=== PATIENT | female | born 1930 | race Caucasian/White ===

== ENCOUNTER 2019-08-20 14:41 | Inpatient (IN) | payer MEDICARE, BC ==
[~2019-08-20] VITALS: Ht 165.1 cm; Wt 68.1 kg
[2019-08-20 15:35] LABS: BASO % 0 % (0-3); EOS % 0 % (0-3); HEMATOCRIT 40.3 % (36.0-47.0); HEMOGLOBIN 13.7 g/dL (12.0-15.5); LYMPH # 0.8 x10^3/uL (1.0-4.8); LYMPH % 6 % (24-48); MEAN CORPUSCULAR HEMOGLOBIN 31 pg (25-35); MEAN CORPUSCULAR HGB CONC 34 g/dL (31-37); MEAN CORPUSCULAR VOLUME 90 fL (79-100); MONO # 0.9 x10^3/uL (0.0-1.1); MONO % 8 % (0-9); NEUT # 10.3 x10^3uL (1.8-7.7); NEUT % 86 % (31-73); PLATELET COUNT 302 x10^3/uL (140-400); RED BLOOD COUNT 4.46 x10^6/uL (3.50-5.40); RED CELL DISTRIBUTION WIDTH 13.4 % (11.5-14.5)
--- NOTE | 2019-08-20 15:50 | PHYS DOC ---
Adult General Chief Complaint Chief Complaint: MULTIPLE COMPLAINTS HPI HPI 89-year-old female presents with shortness of breath and fatigue. The patient has had long-standing shortness of breath, but she feels it is worse last couple days. She also feels extremely tired. She is not sure why. She denies any fever or chills. She denies any medication changes. She has been eating and drinking, but decreased amounts. She denies dysuria or increased urinary frequency. She has had constipation for about 3 days. She denies abdominal pain or chest pain. Review of Systems Review of Systems Constitutional: Fatigue. Denies fever or chills [] Eyes: Denies change in visual acuity, redness, or eye pain [] HENT: Denies nasal congestion or sore throat [] Respiratory: Denies cough or shortness of breath [] Cardiovascular: No additional information not addressed in HPI [] GI: Constipation. Denies abdominal pain, nausea, vomiting, bloody stools or diarrhea [] : Denies dysuria or hematuria [] Musculoskeletal: Denies back pain or joint pain [] Integument: Denies rash or skin lesions [] Neurologic: Denies headache, focal weakness or sensory changes [] Endocrine: Denies polyuria or polydipsia [] All other systems were reviewed and found to be within normal limits, except as documented in this note. Physical Exam Physical Exam Constitutional: Well developed, well nourished, no acute distress, non-toxic appearance. [] HENT: Normocephalic, atraumatic, bilateral external ears normal, oropharynx m oist, no oral exudates, nose normal. [] Eyes: PERRLA, EOMI, conjunctiva normal, no discharge. [] Neck: Normal range of motion, no tenderness, supple, no stridor. [] Cardiovascular:Heart rate regular rhythm, no murmur [] Lungs & Thorax: Bilateral breath sounds clear to auscultation [] Abdomen: Bowel sounds normal, soft, mild epigastric tenderness, no masses, no pulsatile masses. [] Skin: Warm, dry, no erythema, no rash. [] Back: No tenderness, no CVA tenderness. [] Extremities: No tenderness, no cyanosis, no clubbing, ROM intact, no edema. [] Neurologic: Alert and oriented X 3, normal motor function, normal sensory function, no focal deficits noted. [] Psychologic: Affect normal, judgement normal, mood normal. [] EKG EKG Sinus rhythm, rate 77, normal axis, no ST elevations or depressions. Inverted T waves V2 through V6[] Radiology/Procedures Radiology/Procedures [] Impressions: EXAM: 1. CHEST ONE VIEW. 2. ABDOMEN ONE VIEW. HISTORY: Malaise, constipation. COMPARISON: None. FINDINGS: Linear opacities in the bases are consistent with atelectasis or mild infiltrates. Hyperinflation is consistent with chronic obstructive pulmonary disease. There is no pneumothorax or pleural effusion. The heart is mildly enlarged. The aorta is calcified and tortuous. There are changes of instrumented posterior fusion on the right at L4-5. Stool throughout the colon is consistent with mild constipation. There are no distended small bowel loops. There is gas distally. IMPRESSION: 1. Hyperinflation suggests chronic obstructive pulmonary disease. Mild basilar atelectasis versus infiltrate. 2. Mild cardiomegaly. 3. Findings consistent with mild constipation. Electronically signed by: Jamil Luong MD (08/20/2019 4:00 PM) [facility] DICTATED AND SIGNED BY: JEANETTE LUONG MD DATE: 08/20/19 1600 CC: CARLOS CARBONE DO; LEANDRO ELKINS ~ Course & Med Decision Making Course & Med Decision Making Pertinent Labs and Imaging studies reviewed. (See chart for details) The patient's chest x-ray shows hyperinflation and basilar atelectasis. She has mild constipation throughout the colon. See official read for more details. She does not have a fever. Her ProBNP is 7099. Cr is 1.8, but I have history for comparison. Given her proBNP, bilateral atelectasis, and symptoms or shortness of breath, this seems likely to be CHF exacerbation. We will give her 40 mg of Lasix IV. We will admit her to the hospital. The patient is reluctant to be admitted, but her son is the power of workers compensation defense attorney and would like her admitted. I spoke with Dr. Cameron and he has accepted the patient for admission. [] Dragon Disclaimer Dragon Disclaimer This electronic medical record was generated, in whole or in part, using a voice recognition dictation system. Departure Departure: Impression: Primary Impression: CHF (congestive heart failure) Disposition: 09 ADMITTED INPATIENT Admitting Physician: Benigno Cameron Condition: STABLE Referrals: LEANDRO ELKINS (PCP) Problem Qualifiers Primary Impression: CHF (congestive heart failure) Heart failure type: systolic Heart failure chronicity: acute on chronic Qualified Codes: I50.23 - Acute on chronic systolic (congestive) heart failure CARLOS CARBONE DO Aug 20, 2019 15:50
--- NOTE | 2019-08-20 16:03 | RAD ---
EXAM: 1. CHEST ONE VIEW. 2. ABDOMEN ONE VIEW. HISTORY: Malaise, constipation. COMPARISON: None. FINDINGS: Linear opacities in the bases are consistent with atelectasis or mild infiltrates. Hyperinflation is consistent with chronic obstructive pulmonary disease. There is no pneumothorax or pleural effusion. The heart is mildly enlarged. The aorta is calcified and tortuous. There are changes of instrumented posterior fusion on the right at L4-5. Stool throughout the colon is consistent with mild constipation. There are no distended small bowel loops. There is gas distally. IMPRESSION: 1. Hyperinflation suggests chronic obstructive pulmonary disease. Mild basilar atelectasis versus infiltrate. 2. Mild cardiomegaly. 3. Findings consistent with mild constipation. Electronically signed by: Jamil Luong MD (08/20/2019 4:00 PM) [facility]
[2019-08-20 16:27] LABS: ALBUMIN 3.4 g/dL (3.4-5.0); ALBUMIN/GLOBULIN RATIO 0.9 (1.0-1.7); CREATININE 1.8 mg/dL (0.6-1.0); GFR 26.6; POTASSIUM 4.1 mmol/L (3.5-5.1); TOTAL BILIRUBIN 0.8 mg/dL (0.2-1.0); TOTAL PROTEIN 7.2 g/dL (6.4-8.2)
[2019-08-20 16:38] LABS: BACTERIA,URINE 0 /HPF (0-FEW); BILIRUBIN,URINE NEG (NEG); CLARITY,URINE HAZY; COLOR,URINE YELLOW; GLUCOSE,URINE NEG (NEG); HYALINE CASTS, URINE OCC /HPF; NITRITE,URINE NEG (NEG); RBC,URINE 0 /HPF (0-2); SQUAMOUS EPITHELIAL CELL,UR FEW /LPF; UROBILINOGEN,URINE 0.2 mg/dL (0.2 mg/dL)
[2019-08-20] MEDS ORDERED: FUROSEMIDE 40 MG/4 ML VIAL IVP ONE (17:00)
[2019-08-20] MEDS ORDERED: ONDANSETRON PF 4 MG/2 ML VIAL. IV PRN (17:30)
[2019-08-20] MEDS: ACETAMINOPHEN 325 MG TABLET PO PRN (18:09)
[2019-08-20] MEDS ORDERED: LORazepam 1 MG TABLET PO ONE (18:15)
[2019-08-20 20:07] VITALS: BP 149/80
--- NOTE | 2019-08-20 20:53 | NUR ---
Pt brought to unit via gurney accompanied by ems. Pt belongings checked, vitals taken, and head to toe assessed. Pt given unit routines and is resting with bed alarm activated.
--- NOTE | 2019-08-20 21:43 | PDOC ---
Exam Note: Leif Note: Please also refer to the separate dictated note~for this date of service dictated separately.~Patient seen individually. Discussed the patient with Nursing staff reviewed the chart.~Reviewed interim history and current functioning. Reviewed vital signs,~Labs/ Radiology~and current medications noted below. Continue current treatment with the changes noted in the dictated addendum note Assessment: Vital Signs/I&O: Vital Signs Date Time Temp Pulse Resp B/P (MAP) Pulse Ox O2 Delivery O2 Flow Rate FiO2 08/20/19 20:07 98.1 73 20 149/80 (103) 97 Room Air Labs: Laboratory Tests Test 08/20/19 14:47 08/20/19 15:45 08/20/19 16:05 White Blood Count 12.0 x10^3/uL (4.0-11.0) H Red Blood Count 4.46 x10^6/uL (3.50-5.40) Hemoglobin 13.7 g/dL (12.0-15.5) Hematocrit 40.3 % (36.0-47.0) Mean Corpuscular Volume 90 fL (79-100) Mean Corpuscular Hemoglobin 31 pg (25-35) Mean Corpuscular Hemoglobin Concent 34 g/dL (31-37) Red Cell Distribution Width 13.4 % (11.5-14.5) Platelet Count 302 x10^3/uL (140-400) Neutrophils (%) (Auto) 86 % (31-73) H Lymphocytes (%) (Auto) 6 % (24-48) L Monocytes (%) (Auto) 8 % (0-9) Eosinophils (%) (Auto) 0 % (0-3) Basophils (%) (Auto) 0 % (0-3) Neutrophils # (Auto) 10.3 x10^3uL (1.8-7.7) H Lymphocytes # (Auto) 0.8 x10^3/uL (1.0-4.8) L Monocytes # (Auto) 0.9 x10^3/uL (0.0-1.1) Eosinophils # (Auto) 0.0 x10^3/uL (0.0-0.7) Basophils # (Auto) 0.0 x10^3/uL (0.0-0.2) Sodium Level 134 mmol/L (136-145) L Potassium Level 4.1 mmol/L (3.5-5.1) Chloride Level 98 mmol/L (98-107) Carbon Dioxide Level 24 mmol/L (21-32) Anion Gap 12 (6-14) Blood Urea Nitrogen 30 mg/dL (7-20) H Creatinine 1.8 mg/dL (0.6-1.0) H Estimated GFR (Cockcroft-Gault) 26.6 BUN/Creatinine Ratio 17 (6-20) Glucose Level 103 mg/dL (70-99) H Calcium Level 9.0 mg/dL (8.5-10.1) Total Bilirubin 0.8 mg/dL (0.2-1.0) Aspartate Amino Transferase (AST) 38 U/L (15-37) H Alanine Aminotransferase (ALT) 34 U/L (14-59) Alkaline Phosphatase 77 U/L (46-116) Troponin I Quantitative < 0.017 ng/mL (0-0.055) UD-Pma-[id number]-Type Natriuretic Peptide 7099 pg/mL (0-449) H Total Protein 7.2 g/dL (6.4-8.2) Albumin 3.4 g/dL (3.4-5.0) Albumin/Globulin Ratio 0.9 (1.0-1.7) L Urine Collection Type Unknown Urine Color Yellow Urine Clarity Hazy Urine pH 5.5 Urine Specific [place] 1.015 Urine Protein 30 mg/dl (NEG-TRACE) Urine Glucose (UA) Neg mg/dL (NEG) Urine Ketones (Stick) Neg mg/dL (NEG) Urine Blood Neg (NEG) Urine Nitrite Neg (NEG) Urine Bilirubin Neg (NEG) Urine Urobilinogen Dipstick 0.2 mg/dL (0.2 mg/dL) Urine Leukocyte Esterase Small (NEG) Urine RBC 0 /HPF (0-2) Urine WBC 5-10 /HPF (0-4) Urine Squamous Epithelial Cells Few /LPF Urine Bacteria 0 /HPF (0-FEW) Urine Hyaline Casts Occ /HPF Urine Mucus Slight /LPF Current Medications: Meds: Current Medications Medications (Trade) Dose Ordered Sig/Beka Route PRN Reason Start Time Stop Time Status Last Admin Dose Admin Furosemide (Lasix) 40 mg 1X ONCE IVP 08/20/19 17:00 08/20/19 17:16 DC 08/20/19 17:06 Acetaminophen (Tylenol) 650 mg PRN Q4HRS PRN PO FEVER 08/20/19 17:30 08/21/19 17:29 08/20/19 18:09 Lorazepam (Ativan) 2 mg 1X ONCE PO 08/20/19 18:15 08/20/19 18:23 DC 08/20/19 18:09 I have reviewed the current psychotropics carefully including drug interactions. Risk benefit ratio favors no change other than as noted in my dictated progress note. Diagnosis: Problems: (1) CHF (congestive heart failure) ISAAC DEUTSCH MD Aug 20, 2019 21:43
[2019-08-20 23:36] VITALS: BP 86/55
[2019-08-21] MEDS ORDERED: APIX5TAB3 PO (05:12)
[2019-08-21] MEDS ORDERED: LEVO125T5 PO (05:12)
[2019-08-21] MEDS ORDERED: IBUP800T19 PO (05:12)
[2019-08-21] MEDS ORDERED: ASPI-630 PO (05:12)
[2019-08-21] MEDS ORDERED: ALEN35TA11 PO (05:12)
[2019-08-21] MEDS ORDERED: CALC-30 PO (05:12)
[2019-08-21] MEDS ORDERED: DOCO300C3 PO (05:12)
[2019-08-21] MEDS ORDERED: DULO30CA2 PO (05:12)
[2019-08-21] MEDS ORDERED: DICL100G18 TP (05:12)
[2019-08-21] MEDS ORDERED: CHOL10003 PO (05:12)
[2019-08-21] MEDS ORDERED: PANT40TA5 PO (05:12)
[2019-08-21] MEDS ORDERED: LISI-338 PO (05:12)
[2019-08-21 05:53] VITALS: BP 129/78
[2019-08-21] MEDS ORDERED: DICLOFENAC SODIUM 1% TOPICAL GEL 100GM TUBE. TP PRN (08:30)
--- NOTE | 2019-08-21 08:49 | PDOC2 ---
MARGARITA GRACE SENIOR JAVA ENGINEER 08/21/19 0849: CARDIAC CONSULT DATE OF CONSULT Date Of Consult DATE: 08/21/19 TIME: 08:47 REASON FOR CONSULT Reason for Consult CHF Exacerbation REFERRING PHYSICIAN Referring Physician Dr. Cameron SOURCE Source: Chart review, Patient HPI History of Present Illness This is an 89 yo female who presented secondary to shortness of breath, fatigue, and weakness. Was having difficulty walking. Patient reports her feet "didn't want to work". Notice some shortness of breath upon exertion. No chest pain, palpitations, dizziness, diaphoresis, or nausea/vomiting. PAST MEDICAL HISTORY Cardiovascular: CHF, HTN Pulmonary: COPD CENTRAL NERVOUS SYSTEM: Dementia GI: GERD Psych: Depression Musculoskeletal: Osteoarthritis Rheumatologic: Fibromyalgia Renal/: UTI Endocrine: Hypothyroidism PAST SURGICAL HISTORY Past Surgical History: Other (back surgery ) FAMILY HISTORY Family History: Hypertension SOCIAL HISTORY Smoke: No ALCOHOL: none Drugs: None Lives: with Family CURRENT MEDICATIONS Current Medications Current Medications Furosemide (Lasix) 40 mg 1X ONCE IVP Last administered on 08/20/19at 17:06; Start 08/20/19 at 17:00; Stop 08/20/19 at 17:16; Status DC Ondansetron HCl (Zofran) 4 mg PRN Q4HRS PRN IV NAUSEA/VOMITING; Start 08/20/19 at 17:30; Stop 08/21/19 at 17:29 Acetaminophen (Tylenol) 650 mg PRN Q4HRS PRN PO FEVER Last administered on 08/20/19at 18:09; Start 08/20/19 at 17:30; Stop 08/21/19 at 17:29 Lorazepam (Ativan) 2 mg 1X ONCE PO Last administered on 08/20/19at 18:09; Start 08/20/19 at 18:15; Stop 08/20/19 at 18:23; Status DC Lorazepam (Ativan) 0.5 mg PRN Q4HRS PRN PO ANXIETY / AGITATION; Start 08/20/19 at 19:15 Apixaban (Eliquis) 5 mg DAILY PO ; Start 08/21/19 at 09:00; Status UNV Aspirin (Children'S Aspirin) 81 mg DAILY PO ; Start 08/21/19 at 09:00 Vitamin D (Vitamin D3) 2,000 unit DAILY PO ; Start 08/21/19 at 09:00 Diclofenac Sodium (Voltaren) 100 ariela PRN BID PRN TP PAIN; Start 08/21/19 at 08:30 Duloxetine HCl (Cymbalta) 90 mg DAILY PO ; Start 08/21/19 at 09:00 Levothyroxine Sodium (Synthroid) 125 mcg DAILY06 PO ; Start 08/21/19 at 08:30 Lisinopril (Prinivil) 5 mg QHS PO ; Start 08/21/19 at 21:00 Pantoprazole Sodium (Protonix) 40 mg DAILYAC PO ; Start 08/21/19 at 08:30 Calcium/Vitamin D (Oscal D 500mg/ 200uts) 1 tab DAILY PO ; Start 08/21/19 at 09:00 Non-Formulary Medication (Docosahexanoic Acid (Algal-900 Dha)) 300 mg DAILY PO ; Start 08/21/19 at 09:00; Stop 08/21/19 at 08:32; Status DC Active Scripts Active Reported Voltaren (Diclofenac Sodium) 100 Gm Gel..gram. 100 Gm TP PRN BID PRN Vitamin D3 (Cholecalciferol (Vitamin D3)) 1,000 Unit Tablet 2,000 Unit PO DAILY Pantoprazole Sodium 40 Mg Tablet.dr 40 Mg PO DAILYAC Calcium 500 + Vit D 400 Tablet (Calcium Carbonate/Vitamin D3) 1 Each Tablet 1 Each PO DAILY Lisinopril 5 Mg Tablet 5 Mg PO QHS Levothyroxine Sodium 125 Mcg Tablet 125 Mcg PO DAILYAC Ibuprofen 800 Mg Tablet 800 Mg PO PRN Q8HRS PRN Eliquis (Apixaban) 5 Mg Tablet 5 Mg PO DAILY Cymbalta (Duloxetine Hcl) 30 Mg Capsule.dr 90 Mg PO DAILY Algal-900 Dha (Docosahexanoic Acid) 300 Mg Capsule 300 Mg PO DAILY Aspirin 81 Mg Tab.chew 81 Mg PO DAILY Alendronate Sodium 35 Mg Tablet 35 Mg PO WEEKLY ALLERGIES Allergies: Coded Allergies: Sulfa (Sulfonamide Antibiotics) (Verified Allergy, Unknown, 08/20/19) ROS Review of Systems 14 point ROS conducted with pertinent positives noted above in HPI. PHYSICAL EXAM General: Alert, Oriented X3, Cooperative, No acute distress HEENT: Atraumatic, Mucous membr. moist/pink Lungs: Clear to auscultation, Normal air movement Heart: Regular rate, Normal S1, Normal S2 Abdomen: Soft, No tenderness Extremities: No edema, Normal pulses Skin: No breakdown Neuro: Normal speech, Sensation intact Psych/Mental Status: Mental status NL, Mood NL MUSCULOSKELETAL: Osteoarthritic changes both hands VITALS Vital Signs Vital Signs Date Time Temp Pulse Resp B/P (MAP) Pulse Ox O2 Delivery O2 Flow Rate FiO2 08/21/19 05:53 98.3 72 20 129/78 (95) 98 Room Air LABS LABS Laboratory Tests Test 08/20/19 14:47 08/20/19 15:45 08/20/19 16:05 White Blood Count 12.0 x10^3/uL (4.0-11.0) Red Blood Count 4.46 x10^6/uL (3.50-5.40) Hemoglobin 13.7 g/dL (12.0-15.5) Hematocrit 40.3 % (36.0-47.0) Mean Corpuscular Volume 90 fL (79-100) Mean Corpuscular Hemoglobin 31 pg (25-35) Mean Corpuscular Hemoglobin Concent 34 g/dL (31-37) Red Cell Distribution Width 13.4 % (11.5-14.5) Platelet Count 302 x10^3/uL (140-400) Neutrophils (%) (Auto) 86 % (31-73) Lymphocytes (%) (Auto) 6 % (24-48) Monocytes (%) (Auto) 8 % (0-9) Eosinophils (%) (Auto) 0 % (0-3) Basophils (%) (Auto) 0 % (0-3) Neutrophils # (Auto) 10.3 x10^3uL (1.8-7.7) Lymphocytes # (Auto) 0.8 x10^3/uL (1.0-4.8) Monocytes # (Auto) 0.9 x10^3/uL (0.0-1.1) Eosinophils # (Auto) 0.0 x10^3/uL (0.0-0.7) Basophils # (Auto) 0.0 x10^3/uL (0.0-0.2) Sodium Level 134 mmol/L (136-145) Potassium Level 4.1 mmol/L (3.5-5.1) Chloride Level 98 mmol/L (98-107) Carbon Dioxide Level 24 mmol/L (21-32) Anion Gap 12 (6-14) Blood Urea Nitrogen 30 mg/dL (7-20) Creatinine 1.8 mg/dL (0.6-1.0) Estimated GFR (Cockcroft-Gault) 26.6 BUN/Creatinine Ratio 17 (6-20) Glucose Level 103 mg/dL (70-99) Calcium Level 9.0 mg/dL (8.5-10.1) Total Bilirubin 0.8 mg/dL (0.2-1.0) Aspartate Amino Transf (AST/SGOT) 38 U/L (15-37) Alanine Aminotransferase (ALT/SGPT) 34 U/L (14-59) Alkaline Phosphatase 77 U/L (46-116) Troponin I Quantitative < 0.017 ng/mL (0-0.055) SJ-Blm-N-Type Natriuretic Peptide 7099 pg/mL (0-449) Total Protein 7.2 g/dL (6.4-8.2) Albumin 3.4 g/dL (3.4-5.0) Albumin/Globulin Ratio 0.9 (1.0-1.7) Urine Collection Type Unknown Urine Color Yellow Urine Clarity Hazy Urine pH 5.5 Urine Specific [place] 1.015 Urine Protein 30 mg/dl (NEG-TRACE) Urine Glucose (UA) Neg mg/dL (NEG) Urine Ketones (Stick) Neg mg/dL (NEG) Urine Blood Neg (NEG) Urine Nitrite Neg (NEG) Urine Bilirubin Neg (NEG) Urine Urobilinogen Dipstick 0.2 mg/dL (0.2 mg/dL) Urine Leukocyte Esterase Small (NEG) Urine RBC 0 /HPF (0-2) Urine WBC 5-10 /HPF (0-4) Urine Squamous Epithelial Cells Few /LPF Urine Bacteria 0 /HPF (0-FEW) Urine Hyaline Casts Occ /HPF Urine Mucus Slight /LPF ASSESSMENT/PLAN Assessment/Plan 1. Weakness 2. Chronic diastolic CHF. NT Pro BNP elevated, but CXR no c/w overt HF. Rec eived IV Lasix in ED. Appears clinically compensated. 3. PAFIB; maintaining SR. Rate controlled without any rate control agents. On Eliquis for stroke prophylaxis. 4. ROMANA 5. Hyperlipidemia 6. Hypothyroidism 7. Dementia Recommendations Supportive care from a CV standpoint No further diuresis warranted. Continue Eliquis for stroke prophylaxis. GAUDENCIO JOYNER MD 08/21/198: CARDIAC CONSULT ASSESSMENT/PLAN Assessment/Plan Pt. seen and examined. Agree with above ULTRASOUND TECHNOL note. 89 y.o pleasant woman with dementia. No clinical signs of HF Supportive care. No further CV testing needed. Could consider outpt echo if any persistent dyspnea. MARGARITA GRACE APRN Aug 21, 2019 08:49 GAUDENCIO JOYNER MD Aug 21, 2019 22:36
[2019-08-21] MEDS ORDERED: DOCOSAHEXAENOIC ACID PO SCH (09:00)
[2019-08-21] MEDS ORDERED: DULoxetine HCL 30 MG CAPSULE.DR PO SCH (09:00)
[2019-08-21] MEDS: CHOLECALCIFEROL (VITAMIN D3) 1,000 UNIT TABLET PO SCH (09:06)
[2019-08-21] MEDS: ASPIRIN 81 MG TAB.CHEW PO SCH (09:06)
[2019-08-21] MEDS: PANTOPRAZOLE 40 MG TABLET. PO SCH (09:06)
[2019-08-21] MEDS: APIXABAN 5 MG TABLET. PO SCH ×2 (09:07→20:53)
[2019-08-21] MEDS: LEVOTHYROXINE 125 MCG TABLET PO SCH (09:07)
[2019-08-21] MEDS: CALCIUM CARB/VIT D3 500/200 TABLET PO SCH (09:07)
[2019-08-21 11:03] VITALS: BP 122/70
[2019-08-21 14:27] VITALS: BP 126/73
[2019-08-21 15:17] LABS: HEMATOCRIT 34.8 % (36.0-47.0); HEMOGLOBIN 11.8 g/dL (12.0-15.5); RED BLOOD COUNT 3.84 x10^6/uL (3.50-5.40); RED CELL DISTRIBUTION WIDTH 13.6 % (11.5-14.5)
--- NOTE | 2019-08-21 15:22 | HP ---
ADMIT DATE: HISTORY OF PRESENT ILLNESS: The patient is an 89-year-old female patient, who was brought to the Emergency Room with a complaint of shortness of breath and fatigue. She apparently is known to have a longstanding history of shortness of breath, but feels that it is worse the last couple of days. She also feels extremely tired and she is not sure why. Extensive review of system was unremarkable. She was evaluated in the Emergency Room and has had lab work, which showed that she has chronic kidney injury. Her beta natriuretic peptide was high. Her white cell count was slightly elevated, but the patient has normal manual differential. The patient herself denied any medical problem; however, looking at her medication list, she has hypertension, hypothyroidism, osteoporosis, osteoarthritis. She is also on apixaban and indicating either she probably might have atrial fibrillation and/or DVT. The patient has never been admitted here and I do not have any records. PAST SURGICAL HISTORY: Significant for cervical spine fusion, lumbar spine fusion. She has bilateral cataract extraction, appendectomy, right knee surgery, and colonoscopy. ALLERGIES: She is allergic to SULFA DRUGS. MEDICATIONS: She is currently on following medications: She is on apixaban 5 mg twice a day, lisinopril 5 mg at bedtime, aspirin 81 mg once a day, diclofenac sodium 100 grams apply topically twice a day, ibuprofen 800 mg every 8 hours, duloxetine 90 mg daily, calcium carbonate with vitamin D3 one tablet once a day, docosahexaenoic acid 300 mg daily. She is on Protonix 40 mg daily, levothyroxine sodium 125 mcg once a day, vitamin D3 2000 International Units once a day, alendronate sodium 35 mg once a week. FAMILY HISTORY: She has 1 younger sister who is alive and healthy. Her father at age of 71 because of prostate cancer. Mother at age of 88, she fell and has hip fracture, developed pneumonia and . SOCIAL HISTORY: She is . She has a son and a daughter. She lives with her son and his . She has never smoked. She does not drink alcohol or use any recreational drugs. 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 REVIEW OF SYSTEMS: The patient denies any blurring of vision, cataract, glaucoma or macular degeneration. Denied any earache, tinnitus or sensorineural deafness. Denied any nosebleeds, stuffy nose or postnasal drip. Denied any sore throat, sore tongue, toothache, hoarseness of voice or difficulty swallowing. Denied any nausea, vomiting, diarrhea or constipation. Denied any hematemesis, melena or hematochezia. Denied any dysuria, frequency or hematuria. Denied any chest pain, shortness of breath, orthopnea, paroxysmal nocturnal dyspnea. Denied any cough, phlegm or hemoptysis. Denied any dizziness, lightheadedness, or vertigo. PHYSICAL EXAMINATION: GENERAL: On arrival to the Emergency Room, she looked well and was clearly in no apparent respiratory distress, slightly pale, but no jaundice, cyanosis or thyromegaly. No jugular venous distention. No lower limb edema. VITAL SIGNS: Her heart rate was 72, blood pressure was 149/80, temperature was 97.9, respiratory rate 18, and oxygen saturation was 98%. HEAD, EYES, EARS, NOSE AND THROAT: Showed normocephalic, atraumatic. NECK: Supple. HEART: Showed normal first and second heart sounds. No gallop or murmur. CHEST: Clear to auscultation. No crepitation or rhonchi. ABDOMEN: Distended, soft, nontender. No guarding or rigidity. No organomegaly. All hernial orifice intact. Bowel sounds normal. NEUROLOGIC: She somewhat seemed to be demented; however, all her cranial nerves are intact. EXTREMITIES: She moves extremities without difficulty. She ambulates with a walker, but she apparently became very short of breath in a very short distance. LABORATORY DATA: Her lab work on admission showed a serum sodium 134, potassium 4.1, chloride 98, bicarbonate 24, anion gap of 12, BUN 30, creatinine 1.8, estimated GFR was 26 mL per minute. Her glucose was 103, calcium was 9. Total bilirubin 0.8. AST, ALT, alkaline phosphatase were normal. Total protein was 7.2, albumin 3.4. Her urinalysis showed the urine was yellow, hazy with a pH of 5.5, specific gravity 1.015. There was small amount of protein. The urine was negative for glucose, ketones, blood, nitrite, leukocyte esterase. There are no rbc's, 5-10 wbc's, and no bacteria. Chest x-ray showed hyperinflation suggests chronic obstructive pulmonary disease, mild basilar atelectasis versus infiltrate, also mild cardiomegaly and findings consistent with mild constipation. Apparently, the patient was given Lasix 40 mg IV while in the Emergency Room, was admitted for further evaluation and treatment for basically marked generalized weakness and shortness of breath with minimal exertion. MIRELLA SAMANO MD DR: WENDY/franc JOB#: [id number] / [id number]
[2019-08-21 15:27] LABS: ALBUMIN 3.1 g/dL (3.4-5.0); ALBUMIN/GLOBULIN RATIO 0.8 (1.0-1.7); CALCIUM 8.8 mg/dL (8.5-10.1); CREATININE 2.3 mg/dL (0.6-1.0); POTASSIUM 3.9 mmol/L (3.5-5.1); TOTAL BILIRUBIN 0.4 mg/dL (0.2-1.0); TOTAL PROTEIN 7.2 g/dL (6.4-8.2)
[2019-08-21] MEDS: ACETAMINOPHEN 325 MG TABLET PO PRN (17:07)
[2019-08-21] MEDS: RIVASTIGMINE 4.6MG PATCH. TD SCH (17:08)
[2019-08-21] MEDS: LISINOPRIL 5 MG TABLET. PO SCH (20:53)
[2019-08-21] MEDS: LORazepam 0.5 MG TABLET PO PRN (20:53)
[2019-08-21] MEDS: IV NORMAL SALINE 1,000ML 1,000 ML IV SCH (21:00)
--- NOTE | 2019-08-21 21:06 | PDOC ---
Exam Note: Leif Note: Please also refer to the separate dictated note~for this date of service dictated separately.~Patient seen individually. Discussed the patient with Nursing staff reviewed the chart.~Reviewed interim history and current functioning. Reviewed vital signs,~Labs/ Radiology~and current medications noted below. Continue current treatment with the changes noted in the dictated addendum note Assessment: Vital Signs/I&O: Vital Signs Date Time Temp Pulse Resp B/P (MAP) Pulse Ox O2 Delivery O2 Flow Rate FiO2 08/21/19 20:53 70 126/73 08/21/19 14:27 97.9 97 Room Air 08/21/19 11:03 20 I & O 08/20/19 08/20/19 08/21/19 15:00 23:00 07:00 Intake Total 120 ml Output Total 22 ml Balance 98 ml Labs: Laboratory Tests Test 08/21/19 15:10 White Blood Count 9.0 x10^3/uL (4.0-11.0) Red Blood Count 3.84 x10^6/uL (3.50-5.40) Hemoglobin 11.8 g/dL (12.0-15.5) L Hematocrit 34.8 % (36.0-47.0) L Mean Corpuscular Volume 91 fL (79-100) Mean Corpuscular Hemoglobin 31 pg (25-35) Mean Corpuscular Hemoglobin Concent 34 g/dL (31-37) Red Cell Distribution Width 13.6 % (11.5-14.5) Platelet Count 263 x10^3/uL (140-400) Sodium Level 130 mmol/L (136-145) L Potassium Level 3.9 mmol/L (3.5-5.1) Chloride Level 95 mmol/L (98-107) L Carbon Dioxide Level 28 mmol/L (21-32) Anion Gap 7 (6-14) Blood Urea Nitrogen 41 mg/dL (7-20) H Creatinine 2.3 mg/dL (0.6-1.0) H Estimated GFR (Cockcroft-Gault) 20.0 BUN/Creatinine Ratio 18 (6-20) Glucose Level 96 mg/dL (70-99) Calcium Level 8.8 mg/dL (8.5-10.1) Total Bilirubin 0.4 mg/dL (0.2-1.0) Aspartate Amino Transferase (AST) 22 U/L (15-37) Alanine Aminotransferase (ALT) 27 U/L (14-59) Alkaline Phosphatase 72 U/L (46-116) Creatine Kinase 25 U/L (26-192) L Total Protein 7.2 g/dL (6.4-8.2) Albumin 3.1 g/dL (3.4-5.0) L Albumin/Globulin Ratio 0.8 (1.0-1.7) L Current Medications: Meds: Current Medications Medications (Trade) Dose Ordered Sig/Beka Route PRN Reason Start Time Stop Time Status Last Admin Dose Admin Apixaban (Eliquis) 5 mg BID PO 08/21/19 09:00 08/21/19 20:53 Aspirin (Children'S Aspirin) 81 mg DAILY PO 08/21/19 09:00 08/21/19 09:06 Vitamin D (Vitamin D3) 2,000 unit DAILY PO 08/21/19 09:00 08/21/19 09:06 Duloxetine HCl (Cymbalta) 90 mg DAILY PO 08/21/19 09:00 08/21/19 15:27 DC 08/21/19 09:07 Levothyroxine Sodium (Synthroid) 125 mcg DAILY06 PO 08/21/19 08:30 08/21/19 09:07 Lisinopril (Prinivil) 5 mg QHS PO 08/21/19 21:00 08/21/19 20:53 Pantoprazole Sodium (Protonix) 40 mg DAILYAC PO 08/21/19 08:30 08/21/19 09:06 Calcium/Vitamin D (Oscal D 500mg/ 200uts) 1 tab DAILY PO 08/21/19 09:00 08/21/19 09:07 Rivastigmine (Exelon) 1 patch DAILY TD 08/21/19 15:30 08/21/19 17:08 I have reviewed the current psychotropics carefully including drug interactions. Risk benefit ratio favors no change other than as noted in my dictated progress note. Diagnosis: Problems: (1) CHF (congestive heart failure) ISAAC DEUTSCH MD Aug 21, 2019 21:06
--- NOTE | 2019-08-22 01:41 | CONS ---
DATE OF CONSULTATION: 08/20/2019 PSYCHIATRIC CONSULTATION This late entry 08/20/2019 covers elements not covered in my initial note. IDENTIFYING DATA: The patient is an 89-year-old female seen on [facility], for a psychiatric consultation requested by Dr. Cameron on account of the patient's progressive confusion, depression, anxiety. The patient was seen individually evening of 08/20/2019, discussed with nursing staff, reviewed the chart. CHIEF COMPLAINT: "My memory is alright. Oh, the President is President Javier. Oh, before him was Nuria's . Oh, the year is 1989". HISTORY OF PRESENT ILLNESS: The patient lives at home with her son and presented to the ER with shortness of breath and fatigue. She does have a UTI and was noted to have mental status changes, worsening confusion. No active psychotic symptoms, suicidal or homicidal ideation. No clear history of bipolar disorder. PAST PSYCHIATRIC HISTORY: As above. She is currently on Cymbalta 90 mg a day. MEDICAL HISTORY: UTI, COPD, CHF, constipation. FAMILY HISTORY: Noncontributory. 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 No alcohol or drug abuse history. She resides at home with her son, John, who is her power of trust and estates attorney and states she goes to the [facility] x 3 a week and they send the transportation to get her Wednesday, Wednesday and Wednesday. MENTAL STATUS EXAMINATION: The patient was seen individually evening of 08/20/2019. She is oriented to herself and situation. She thought the year was 1989, knew that the President was President Javier, but believed before him, was Nuria Guerin's . Short term memory is impaired, remote is better. She denies being depressed. No psychotic symptoms, suicidal or homicidal ideation. Attention span short. She is otherwise very pleasant, cooperative and appropriate. LABORATORY DATA: Reviewed. 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 RECOMMENDATIONS: From a psychiatric standpoint, perhaps the Cymbalta could be reduced down to 60 mg a day, which given her age might be quite adequate. PLAN: Given the questionable Alzheimers' dementia, perhaps Exelon patch 4.6 mg a day, could be added increasing later to 9.5 mg a day. I do feel some of the confusion should improve with resolution of the UTI. Dr. Cameron, thank you for the opportunity to participate in your patient's care. We will follow with you. MAN Rachel DEUTSCH MD DR: ALEA/franc JOB#: [id number] / [id number]
[2019-08-22] MEDS: LEVOTHYROXINE 125 MCG TABLET PO SCH (06:00)
[2019-08-22 06:20] VITALS: BP 137/77
[2019-08-22 06:59] LABS: CALCIUM 8.4 mg/dL (8.5-10.1); CREATININE 1.7 mg/dL (0.6-1.0); GFR 28.4; MAGNESIUM 2.1 mg/dL (1.8-2.4); POTASSIUM 3.9 mmol/L (3.5-5.1)
[2019-08-22] MEDS: ASPIRIN 81 MG TAB.CHEW PO SCH (09:37)
[2019-08-22] MEDS: PANTOPRAZOLE 40 MG TABLET. PO SCH (09:37)
[2019-08-22] MEDS: LORazepam 0.5 MG TABLET PO PRN ×2 (09:38→21:08)
[2019-08-22] MEDS: DULoxetine HCL 30 MG CAPSULE.DR PO SCH (09:38)
[2019-08-22] MEDS: CALCIUM CARB/VIT D3 500/200 TABLET PO SCH (09:38)
[2019-08-22] MEDS: CHOLECALCIFEROL (VITAMIN D3) 1,000 UNIT TABLET PO SCH (09:38)
[2019-08-22] MEDS: APIXABAN 5 MG TABLET. PO SCH ×2 (09:38→21:08)
[2019-08-22] MEDS: RIVASTIGMINE 4.6MG PATCH. TD SCH (09:46)
[2019-08-22 11:30] VITALS: BP 128/73
[2019-08-22] MEDS: IV NORMAL SALINE 1,000ML 1,000 ML IV SCH ×2 (11:38→21:08)
--- NOTE | 2019-08-22 12:33 | PN ---
DATE: 08/21/2019 SUBJECTIVE: The patient is resting, slightly propped up in bed, in no apparent respiratory distress. She is awake, alert. On questioning her about some generalized weakness, denied any other complaint, she denied having any medical problem, she was more aware of any surgical procedures and stated that her weakness has only started 2 days ago. PHYSICAL EXAMINATION: GENERAL: When I examined her, she was pale, but no jaundice, cyanosis or thyromegaly. No jugular venous distention. No limb edema. VITAL SIGNS: Her heart rate was 70, blood pressure was 126/73, temperature was 97.9, respiratory rate 20, and oxygen saturation was 97%. HEAD, EYES, EARS, NOSE AND THROAT: Showed normocephalic, atraumatic. NECK: Supple. HEART: Showed normal first and second heart sounds. No gallop or murmur. CHEST: Clear to auscultation. No crepitation or rhonchi. ABDOMEN: Distended, soft, nontender. No guarding or rigidity. No organomegaly. All hernial orifices intact. Bowel sounds normal. NEUROLOGIC: She was awake, alert, and responding appropriately. All cranial nerves intact. She moves extremities without difficulty. She is very short of breath on minimal exertion. LABORATORY DATA: So far, most of her lab works are well within normal range, transpired that she has probably COPD, although she claimed to be a nonsmoker. I do not know whether her has been a smoker and she has a secondhand smoking. She has also hypothyroidism, impaired kidney function and she is also on apixaban, and osteoporosis and osteoarthritis. PLAN: My plan is to talk to her son. Check her thyroid function, sed rate and C-reactive protein and decide the further management accordingly. MIRELLA SAMANO MD DR: WENDY/franc JOB#: [id number] / [id number]
[2019-08-22 16:23] VITALS: BP 196/84
[2019-08-22 19:51] VITALS: BP 158/77
--- NOTE | 2019-08-22 21:02 | PDOC ---
Exam Note: Leif Note: Please also refer to the separate dictated note~for this date of service dictated separately.~Patient seen individually. Discussed the patient with Nursing staff reviewed the chart.~Reviewed interim history and current functioning. Reviewed vital signs,~Labs/ Radiology~and current medications noted below. Continue current treatment with the changes noted in the dictated addendum note Assessment: Vital Signs/I&O: Vital Signs Date Time Temp Pulse Resp B/P (MAP) Pulse Ox O2 Delivery O2 Flow Rate FiO2 08/22/19 19:51 98.1 66 18 158/77 (104) 95 Room Air I & O 08/21/19 08/21/19 08/22/19 15:00 23:00 07:00 Intake Total 1020 ml 440 ml 370 ml Balance 1020 ml 440 ml 370 ml Labs: Laboratory Tests Test 08/22/19 06:22 Erythrocyte Sedimentation Rate 25 (0-25) Sodium Level 134 mmol/L (136-145) L Potassium Level 3.9 mmol/L (3.5-5.1) Chloride Level 100 mmol/L (98-107) Carbon Dioxide Level 24 mmol/L (21-32) Anion Gap 10 (6-14) Blood Urea Nitrogen 35 mg/dL (7-20) H Creatinine 1.7 mg/dL (0.6-1.0) H Estimated GFR (Cockcroft-Gault) 28.4 Glucose Level 94 mg/dL (70-99) Calcium Level 8.4 mg/dL (8.5-10.1) L Magnesium Level 2.1 mg/dL (1.8-2.4) C-Reactive Protein 13.7 mg/L (0-3.3) H Thyroid Stimulating Hormone (TSH) 0.855 uIU/mL (0.358-3.740) Current Medications: Meds: Current Medications Medications (Trade) Dose Ordered Sig/Beka Route PRN Reason Start Time Stop Time Status Last Admin Dose Admin Lisinopril (Prinivil) 5 mg QHS PO 08/21/19 21:00 08/21/19 20:53 Duloxetine HCl (Cymbalta) 60 mg DAILY PO 08/22/19 09:00 08/22/19 09:38 Sodium Chloride 1,000 ml @ 100 mls/hr Q10H IV 08/21/19 21:00 08/22/19 11:38 I have reviewed the current psychotropics carefully including drug interactions. Risk benefit ratio favors no change other than as noted in my dictated progress note. Diagnosis: Problems: (1) CHF (congestive heart failure) (2) Major neurocognitive disorder (3) Anxiety disorder (4) Dementia in Alzheimer's disease with depression ISAAC DEUTSCH MD Aug 22, 2019 21:02
[2019-08-22] MEDS: LISINOPRIL 5 MG TABLET. PO SCH (21:08)
[2019-08-22 22:48] VITALS: BP 165/75
--- NOTE | 2019-08-23 04:20 | PN ---
DATE: 08/21/2019 PSYCHIATRIC PROGRESS NOTE This late entry 08/21/2019 covers elements not covered in my initial note. SUBJECTIVE: I met with the patient evening of 08/21/2019. The patient remains confused, but not agitated, aggressive. She minimizes her memory deficits, but has been fairly pleasant, being treated for her UTI. REVIEW OF SYSTEMS: No CV, , pulmonary, eye, ENT system symptoms on review. MENTAL STATUS EXAM: Oriented to herself. Insight, judgment, recent and remote memory, attention, concentration, fund of knowledge poor, consistent with her diagnoses. IMPRESSION: Major neurocognitive disorder, Alzheimer, vascular with depression, delusion, behavioral disturbance; anxiety disorder, unspecified. Rest unchanged. PLAN: No change from a psychiatric standpoint for now from my initial note. MAN Rachel DEUTSCH MD DR: ALEA/franc JOB#: [id number] / [id number]
[2019-08-23 05:54] VITALS: BP 154/77
[2019-08-23] MEDS: LEVOTHYROXINE 125 MCG TABLET PO SCH (06:03)
[2019-08-23] MEDS: IV NORMAL SALINE 1,000ML 1,000 ML IV SCH ×3 (06:04→20:36)
[2019-08-23 06:43] LABS: BASO # 0.1 x10^3/uL (0.0-0.2); BASO % 1 % (0-3); EOS # 0.5 x10^3/uL (0.0-0.7); EOS % 7 % (0-3); HEMATOCRIT 31.8 % (36.0-47.0); HEMOGLOBIN 10.7 g/dL (12.0-15.5); LYMPH # 0.5 x10^3/uL (1.0-4.8); LYMPH % 7 % (24-48); MEAN CORPUSCULAR HEMOGLOBIN 30 pg (25-35); MEAN CORPUSCULAR HGB CONC 34 g/dL (31-37); MEAN CORPUSCULAR VOLUME 90 fL (79-100); MONO # 0.6 x10^3/uL (0.0-1.1); MONO % 9 % (0-9); NEUT # 5.2 x10^3uL (1.8-7.7); NEUT % 76 % (31-73); PLATELET COUNT 241 x10^3/uL (140-400); RED BLOOD COUNT 3.54 x10^6/uL (3.50-5.40); RED CELL DISTRIBUTION WIDTH 13.2 % (11.5-14.5); WHITE BLOOD COUNT 6.9 x10^3/uL (4.0-11.0)
--- NOTE | 2019-08-23 06:51 | PN ---
DATE: 08/22/2019 SUBJECTIVE: The patient is an 89-year-old female patient who was admitted with generalized weakness according to her [id number]. She was in [facility] where she was there for about 2 weeks after she was admitted to [facility]. She was apparently very weak, dehydrated. They did extensive investigation and from there, she was transferred to [facility] and eventually came back home. Normally, she goes to [facility] on 3 days per week and normally she is up and about, able to walk with a cane. Occasionally, she has to use a walker according to her family. Since she came back from [facility] last , she has been very weak and has been delusional, talks about people who have long time ago. She was wearing her clothes backward and has generally been very weak. She was on duloxetine 90 mg and [facility] was only on [facility] mg. She also has problem with chronic constipation and her [id number] stated that she is not strong enough to be able to go back home as she stays alone and she does not go to the [facility] and would like her to be admitted to a Half-Way Facility, preferably around this [facility]. On questioning here, the patient stated that she has pain around her neck and shoulders. She claimed that she has a bowel movement, although that has not been confirmed by the CON[employer]ER [employer]IGHT[employer] SPECIALIST or our registered nurse. PHYSICAL EXAMINATION: GENERAL: When I examined her this afternoon, she looked pale, but no jaundice, cyanosis or thyromegaly. No jugular venous distention. No limb edema. VITAL SIGNS: Her heart rate was 68, blood pressure was 128/73, temperature was 98.1, respiratory rate was 18 and oxygen saturation was 97%. HEAD, EYES, EARS, NOSE AND THROAT: Showed normocephalic, atraumatic. NECK: Supple. HEART: Showed normal first and second heart sounds. No gallop, rub or murmur. CHEST: Clear to auscultation. No crepitation or rhonchi. ABDOMEN: Distended, soft, nontender. No guarding or rigidity. No organomegaly. All hernial orifices intact. Bowel sounds normal. NEUROLOGIC: She is awake, alert. All her cranial nerves intact. She moves extremities without difficulty, although she is mostly bed bound. Her intake was incompletely recorded. LABORATORY DATA: As of this morning showed that her serum sodium was 134, potassium 3.9, chloride 100, bicarbonate 24, anion gap of 10, BUN 35, creatinine 1.7, estimated GFR was 28 mL per minute. Her glucose was 94, calcium was 8.4, magnesium was 2.1. Her TSH was normal at 0.855. Her C-reactive protein was 13.7. Her white cell count was 9000, hemoglobin 11.8, hematocrit 34, MCV 91, and platelet count 263,000. Her sedimentation rate was 25 mm per hour. Her CK was only 25. Total protein was 7.2, albumin was 3.1. ASSESSMENT: In summary, this is an 89-year-old female patient who basically was admitted with generalized weakness and delusions. Her [id number] said that she was talking about people who have long time ago. She was wearing her clothes backward and she was generally weak. Normally, she is able to walk with a cane, occasionally with a walker, but she was fairly independent. She was on duloxetine 90 mg once a day at bedtime, when she was discharged from [facility], she was only on 30. She is actually now on 60 mg once a day. She has a multitude of medical problems. Her creatinine, when she was admitted to [facility], was only 1.1 and when she came to us, it went up to 2.1, which is clear that she is dehydrated. So in summary, this is an 89 year old with following medical problems. She has hypertension, hypothyroidism, chronic atrial fibrillation and chronic hyponatremia. She is known to have diastolic congestive heart failure. She has also chronic constipation. She has also osteoporosis and osteoarthritis. PLAN: My plan is to continue with IV fluid. I will arrange for her to have a CT scan of the abdomen with oral contrast only and continue with physical and occupational therapy. We will consult our keycase assembler for placement in a Half-Way Facility as she is unable to go back home to stay on her own given her weakness. MIRELLA SAMANO MD DR: WENDY/franc JOB#: [id number] / [id number]
[2019-08-23 07:05] LABS: ALBUMIN 2.6 g/dL (3.4-5.0); ALBUMIN/GLOBULIN RATIO 0.7 (1.0-1.7); CALCIUM 8.1 mg/dL (8.5-10.1); CREATININE 1.3 mg/dL (0.6-1.0); GFR 38.7; POTASSIUM 3.9 mmol/L (3.5-5.1); TOTAL BILIRUBIN 0.4 mg/dL (0.2-1.0); TOTAL PROTEIN 6.2 g/dL (6.4-8.2)
[2019-08-23] MEDS: PANTOPRAZOLE 40 MG TABLET. PO SCH (07:54)
[2019-08-23] MEDS: ASPIRIN 81 MG TAB.CHEW PO SCH (07:54)
[2019-08-23] MEDS: APIXABAN 5 MG TABLET. PO SCH ×2 (07:54→20:31)
[2019-08-23] MEDS: DULoxetine HCL 30 MG CAPSULE.DR PO SCH (07:54)
[2019-08-23] MEDS: CHOLECALCIFEROL (VITAMIN D3) 1,000 UNIT TABLET PO SCH (07:54)
[2019-08-23] MEDS: CALCIUM CARB/VIT D3 500/200 TABLET PO SCH (07:54)
[2019-08-23] MEDS: RIVASTIGMINE 4.6MG PATCH. TD SCH (07:58)
[2019-08-23 11:00] VITALS: BP 171/83
[2019-08-23 15:51] VITALS: BP 159/74
--- NOTE | 2019-08-23 17:41 | RAD ---
CT ABD PEL W/ORAL CONTRST ONLY Indication: Abdominal distention Technique: Noncontrast CT imaging was performed of the abdomen pelvis, multiplanar reconstruction images submitted. Oral contrast was also given. One or more of the following individualized dose reduction techniques were utilized for this examination: 1. Automated exposure control 2. Adjustment of the mA and/or kV according to patient size 3. Use of iterative reconstruction technique. Comparison: None Findings: There is motion degradation. There is likely some coronary calcification. There is small quantity of right pleural fluid near the lung base. Accurate evaluation of abdominal visceral organs is limited without intravenous contrast and also due to motion, no obvious focal abnormality of the liver. There are some tiny granulomas. No obvious focal abnormality is identified of the pancreas. Gallbladder is believed to be present although poorly evaluated due to motion. There is possible trace perihepatic fluid. There is no adrenal nodularity. There is no significant hydronephrosis of either kidney, no renal calculus identified. The entirety of the bowel is not opacified with oral contrast during exam. There is mild distention of stomach. There is some variable retained stool in the colon. Small bowel is not significantly dilated. No obvious free air is identified. No significant extraluminal fluid collection is identified. There is fairly severe sigmoid diverticulosis, no obvious evidence of diverticulitis. Appendix is not clearly identified if still present. There is posterolateral fusion hardware with right pedicle screws L4-L5. There is degenerative disc disease greatest at L3-4 and L2-3. There is fat in the inguinal canals bilaterally, also short segment of nondilated small bowel on the right. There is osteoarthritic change of the bilateral hips. IMPRESSION: 1. Exam is degraded by motion also limited due to the lack of intravenous contrast as described. There is variable retained stool of the colon. There is colonic diverticulosis greatest of the sigmoid colon. There is mild distention of the stomach. 2. There is fat in the inguinal canals bilaterally, also short segment of nondilated small bowel on the right. 3. There may be trace perihepatic fluid although poorly characterized due to motion. Electronically signed by: Sebastien Rodríguez MD (08/23/2019 5:38 PM) [id number]
[2019-08-23] MEDS: ACETAMINOPHEN 325 MG TABLET PO PRN (17:54)
[2019-08-23] MEDS ORDERED: SENNOSIDES 8.6 MG TABLET PO PRN (18:00)
--- NOTE | 2019-08-23 18:10 | NUR ---
Gave patient prune juice for constipation.
[2019-08-23 20:07] VITALS: BP 163/74
[2019-08-23] MEDS: LISINOPRIL 5 MG TABLET. PO SCH (20:31)
[2019-08-23] MEDS: DOCUSATE SODIUM 100 MG CAPSULE PO SCH (20:31)
[2019-08-23] MEDS: LORazepam 0.5 MG TABLET PO PRN (20:34)
--- NOTE | 2019-08-23 21:27 | PDOC ---
Exam Note: Leif Note: Please also refer to the separate dictated note~for this date of service dictated separately.~Patient seen individually. Discussed the patient with Nursing staff reviewed the chart.~Reviewed interim history and current functioning. Reviewed vital signs,~Labs/ Radiology~and current medications noted below. Continue current treatment with the changes noted in the dictated addendum note Assessment: Vital Signs/I&O: Vital Signs Date Time Temp Pulse Resp B/P (MAP) Pulse Ox O2 Delivery O2 Flow Rate FiO2 08/23/19 20:31 74 163/74 08/23/19 20:07 98.7 20 97 Room Air I & O 08/22/19 08/22/19 08/23/19 15:00 23:00 07:00 Intake Total 120 ml 1560 ml 1349 ml Balance 120 ml 1560 ml 1349 ml Labs: Laboratory Tests Test 08/23/19 06:24 White Blood Count 6.9 x10^3/uL (4.0-11.0) Red Blood Count 3.54 x10^6/uL (3.50-5.40) Hemoglobin 10.7 g/dL (12.0-15.5) L Hematocrit 31.8 % (36.0-47.0) L Mean Corpuscular Volume 90 fL (79-100) Mean Corpuscular Hemoglobin 30 pg (25-35) Mean Corpuscular Hemoglobin Concent 34 g/dL (31-37) Red Cell Distribution Width 13.2 % (11.5-14.5) Platelet Count 241 x10^3/uL (140-400) Neutrophils (%) (Auto) 76 % (31-73) H Lymphocytes (%) (Auto) 7 % (24-48) L Monocytes (%) (Auto) 9 % (0-9) Eosinophils (%) (Auto) 7 % (0-3) H Basophils (%) (Auto) 1 % (0-3) Neutrophils # (Auto) 5.2 x10^3uL (1.8-7.7) Lymphocytes # (Auto) 0.5 x10^3/uL (1.0-4.8) L Monocytes # (Auto) 0.6 x10^3/uL (0.0-1.1) Eosinophils # (Auto) 0.5 x10^3/uL (0.0-0.7) Basophils # (Auto) 0.1 x10^3/uL (0.0-0.2) Sodium Level 135 mmol/L (136-145) L Potassium Level 3.9 mmol/L (3.5-5.1) Chloride Level 103 mmol/L (98-107) Carbon Dioxide Level 24 mmol/L (21-32) Anion Gap 8 (6-14) Blood Urea Nitrogen 23 mg/dL (7-20) H Creatinine 1.3 mg/dL (0.6-1.0) H Estimated GFR (Cockcroft-Gault) 38.7 BUN/Creatinine Ratio 18 (6-20) Glucose Level 92 mg/dL (70-99) Calcium Level 8.1 mg/dL (8.5-10.1) L Total Bilirubin 0.4 mg/dL (0.2-1.0) Aspartate Amino Transferase (AST) 12 U/L (15-37) L Alanine Aminotransferase (ALT) 16 U/L (14-59) Alkaline Phosphatase 55 U/L (46-116) Total Protein 6.2 g/dL (6.4-8.2) L Albumin 2.6 g/dL (3.4-5.0) L Albumin/Globulin Ratio 0.7 (1.0-1.7) L Current Medications: Meds: Current Medications Medications (Trade) Dose Ordered Sig/Beka Route PRN Reason Start Time Stop Time Status Last Admin Dose Admin Acetaminophen (Tylenol) 650 mg PRN Q6HRS PRN PO PAIN / TEMP 08/23/19 17:30 08/23/19 17:54 Docusate Sodium (Colace) 100 mg BID PO 08/23/19 21:00 08/23/19 20:31 I have reviewed the current psychotropics carefully including drug interactions. Risk benefit ratio favors no change other than as noted in my dictated progress note. Diagnosis: Problems: (1) Anxiety disorder (2) Vascular dementia with depression (3) Major neurocognitive disorder (4) Dementia in Alzheimer's disease with depression ISAAC DEUTSCH MD Aug 23, 2019 21:27
[2019-08-23 22:35] VITALS: BP 157/76
--- NOTE | 2019-08-24 02:44 | PN ---
DATE: 08/23/2019 SUBJECTIVE: The patient is resting flat, comfortably in bed, in no apparent distress. On questioning her, she said that she is feeling much better, has been up and about walking with physical therapy and feeling generally much improved. So far, she has not had any, apparently bowel movement. PHYSICAL EXAMINATION: GENERAL: When I examined her, she looked pale, but no jaundice, cyanosis or thyromegaly. No jugular venous distension. No limb edema. VITAL SIGNS: Her heart rate was 79, blood pressure was 171/83, temperature was 98.3, respiratory rate was 20, and oxygen saturation was 95%. HEAD, EYES, EARS, NOSE AND THROAT: Showed normocephalic, atraumatic. NECK: Supple. HEART: Showed normal first and second heart sounds. No gallop, rub or murmur. CHEST: Clear to auscultation. No crepitation or rhonchi. ABDOMEN: Distended, soft, nontender, slightly distended. NEUROLOGIC: She was awake, alert, responding appropriately. All cranial nerves intact. She moves extremities without difficulty. She ambulates with a walker with standby assist. LABORATORY DATA: Her lab work showed that her serum sodium was 135, potassium was 3.9, chloride 103, bicarbonate 24, anion gap of 8, BUN 23, creatinine 1.3, estimated GFR was 38 mL per minute. Her glucose was 92, calcium was 8.1. Total bilirubin, AST, ALT, alkaline phosphatase were normal. Total protein was 6.2, albumin was 2.6. Her C-reactive protein was 13.7 and sed rate was 25. ASSESSMENT: 1. Slightly improving. 2. Acute on chronic kidney injury, also improving. Her creatinine came down from 2.3 to 1.3. 3. Hypertension. 4. Hypothyroidism. 5. Chronic atrial fibrillation. 6. She has diastolic congestive heart failure. 7. Chronic constipation. 8. Osteoporosis and osteoarthritis. 9. Major neurocognitive disorder; Alzheimer, vascular with depression, delusion. PLAN: My plan is to basically arrange for her to have a CT scan of the abdomen and pelvis with oral contrast only and treat her constipation, if any, aggressively and we have consulted the dependency case manager to arrange [facility]. AHMED M. SELWYN, MD DR: WENDY/franc JOB#: [id number] / [id number]
[2019-08-24] MEDS: ACETAMINOPHEN 325 MG TABLET PO PRN (04:46)
[2019-08-24] MEDS: LEVOTHYROXINE 125 MCG TABLET PO SCH (04:46)
[2019-08-24 05:17] VITALS: BP 147/75
--- NOTE | 2019-08-24 05:52 | NUR ---
Shift Note: Pt is a/o to self and place. VSS. Pt did c/o knee pain this am, tylenol given. Pt continent of bowel and bladder. Pt ambulating with one person assist and walker. Case Management is attempting placement at [place], if that is unsuccessful family is able to take patient home w/home health.
[2019-08-24 06:53] LABS: CALCIUM 8.5 mg/dL (8.5-10.1); CREATININE 1.1 mg/dL (0.6-1.0); GFR 46.9; POTASSIUM 4.3 mmol/L (3.5-5.1)
[2019-08-24] MEDS: ASPIRIN 81 MG TAB.CHEW PO SCH (07:39)
[2019-08-24] MEDS: DULoxetine HCL 30 MG CAPSULE.DR PO SCH (07:39)
[2019-08-24] MEDS: CALCIUM CARB/VIT D3 500/200 TABLET PO SCH (07:39)
[2019-08-24] MEDS: CHOLECALCIFEROL (VITAMIN D3) 1,000 UNIT TABLET PO SCH (07:39)
[2019-08-24] MEDS: RIVASTIGMINE 4.6MG PATCH. TD SCH (07:40)
[2019-08-24] MEDS: APIXABAN 5 MG TABLET. PO SCH (07:40)
[2019-08-24] MEDS: DOCUSATE SODIUM 100 MG CAPSULE PO SCH (07:40)
--- NOTE | 2019-08-24 08:14 | PN ---
DATE: 08/22/2019 PSYCHIATRIC PROGRESS NOTE This late entry 08/22/2019 covers the elements not covered in my initial note. SUBJECTIVE: I met with the patient evening of 08/22/2019 and also met with the patient's son at length as she was visiting her. For the most part, the patient has been pleasant, cooperative, short term memory is impaired, remote is better. We discussed at some length with the son about her daily schedule. The patient goes to the [facility] 3 days a week, wants to go there 5 days a week and the son may coordinate this. The son gets back home around 5:30 in the evening and for a couple of hours before that after the patient returns from the [facility], she is by herself at home since the [id number]-ex-tey is not there either. Reportedly, the patient communicates through her iPad and works on games on her iPad and son will continue to assess this with her more structured placement, may be needed in the future. REVIEW OF SYSTEMS: No CV, , pulmonary, eye system symptoms on review. MENTAL STATUS EXAM: Oriented to herself and situation. Speech has some latency, coherent. Abstraction fair, computation impaired, language function intact, attention span short. Mood and affect withdrawn. Son reminded her and she was able to talk about one of her co-workers, Mr. 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 No suicidal or homicidal ideation. LABORATORY DATA: Reviewed. IMPRESSION: Unchanged from initial note. PLAN: No change from initial note. ISAAC DEUTSCH MD DR: ALEA/franc JOB#: [id number] / [id number]
[2019-08-24] MEDS: PANTOPRAZOLE 40 MG TABLET. PO SCH (08:18)
[2019-08-24 10:54] VITALS: BP 154/67
--- NOTE | 2019-08-24 12:56 | NUR ---
NURSING NOTE: PATIENT DISCHARGED TO [facility] ALL PATIENT BELONGING SENT WITH PATIENT. DISCHARGE INSTRUCTIONS SENT WITH PATIENT TO [facility].
--- NOTE | 2019-08-25 00:46 | PN ---
DATE: 08/23/2019 PSYCHIATRIC PROGRESS NOTE This late entry 08/23/2019 covers elements not covered in my initial note. SUBJECTIVE: I met with the patient evening of 08/23/2019. Overall, the patient remains withdrawn, confused, but pleasant. She gets a little anxious at times with no psychotic symptoms, suicidal or homicidal ideation per nursing report. REVIEW OF SYSTEMS: No CV, , pulmonary, eye system symptoms on review. MENTAL STATUS EXAMINATION: Oriented to herself and situation. Speech has some latency, coherent, very pleasant, appropriate. Short term memory is impaired. No suicidal or homicidal ideation. Mood is somewhat anxious. Affect is mood congruent. IMPRESSION: Major neurocognitive disorder, Alzheimer, vascular with delusion, depression, behavioral disturbance; anxiety disorder, unspecified; adjustment disorder with depressed mood and anxiety. PLAN: No change from initial note. MAN Rachel DEUTSCH MD DR: ALEA/franc JOB#: [id number] / [id number]
== END 2019-08-24 13:01 | DRG 56 ==
LOC: ER 14:41 → 1 SOUTH 18:51
PROVIDERS: ADMIT Internal Medicine; ATTEND Internal Medicine
DX: G30.9 Alzheimer's disease, unspecified (principal); I50.23 Acute on chronic systolic (congestive) heart failure; N17.0 Acute kidney failure with tubular necrosis; I48.20 Chronic atrial fibrillation, unspecified; E87.1 Hypo-osmolality and hyponatremia; I13.0 Hypertensive heart and chronic kidney disease with heart failure and stage 1 through stage 4 chronic kidney disease, or unspecified chronic kidney disease; E03.9 Hypothyroidism, unspecified; M19.90 Unspecified osteoarthritis, unspecified site; M81.0 Age-related osteoporosis without current pathological fracture; J44.9 Chronic obstructive pulmonary disease, unspecified; F02.80 Dementia in other diseases classified elsewhere, unspecified severity, without behavioral disturbance, psychotic disturbance, mood disturbance, and anxiety; K21.9 Gastro-esophageal reflux disease without esophagitis; M79.7 Fibromyalgia; E78.5 Hyperlipidemia, unspecified; F43.23 Adjustment disorder with mixed anxiety and depressed mood; F01.50 Vascular dementia, unspecified severity, without behavioral disturbance, psychotic disturbance, mood disturbance, and anxiety; E86.0 Dehydration; K59.09 Other constipation; N18.9 Chronic kidney disease, unspecified; Z98.1 Arthrodesis status; Z98.42 Cataract extraction status, left eye; Z98.41 Cataract extraction status, right eye; Z88.2 Allergy status to sulfonamides; Z82.49 Family history of ischemic heart disease and other diseases of the circulatory system
CPT/HCPCS: 36415; 71045; 74018; 74176; 80048; 80053; 81001; 82550; 83735; 83880; 84443; 84484; 85025; 85027; 85651; 86140; 87086; 96374; J1940; 97110; 97530; 97535; 99285-25; J7030

== ENCOUNTER 2020-04-08 20:41 | Emergency (ER) | payer MEDICARE, BC ==
[~2020-04-08] VITALS: Ht 165.1 cm; Wt 70.0 kg
[~2020-04-08 20:41] MED LIST: ALEN35TA11 PO; APIX5TAB3 PO; ASPI-630 PO; CALC-30 PO; CHOL10003 PO; DICL100G18 TP; DULO30CA2 PO; IBUP800T19 PO; LEVO125T5 PO; LISI-338 PO; PANT40TA5 PO; [UNRECOGNIZED DRUG - CODE] PO
--- NOTE | 2020-04-08 20:58 | PHYS DOC ---
Past History Past Medical History: A-Fib, Dementia, Depression, Fibromyalgia, Hypertension Past Surgical History: No Surgical History Smoking: Non-smoker Alcohol Use: None Drug Use: None General Adult EDM: Chief Complaint: MECHANICAL FALL HPI: HPI: Patient is an 89 year old female who presents for evaluation after a mechanical fall. She did hit her head and is on Eliquis. Patient has a history of prior falls including last week. She had a little bit of blood around her mouth but has no physical complaints at this time. She does have underlying dementia and is a moderately poor historian. There are no obvious focal deficits or lateralizing signs. Patient brought in by EMS from her nursing facility. Fall occurred less than 2 hours prior to arrival. Patient has a prior history of atrial fibrillation Review of Systems: Review of Systems: Constitutional: Denies fever or chills Eyes: Denies change in visual acuity HENT: Denies nasal congestion or sore throat Respiratory: Denies cough or shortness of breath Cardiovascular: Denies chest pain or edema GI: Denies abdominal pain, nausea, vomiting, bloody stools or diarrhea : Denies dysuria Musculoskeletal: Denies back pain or joint pain Integument: Denies rash Neurologic: Denies headache, focal weakness or sensory changes Endocrine: Denies polyuria or polydipsia Lymphatic: Denies swollen glands Psychiatric: Denies depression or anxiety Heart Score: Risk Factors: Risk Factors: DM, Current or recent (<one month) smoker, HTN, HLP, family history of CAD, obesity. Risk Scores: Score 0 - 3: 2.5% MACE over next 6 weeks - Discharge Home Score 4 - 6: 20.3% MACE over next 6 weeks - Admit for Clinical Observation Score 7 - 10: 72.7% MACE over next 6 weeks - Early Invasive Strategies Current Medications: Current Meds: Current Medications Medications (Trade) Dose Ordered Sig/Beka Start Time Stop Time Status Last Admin Dose Admin Sodium Chloride 1,000 ml @ 75 mls/hr 1X ONCE 04/08/20 21:00 04/09/20 10:19 Allergies: Allergies: Allergies Coded Allergies Type Severity Reaction Last Updated Verified Sulfa (Sulfonamide Antibiotics) Allergy Unknown 08/20/19 Yes Physical Exam: PE: Constitutional: Well developed, well nourished, mild acute distress, non-toxic appearance. [] HENT: Normocephalic, some blood arounds lips, bilateral external ears normal, oropharynx moist, no oral exudates, nose normal. [] Eyes: PERRL, EOMI, conjunctiva normal, no discharge. [] Neck: Normal range of motion, no tenderness, supple, no stridor. [] Cardiovascular:Heart rate regular rhythm, no murmur [] Lungs & Thorax: Bilateral breath sounds clear to auscultation [] Abdomen: Bowel sounds normal, soft, no tenderness, no masses, no pulsatile masses. [] Skin: Warm, dry, no erythema, no rash. [] Back: No tenderness, [] Extremities: No tenderness, no cyanosis, no clubbing, ROM intact, no edema. [] Neurologic: Alert and oriented to person and month, normal motor function, normal sensory function, no focal deficits noted. [] Psychologic: flat affect, confused, normal mood. [] Current Patient Data: Labs: Laboratory Tests Test 04/08/20 21:14 04/08/20 21:20 White Blood Count 4.9 x10^3/uL Red Blood Count 3.60 x10^6/uL Hemoglobin 11.0 g/dL Hematocrit 32.8 % Mean Corpuscular Volume 91 fL Mean Corpuscular Hemoglobin 30 pg Mean Corpuscular Hemoglobin Concent 34 g/dL Red Cell Distribution Width 13.6 % Platelet Count 169 x10^3/uL Neutrophils (%) (Auto) 59 % Lymphocytes (%) (Auto) 24 % Monocytes (%) (Auto) 9 % Eosinophils (%) (Auto) 8 % Basophils (%) (Auto) 1 % Neutrophils # (Auto) 2.9 x10^3uL Lymphocytes # (Auto) 1.2 x10^3/uL Monocytes # (Auto) 0.4 x10^3/uL Eosinophils # (Auto) 0.4 x10^3/uL Basophils # (Auto) 0.0 x10^3/uL Prothrombin Time 11.0 SEC Prothromb Time International Ratio 1.1 Sodium Level 140 mmol/L Potassium Level 3.9 mmol/L Chloride Level 106 mmol/L Carbon Dioxide Level 26 mmol/L Anion Gap 8 Blood Urea Nitrogen 30 mg/dL Creatinine 1.4 mg/dL Estimated GFR (Cockcroft-Gault) 35.5 BUN/Creatinine Ratio 21 Glucose Level 85 mg/dL Calcium Level 8.9 mg/dL Total Bilirubin 0.3 mg/dL Aspartate Amino Transf (AST/SGOT) 14 U/L Alanine Aminotransferase (ALT/SGPT) 14 U/L Alkaline Phosphatase 65 U/L Troponin I Quantitative < 0.017 ng/mL Total Protein 6.1 g/dL Albumin 3.3 g/dL Albumin/Globulin Ratio 1.2 Urine Collection Type Unknown Urine Color Yellow Urine Clarity Cloudy Urine pH 5.5 Urine Specific Slick 1.015 Urine Protein Neg Urine Glucose (UA) Neg mg/dL Urine Ketones (Stick) Neg mg/dL Urine Blood Trace Urine Nitrite Neg Urine Bilirubin Neg Urine Urobilinogen Dipstick 0.2 mg/dL Urine Leukocyte Esterase Mod Urine RBC 1-2 /HPF Urine WBC >40 /HPF Urine Squamous Epithelial Cells Few /LPF Urine Bacteria Few /HPF Urine Hyaline Casts Occ /HPF Current Medications Medications (Trade) Dose Ordered Sig/Beka Route PRN Reason Start Time Stop Time Status Last Admin Dose Admin Sodium Chloride 1,000 ml @ 75 mls/hr 1X ONCE IV 04/08/20 21:00 04/09/20 10:19 04/08/20 21:33 Ceftriaxone Sodium 1 gm/ Sodium Chloride 50 ml @ 100 mls/hr 1X ONCE IV 04/08/20 22:30 04/08/20 22:59 EKG: EKG: EKG read at 2057 NSR, rate 62, LAD, not STEMI[] Radiology/Procedures: Radiology/Procedures: [place] [address] IMAGING REPORT Signed PATIENT: LOW CUELLAR ACCOUNT: [id number] : 1930 LOCATION: ER AGE: 89 SEX: F EXAM STATUS: REG ER ORD. PHYSICIAN: JACOBO WOODARD DO REASON: Falls, headache and neck pain, injury on blood thinner PROCEDURE: CT HEAD AND CERVICAL SPINE WO CT HEAD AND CERVICAL SPINE WO History: Reason: Falls, headache and neck pain, injury on blood thinner / Spl. Instructions: / History: Comparison: None. Technique: Noncontrast CT imaging was performed of the head and cervical spine. Coronal and sagittal reconstructions were performed. Exposure: One or more of the following individualized dose reduction techniques were utilized for this examination: 1. Automated exposure control 2. Adjustment of the mA and/or kV according to patient size 3. Use of iterative reconstruction technique. Findings: Head CT: No intracranial hemorrhage. No mass effect. No hydrocephalus. Moderate brain parenchymal volume loss. Mild to moderate foci of decreased attenuation within them stick white matter, most often due to chronic microvascular ischemia. Mild prominent lateral ventricles, likely due to central brain parenchymal volume loss. Chronic right parietal infarct. Chronic appearing bilateral basal ganglia lacunar infarcts. Imaged orbits are unremarkable. Imaged paranasal sinuses and mastoid air cells are clear. No acute calvarial fracture. Cervical spine CT: Minimal grade 1 anterolisthesis C3 on C4. Grade 1 anterolisthesis C7 on T1. Normal vertebral body height. No fracture. Intervertebral fusion C5-C6 and C6-C7. Multilevel cervical spondylosis most prominent C4-C5. Multilevel facet arthropathy. Multilevel neuroforaminal narrowing. Facet joint fusion left C3-C4. No high-grade canal stenosis. Mild canal narrowing C4-C5. Soft tissues unremarkable. Impression: Head CT: 1. No acute intracranial abnormality. 2. Chronic appearing bilateral basal ganglia lacunar infarcts. 3. Chronic right parietal infarct. Cervical spine CT: 1. No acute fracture or subluxation of the cervical spine. 2. Moderate multilevel thoracic spondylosis. 3. Prior postoperative changes C5-C7. Electronically signed by: Shay Arango DO (04/08/2020 9:19 PM) [facility] DICTATED AND SIGNED BY: SHAY ARANGO DO DATE: 04/08/202118 CC: LEANDRO ELKINS; JACOBO WOODARD DO ~ [] Impressions: [place] [address] IMAGING REPORT Signed PATIENT: LOW CUELLAR ACCOUNT: [id number] : 1930 LOCATION: ER AGE: 89 SEX: F EXAM STATUS: REG ER ORD. PHYSICIAN: JACOBO WOODARD DO REASON: short of air, fall PROCEDURE: CHEST AP ONLY CHEST AP ONLY History: Reason: short of air, fall / Spl. Instructions: / History: Comparison: August 20, 2019 Findings: Linear bibasilar opacities. No pleural effusion. No pneumothorax. Normal heart size. Impression: 1. Linear bibasilar opacities, likely atelectasis. Electronically signed by: Shay Arango DO (04/08/2020 9:19 PM) [facility] DICTATED AND SIGNED BY: SHAY ARANGO DO DATE: 04/08/202118 CC: LEANDRO ELKINS; JACOBO WOODARD DO ~ Course & Med Decision Making: Course & Med Decision Making Pertinent Labs and Imaging studies reviewed. (See chart for details) [] Dragon Disclaimer: Dragon Disclaimer: This electronic medical record was generated, in whole or in part, using a voice recognition dictation system. 2230 stable, feeling better at this time. Patient has an obvious urinary tract infection and was given a dose of IV Rocephin. Remainder of blood work unremarkable. EKG essentially normal and stable. CT head and cervical spine also unremarkable for traumatic findings, brain bleed skull fractures etc. patient stable to return to her nursing facility. She will be a fall risk Departure Departure: Impression: Primary Impression: Acute UTI Additional Impressions: Head contusion Qualified Codes: S00.03XA - Contusion of scalp, initial encounter Accidental fall Qualified Codes: W19.XXXA - Unspecified fall, initial encounter Disposition: HOME/RESIDENCE PRIOR TO ADM Condition: STABLE Referrals: LEANDRO ELKINS (PCP) Patient Instructions: Head Injury, Adult, Urinary Tract Infection Additional Instructions: Rest, ice and elevate the injured area, take the antibiotic as directed since there was a bladder infection present, see the [facility] doctor right away and follow up, return if worsen Scripts Nitrofurantoin Monohyd/M-Cryst (MACROBID 100 MG CAPSULE) 100 Mg Capsule 1 CAP PO BID for UTI for 10 Days, #20 CAP 0 Refills Prov: JACOBO WOODARD DO 04/08/20 Justification of Admission: Justification of Admission: Justification of Admission Dx: N/A NIHSS - ED NIH Stroke Scale: NIH Stroke Scale Response (Comments) Value Level of Consciousness: 0 Alert/Responsive 0 LOC Questions: 0 Answers both correctly 0 LOC Commands: 0 Performs both tasks 0 Best Gaze: 0 Normal 0 Visual: 0 No visual loss 0 Facial Palsy: 0 Normal, symmetrical 0 Motor - Left Arm 0 No drift 0 Motor - Right Arm 0 No drift 0 Motor - Left Leg 0 No drift 0 Motor: Right Leg 0 No drift 0 Limb Ataxia: 0 Absent 0 Sensory: 0 No loss 0 Best Language: 0 Normal 0 Dysathria: 0 Normal 0 Extinction and Inattention: 0 Normal 0 Total 0 JACOBO WOODARD DO Apr 08, 2020 20:58
[2020-04-08] MEDS ORDERED: IV NORMAL SALINE 1,000ML 1,000 ML IV ONE (21:00)
--- NOTE | 2020-04-08 21:21 | RAD ---
CT HEAD AND CERVICAL SPINE WO History: Reason: Falls, headache and neck pain, injury on blood thinner / Spl. Instructions: / History: Comparison: None. Technique: Noncontrast CT imaging was performed of the head and cervical spine. Coronal and sagittal reconstructions were performed. Exposure: One or more of the following individualized dose reduction techniques were utilized for this examination: 1. Automated exposure control 2. Adjustment of the mA and/or kV according to patient size 3. Use of iterative reconstruction technique. Findings: Head CT: No intracranial hemorrhage. No mass effect. No hydrocephalus. Moderate brain parenchymal volume loss. Mild to moderate foci of decreased attenuation within them stick white matter, most often due to chronic microvascular ischemia. Mild prominent lateral ventricles, likely due to central brain parenchymal volume loss. Chronic right parietal infarct. Chronic appearing bilateral basal ganglia lacunar infarcts. Imaged orbits are unremarkable. Imaged paranasal sinuses and mastoid air cells are clear. No acute calvarial fracture. Cervical spine CT: Minimal grade 1 anterolisthesis C3 on C4. Grade 1 anterolisthesis C7 on T1. Normal vertebral body height. No fracture. Intervertebral fusion C5-C6 and C6-C7. Multilevel cervical spondylosis most prominent C4-C5. Multilevel facet arthropathy. Multilevel neuroforaminal narrowing. Facet joint fusion left C3-C4. No high-grade canal stenosis. Mild canal narrowing C4-C5. Soft tissues unremarkable. Impression: Head CT: 1. No acute intracranial abnormality. 2. Chronic appearing bilateral basal ganglia lacunar infarcts. 3. Chronic right parietal infarct. Cervical spine CT: 1. No acute fracture or subluxation of the cervical spine. 2. Moderate multilevel thoracic spondylosis. 3. Prior postoperative changes C5-C7. Electronically signed by: Shay Arango DO (04/08/2020 9:19 PM) [facility]
--- NOTE | 2020-04-08 21:22 | RAD ---
CHEST AP ONLY History: Reason: short of air, fall / Spl. Instructions: / History: Comparison: August 20, 2019 Findings: Linear bibasilar opacities. No pleural effusion. No pneumothorax. Normal heart size. Impression: 1. Linear bibasilar opacities, likely atelectasis. Electronically signed by: Shay Arango DO (04/08/2020 9:19 PM) [facility] [place]
[2020-04-08 21:32] LABS: BASO % 1 % (0-3); EOS # 0.4 x10^3/uL (0.0-0.7); EOS % 8 % (0-3); HEMATOCRIT 32.8 % (36.0-47.0); LYMPH # 1.2 x10^3/uL (1.0-4.8); LYMPH % 24 % (24-48); MEAN CORPUSCULAR HEMOGLOBIN 30 pg (25-35); MEAN CORPUSCULAR HGB CONC 34 g/dL (31-37); MEAN CORPUSCULAR VOLUME 91 fL (79-100); MONO # 0.4 x10^3/uL (0.0-1.1); MONO % 9 % (0-9); NEUT # 2.9 x10^3uL (1.8-7.7); NEUT % 59 % (31-73); PLATELET COUNT 169 x10^3/uL (140-400); RED CELL DISTRIBUTION WIDTH 13.6 % (11.5-14.5); WHITE BLOOD COUNT 4.9 x10^3/uL (4.0-11.0)
[2020-04-08 21:35] LABS: CALCIUM 8.9 mg/dL (8.5-10.1); CREATININE 1.4 mg/dL (0.6-1.0); GFR 35.5; POTASSIUM 3.9 mmol/L (3.5-5.1)
[2020-04-08 21:41] LABS: ALBUMIN 3.3 g/dL (3.4-5.0); ALBUMIN/GLOBULIN RATIO 1.2 (1.0-1.7); TOTAL BILIRUBIN 0.3 mg/dL (0.2-1.0); TOTAL PROTEIN 6.1 g/dL (6.4-8.2)
--- NOTE | 2020-04-08 21:55 | EKG ---
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
[2020-04-08 22:18] LABS: BACTERIA,URINE FEW /HPF (0-FEW); BILIRUBIN,URINE NEG (NEG); CLARITY,URINE CLOUDY; COLOR,URINE YELLOW; GLUCOSE,URINE NEG (NEG); NITRITE,URINE NEG (NEG); SQUAMOUS EPITHELIAL CELL,UR FEW /LPF; UROBILINOGEN,URINE 0.2 mg/dL (0.2 mg/dL); WBC,URINE >40 /HPF (0-4)
[2020-04-08 22:19] LABS: HYALINE CASTS, URINE OCC /HPF
[2020-04-08] MEDS ORDERED: NITR100C62 PO (22:35)
[2020-04-08] MEDS ORDERED: IV NORMAL SALINE 50ML 50 ML ONE (22:47)
[2020-04-08] MEDS ORDERED: cefTRIAXone SODIUM 1 GM VIAL ONE (22:48)
[2020-04-08 23:35] VITALS: BP 165/75
== END 2020-04-08 23:39 | disposition home or self-care (01) ==
LOC: ER 20:41
DX: S00.03XA Contusion of scalp, initial encounter (principal); N39.0 Urinary tract infection, site not specified; F03.90 Unspecified dementia, unspecified severity, without behavioral disturbance, psychotic disturbance, mood disturbance, and anxiety; I48.91 Unspecified atrial fibrillation; M79.7 Fibromyalgia; I10 Essential (primary) hypertension; Z79.01 Long term (current) use of anticoagulants; Z88.2 Allergy status to sulfonamides; W18.39XA Other fall on same level, initial encounter; Y93.89 Activity, other specified; Y92.89 Other specified places as the place of occurrence of the external cause; Y99.8 Other external cause status
CPT/HCPCS: 36415; 70450; 71045; 72125; 80053; 81001; 84484; 85025; 85610; 93005; 96365; 99285; J0696; J7030

== ENCOUNTER 2020-04-15 08:45 | Emergency (ER) | payer MEDICARE, BC ==
[~2020-04-15] VITALS: Ht 165.1 cm; Wt 70.4 kg
[~2020-04-15 08:45] MED LIST changes: +NITR100C62 PO
--- NOTE | 2020-04-15 09:09 | PHYS DOC ---
Past History Past Medical History: A-Fib, Dementia, Depression, Fibromyalgia, Hypertension Past Surgical History: No Surgical History Smoking: Non-smoker Alcohol Use: None Drug Use: None General Adult EDM: Chief Complaint: MECHANICAL FALL HPI: HPI: 89-year-old female presents from her care facility after a fall. This was unwitnessed. When I asked the patient she tells me that she just fell to the floor. She tells me that her left knee and left ankle are hurting. The patient had a recent fall for which she has significant bruising on the right lower extremity and right side of her face. She was evaluated in the hospital for this. Today the patient does not really tell me exactly what happened. She does have dementia. She says she did not hit her head today but said she had a yesterday. She is on Eliquis according to her med list. She has no other specific complaints. Review of Systems: Review of Systems: Constitutional: Denies fever or chills Eyes: Denies change in visual acuity HENT: Denies nasal congestion or sore throat Respiratory: Denies cough or shortness of breath Cardiovascular: Denies chest pain or edema GI: Denies abdominal pain, nausea, vomiting, bloody stools or diarrhea : Denies dysuria Musculoskeletal: Left knee pain, left ankle pain Integument: Denies rash Neurologic: Denies headache, focal weakness or sensory changes Endocrine: Denies polyuria or polydipsia Lymphatic: Denies swollen glands Psychiatric: Denies depression or anxiety Heart Score: Risk Factors: Risk Factors: DM, Current or recent (<one month) smoker, HTN, HLP, family history of CAD, obesity. Risk Scores: Score 0 - 3: 2.5% MACE over next 6 weeks - Discharge Home Score 4 - 6: 20.3% MACE over next 6 weeks - Admit for Clinical Observation Score 7 - 10: 72.7% MACE over next 6 weeks - Early Invasive Strategies Allergies: Allergies: Allergies Coded Allergies Type Severity Reaction Last Updated Verified Sulfa (Sulfonamide Antibiotics) Allergy Unknown 08/20/19 Yes Physical Exam: PE: Constitutional: Well developed, well nourished, no acute distress, non-toxic appearance. [] HENT: Normocephalic, bruising of the right side of the face, bilateral external ears normal, oropharynx moist, no oral exudates, nose normal. [] Eyes: PERRLA, EOMI, conjunctiva normal, no discharge. [] Neck: Normal range of motion, no tenderness, supple, no stridor. [] Cardiovascular: Heart rate regular rhythm, no murmur [] Lungs & Thorax: Bilateral breath sounds clear to auscultation [] Abdomen: Bowel sounds normal, soft, no tenderness, no masses, no pulsatile masses. [] Skin: Large areas of ecchymosis of the right face and right lower extremity [] Back: No tenderness, no CVA tenderness. [] Extremities: Tenderness, swelling, mild ecchymosis of the left knee. Tenderness of the left ankle without swelling or obvious deformity. [] Neurologic: Alert and oriented X 3, normal motor function, normal sensory function, no focal deficits noted. [] Psychologic: Affect normal, judgement normal, mood normal. [] EKG: EKG: [] Radiology/Procedures: Radiology/Procedures: [] Impressions: CT head and cervical spine without contrast History: Fall Technique: Noncontrast CT imaging was performed of the head and cervical spine. Multiplanar reconstruction images are submitted. Exposure: One or more of the following individualized dose reduction techniques were utilized for this examination: 1. Automated exposure control 2. Adjustment of the mA and/or kV according to patient size 3. Use of iterative reconstruction technique. Head CT Comparison: April 08, 2020 Findings: There is again encephalomalacia with cortical involvement centered in the right parietal lobe. There is other scattered ill-defined low-density of the supratentorial parenchyma bilaterally. There is again mild generalized supratentorial atrophy, ventricular size proportionate to the sulcal spaces. No convincing acute intracranial hemorrhage is identified. There are again old lacunar infarcts of the right basal ganglia. No acute calvarial abnormality is identified. Visualized paranasal sinuses and mastoid air cells are overall aerated. There has been lens surgery bilaterally. There is atherosclerotic calcification of the carotid siphons bilaterally. Impression: 1. No acute intracranial abnormality is identified. 2. 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 Other ill-defined low-density of the supratentorial parenchyma is nonspecific although more probably due to chronic microvascular ischemic disease in a patient this age. There is mild generalized supratentorial atrophy. Cervical spine CT Comparison: None Findings: No acute cervical spine fracture is identified. Vertebral body stature and AP alignment are similar. Atlanto-axial distance is within normal limits. There is appropriate alignment of lateral masses of C1 relative to C2. Occipital condylar-C1 relationship is maintained. There is again interbody fusion C5-6 and C6-7 at which there are interbody grafts. There is again advanced degenerative disc disease C4-5. There is again straightening of the cervical spine. There is again negligible anterior spondylolisthesis at C3-4 and C7-T1. There is multilevel cervical facet degenerative change. There is uncovertebral degenerative change greatest at C4-5 and C5-6. There is severe narrowing of the left C4-5, C5-6, and C6-7 neural foramina. Disc osteophyte complex/posterior osteophytes at C4-5 result in central canal stenosis about 8 mm. There is atherosclerotic calcification of the carotid arteries in the neck bilaterally. There is again lytic focus of the posterior C4 vertebral body, possibly cyst or Schmorl's node. There is some fusion of the left facet articulation at C3-4. Impression: 1. No acute cervical spine fracture is identified. 2. There is again advanced degenerative disc disease at C4-5, also interbody fusion C5-6 and C6-7. There is central canal stenosis about 8 mm at C3-4-5. There is multilevel cervical neural foramina compromise. Electronically signed by: Juan Carlos Gibson MD (04/15/2020 9:43 AM) [id number] DICTATED AND SIGNED BY: JUAN CARLOS GIBSON MD DATE: 04/15/20942 CC: CARLOS CARBONE DO; DELANEY CASTELLANOS MD ~ ANKLE LEFT 3V History: Reason: fall / Spl. Instructions: / History: Pain. Technique: 3 views left ankle. Comparison: None. Findings: Normal alignment. Symmetric ankle mortise. No fracture. Impression: 1. No acute osseous abnormality. Electronically signed by: Shay Arango DO (04/15/2020 9:47 AM) [id number] DICTATED AND SIGNED BY: SHAY ARANGO DO DATE: 04/15/2047 CC: CARLOS CARBONE DO; DELANEY CASTELLANOS MD ~ KNEE LEFT 3V History: Reason: fall / Spl. Instructions: / History: Pain. Technique: 3 views left knee. Comparison: None. Findings: Normal alignment. No fracture. Moderate knee degenerative changes most prominent within the medial and patellofemoral compartment. No significant knee joint effusion. Soft tissues unremarkable. Vascular calcifications. Impression: 1. No acute osseous abnormality. 2. Moderate knee DJD. Electronically signed by: Shay Arango DO (04/15/2020 9:45 AM) [id number] DICTATED AND SIGNED BY: SHAY ARANGO DO DATE: 04/15/20944 CC: CARLOS CARBONE DO; DELANEY CASTELLANSO MD ~ CHEST AP ONLY Clinical Indication: Reason: fall / Spl. Instructions: / History: Comparison: AP chest, April 08, 2020. Findings: Atherosclerotic and probably ectatic thoracic aorta. Cardiac size is normal. Tiny calcified granuloma right upper lung. Lungs are clear. There is no pneumothorax. No pleural effusion is appreciated. No acute bone abnormality. There is degenerative endplate spurring of the thoracic spine. IMPRESSION: No acute cardiopulmonary process. Electronically signed by: Abelino Hook MD (04/15/2020 9:47 AM) [id number] DICTATED AND SIGNED BY: ABELINO HOOK MD DATE: 04/15/20946 CC: CARLOS CARBONE DO; DELANEY CASTELLANOS MD ~ Course & Med Decision Making: Course & Med Decision Making Pertinent Labs and Imaging studies reviewed. (See chart for details) The patient's head CT and other imaging is negative for acute findings. She of course has chronic findings. See official report for more details. The patient's labs are unremarkable. Her urinalysis continues to show small leukocyte esterase, but few bacteria. She is continue to be treated with antibiotics for this already. I have given her 50 mcg of fentanyl for her pain. I believe that she can be safely discharged back to her care facility. I do recommend that strong consideration be given to discontinuing her Eliquis. She is stable for discharge at this time. [] Dragon Disclaimer: Yash Disclaimer: This electronic medical record was generated, in whole or in part, using a voice recognition dictation system. Departure Departure: Impression: Primary Impression: Fall Qualified Codes: W19.XXXA - Unspecified fall, initial encounter Additional Impressions: Left knee pain Qualified Codes: M25.562 - Pain in left knee Left ankle pain Qualified Codes: M25.572 - Pain in left ankle and joints of left foot Disposition: 01 HOME/RESIDENCE PRIOR TO ADM Condition: STABLE Referrals: DELANEY CASTELLANOS MD (PCP) Justification of Admission: Justification of Admission: Justification of Admission Dx: N/A CARLOS CARBONE DO Apr 15, 2020 09:09
--- NOTE | 2020-04-15 09:29 | EKG ---
[address] [address] Test Date: 2020-04-15 Test Time: 09:13:50 Pat Name: LOW CUELLAR Department: Room: Gender: F [employer] T[employer]: : 1930 Requested By: CARLOS CARBONE Order Number: [id number] Reading MD: Measurements Intervals Muir Rate: 68 P: -23 IL: 170 QRS: 5 QRSD: 74 T: 82 QT: 370 QTc: 398 Interpretive Statements SINUS RHYTHM T ABNORMALITY IN ANTERIOR LEADS LATERAL LEADS ABNORMAL ECG RI6.02 No previous ECG available for comparison
--- NOTE | 2020-04-15 09:47 | RAD ---
CT head and cervical spine without contrast History: Fall Technique: Noncontrast CT imaging was performed of the head and cervical spine. Multiplanar reconstruction images are submitted. Exposure: One or more of the following individualized dose reduction techniques were utilized for this examination: 1. Automated exposure control 2. Adjustment of the mA and/or kV according to patient size 3. Use of iterative reconstruction technique. Head CT Comparison: April 08, 2020 Findings: There is again encephalomalacia with cortical involvement centered in the right parietal lobe. There is other scattered ill-defined low-density of the supratentorial parenchyma bilaterally. There is again mild generalized supratentorial atrophy, ventricular size proportionate to the sulcal spaces. No convincing acute intracranial hemorrhage is identified. There are again old lacunar infarcts of the right basal ganglia. No acute calvarial abnormality is identified. Visualized paranasal sinuses and mastoid air cells are overall aerated. There has been lens surgery bilaterally. There is atherosclerotic calcification of the carotid siphons bilaterally. Impression: 1. No acute intracranial abnormality is identified. 2. 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 Other ill-defined low-density of the supratentorial parenchyma is nonspecific although more probably due to chronic microvascular ischemic disease in a patient this age. There is mild generalized supratentorial atrophy. Cervical spine CT Comparison: None Findings: No acute cervical spine fracture is identified. Vertebral body stature and AP alignment are similar. Atlanto-axial distance is within normal limits. There is appropriate alignment of lateral masses of C1 relative to C2. Occipital condylar-C1 relationship is maintained. There is again interbody fusion C5-6 and C6-7 at which there are interbody grafts. There is again advanced degenerative disc disease C4-5. There is again straightening of the cervical spine. There is again negligible anterior spondylolisthesis at C3-4 and C7-T1. There is multilevel cervical facet degenerative change. There is uncovertebral degenerative change greatest at C4-5 and C5-6. There is severe narrowing of the left C4-5, C5-6, and C6-7 neural foramina. Disc osteophyte complex/posterior osteophytes at C4-5 result in central canal stenosis about 8 mm. There is atherosclerotic calcification of the carotid arteries in the neck bilaterally. There is again lytic focus of the posterior C4 vertebral body, possibly cyst or Schmorl's node. There is some fusion of the left facet articulation at C3-4. Impression: 1. No acute cervical spine fracture is identified. 2. There is again advanced degenerative disc disease at C4-5, also interbody fusion C5-6 and C6-7. There is central canal stenosis about 8 mm at C3-4-5. There is multilevel cervical neural foramina compromise. Electronically signed by: Sebastien Rodríguez MD (04/15/2020 9:43 AM) [id number]
--- NOTE | 2020-04-15 09:48 | RAD ---
KNEE LEFT 3V History: Reason: fall / Spl. Instructions: / History: Pain. Technique: 3 views left knee. Comparison: None. Findings: Normal alignment. No fracture. Moderate knee degenerative changes most prominent within the medial and patellofemoral compartment. No significant knee joint effusion. Soft tissues unremarkable. Vascular calcifications. Impression: 1. No acute osseous abnormality. 2. Moderate knee DJD. Electronically signed by: Shay Arango DO (04/15/2020 9:45 AM) [id number]
--- NOTE | 2020-04-15 09:50 | RAD ---
ANKLE LEFT 3V History: Reason: fall / Spl. Instructions: / History: Pain. Technique: 3 views left ankle. Comparison: None. Findings: Normal alignment. Symmetric ankle mortise. No fracture. Impression: 1. No acute osseous abnormality. Electronically signed by: Shay Arango DO (04/15/2020 9:47 AM) [id number]
--- NOTE | 2020-04-15 09:50 | RAD ---
CHEST AP ONLY Clinical Indication: Reason: fall / Spl. Instructions: / History: Comparison: AP chest, April 08, 2020. Findings: Atherosclerotic and probably ectatic thoracic aorta. Cardiac size is normal. Tiny calcified granuloma right upper lung. Lungs are clear. There is no pneumothorax. No pleural effusion is appreciated. No acute bone abnormality. There is degenerative endplate spurring of the thoracic spine. IMPRESSION: No acute cardiopulmonary process. Electronically signed by: Abelino Hook MD (04/15/2020 9:47 AM) [id number]
[2020-04-15 10:29] LABS: BASO % 1 % (0-3); EOS # 0.2 x10^3/uL (0.0-0.7); EOS % 3 % (0-3); HEMATOCRIT 36.3 % (36.0-47.0); HEMOGLOBIN 12.1 g/dL (12.0-15.5); LYMPH # 0.6 x10^3/uL (1.0-4.8); LYMPH % 9 % (24-48); MEAN CORPUSCULAR HEMOGLOBIN 31 pg (25-35); MEAN CORPUSCULAR HGB CONC 34 g/dL (31-37); MEAN CORPUSCULAR VOLUME 92 fL (79-100); MONO # 0.5 x10^3/uL (0.0-1.1); MONO % 8 % (0-9); NEUT % 80 % (31-73); PLATELET COUNT 192 x10^3/uL (140-400); RED BLOOD COUNT 3.95 x10^6/uL (3.50-5.40); RED CELL DISTRIBUTION WIDTH 13.3 % (11.5-14.5); WHITE BLOOD COUNT 6.3 x10^3/uL (4.0-11.0)
[2020-04-15 10:44] LABS: CALCIUM 9.1 mg/dL (8.5-10.1); CREATININE 1.3 mg/dL (0.6-1.0); GFR 38.7; POTASSIUM 3.8 mmol/L (3.5-5.1)
[2020-04-15 10:46] LABS: BILIRUBIN,URINE NEG (NEG); CLARITY,URINE CLEAR; COLOR,URINE YELLOW; GLUCOSE,URINE NEG (NEG)
[2020-04-15 10:47] LABS: BACTERIA,URINE FEW /HPF (0-FEW); NITRITE,URINE NEG (NEG); SQUAMOUS EPITHELIAL CELL,UR FEW /LPF; UROBILINOGEN,URINE 0.2 mg/dL (0.2 mg/dL)
[2020-04-15 10:51] LABS: ALBUMIN 3.4 g/dL (3.4-5.0); TOTAL BILIRUBIN 0.8 mg/dL (0.2-1.0); TOTAL PROTEIN 6.8 g/dL (6.4-8.2)
[2020-04-15] MEDS ORDERED: ONDANSETRON PF 4 MG/2 ML VIAL. IVP ONE (11:00)
[2020-04-15] MEDS ORDERED: ONDANSETRON ODT 4 MG TAB.RAPDIS PO ONE (11:15)
[2020-04-15 11:25] VITALS: BP 168/81
== END 2020-04-15 11:30 | disposition home or self-care (01) ==
LOC: ER 08:45
DX: S00.83XA Contusion of other part of head, initial encounter (principal); S80.02XA Contusion of left knee, initial encounter; M25.572 Pain in left ankle and joints of left foot; I48.91 Unspecified atrial fibrillation; F03.90 Unspecified dementia, unspecified severity, without behavioral disturbance, psychotic disturbance, mood disturbance, and anxiety; F32.9 Major depressive disorder, single episode, unspecified; M79.7 Fibromyalgia; I10 Essential (primary) hypertension; Z79.01 Long term (current) use of anticoagulants; Z88.2 Allergy status to sulfonamides; Z91.81 History of falling; W18.39XA Other fall on same level, initial encounter; Y93.89 Activity, other specified; Y92.89 Other specified places as the place of occurrence of the external cause; Y99.8 Other external cause status
CPT/HCPCS: 36415; 70450; 71045; 72125; 73562; 73610; 80053; 81001; 84484; 85025; 87086; 93005; 96372; 99285; J3010; Q0162

== ENCOUNTER 2020-04-17 09:36 | Inpatient (IN) | payer MEDICARE, BC ==
[~2020-04-17] VITALS: Ht 165.1 cm; Wt 64.3 kg
[2020-04-17] MEDS ORDERED: IV NORMAL SALINE 1,000ML 1,000 ML IV ONE (09:45)
[2020-04-17] MEDS ORDERED: ACETAMINOPHEN 325 MG TABLET PO ONE (09:45)
[2020-04-17] MEDS ORDERED: ACETAMINOPHEN 500 MG TABLET PO ONE (10:00)
--- NOTE | 2020-04-17 10:05 | PHYS DOC ---
Past History Past Medical History: A-Fib, Arthritis, CHF (diastolic), COPD, Dementia, Depression, Fibromyalgia, GERD, Hypothyroid, Renal Disease Past Medical History Limited secondary to dementia Past Surgical History: No Surgical History Past Surgical History Limited secondary to dementia Smoking: Non-smoker Alcohol Use: None Drug Use: None Social History Limited secondary to dementia General Adult EDM: Chief Complaint: Fever HPI: HPI: 89-year-old female with past medical history of dementia presents via EMS from [facility] with report of fever T-max 102.6. Patient has been seen in the emergency department here at [facility] x 2 in the past week for falls. Patient is on Elliquis for afib. [facility] review notes patient found to have UTI on 04/09/20 and started on empiric antibiotics. EMS reports patient has also been complaining about abdominal pain at [facility]. History of present illness, limited secondary to dementia. Review of Systems: Review of Systems: Constitutional: Reports fever GI: Reports abdominal pain Review of systems limited secondary to dementia Current Medications: Current Meds: Current Medications Medications (Trade) Dose Ordered Sig/Beka Start Time Stop Time Status Last Admin Dose Admin Acetaminophen (Tylenol) 500 mg 1X ONCE 04/17/20 10:00 04/17/20 10:01 UNV Sodium Chloride 1,000 ml @ 1,000 mls/hr 1X ONCE 04/17/20 09:45 04/17/20 10:44 UNV Allergies: Allergies: Allergies Coded Allergies Type Severity Reaction Last Updated Verified Sulfa (Sulfonamide Antibiotics) Allergy Unknown 08/20/19 Yes Physical Exam: PE: Constitutional: Well developed, well nourished, anxious, histrionic HENT: Normocephalic, healing ecchymosis as below to right face Eyes: Conjunctiva injected on right, no discharge Neck: Normal range of motion, no tenderness, no meningeal signs Lungs & Thorax: No respiratory distress, equal chest rise and fall Abdomen: Soft, no tenderness, no guarding/rebound tenderness/distention Skin: Warm, dry, no erythema, healing ecchymosis to right anterior knee extending to lower extremity, healing ecchymosis to right face and right eye Extremities: No tenderness, ROM intact, no edema Neurologic: Alert and oriented to name, place, and year, no focal deficits noted Psychologic: Affect anxious, judgment abnormal EKG: EKG: @0947 NSR at 99bpm, NO ST elevation, QRS 78ms, QT/QTc 316/410ms, t wave inversion aVL Radiology/Procedures: Radiology/Procedures: PROCEDURE: PORTABLE CHEST 1V PORTABLE CHEST 1V History: Reason: fever / Spl. Instructions: / History: Comparison: April 15, 2020 Findings: Increased bilateral reticular interstitial opacities. No pleural effusion. Unchanged heart size. No pneumothorax. Calcified right upper lung nodule with calcified mediastinal and hilar lymph nodes, likely prior granulous disease. Impression: 1. Increased reticular interstitial opacities, may represent pulmonary edema or atypical infection including viral pneumonia. Electronically signed by: Shay Arango DO (04/17/2020 10:28 AM) [id number] PROCEDURE: CT HEAD WO CONTRAST EXAM: CT head without contrast INDICATION: Headache, use of Eliquis COMPARISON: CT head and C-spine 04/15/2020 TECHNIQUE: Axial CT imaging through the head without intravenous contrast. One or more of the following individualized dose reduction techniques were utilized for this examination: 1. Automated exposure control 2. Adjustment of the mA and/or kV according to patient size 3. Use of iterative reconstruction technique. FINDINGS: Right frontal encephalomalacia is unchanged. 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 Moderate enlargement of ventricles and sulci with mild periventricular hypoattenuation is unchanged. No intracranial hemorrhage, acute infarct, or mass lesion. No acute fracture. Small left frontal scalp contusion is redemonstrated. The visualized portion of the paranasal sinuses and mastoid air cells are clear. IMPRESSION: 1. No acute intracranial abnormality. 2. Unchanged right parietal encephalomalacia, mild changes of chronic microvascular ischemia, and moderate volume loss. 3. Unchanged small left frontal scalp contusion. Electronically signed by: Maggy Moore MD (04/17/2020 11:41 AM) [id number] PROCEDURE: CT CHEST ABDOMEN PELVIS WO EXAM: CT CHEST, ABDOMEN, AND PELVIS WITHOUT CONTRAST INDICATION: Fever, abdominal pain COMPARISON: Chest radiograph same day. CT abdomen and pelvis 08/23/2019. TECHNIQUE: Helical CT imaging performed of the chest, abdomen and pelvis without the use of intravenous contrast. Sagittal and coronal reformats were obtained. One or more of the following individualized dose reduction techniques were utilized for this examination: 1. Automated exposure control 2. Adjustment of the mA and/or kV according to patient size 3. Use of iterative reconstruction technique. FINDINGS: CHEST: Thyroid gland and thoracic inlet: Unremarkable. Heart and great vessels: The heart is normal in size. No pericardial effusion. There is calcified coronary artery atherosclerosis. Thoracic aorta is normal in caliber. Mild calcified aortic atherosclerosis. Mediastinum and jessenia: Multiple small mediastinal lymph nodes are nonspecific. For example, a precarinal lymph node measures 8 mm short axis. Lungs and pleura: There is a 7 mm triangular nodule along the minor fissure (image 62, series 2). Mild interlobular septal thickening is seen in the lung bases and to a lesser extent in the apices. Small amount of subpleural opacities in the right lower lobe, likely atelectasis. Airways are clear. No pleural effusion. Chest wall and axillae: Breast tissue is symmetric. No axillary lymphadenopathy. Bones: No acute osseous abnormality. Lower cervical interbody fusion noted. ABDOMEN AND PELVIS: Liver: The liver is normal in size. Gallbladder/Biliary Tree: Normal. Pancreas: Normal. Spleen: No splenomegaly. There are calcified splenic granulomas. Adrenal Glands: Normal. Kidneys/Ureters/Bladder: Kidneys are normal in size. No nephrolithiasis or hydronephrosis. Ureters are unremarkable. Bladder is incompletely distended. Reproductive Organs: Uterus and ovaries are unremarkable. Stomach, small bowel, and colon: Stomach is normal. No small bowel obstruction. The cecum is in the right upper quadrant and ascending colon redundant the right paracolic gutter. Suture material along the base of the cecum could be from prior appendectomy. The appendix is not visualized. Large volume of stool in the rectum and moderate volume stool throughout the rest of the colon. There is severe sigmoid diverticulosis without acute diverticulitis. Vasculature: No abdominal aortic aneurysm. Mild calcified aortic atherosclerosis. Lymph Nodes: No lymphadenopathy. Peritoneum and retroperitoneum: No free fluid or free air. Bones: Surgical changes of posterior fusion at L4-L5 with unilateral right-sided pedicle screws. Moderate to severe degenerative disc disease at L2-L3 and L3-L4. There is moderate osteoarthrosis of the hips. Miscellaneous: There are bilateral inguinal hernias. The right inguinal hernia contains fat and the loop of small bowel without evidence of complication, unchanged. The left inguinal hernia is fat-containing. IMPRESSION: 1. No acute abnormality of the chest, abdomen, or pelvis. 2. Mild interlobular septal thickening in the lungs may be seen with minimal interstitial pulmonary edema. 7 mm triangular nodule along the minor fissure is nonspecific and could be a lymph node. Mild atelectasis in the posterior right lower lobe. 3. Severe sigmoid diverticulosis without evidence of acute diverticulitis. Large volume of stool. 4. Unchanged bowel containing right inguinal hernia and fat-containing left inguinal hernia. No complication. Electronically signed by: Maggy Moore MD (04/17/2020 12:02 PM) [id number] DICTATED AND SIGNED BY: MAGGY MOORE MD DATE: 04/17/20 1202 Course & Med Decision Making: Course & Med Decision Making Pertinent Labs and Imaging studies reviewed. (See chart for details) Patient presents from [facility] with report of fever T-max 102.6. Patient poor historian secondary to dementia. Fever addressed. Labs obtained and posted to chart. IV fluid hydration provided. EKG stable. Chest x-ray with in filtration noted possibly secondary to vascular congestion and/or pneumonia (viral). Cannot exclude bacterial infection. Empiric antibiotic given with Zosyn and azithromycin. Dexamethasone also provided. Concern for possible COVID. Patient swabbed. Patient also reporting headache and abdominal pain. CT head without acute process. CT chest/abd/pelvis with findings of vascular congestion instead of opacities. Bumex and ASA given. Patient requiring admission for further evaluation and treatment. Discussed with Dr. Nguyen (hospitalist) who is in agreement with admission. COVID-19 CRITERIA: The patient was evaluated during the global COVID-19 pandemic, and that diagnosis was suspected/considered upon their initial presentation. Their evaluation, treatment and testing was consistent with current guidelines for patients who present with complaints or symptoms that may be related to COVID-19. Yash Disclaimer: Yash Disclaimer: This electronic medical record was generated, in whole or in part, using a voice recognition dictation system. Departure Departure: Impression: Primary Impression: Acute exacerbation of CHF (congestive heart failure) Qualified Codes: I50.9 - Heart failure, unspecified Additional Impressions: Fever Qualified Codes: R50.9 - Fever, unspecified Dementia Qualified Codes: F03.91 - Unspecified dementia with behavioral disturbance Suspected 2019 novel coronavirus infection Hypokalemia Constipation Qualified Codes: K59.00 - Constipation, unspecified Disposition: ADMITTED INPATIENT Admitting Physician: Sachin Nguyen Condition: STABLE Referrals: DELANEY CASTELLANOS MD (PCP) Justification of Admission: Justification of Admission: Justification of Admission Dx: Yes Comments: Fever, CHF, dementia, hypokalemia COVID-19 Assessment COVID-19 Patient Risks: Age 65 or older: Yes Sign of co-morbidity: Yes Exp to person + for COVID: No Exp to PUI: No Travel from affected area: No Lower respiratory symptoms: No Fever: Yes PPE Use: Full PPE with N95 mask or PAPR: Yes SHOLA SALDAÑA DO Apr 17, 2020 10:05
[2020-04-17 10:19] LABS: BASO % 0 % (0-3); EOS # 0.1 x10^3/uL (0.0-0.7); EOS % 1 % (0-3); HEMATOCRIT 34.5 % (36.0-47.0); HEMOGLOBIN 11.6 g/dL (12.0-15.5); LYMPH # 0.4 x10^3/uL (1.0-4.8); LYMPH % 3 % (24-48); MEAN CORPUSCULAR HEMOGLOBIN 31 pg (25-35); MEAN CORPUSCULAR HGB CONC 34 g/dL (31-37); MEAN CORPUSCULAR VOLUME 91 fL (79-100); MONO # 0.6 x10^3/uL (0.0-1.1); MONO % 5 % (0-9); NEUT # 10.5 x10^3uL (1.8-7.7); NEUT % 90 % (31-73); PLATELET COUNT 167 x10^3/uL (140-400); RED BLOOD COUNT 3.79 x10^6/uL (3.50-5.40); WHITE BLOOD COUNT 11.7 x10^3/uL (4.0-11.0)
--- NOTE | 2020-04-17 10:31 | RAD ---
PORTABLE CHEST 1V History: Reason: fever / Spl. Instructions: / History: Comparison: April 15, 2020 Findings: Increased bilateral reticular interstitial opacities. No pleural effusion. Unchanged heart size. No pneumothorax. Calcified right upper lung nodule with calcified mediastinal and hilar lymph nodes, likely prior granulous disease. Impression: 1. Increased reticular interstitial opacities, may represent pulmonary edema or atypical infection including viral pneumonia. Electronically signed by: Shay Arango DO (04/17/2020 10:28 AM) [id number]
[2020-04-17 10:42] LABS: MAGNESIUM 1.8 mg/dL (1.8-2.4)
[2020-04-17 10:43] LABS: BILIRUBIN,URINE NEG (NEG); CLARITY,URINE CLEAR; COLOR,URINE YELLOW; GLUCOSE,URINE NEG (NEG); NITRITE,URINE NEG (NEG)
[2020-04-17 10:44] LABS: BACTERIA,URINE 0 /HPF (0-FEW); HYALINE CASTS, URINE OCC /HPF; SQUAMOUS EPITHELIAL CELL,UR MOD /LPF
[2020-04-17] MEDS ORDERED: DEXAMETHASONE SOD PHOS 4 MG/ML VIAL. IVP ONE (10:45)
[2020-04-17] MEDS ORDERED: VANCOMYCIN PER PHARMACY MC PRN (10:45)
[2020-04-17] MEDS ORDERED: PIPERACILLIN/TAZOBACTAM 3.375 GM in IV NORMAL SALINE 50ML 50 ML IV ONE (10:45)
[2020-04-17] MEDS ORDERED: AZITHROMYCIN 500 MG in IV NORMAL SALINE 250ML 250 ML IV ONE (10:45)
[2020-04-17 10:46] LABS: INFLUENZA A PATIENT NEGATIVE (NEGATIVE); INFLUENZA B PATIENT NEGATIVE (NEGATIVE)
[2020-04-17] MEDS ORDERED: IV NORMAL SALINE 250ML 250 ML ONE (10:52)
[2020-04-17] MEDS ORDERED: IV NORMAL SALINE 50ML 50 ML ONE (10:52)
[2020-04-17] MEDS ORDERED: PIPERACILLIN/TAZOBACTAM 3.375 GM VIAL IV ONE (10:53)
[2020-04-17] MEDS ORDERED: AZITHROMYCIN 500 MG VIAL. IV ONE (10:53)
[2020-04-17 11:05] LABS: CALCIUM 8.9 mg/dL (8.5-10.1); CREATININE 1.4 mg/dL (0.6-1.0); GFR 35.5; POTASSIUM 3.4 mmol/L (3.5-5.1)
[2020-04-17 11:16] LABS: ALBUMIN 3.4 g/dL (3.4-5.0); ALBUMIN/GLOBULIN RATIO 0.9 (1.0-1.7); TOTAL BILIRUBIN 1.4 mg/dL (0.2-1.0); TOTAL PROTEIN 7.4 g/dL (6.4-8.2)
--- NOTE | 2020-04-17 11:44 | RAD ---
EXAM: CT head without contrast INDICATION: Headache, use of Eliquis COMPARISON: CT head and C-spine 04/15/2020 TECHNIQUE: Axial CT imaging through the head without intravenous contrast. One or more of the following individualized dose reduction techniques were utilized for this examination: 1. Automated exposure control 2. Adjustment of the mA and/or kV according to patient size 3. Use of iterative reconstruction technique. FINDINGS: Right frontal encephalomalacia is unchanged. 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 Moderate enlargement of ventricles and sulci with mild periventricular hypoattenuation is unchanged. No intracranial hemorrhage, acute infarct, or mass lesion. No acute fracture. Small left frontal scalp contusion is redemonstrated. The visualized portion of the paranasal sinuses and mastoid air cells are clear. IMPRESSION: 1. No acute intracranial abnormality. 2. Unchanged right parietal encephalomalacia, mild changes of chronic microvascular ischemia, and moderate volume loss. 3. Unchanged small left frontal scalp contusion. Electronically signed by: Maggy Moore MD (04/17/2020 11:41 AM) [id number]
--- NOTE | 2020-04-17 12:04 | RAD ---
EXAM: CT CHEST, ABDOMEN, AND PELVIS WITHOUT CONTRAST INDICATION: Fever, abdominal pain COMPARISON: Chest radiograph same day. CT abdomen and pelvis 08/23/2019. TECHNIQUE: Helical CT imaging performed of the chest, abdomen and pelvis without the use of intravenous contrast. Sagittal and coronal reformats were obtained. One or more of the following individualized dose reduction techniques were utilized for this examination: 1. Automated exposure control 2. Adjustment of the mA and/or kV according to patient size 3. Use of iterative reconstruction technique. FINDINGS: CHEST: Thyroid gland and thoracic inlet: Unremarkable. Heart and great vessels: The heart is normal in size. No pericardial effusion. There is calcified coronary artery atherosclerosis. Thoracic aorta is normal in caliber. Mild calcified aortic atherosclerosis. Mediastinum and jessenia: Multiple small mediastinal lymph nodes are nonspecific. For example, a precarinal lymph node measures 8 mm short axis. Lungs and pleura: There is a 7 mm triangular nodule along the minor fissure (image 62, series 2). Mild interlobular septal thickening is seen in the lung bases and to a lesser extent in the apices. Small amount of subpleural opacities in the right lower lobe, likely atelectasis. Airways are clear. No pleural effusion. Chest wall and axillae: Breast tissue is symmetric. No axillary lymphadenopathy. Bones: No acute osseous abnormality. Lower cervical interbody fusion noted. ABDOMEN AND PELVIS: Liver: The liver is normal in size. Gallbladder/Biliary Tree: Normal. Pancreas: Normal. Spleen: No splenomegaly. There are calcified splenic granulomas. Adrenal Glands: Normal. Kidneys/Ureters/Bladder: Kidneys are normal in size. No nephrolithiasis or hydronephrosis. Ureters are unremarkable. Bladder is incompletely distended. Reproductive Organs: Uterus and ovaries are unremarkable. Stomach, small bowel, and colon: Stomach is normal. No small bowel obstruction. The cecum is in the right upper quadrant and ascending colon redundant the right paracolic gutter. Suture material along the base of the cecum could be from prior appendectomy. The appendix is not visualized. Large volume of stool in the rectum and moderate volume stool throughout the rest of the colon. There is severe sigmoid diverticulosis without acute diverticulitis. Vasculature: No abdominal aortic aneurysm. Mild calcified aortic atherosclerosis. Lymph Nodes: No lymphadenopathy. Peritoneum and retroperitoneum: No free fluid or free air. Bones: Surgical changes of posterior fusion at L4-L5 with unilateral right-sided pedicle screws. Moderate to severe degenerative disc disease at L2-L3 and L3-L4. There is moderate osteoarthrosis of the hips. Miscellaneous: There are bilateral inguinal hernias. The right inguinal hernia contains fat and the loop of small bowel without evidence of complication, unchanged. The left inguinal hernia is fat-containing. IMPRESSION: 1. No acute abnormality of the chest, abdomen, or pelvis. 2. Mild interlobular septal thickening in the lungs may be seen with minimal interstitial pulmonary edema. 7 mm triangular nodule along the minor fissure is nonspecific and could be a lymph node. Mild atelectasis in the posterior right lower lobe. 3. Severe sigmoid diverticulosis without evidence of acute diverticulitis. Large volume of stool. 4. Unchanged bowel containing right inguinal hernia and fat-containing left inguinal hernia. No complication. Electronically signed by: Maggy Moore MD (04/17/2020 12:02 PM) [id number]
[2020-04-17] MEDS ORDERED: BUMETANIDE 1 MG/4 ML VIAL. IVP ONE ×3 (12:30→14:00)
[2020-04-17] MEDS ORDERED: POTASSIUM CHLORIDE 20 MEQ TABLET.ER. PO ONE (12:30)
[2020-04-17] MEDS ORDERED: ASPIRIN 325 MG TABLET PO ONE (12:30)
[2020-04-17 13:13] LABS: % BANDS 2 % (0-9); % BASOS 1 % (0-3); % LYMPHS 2 % (24-48); % MONOS 6 % (0-10); % SEGS 89 % (35-66); PLT ESTIMATE ADEQUATE (ADEQUATE)
--- NOTE | 2020-04-17 13:48 | HP ---
ADMIT DATE: 04/17/2020 CHIEF COMPLAINT: Shortness of breath and low-grade fever. HISTORY OF PRESENT ILLNESS: The patient is an 89-year-old female at a local residential. She presented to the ED with reportedly a fever of 102.6 degrees Fahrenheit. She was seen 9 days ago in the ED for urinary tract infection, sent back to the residential. She was seen 5 days ago with a fall. No fractures were identified. She is fairly bruised up with ecchymosis around the right knee and ankle as well as the right orbit. She is on Eliquis for permanent atrial fibrillation. Because of the fever, she had an extensive workup. The white count was not particularly elevated. Urinalysis appeared clear. Unfortunately, the patient remained demented and could not give much history. She did not appear to be in acute distress. She was a little dyspneic with minimal exertion. She is nonambulatory. As part of the workup, she had a total body scan including CT of the head, chest, abdomen and pelvis, CT of the head showed significant encephalomalacia and atrophy of the brain, no acute strokes or bleed identified. CT of the abdomen and pelvis showed diverticulosis without diverticulitis, large amount of stool in the colon. No obstruction was identified. CT of the chest, however, did show evidence of vascular congestion. Certainly atypical pneumonia could not be ruled out because of the fevers and the abnormal CT. There was a hint of possible COVID-19 infection. She had been swabbed, therefore, for the COVID-19 coronavirus. She will be placed in our person under interest isolation until the swab results are back. Unfortunately, she could not give us much history. She according to the chart is a full code. I will try to ascertain her code status after I get her admitted. PAST MEDICAL HISTORY: Obtained from the old chart. She has chronic atrial fibrillation, degenerative arthritis, acute on chronic diastolic congestive heart failure, COPD, dementia, major depression, fibromyalgia, gastroesophageal reflux disease, hypothyroidism, on replacement and chronic kidney disease. SOCIAL HISTORY: She is a nonsmoker and nondrinker. PAST SURGICAL HISTORY: Unobtainable. FAMILY HISTORY: Unobtainable. REVIEW OF SYSTEMS: Unfortunately is unobtainable. MEDICATIONS: I did review her medications from the residential. They include Eliquis 5 mg b.i.d., Fosamax weekly, aspirin 81 mg daily, calcium carbonate, vitamin D3, Voltaren gel, Cymbalta 90 mg daily, Synthroid 125 mcg daily, lisinopril 5 mg daily, Macrodantin, and Protonix 40 mg daily. ALLERGIES: SHE HAS ALLERGIES TO SULFONAMIDE ANTIBIOTICS. Exact cause is unclear. In the ED, she was given a dose of Bumex along with azithromycin and Zosyn for suspected pneumonia. PHYSICAL EXAMINATION: GENERAL: When I saw her, this is a pleasant, but confused elderly female. VITAL SIGNS: Initial vital signs by the time she got to our ED, initial temperature was reported 102.6 at 0900. At 1100 hours, it was down to 99.3 degrees Fahrenheit, her blood pressure is 152/80, pulse is 94, irregularly irregular. Oxygen saturation 94% on room air. HEENT: On the head no new trauma. There is a large ecchymosis surrounding the right orbit extending to her face. There is swelling. Her orbits are a bit swollen, but not swollen shut. Her nares are patent. Her ears are clear without any obstruction. Her oropharynx is clear. NECK: Supple, no adenopathy or stridor identified. LUNGS: Show shallow respiration. There are bibasilar rales at the bases. CARDIOVASCULAR: Showed distant heart tones. Irregularly irregular rhythm. No obvious gallops. Peripheral pulses are palpable but weak. ABDOMEN: Soft, scaphoid, nontender, no organomegaly. Bowel sounds are hypoactive. EXTREMITIES: Showed significant degenerative arthritis of both knees. There is old healing ecchymosis involving the right knee extending all the way down to her shins and right ankle. She is nonambulatory at this time. NEUROLOGIC: The patient is confused. She is not aware of person, place or time. She has no focal deficit. Her veneer stock grader are intact. She is nonambulatory. SKIN: Her skin albeit bruised is warm and dry. DIAGNOSTIC DATA: CT abdomen, head, pelvis and chest are identified. She has vascular congestion on chest CT consistent with acute congestive heart failure. LABORATORY DATA: Her hemoglobin is 11.6 g/dL with white count of 11,700. Her electrolytes showed sodium 132 mEq, potassium 3.4 mEq, creatinine is 1.4 mg/dL, nonfasting blood sugar 190 mg/dL. Her bilirubin is 1.4, troponin level 0.21. BNP is elevated at 5623. ASSESSMENT: 1. This 89-year-old female, residential resident, has acute on chronic diastolic congestive heart failure. She is symptomatic. 2. Febrile episode, etiology unclear. Her urine appears clean. Certainly with the recent pandemic of COVID-19 coronavirus, a swab is done. I do not believe she clinically appears toxic, but we are pending the swab and she is a person under investigation. 3. Profound dementia. 4. Fibromyalgia with depression. 5. Degenerative arthritis. 6. Paroxysmal atrial fibrillation. 7. Chronic anticoagulation. 8. Ecchymosis secondary to recent falls. 9. Generalized debilitation. 10. Chronic kidney disease stage 3. PLAN: 1. Admit to the inpatient unit. 2. She is given diuresis in the ED. We will continue diuresis for improvement. 3. Serial chemistries. 4. Potassium and magnesium replacement. 5. Diet as tolerated. 6. I shall hold her aspirin and Eliquis for now. When her symptoms improve, we may start her on a lower dose. 7. She remains a full code per the chart. I will try to track down who power of employee benefits attorney is given her demented state and ascertain her true code status. Her prognosis is guarded at this time. MADISON GARCIA MD DR: NABILA/franc JOB#: [id number] / [id number]
[2020-04-17] MEDS ORDERED: MAGNESIUM SULFATE 1GM 100 ML IV ONE (14:00)
[2020-04-17 14:20] VITALS: BP 141/70
[2020-04-17 14:58] VITALS: BP 131/72
[2020-04-17 19:26] VITALS: BP 116/56
[2020-04-17] MEDS ORDERED: LISINOPRIL 5 MG TABLET. PO SCH (21:00)
[2020-04-17 22:10] VITALS: BP 121/65
[2020-04-18] MEDS ORDERED: GUAI-519 PO (01:59)
[2020-04-18] MEDS ORDERED: NITR100C PO (01:59)
[2020-04-18] MEDS ORDERED: DULO-4 PO (01:59)
[2020-04-18] MEDS ORDERED: ACET325T21 PO (01:59)
[2020-04-18] MEDS ORDERED: ACET-1874 PO (01:59)
[2020-04-18] MEDS ORDERED: LORA-254 PO ×2 (01:59)
[2020-04-18] MEDS ORDERED: CHOL500021 PO (01:59)
[2020-04-18] MEDS ORDERED: DULO60CA6 PO (01:59)
[2020-04-18] MEDS ORDERED: IBUP400T18 PO ×2 (01:59)
[2020-04-18] MEDS ORDERED: METO25TA4 PO (01:59)
[2020-04-18] MEDS ORDERED: QUET25TA5 PO ×2 (01:59)
[2020-04-18 06:16] VITALS: BP 146/77
[2020-04-18] MEDS: PANTOPRAZOLE 40 MG TABLET. PO SCH (07:35)
[2020-04-18] MEDS: LEVOTHYROXINE 125 MCG TABLET PO SCH (07:35)
[2020-04-18] MEDS: ASPIRIN CHEWABLE 81 MG TABLET. PO SCH (07:36)
[2020-04-18] MEDS: DULoxetine HCL 30 MG CAPSULE.DR PO SCH (07:36)
[2020-04-18] MEDS ORDERED: POTASSIUM CHLORIDE 20 MEQ TABLET.ER. PO ONE (09:00)
[2020-04-18] MEDS ORDERED: FUROSEMIDE 40 MG/4 ML VIAL IVP ONE (09:30)
[2020-04-18] MEDS: LORazepam 1 MG TABLET PO PRN ×2 (09:44→20:50)
[2020-04-18 09:50] LABS: CALCIUM 8.7 mg/dL (8.5-10.1); CREATININE 1.4 mg/dL (0.6-1.0); GFR 35.5; POTASSIUM 3.4 mmol/L (3.5-5.1)
--- NOTE | 2020-04-18 09:56 | PN ---
DATE: 04/18/2020 ATTENDING PHYSICIAN: Dr. Garcia. CHIEF COMPLAINT: Shortness of breath. SUBJECTIVE: The patient is calm. She is alert. She is eating breakfast independently. Her room air saturations were adequate and she denies any dyspnea, cough or congestion. OBJECTIVE FINDINGS: VITAL SIGNS: Her blood pressure this morning is 146/77, temperature 97.4 degrees Fahrenheit, heart rate is 80 and regular and her oxygen saturation 95% on room air. HEENT: She still has ecchymosis around the right orbit and right side of the face. Pupils are reactive. Sclerae are nonicteric. The oropharynx is clear. No lesions. NECK: Supple. No stridor. LUNGS: Fairly good breath sounds with minimal crackles at the bases. CARDIOVASCULAR: Showed distant heart tones. No obvious gallops. Peripheral pulses are palpable and full. ABDOMEN: Soft, scaphoid, nontender, no organomegaly. Bowel sounds are normoactive. EXTREMITIES: Show trace edema. NEUROLOGIC: Pleasantly confused. No focal deficits. Speech is fluent. PERTINENT LABORATORY DATA: The COVID-19 swab from yesterday is still pending in the morning. Chemistry panel is still pending at this time. ASSESSMENT: 1. An 89-year-old female with acute on chronic diastolic congestive heart failure, improved with treatment. 2. Suppose a febrile episode, etiology is unclear. COVID-19 coronavirus swab is still pending. 3. Profound dementia. 4. Fibromyalgia with depression. 5. Degenerative arthritis. 6. Paroxysmal atrial fibrillation. 7. Chronic anticoagulation. 8. Recent falls with ecchymosis. 9. Generalized debilitation. 10. Chronic kidney disease stage 3. PLAN: 1. Diet as tolerated. 2. Continue diuresis. Lasix has been ordered. 3. Serial chemistries. 4. Potassium and magnesium replacement. 5. Increased afterload reduction. Her blood pressure can tolerate it. I have increased her lisinopril dose. 6. She is now a DNR per advanced directives speaking with the son yesterday. 7. Tentative plans to go to [place] [facility] at the time of discharge. MADISON GARCIA MD DR: NABILA/franc JOB#: [id number] / [id number]
[2020-04-18] MEDS: LISINOPRIL 10 MG TABLET PO SCH ×2 (10:20→20:50)
[2020-04-18 11:25] VITALS: BP 136/76
--- NOTE | 2020-04-18 13:44 | EKG ---
[address] [address] Test Date: 2020-04-17 Test Time: 09:47:18 Pat Name: LOW CUELLAR Department: Room: 124 A Gender: F Block Sealer: [place] : 1930 Requested By: SHOLA SALDAÑA Order Number: [id number] Reading MD: Christian Carrillo Measurements Intervals [place] Rate: 99 P: -51 MA: 144 QRS: 18 QRSD: 78 T: 76 QT: 316 QTc: 410 Interpretive Statements SINUS RHYTHM LEFT ATRIAL ABNORMALITY NON SPECIFIC T WAVE CHANGES Electronically Signed On 05-13-2020 10:36:42 CDT by Christian Carrillo
[2020-04-18] MEDS: ACETAMINOPHEN 500 MG TABLET PO PRN (14:20)
[2020-04-18 15:25] VITALS: BP 115/71
[2020-04-18 19:21] VITALS: BP 116/76
[2020-04-18 22:27] VITALS: BP 138/87
[2020-04-19] MEDS: LORazepam 1 MG TABLET PO PRN ×3 (05:08→21:21)
[2020-04-19] MEDS: ACETAMINOPHEN 500 MG TABLET PO PRN ×2 (05:08→15:35)
[2020-04-19 05:21] VITALS: BP 144/88
[2020-04-19 06:08] LABS: CALCIUM 8.6 mg/dL (8.5-10.1); CREATININE 1.4 mg/dL (0.6-1.0); GFR 35.5; POTASSIUM 3.1 mmol/L (3.5-5.1)
[2020-04-19] MEDS: PANTOPRAZOLE 40 MG TABLET. PO SCH (08:14)
[2020-04-19] MEDS: ASPIRIN CHEWABLE 81 MG TABLET. PO SCH (08:14)
[2020-04-19] MEDS: LEVOTHYROXINE 125 MCG TABLET PO SCH (08:14)
[2020-04-19] MEDS: LISINOPRIL 10 MG TABLET PO SCH ×2 (08:14→21:00)
[2020-04-19] MEDS: DULoxetine HCL 30 MG CAPSULE.DR PO SCH (08:15)
[2020-04-19] MEDS: METOPROLOL TART IMMED RELEASE 50 MG TABLET PO SCH ×2 (08:31→21:20)
[2020-04-19] MEDS: LIDOCAINE (700MG/PATCH) PATCH. TD SCH (09:56)
[2020-04-19] MEDS ORDERED: MAGNESIUM SULFATE 1GM 100 ML IV ONE (10:30)
[2020-04-19] MEDS: POTASSIUM CHLORIDE 20 MEQ TABLET.ER. PO SCH ×2 (11:04→21:20)
[2020-04-19 12:06] VITALS: BP 106/69
--- NOTE | 2020-04-19 14:13 | PN ---
DATE: 04/19/2020 ATTENDING PHYSICIAN: Dr. Garcia. SUBJECTIVE: She complains of left sided neck pain. She is very miserable. She denies any dyspnea. Her daughter is in the room. She remains very confused. She has intermittent bouts of tachycardia due to atrial fibrillation, beta blockers have been restarted. Yesterday, there was report from microbiology lab, one blood culture to be positive. I suspect this is a contaminant. ID and sensitivity are pending. In the meantime, she is on empiric Rocephin. OBJECTIVE FINDINGS: VITAL SIGNS: Blood pressure today is 144/88, pulse is 90 and irregularly irregular. It had gone up to the 160s and then came down, temperature is 97.4 degrees Fahrenheit, oxygen saturation 94% on room air. HEENT: Head shows previous trauma. There are significant right orbital ecchymoses with bruising down her face. Swelling has improved. The pupils are reactive. Sclerae nonicteric. Oropharynx is clear. NECK: Supple. No stridor. There are numerous trigger points in the left side of the neck causing pain. LUNGS: Actually clear to auscultation. CARDIOVASCULAR: Show irregularly irregular rhythm. Normal S1, variable S2. No obvious gallops. Peripheral pulses are palpable and full. ABDOMEN: Soft, scaphoid, nontender, no organomegaly. Bowel sounds were hypoactive. EXTREMITIES: Show no cyanosis. There is some ecchymosis trace edema of the right ankle. NEUROLOGIC: Pleasantly confused. LABORATORY DATA: The hemoglobin as noted. Potassium is down to 3.1 mEq today. Creatinine is stable at 1.4 mg/dL. ASSESSMENT: 1. An 89-year-old female with [id number] diastolic congestive heart failure, compensated. 2. Positive blood culture bacteremia versus contaminant. 3. Profound dementia. 4. Paroxysmal atrial fibrillation that is permanent. 5. Coagulopathy, Eliquis has been held. 6. Hypokalemia due to diuretics. 7. Chronic pain syndrome. 8. Degenerative arthritis. 9. Underlying depression with anxiety. PLAN: 1. Continue antibiotics as ordered. 2. Continue her preload and afterload reduction. 3. Potassium and magnesium replacement. 4. Lidoderm patch. 5. Follow up sensitivity and ID of blood culture. 6. Serial chemistries. She is a DNR per advanced directives. Our tentative plans are for placement at [facility] on Wednesday. MADISON GARCIA MD DR: NABILA/franc JOB#: [id number] / [id number]
[2020-04-19 14:41] VITALS: BP 129/82
[2020-04-19 18:25] VITALS: BP 115/70
[2020-04-19 19:26] VITALS: BP 98/61
[2020-04-19] MEDS: PATCH REMOVAL. MC SCH (21:00)
[2020-04-19] MEDS: LACTOBACILLUS RHAMNOSUS GG 1 CAPSULE. PO SCH (21:20)
[2020-04-19 22:02] VITALS: BP 102/68
[2020-04-20 04:58] VITALS: BP 119/84
[2020-04-20] MEDS: LORazepam 1 MG TABLET PO PRN ×2 (04:58→20:37)
[2020-04-20] MEDS: ACETAMINOPHEN 500 MG TABLET PO PRN ×2 (04:58→20:37)
[2020-04-20] MEDS: LACTOBACILLUS RHAMNOSUS GG 1 CAPSULE. PO SCH ×2 (08:05→20:36)
[2020-04-20] MEDS: METOPROLOL TART IMMED RELEASE 50 MG TABLET PO SCH ×2 (08:05→20:36)
[2020-04-20] MEDS: ASPIRIN CHEWABLE 81 MG TABLET. PO SCH (08:05)
[2020-04-20] MEDS: PANTOPRAZOLE 40 MG TABLET. PO SCH (08:06)
[2020-04-20] MEDS: POTASSIUM CHLORIDE 20 MEQ TABLET.ER. PO SCH ×2 (08:06→20:37)
[2020-04-20] MEDS: DULoxetine HCL 30 MG CAPSULE.DR PO SCH (08:06)
[2020-04-20] MEDS: LEVOTHYROXINE 125 MCG TABLET PO SCH (08:06)
[2020-04-20] MEDS: LIDOCAINE (700MG/PATCH) PATCH. TD SCH (08:07)
[2020-04-20] MEDS: LISINOPRIL 10 MG TABLET PO SCH ×2 (08:07→21:00)
--- NOTE | 2020-04-20 09:45 | PN ---
DATE: 04/20/2020 ATTENDING PHYSICIAN: Dr. Garcia. SUBJECTIVE: The patient is very agitated. She was screaming when they were drawing blood. She has no insight. She was angry. She does not have her computer tablet. She denied any shortness of breath. Her heart rate has been controlled. She remains in permanent atrial fibrillation. OBJECTIVE FINDINGS: VITAL SIGNS: Her blood pressure today is 119/84 mmHg, pulse is 81 and irregularly irregular, temperature 97.5 degrees Fahrenheit, oxygen saturation 95% on room air. HEENT: Head is without trauma. Pupils are reactive. Sclerae nonicteric. Oropharynx is clear. NECK: Supple. There is still bruising, but healing from the right orbital ecchymosis. Her neck is supple, improved range of motion. LUNGS: Fairly good breath sounds. No stridor or rales. CARDIOVASCULAR: Showed distant heart tones. Irregularly irregular rhythm, variable S2. No obvious gallops. Peripheral pulses are palpable and full. ABDOMEN: Soft, scaphoid, nontender, no guarding, no organomegaly. Bowel sounds were hypoactive. EXTREMITIES: Showed swelling and ecchymosis of the right leg. NEUROLOGIC: The patient is confused and agitated. She is nonambulatory at this time. ASSESSMENT: 1. An 89-year-old female with acute on chronic diastolic congestive heart failure, compensated. 2. Positive blood culture one of two suggesting Staphylococcus species. Clinically, she is not septic. I suspect that this was a contaminant. 3. Profound dementia with agitation. 4. Paroxysmal atrial fibrillation that is permanent. 5. Coagulopathy. Eliquis has been held. 6. Hypokalemia due to diuretics, replaced. Chemistries are pending this morning. 7. Chronic pain syndrome. 8. Degenerative arthritis. 9. Underlying depression with anxiety. PLAN: 1. Continue antibiotics until the results of the blood cultures are back. 2. Continue preload and afterload reduction. 3. Potassium and magnesium replacement. 4. Lidoderm patch. 5. Follow up sensitivity and ID of blood culture. 6. Serial chemistry. 7. Follow up chest x-ray today. 8. The patient is a DNR per advanced directives. MADISON GARCIA MD DR: NABILA/franc JOB#: [id number] / [id number]
[2020-04-20 10:13] LABS: CALCIUM 9.1 mg/dL (8.5-10.1); CREATININE 1.3 mg/dL (0.6-1.0); GFR 38.7; POTASSIUM 4.2 mmol/L (3.5-5.1)
[2020-04-20 11:19] VITALS: BP 117/72
--- NOTE | 2020-04-20 12:03 | RAD ---
EXAM: CHEST AP ONLY INDICATION: Reason: CHF / Spl. Instructions: / History: . TECHNIQUE: Single view COMPARISON: 04/17/2020 FINDINGS: The heart size is borderline enlarged. The great vessels appear unremarkable. There is no hilar or mediastinal mass. The lungs show minimal coarse reticular densities bilaterally.. There is no pleural effusion or pneumothorax. There are no significant osseous abnormalities. IMPRESSION: Borderline cardiomegaly with minimal coarse reticular densities bilaterally. These are nonspecific but could reflect early pulmonary vascular congestion. Electronically signed by: Caesar Dasilva MD (04/20/2020 12:00 PM) [id number]
[2020-04-20 14:21] VITALS: BP 110/63
[2020-04-20 20:02] VITALS: BP 115/72
[2020-04-20] MEDS: PATCH REMOVAL. MC SCH (21:00)
[2020-04-20 23:30] VITALS: BP 130/77
[2020-04-21 05:56] VITALS: BP 144/62
[2020-04-21] MEDS: DULoxetine HCL 30 MG CAPSULE.DR PO SCH (08:05)
[2020-04-21] MEDS: PANTOPRAZOLE 40 MG TABLET. PO SCH (08:05)
[2020-04-21] MEDS: ASPIRIN CHEWABLE 81 MG TABLET. PO SCH (08:05)
[2020-04-21] MEDS: POTASSIUM CHLORIDE 20 MEQ TABLET.ER. PO SCH ×2 (08:05→20:22)
[2020-04-21] MEDS: LORazepam 1 MG TABLET PO PRN ×2 (08:05→20:20)
[2020-04-21] MEDS: ACETAMINOPHEN 500 MG TABLET PO PRN ×2 (08:05→20:19)
[2020-04-21] MEDS: LEVOTHYROXINE 125 MCG TABLET PO SCH (08:06)
[2020-04-21] MEDS: LIDOCAINE (700MG/PATCH) PATCH. TD SCH (08:06)
[2020-04-21] MEDS: LISINOPRIL 10 MG TABLET PO SCH ×2 (08:06→20:21)
[2020-04-21] MEDS: LACTOBACILLUS RHAMNOSUS GG 1 CAPSULE. PO SCH ×2 (08:06→20:19)
[2020-04-21] MEDS: METOPROLOL TART IMMED RELEASE 50 MG TABLET PO SCH ×2 (08:06→20:20)
[2020-04-21 12:09] VITALS: BP 119/75
[2020-04-21 18:14] VITALS: BP 122/68
--- NOTE | 2020-04-21 18:34 | PN ---
DATE: 04/21/2020 ATTENDING PHYSICIAN: Dr. Garcia. SUBJECTIVE: The patient is calmer today. She was confused, looking for her early in the morning. Her son and daughter are here. She is calm. She denies any pain or shortness of breath. Her oxygen saturation is adequate on room air. OBJECTIVE FINDINGS: Follow up chest x-ray yesterday shows clearing of the lung garcia. She still has cardiomegaly and there are no acute infiltrates identified. VITAL SIGNS: Her blood pressure is 144/62 mmHg, her pulse is 62 and irregularly irregular, temperature 98.4 degrees Fahrenheit, oxygen saturation 96% on room air. HEENT: Head is without trauma. There is less ecchymosis of the right orbit. NECK: Supple, no bruits. LUNGS: Shallow respirations still, but good airway movement. CARDIOVASCULAR: Showed distant heart tones, irregularly irregular rhythm, and no gallops. Peripheral pulses are palpable and full. ABDOMEN: Soft, scaphoid, nontender. EXTREMITIES: Show decreased edema and swelling and ecchymosis. NEUROLOGIC: Pleasantly confused. No focal deficits. PERTINENT LABORATORY STUDIES: Her potassium is up to 4.2 mEq per liter. Creatinine is improved to 1.3. Nonfasting blood sugar 104. The blood culture that came back positive several days ago appears to be a contaminant. ASSESSMENT: 1. An 89-year-old female with acute on chronic diastolic congestive heart failure, compensated. 2. Positive blood culture, contaminant. She does not appear septic. 3. Profound dementia with agitation, stable. 4. Paroxysmal atrial fibrillation, permanent with controlled ventricular response. 5. Coagulopathy, Eliquis has been held and we will not restart at this time. 6. Hypokalemia, replaced. 7. Chronic pain syndrome. 8. Degenerative arthritis. 9. Underlying depression with anxiety. PLAN: 1. I will discontinue antibiotics today. 2. Continue preload and afterload reduction. 3. Lidoderm patch. 4. Tentative plans to go to [facility], a subacute rehab tomorrow. 5. The patient remains a DNR per advanced directives. 6. Short-term and long-term care discussed with both daughter and son who are at the bedside. MADISON GARCIA MD DR: NABILA/franc JOB#: [id number] / [id number]
[2020-04-21 19:40] VITALS: BP 161/73
[2020-04-21] MEDS: PATCH REMOVAL. MC SCH (20:20)
[2020-04-22 01:51] VITALS: BP 105/65
[2020-04-22 06:13] LABS: CALCIUM 9.1 mg/dL (8.5-10.1); CREATININE 1.4 mg/dL (0.6-1.0); GFR 35.5; POTASSIUM 4.8 mmol/L (3.5-5.1)
[2020-04-22 07:00] VITALS: BP 132/79
[2020-04-22] MEDS: PANTOPRAZOLE 40 MG TABLET. PO SCH (07:49)
[2020-04-22] MEDS: LEVOTHYROXINE 125 MCG TABLET PO SCH (07:49)
[2020-04-22] MEDS: LIDOCAINE (700MG/PATCH) PATCH. TD SCH (09:11)
[2020-04-22] MEDS: LISINOPRIL 10 MG TABLET PO SCH (09:12)
[2020-04-22] MEDS: DULoxetine HCL 30 MG CAPSULE.DR PO SCH (09:12)
[2020-04-22] MEDS: POTASSIUM CHLORIDE 20 MEQ TABLET.ER. PO SCH (09:13)
[2020-04-22] MEDS: LORazepam 1 MG TABLET PO PRN (09:25)
[2020-04-22] MEDS: ASPIRIN CHEWABLE 81 MG TABLET. PO SCH (09:25)
[2020-04-22] MEDS: METOPROLOL TART IMMED RELEASE 50 MG TABLET PO SCH (09:25)
[2020-04-22] MEDS: LACTOBACILLUS RHAMNOSUS GG 1 CAPSULE. PO SCH (09:25)
--- NOTE | 2020-04-22 10:35 | DS ---
DATE OF DISCHARGE: 04/22/2020 ATTENDING PHYSICIAN: Dr. Garcia FINAL DISCHARGE DIAGNOSES: 1. Acute on chronic diastolic congestive heart failure, compensated. 2. Positive blood culture, contaminant. She was not septic. 3. Profound dementia with agitation control. 4. Paroxysmal atrial fibrillation, permanent with controlled ventricular rate. 5. Coagulopathy due to Eliquis, Eliquis stopped. 6. Hypokalemia, replaced. 7. Chronic pain syndrome, improved. 8. Degenerative arthritis. 9. Underlying depression with anxiety. 10. Hypothyroidism, on replacement HISTORY AND PHYSICAL: The patient is an 89-year-old female who had been in independent living. She had fallen several times. She had significant bruising and ecchymosis involving her face after doing a face-plant. Because of the risk-benefit ratio, the Eliquis was stopped. She had confusion and altered mentation. She also had a chest x-ray, evidence of congestive heart failure with fluid and decompensation. PHYSICAL EXAMINATION: Please see my dictated note. PERTINENT LABORATORY AND X-RAY STUDIES: CT abdomen and chest were obtained along with CT of the head. No stroke was identified. Followup chest x-ray still showed borderline cardiomegaly, minimal coarse reticular densities, vascular congestion was markedly improved. CT of the head showed no acute intracranial abnormalities, unchanged right parietal encephalomalacia, chronic microvascular changes, small left frontal scalp contusion. LABORATORY STUDIES: On admission, her hemoglobin was 11.6 g/dL with white count 11,700. Subsequent chemistries were drawn due to diuresis. Potassium dip to 3.1 mEq per liter with replacement with magnesium, potassium is up to 4.8 mEq on the day of discharge. Creatinine remained stable and unchanged at 1.4 mg/dL, nonfasting blood sugar was 100, sodium 136 mEq per liter. Troponin was nonischemic. COURSE IN THE HOSPITAL: The patient was admitted for multiple medical issues. She had acute on chronic diastolic congestive heart failure. Because of hypertension and her history, we unloaded the heart with increased preload and afterload reduction. Her lisinopril dose had been at 5 mg b.i.d., this was increased to 10 mg b.i.d. She had a burst of atrial fibrillation with rapid ventricular rate. This was improved after we increased her beta pablo to Lopressor 50 mg b.i.d. She had 1 positive blood culture, which unfortunately took several days to return. We treated her empirically with 4 days of intravenous antibiotics when the cultures returned as Staphylococcus hominis. This is a contaminant. Clinically, she was not septic. I stopped the antibiotics. She will not need to continue antibiotic therapy at the [facility]. Electrolytes were replaced. Her diet was advanced and remarkably her family states that she ate quite well. She had intermittent bouts of confusion and agitation, which responded well to Ativan. On the sixth hospital day, arrangements for the patient were made for her to go to [facility] to continue rehabilitation at that time. She is a DNR per advanced directives. She will follow a regular diet. She will continue her Tylenol p.r.n., aspirin 81 mg daily, Cymbalta 90 mg daily, Synthroid 125 mcg daily, Lidoderm 5% patch daily to her left neck, lisinopril 10 mg b.i.d., lorazepam p.r.n. agitation, metoprolol 50 mg b.i.d., Protonix 40 mg daily, Lasix 40 mg every Wednesday, Wednesday, Wednesday and K-Dur 20 mEq Wednesday, Wednesday and Wednesday. Her prognosis is guarded. The patient was then discharged from our hospital in stable condition with explicit instructions and followup care. MADISON GARCIA MD DR: NABILA/franc JOB#: [id number] / [id number] MIRELLA Castillo MD
[2020-04-22 11:00] VITALS: BP 118/74
[2020-04-22] MEDS ORDERED: DULO30CA2 PO (17:27)
[2020-04-22] MEDS ORDERED: METO50TA6 PO (17:27)
[2020-04-22] MEDS ORDERED: LIDO700A21 TP (17:27)
[2020-04-22] MEDS ORDERED: LISI40TA PO (17:27)
[2020-04-22] MEDS ORDERED: ACET500T68 PO (17:27)
[2020-04-22] MEDS ORDERED: POTA20TA4 PO (17:32)
[2020-04-22] MEDS ORDERED: FURO40TA4 PO (17:32)
== END 2020-04-22 12:15 | DRG 291 ==
LOC: ER 09:36 → 1 SOUTH 12:20
PROVIDERS: ADMIT Hospitalist; ATTEND Hospitalist
DX: I13.0 Hypertensive heart and chronic kidney disease with heart failure and stage 1 through stage 4 chronic kidney disease, or unspecified chronic kidney disease (principal); J18.9 Pneumonia, unspecified organism; I50.33 Acute on chronic diastolic (congestive) heart failure; D68.9 Coagulation defect, unspecified; F03.91 Unspecified dementia, unspecified severity, with behavioral disturbance; I48.21 Permanent atrial fibrillation; J44.0 Chronic obstructive pulmonary disease with (acute) lower respiratory infection; J98.11 Atelectasis; N39.0 Urinary tract infection, site not specified; E03.9 Hypothyroidism, unspecified; E87.6 Hypokalemia; F41.8 Other specified anxiety disorders; G89.4 Chronic pain syndrome; G93.89 Other specified disorders of brain; K40.20 Bilateral inguinal hernia, without obstruction or gangrene, not specified as recurrent; K57.30 Diverticulosis of large intestine without perforation or abscess without bleeding; K59.00 Constipation, unspecified; M19.90 Unspecified osteoarthritis, unspecified site; M79.7 Fibromyalgia; N18.3 Chronic kidney disease, stage 3 (moderate); S00.03XA Contusion of scalp, initial encounter; T50.2X5A Adverse effect of carbonic-anhydrase inhibitors, benzothiadiazides and other diuretics, initial encounter; Z79.01 Long term (current) use of anticoagulants; Z79.82 Long term (current) use of aspirin; Z79.890 Hormone replacement therapy; Z79.899 Other long term (current) drug therapy; Z66 Do not resuscitate; K21.9 Gastro-esophageal reflux disease without esophagitis; N28.9 Disorder of kidney and ureter, unspecified; R29.6 Repeated falls; Z20.828 Contact with and (suspected) exposure to other viral communicable diseases
CPT/HCPCS: 36415; 70450; 71045; 71250; 74176; 80048; 80053; 81001; 82553; 82728; 83605; 83615; 83735; 83880; 84484; 85007; 85025; 85610; 85730; 87040; 87070; 87077; 87186; 87205; 87804; 87880; 93005; 96361; 96365; 96368; 96375; J0456; J0696; J1100; J1940; J2543; J3475; J3490; J7050; 97530; 99285-25; J7030; U0003-CS

== ENCOUNTER 2020-04-22 15:40 | Inpatient (IN) | payer MEDICARE, BC ==
[~2020-04-22] VITALS: Ht 165.1 cm; Wt 70.9 kg
[~2020-04-22 15:40] MED LIST changes: +ACET-1874 PO; +ACET325T21 PO; +CHOL500021 PO; +DULO-4 PO; +DULO60CA6 PO; +GUAI-519 PO; +IBUP400T18 PO; +LORA-254 PO; +METO25TA4 PO; +NITR100C PO; +QUET25TA5 PO
[2020-04-22] MEDS ORDERED: MAG HYDROX/AL HYDROX/SIMETH 30 ML ORAL.SUSP PO PRN (16:45)
[2020-04-22] MEDS ORDERED: METHYL SALICYLATE/MENTHOL TOPICAL OINTMENT 57GM TUBE. TP PRN (16:45)
[2020-04-22] MEDS ORDERED: MAGNESIUM HYDROXIDE 2,400 MG/30 ML ORAL.SUSP. PO PRN (16:45)
[2020-04-22 16:47] VITALS: BP 175/86
[2020-04-22] MEDS ORDERED: METO50TA6 PO (17:27)
[2020-04-22] MEDS ORDERED: DULO30CA2 PO (17:27)
[2020-04-22] MEDS ORDERED: LISI40TA PO (17:27)
[2020-04-22] MEDS ORDERED: ACET500T68 PO (17:27)
[2020-04-22] MEDS ORDERED: LIDO700A21 TP (17:27)
[2020-04-22] MEDS ORDERED: ACETAMINOPHEN 500 MG TABLET PO PRN (17:30)
[2020-04-22] MEDS ORDERED: LIDOCAINE (700MG/PATCH) PATCH. TP SCH (17:30)
[2020-04-22] MEDS ORDERED: FURO40TA4 PO (17:32)
[2020-04-22] MEDS ORDERED: POTA20TA4 PO (17:32)
--- NOTE | 2020-04-22 17:42 | NUR ---
Admission Note with Justification for Admission to [facility] Patient admitted to [facility] for protective oversight for emergency stabilization of acute psychiatric crisis. Pt admitted from: [facility], at [facility] prior Mode of arrival: Wheelchair Van Accompanied By: [place] staff Precipitating behaviors that initiated intake and admission: throwing stuff, screaming, hitting at staff, unable to get near her, expressions of wanting to . Description of failure of out patient attempts at stabilization in previous setting list behavior and medication trials: redirection, 1:1 Behaviors and assessment findings upon admission: Pt remorseful upon admission. Expressed that she was upset when she went to rehab when she found out that her family couldn't visit. States she got angry. Denies SI/HI. Is wanting to talk to her son, is upset that she cannot see him. Pt knows where she is at, doesn't understand why she had to come to the psych unit. Plan: Admit for protective oversight for adjustment and stabilization of medications, behaviors and mood. Intense treatment regimen including groups, medication adjustments, therapy, consistent regimen for ADL's, self care, and sleep hygiene. Daily monitoring by Inpatient staff, Psychiatry, and Medical Physician.
[2020-04-22] MEDS: ACETAMINOPHEN 325 MG TABLET PO PRN (18:42)
[2020-04-22] MEDS: LORazepam 0.5 MG TABLET PO PRN (18:42)
[2020-04-22] MEDS: METOPROLOL TART IMMED RELEASE 50 MG TABLET PO SCH (20:17)
--- NOTE | 2020-04-22 21:20 | NUR ---
Pt lying in bed, yelling out at shift change. Pt anxious, disorganized, and tearful. PRN Ativan administered @1845 by previous shift RN. At time of assessment and medication administration, pt had calmed and was pleasant and interactive with staff.
--- NOTE | 2020-04-22 22:23 | PDOC ---
Exam Note: Leif Note: Please also refer to the separate dictated note~for this date of service dictated separately.~Patient seen individually. Discussed the patient with Nursing staff reviewed the chart.~Reviewed interim history and current functioning. Reviewed vital signs,~Labs/ Radiology~and current medications noted below. Continue current treatment with the changes noted in the dictated addendum note Assessment: Vital Signs/I&O: Vital Signs Date Time Temp Pulse Resp B/P (MAP) Pulse Ox O2 Delivery O2 Flow Rate FiO2 04/22/20 20:17 63 175/86 04/22/20 16:47 97.8 18 96 Current Medications: Meds: Current Medications Medications (Trade) Dose Ordered Sig/Beka Route PRN Reason Start Time Stop Time Status Last Admin Dose Admin Acetaminophen (Tylenol) 650 mg PRN Q6HRS PRN PO PAIN / TEMP > 100.3'F 04/22/20 16:45 04/22/20 18:42 Lorazepam (Ativan) 0.5 mg PRN Q6HRS PRN PO ANXIETY / AGITATION 04/22/20 17:45 04/22/20 18:42 Metoprolol Tartrate (Lopressor) 50 mg BID PO 04/22/20 21:00 04/22/20 20:17 I have reviewed the current psychotropics carefully including drug interactions. Risk benefit ratio favors no change other than as noted in my dictated progress note. 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
--- NOTE | 2020-04-23 01:23 | HP ---
ADMIT DATE: 04/22/2020 PSYCHIATRIC ADMISSION HISTORY/EVALUATION IDENTIFYING DATA: The patient is an 89-year-old female referred to us from [facility], referred by Dr. Cameron, her primary care physician, admitted at the ____ of her son, John Moffett, who is her power of assistant county attorney on account of worsening confusion, agitation, and depression. She was physically hitting staff, would not let them get near her. She was screaming, throwing stuff, stating she wanted to , stating she would walk home. Behaviors were deemed dangerous, unmanageable. She had failed outpatient psychiatric interventions resulting in this referral. CHIEF COMPLAINT: "I need to get home." The patient was tearful, labile, irritable, anxious, constantly moving as I met with her. HISTORY OF PRESENT ILLNESS: The patient has a history of increasing short-term memory deficits, anxiety, worsening symptoms of depression, anger, irritability and paranoia. She has had sleep and appetite changes, appeared quite agitated, aggressive. Her behaviors were deemed dangerous and she had failed her placement at [facility] and then was at [facility] for rehabilitation, unmanageable there, resulting in this referral. No clear history of bipolar disorder or homicidal ideation. PAST PSYCHIATRIC HISTORY: As above. MEDICAL HISTORY: Positive for atrial fibrillation, arthritis, CHF, COPD, fibromyalgia, GERD, hypothyroidism. ACCU-CHEKS: None. DIET: Regular. Takes medications whole, ambulates in wheelchair. CODE STATUS: DNR. ALLERGIES: SULFA. CURRENT PSYCHOTROPICS: Cymbalta 90 mg at bedtime. FAMILY HISTORY: Noncontributory. SOCIAL HISTORY: No history of alcohol, drug abuse, physical, sexual or elder abuse. She is not known to be a perpetrator. REACTION TO HOSPITALIZATION: The patient reluctantly accepting it. ASSETS: Supportive family, stable living at the [facility]. MENTAL STATUS EXAMINATION: The patient was seen individually evening of 04/22/2020. She is depressed, anxious, irritable, labile, crying. She knew the year is 2019, but felt the month was October. She knew the president was president Javier and the one before that she felt it was president Troyower. Speech has some latency, coherent, rapid at times. Abstraction fair, computation impaired, language function intact, attention span short. Mood and affect depressed, anxious, labile. No active suicidal or homicidal ideation. LABORATORY DATA: Reviewed. 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 Rest as above. PLAN: Admit to Geropsychiatry Unit at [facility]. I will see the patient daily individually from a psychiatric standpoint. Medical followup per Dr. Cameron/Dr. Nguyen. Continue the patient on her current psychotropics. Observe baseline, adjust psychotropics as clinically indicated. ESTIMATED LENGTH OF STAY: 10-12 days. DISPOSITION: Plans back to [facility] when stable. ISAAC DEUTSCH MD DR: ALEA/franc JOB#: [id number] / [id number]
[2020-04-23 04:11] LABS: BACTERIA,URINE 0 /HPF (0-FEW); BILIRUBIN,URINE NEG (NEG); CLARITY,URINE CLEAR; COLOR,URINE YELLOW; GLUCOSE,URINE NEG (NEG); NITRITE,URINE NEG (NEG); RBC,URINE OCC /HPF (0-2); SQUAMOUS EPITHELIAL CELL,UR OCC /LPF; UROBILINOGEN,URINE 0.2 mg/dL (0.2 mg/dL)
[2020-04-23] MEDS: LEVOTHYROXINE 125 MCG TABLET PO SCH (05:29)
[2020-04-23] MEDS: ACETAMINOPHEN 325 MG TABLET PO PRN ×2 (05:30→13:30)
[2020-04-23 05:39] VITALS: BP 130/68
[2020-04-23 06:10] LABS: BASO # 0.1 x10^3/uL (0.0-0.2); BASO % 1 % (0-3); EOS % 12 % (0-3); HEMOGLOBIN 11.4 g/dL (12.0-15.5); LYMPH # 1.2 x10^3/uL (1.0-4.8); LYMPH % 14 % (24-48); MEAN CORPUSCULAR HEMOGLOBIN 30 pg (25-35); MEAN CORPUSCULAR HGB CONC 34 g/dL (31-37); MEAN CORPUSCULAR VOLUME 91 fL (79-100); MONO # 0.5 x10^3/uL (0.0-1.1); MONO % 6 % (0-9); NEUT # 6.1 x10^3uL (1.8-7.7); NEUT % 68 % (31-73); PLATELET COUNT 316 x10^3/uL (140-400); RED BLOOD COUNT 3.76 x10^6/uL (3.50-5.40); RED CELL DISTRIBUTION WIDTH 13.3 % (11.5-14.5); WHITE BLOOD COUNT 8.9 x10^3/uL (4.0-11.0)
[2020-04-23 06:18] LABS: ALBUMIN/GLOBULIN RATIO 0.8 (1.0-1.7); CALCIUM 9.4 mg/dL (8.5-10.1); CREATININE 1.4 mg/dL (0.6-1.0); GFR 35.5; MAGNESIUM 1.9 mg/dL (1.8-2.4); POTASSIUM 4.5 mmol/L (3.5-5.1); TOTAL BILIRUBIN 0.6 mg/dL (0.2-1.0); TOTAL PROTEIN 6.8 g/dL (6.4-8.2)
[2020-04-23] MEDS: LIDOCAINE (700MG/PATCH) PATCH. TP SCH (08:35)
[2020-04-23] MEDS: LISINOPRIL 20 MG TABLET PO SCH (08:37)
[2020-04-23] MEDS: ASPIRIN CHEWABLE 81 MG TABLET. PO SCH (08:37)
[2020-04-23] MEDS: PANTOPRAZOLE 40 MG TABLET. PO SCH (08:38)
[2020-04-23] MEDS: METOPROLOL TART IMMED RELEASE 50 MG TABLET PO SCH ×2 (08:38→20:17)
[2020-04-23] MEDS ORDERED: DULoxetine HCL 30 MG CAPSULE.DR PO SCH (09:00)
--- NOTE | 2020-04-23 13:31 | NUR ---
Patient reports pain in her face, sides and back. She had a fall prior to admittance. PRN tylenol provided per order for pain.
[2020-04-23 14:05] LABS: THYROID STIM HORMONE (TSH) 0.105 uIU/mL (0.358-3.740)
--- NOTE | 2020-04-23 15:00 | NUR ---
Patient found in dining room wearing no arm band. Patient threatened to 'rip off every arm band placed on her" She had taken her armband off before breakfast, nurse printed an armband for her arm and put one on the wheelchair as well. Eventually she was compliant with medications take whole. Patient observed yelling in dining room after breakfast. She is oriented to self and year. Patient told this nurse that she was in "a torture chamber" and "wants to ". When nurse asked patient if she was suicidal, patient said no. Patient then clarified that she meant to say "I want to , God will take care of it". She denied having a specific suicide plan and said "I would never do that". Soon after breakfast patient was assisted to [facility] because her constant yelling was agitating other patients. She was yelling "I need kindness, I just want kindness" in the [facility]. When she was let into day room she was calmer. In the late morning the patient was wandering in day room and hallway in her wheelchair and asking people if they 'know God". This afternoon the patient speaking to male peer in hallway and became tearful, she was directed away from that peer and was soon calm.
[2020-04-23 15:54] VITALS: BP 120/72
[2020-04-23] MEDS: LORazepam 0.5 MG TABLET PO PRN (17:19)
--- NOTE | 2020-04-23 17:39 | NUR ---
Patient in dining room screaming that we took her jewelry and yelling "oh Sean save me" and this was disruptive to the other patients. She was taken to the hallway near the dining room in an effort to calm down so she could eat her dinner. This nurse and another nurse spoke to patient about the purpose of being here and how we were trying to help her. Patient continued to scream and yell, even after being told that the jewelry was in the safe until she was healthier and could check out of the hospital. She continued to cry and smack at nurse. Patient was unable to calm down and continued wailing and screaming about her jewelry (that we again assured her was in the safe). Nurse attempted to give patient PRN xanax PO and patient attempted to slap med cup out of nurses hand. Education was provided to patient about how xanax would help her calm down. Patient then re-entered the dining room, refusing to eat and crying and wailing even louder. Patient assisted to west hallway by staff, while attempting to scratch and bite. Nurse offered patient medication again PO and patient refused it. Medication provided sublingually. Patient continues to scream, knock on the window and yell for "fidel" and is cursing this nurse and asking "why are you doing this" and "God help me". Patient is yelling "is there no kindness?" and "how are you so horrible, just sitting there like that" to this nurse as nurse is writing this note. Patient is pounding on the window with her right hand and fist.
--- NOTE | 2020-04-23 18:45 | NUR ---
Patient continues to scream, wail and bang on the window of the nurses station from the [address]. Patient is inconsolable and xanax did not make a difference on her behaviors. Dr Penn rounding during these behaviors. Now zyprexa zydis 2.5mg provided sublingually per one time NOW order given by Dr Penn. Patient put self from wheelchair to side chair in the hallway. Ongoing PRN zyprexa zydis 2.5mg PRN Q2hrs NTE 10mg/24hrs
--- NOTE | 2020-04-23 19:17 | CONS ---
DATE OF CONSULTATION: 04/23/2020 ATTENDING PHYSICIAN: Dr. Penn. REASON FOR CONSULTATION: We are asked to see this patient for medical consultation. HISTORY OF PRESENT ILLNESS: The patient is an 89-year-old female. She was hospitalized on the acute floor from 04/17/2020 through 04/22/2020. She had various medical issues. [facility] but had fallen several times. She did a face plant. She had been on Eliquis for permanent atrial fibrillation. We held the Eliquis and swelling was improved. She remains quite agitated. She had acute on chronic congestive heart failure. She was treated accordingly and sent to [facility] just yesterday morning. She was there for about 3 hours. She became very agitated, threatening to leave against medical advice, unable to be controlled. Arrangement was then made for the patient to come to the [facility]. Today in the ED under new and strange environment, she is in the wheelchair outside the room banging on the windows, crying help me, totally lost and disoriented. I am asked to see her for medical consultation. PAST MEDICAL HISTORY: Significant for vascular dementia, depression, major anxiety, disorientation, inability to function at home, acute on chronic diastolic congestive heart failure, permanent atrial fibrillation, hypothyroidism, recent coagulopathy. This was discontinued. She was just discharged from the acute hospital yesterday. ALLERGIES: She has allergies to SULFA DRUGS. CURRENT MEDICINES: Include Tylenol, Fosamax weekly, aspirin 81 mg daily, Cymbalta 90 mg daily, Lasix 40 mg Wednesday, Wednesday and Wednesday, Synthroid 125 mcg daily, Lidoderm patch to her neck, Lisinopril 40 mg daily, lorazepam 0.5 mg. q.6 hours p.r.n. agitation, metoprolol 50 mg b.i.d., Protonix 40 daily, and potassium supplementation Wednesday, Wednesday and Wednesday. SOCIAL HISTORY: She is a nonsmoker, nondrinker. Her social history is as follows: She has been for the last 10 years. She frequently asked about where her is, even though he has been for 10 years. She has 2 supportive children, a son, John, who lives in [place], [place] and a daughter, John Paul, who lives in [place], [place]. They have been by to see her daily while she was on the medical floor. She has had underlying psychiatric issue ever since she lost a child in 1956. FAMILY HISTORY: Noncontributory. REVIEW OF SYSTEMS: Significant for the recent admission. She had been on Eliquis for permanent atrial fibrillation. We made a decision during the course of the hospitalization because of her falling and bruising that the risk of continued anticoagulation outweigh the benefits, therefore we elected to stop the Eliquis. Her swelling and her bruising has been improved. She is very agitated. She does not know person, place or time. She does not understand why she is in the hospital and she is more confused in a strange environment. She had been on supplemental oxygen. Her room air saturation is adequate. All other systems were unobtainable due to the patient's confusion. PHYSICAL EXAMINATION: GENERAL: When I saw her, this is a confused elderly female sitting in a wheelchair, banging on the windows, wanting to get out of here. VITAL SIGNS: Her initial vital signs showed a blood pressure of 175/86, pulse of 63, irregularly irregular, temperature 97.8 degrees Fahrenheit, oxygen saturation 94% on room air. HEENT: Head is without trauma. There is ecchymosis along the right orbit and face, which is actually improved from a week ago. The bruising black and blue discoloration is actually fading. Ears are patent and normal. NECK: Supple. There is no adenopathy. LUNGS: Shallow respirations otherwise clear. CARDIOVASCULAR: Showed distant heart tones. Irregularly irregular. No obvious gallops. Peripheral pulses are palpable and full. ABDOMEN: Soft, scaphoid, nontender, no organomegaly. Bowel sounds were hypoactive. EXTREMITIES: Showed 1+ swelling. There are various ecchymosis that is healing. NEUROLOGIC: Agitated, confused. She is not aware of person, place or time. LABORATORY DATA: Repeat laboratory studies this morning, her hemoglobin is 11.4 g/dL, white count is 8900. Nonfasting blood sugar is 102. Creatinine is 1.4 mg percent, which is at baseline for her. BUN 26, potassium 4.5 mEq, sodium 133. Liver panel unremarkable. ASSESSMENT: 1. This 89-year-old female has profound dementia. She did not tolerate going to [facility]. She became very agitated, confused and threatened to leave. She is readmitted here, the same day she was discharged from the acute floor to the [facility] to help manage her outbreaks. Unfortunately, her family cannot be here. She has been violent and threatened to hit the nursing staff. Very difficult to manage. 2. Acute on chronic congestive heart failure, diastolic, compensated. 3. Permanent atrial fibrillation. 4. Coagulopathy. Decision was made to stop the Eliquis. She is on aspirin only. 5. Hypothyroidism, on replacement. 6. Degenerative arthritis. RECOMMENDATIONS: 1. Her medical regimen has been reviewed. She is stable from a medical standpoint. 2. I would encourage increasing the dose of Ativan to help calm her down. 3. Prognosis remains guarded since she is improved from a medical standpoint to realize that she is not in her familiar surroundings and does not understand why she is in the [facility]. Thank you again for asking me to see this patient for consultation, we shall gladly follow along during her inpatient stay. MADISON GARCIA MD DR: NABILA/franc JOB#: [id number] / [id number] MIRELLA Castillo MD
[2020-04-23] MEDS: ARIPiprazole 2 MG TABLET PO SCH (20:17)
--- NOTE | 2020-04-23 21:52 | NUR ---
Pt in [facility] at shift change. Pt agitated, banging on the windows to the nurse's station, asking "where is the compassion?" "where is the kindness?" "what about kindness towards others?" Staff witnessed pt scoot herself out of her w/c and place her upper body in a chair with her lower body kneeling on the floor. Pt then began to yell "I've fallen! I've fallen!" Pt then proceeded to lie on the floor and yell/scream. Pt did finally calm about 20-30 minutes after Zydis given @1839. Pt did continue to yell out at random times but was less agitated. Pt cooperative with assessment and compliant with medications administered whole. Afterwards, staff assisted pt to her w/c and to bed.
[2020-04-23 22:07] LABS: THYROXINE 6.2 ug/dL (4.5-12.0)
--- NOTE | 2020-04-23 22:15 | PDOC ---
Exam Note: Leif Note: Please also refer to the separate dictated note~for this date of service dictated separately.~Patient seen individually. Discussed the patient with Nursing staff reviewed the chart.~Reviewed interim history and current functioning. Reviewed vital signs,~Labs/ Radiology~and current medications noted below. Continue current treatment with the changes noted in the dictated addendum note Assessment: Vital Signs/I&O: Vital Signs Date Time Temp Pulse Resp B/P (MAP) Pulse Ox O2 Delivery O2 Flow Rate FiO2 04/23/20 20:17 72 120/72 04/23/20 15:54 97.7 16 96 Room Air I & O 04/22/20 04/22/20 04/23/20 15:00 23:00 07:00 Intake Total 120 ml 60 ml Balance 120 ml 60 ml Labs: Laboratory Tests Test 04/23/20 03:08 04/23/20 05:49 Urine Collection Type Unknown Urine Color Yellow Urine Clarity Clear Urine pH 6.5 Urine Specific [place] 1.010 Urine Protein Neg (NEG-TRACE) Urine Glucose (UA) Neg mg/dL (NEG) Urine Ketones (Stick) Neg mg/dL (NEG) Urine Blood Neg (NEG) Urine Nitrite Neg (NEG) Urine Bilirubin Neg (NEG) Urine Urobilinogen Dipstick 0.2 mg/dL (0.2 mg/dL) Urine Leukocyte Esterase Neg (NEG) Urine RBC Occ /HPF (0-2) Urine WBC 1-4 /HPF (0-4) Urine Squamous Epithelial Cells Occ /LPF Urine Transitional Epithelial Cells Few /LPF Urine Bacteria 0 /HPF (0-FEW) White Blood Count 8.9 x10^3/uL (4.0-11.0) Red Blood Count 3.76 x10^6/uL (3.50-5.40) Hemoglobin 11.4 g/dL (12.0-15.5) L Hematocrit 34.0 % (36.0-47.0) L Mean Corpuscular Volume 91 fL (79-100) Mean Corpuscular Hemoglobin 30 pg (25-35) Mean Corpuscular Hemoglobin Concent 34 g/dL (31-37) Red Cell Distribution Width 13.3 % (11.5-14.5) Platelet Count 316 x10^3/uL (140-400) Neutrophils (%) (Auto) 68 % (31-73) Lymphocytes (%) (Auto) 14 % (24-48) L Monocytes (%) (Auto) 6 % (0-9) Eosinophils (%) (Auto) 12 % (0-3) H Basophils (%) (Auto) 1 % (0-3) Neutrophils # (Auto) 6.1 x10^3uL (1.8-7.7) Lymphocytes # (Auto) 1.2 x10^3/uL (1.0-4.8) Monocytes # (Auto) 0.5 x10^3/uL (0.0-1.1) Eosinophils # (Auto) 1.0 x10^3/uL (0.0-0.7) H Basophils # (Auto) 0.1 x10^3/uL (0.0-0.2) Sodium Level 133 mmol/L (136-145) L Potassium Level 4.5 mmol/L (3.5-5.1) Chloride Level 99 mmol/L (98-107) Carbon Dioxide Level 27 mmol/L (21-32) Anion Gap 7 (6-14) Blood Urea Nitrogen 26 mg/dL (7-20) H Creatinine 1.4 mg/dL (0.6-1.0) H Estimated GFR (Cockcroft-Gault) 35.5 BUN/Creatinine Ratio 19 (6-20) Glucose Level 100 mg/dL (70-99) H Calcium Level 9.4 mg/dL (8.5-10.1) Magnesium Level 1.9 mg/dL (1.8-2.4) Total Bilirubin 0.6 mg/dL (0.2-1.0) Aspartate Amino Transferase (AST) 11 U/L (15-37) L Alanine Aminotransferase (ALT) 14 U/L (14-59) Alkaline Phosphatase 63 U/L (46-116) Total Protein 6.8 g/dL (6.4-8.2) Albumin 3.0 g/dL (3.4-5.0) L Albumin/Globulin Ratio 0.8 (1.0-1.7) L Current Medications: Meds: Current Medications Medications (Trade) Dose Ordered Sig/Beka Route PRN Reason Start Time Stop Time Status Last Admin Dose Admin Aspirin (Aspirin Chewable) 81 mg DAILY PO 04/23/20 09:00 04/23/20 08:37 Duloxetine HCl (Cymbalta) 90 mg DAILY PO 04/23/20 09:00 04/23/20 16:35 DC 04/23/20 08:39 Levothyroxine Sodium (Synthroid) 125 mcg DAILY06 PO 04/23/20 06:00 04/23/20 05:29 Pantoprazole Sodium (Protonix) 40 mg DAILYAC PO 04/23/20 07:30 04/23/20 08:38 Lisinopril (Prinivil) 40 mg DAILY PO 04/23/20 09:00 04/23/20 08:37 Lidocaine (Lidoderm) 1 patch DAILY TP 04/23/20 09:00 04/23/20 08:35 Aripiprazole (Abilify) 2 mg HS PO 04/23/20 21:00 04/23/20 20:17 Olanzapine (ZyPREXA ZYDIS) 2.5 mg 1X ONCE PO 04/23/20 18:00 04/23/20 18:06 DC 04/23/20 18:39 I have reviewed the current psychotropics carefully including drug interactions. Risk benefit ratio favors no change other than as noted in my dictated progress note. Diagnosis: Problems: (1) Dementia in Alzheimer's disease with delusions (2) Dementia in Alzheimer's disease with depression (3) Dementia of the Alzheimer's type with early onset with behavioral disturbance (4) Dementia, vascular, with depression (5) Dementia, vascular, with delusions (6) Major depressive disorder with psychotic features (7) Anxiety disorder, unspecified (8) Impulse control disorder, unspecified (9) Major neurocognitive disorder ISAAC DEUTSCH MD Apr 23, 2020 22:15
[2020-04-24 02:06] LABS: HEMOGLOBIN A1C 5.4 % (4.8-5.6)
[2020-04-24] MEDS: LEVOTHYROXINE 125 MCG TABLET PO SCH (05:06)
[2020-04-24 05:26] VITALS: BP 129/71
--- NOTE | 2020-04-24 07:22 | PDOC ---
Exam Note: Leif Note: This note is a late entry for 04/23/2020 covers elements not covered in my initial note. Subjective: The patient was seen individually in the evening of 04/23/2020. Per Stormy SERRANO, she slept 5 hours previous night. She has been screaming in the dining room, states she has been tortured. She has been crying at times, talking about wishing she were . No active suicidal ideation. One of the other manic patients was agitating her and she had to be taken to the [facility] to reduce stimuli. I met with her at length at the [facility]. She is crying, tearful, labile in her mood, paranoid, suspicious, inconsolable. Review of Systems: Ambulation impaired in wheelchair. No CV, , pulmonary, eye system symptoms on review. Mental Status Exam: Oriented to herself. Insight and judgment, recent and remote memory, attention and concentration, fund of knowledge is poor consistent with her diagnoses. Laboratory Data: Reviewed. Impression: Major depressive disorder, recurrent. Major neurocognitive disorder, Alzheimer, vascular with delusion, depression, behavioral disturbance. Anxiety disorder unspecified. Impulse control disorder unspecified. Plan: Given her ongoing mood lability, depression, crying spells, we will go ahead and reduce the Cymbalta to 60 mg a day from current dosage 90 mg a day and augment with Abilify 2 mg a day. Continue Ativan p.r.n. Continue rest unchanged. Assessment: Vital Signs/I&O: Vital Signs Date Time Temp Pulse Resp B/P (MAP) Pulse Ox O2 Delivery O2 Flow Rate FiO2 04/24/20 05:26 98.6 62 16 129/71 (90) 95 Room Air I & O 04/23/20 04/23/20 04/24/20 14:59 22:59 06:59 Intake Total 360 ml 60 ml Balance 360 ml 60 ml Current Medications: Meds: Current Medications Medications (Trade) Dose Ordered Sig/Beka Route PRN Reason Start Time Stop Time Status Last Admin Dose Admin Aspirin (Aspirin Chewable) 81 mg DAILY PO 04/23/20 09:00 04/23/20 08:37 Duloxetine HCl (Cymbalta) 90 mg DAILY PO 04/23/20 09:00 04/23/20 16:35 DC 6/30/20 08:39 Pantoprazole Sodium (Protonix) 40 mg DAILYAC PO 04/23/20 07:30 04/23/20 08:38 Lisinopril (Prinivil) 40 mg DAILY PO 04/23/20 09:00 04/23/20 08:37 Lidocaine (Lidoderm) 1 patch DAILY TP 04/23/20 09:00 04/23/20 08:35 Aripiprazole (Abilify) 2 mg HS PO 04/23/20 21:00 04/23/20 20:17 Olanzapine (ZyPREXA ZYDIS) 2.5 mg 1X ONCE PO 04/23/20 18:00 04/23/20 18:06 DC 04/23/20 18:39 I have reviewed the current psychotropics carefully including drug interactions. Risk benefit ratio favors no change other than as noted in my dictated progress note. Diagnosis: Problems: (1) Major neurocognitive disorder (2) Impulse control disorder, unspecified (3) Anxiety disorder, unspecified (4) Dementia, vascular, with depression (5) Dementia, vascular, with delusions (6) Dementia in Alzheimer's disease with delusions (7) Dementia of the Alzheimer's type with early onset with behavioral disturbance (8) Major depressive disorder with psychotic features ISAAC DEUTSCH MD Apr 24, 2020 07:22
[2020-04-24] MEDS: PANTOPRAZOLE 40 MG TABLET. PO SCH (08:49)
[2020-04-24] MEDS: LISINOPRIL 20 MG TABLET PO SCH (08:49)
[2020-04-24] MEDS: ASPIRIN CHEWABLE 81 MG TABLET. PO SCH (08:49)
[2020-04-24] MEDS: METOPROLOL TART IMMED RELEASE 50 MG TABLET PO SCH ×2 (08:50→19:45)
[2020-04-24] MEDS: DULoxetine HCL 60 MG CAPSULE.DR PO SCH (08:50)
[2020-04-24] MEDS: LIDOCAINE (700MG/PATCH) PATCH. TP SCH (08:51)
--- NOTE | 2020-04-24 10:00 | NUR ---
PSYCHOSOCIAL ASSESSMENT ADMISSION DATE: 04/22/20 CONTACT INFORMATION: DPOA/Guardian Contact Name: John Moffett-son Contact Phone #: [phone] ETHNIC ORIGIN: REASONS FOR ADMISSION: Aggressive Agitated Combative Confusion/Disoriented Depressed Poor impulse control Suicidal ideation ADDITIONAL ADMISSION COMMENTS: Per intake record, Priscilla was throwing items, screaming, hitting at intermediate staff, staff were unable to get near her, expressions of wanting to and to walk home. REASON FOR ADMISSION IN PATIENT/FAMILY'S OWN WORDS: Mood and behavior are preventing Priscilla from receiving the care she needs. PATIENT/FAMILY EXPECTATIONS FOR ADMISSION: Mood and behavior stabilization LIVING SITUATION: Patient lives with: Assisted Living Other living arrangements: [facility] Contact Name: Mariposa Contact [address]: [address] [place] [id number] Contact Phone #: [phone] Contact Fax #: [phone] FAMILY RELATIONS: Marital Status: # of Marriages: 1 # of Children: 3 [facility] Family Support: Concerned Cooperative Additional Comments r/t Family: Priscilla her high school sweetheart, Sean Moffett. They had three children, Jax ( at eight months of age due to brain cancer), John Paul ([facility]), and John ([facility]Sean and Priscilla were for 57 years before Sean in 2009. Priscilla recalled their marriage as "the best in the world." SIGNIFICANT PSYCHIATRIC/MEDICAL HISTORY: Psychiatric/Treatment History: Priscilla shared that she has been treated for depression previously and saw a psychiatrist. She was hospitalized in [facility], unknown year, and had "shock therapy." John, POA, reports that Priscilla had two "nervous breakdowns" when her son Jax . Pertinent Family History: Priscilla recalled her paternal grandmother to be a worrier. Otherwise, denies mental illness or substance abuse in family of origin. HISTORICAL DATA: Childhood Environment: [place] Childhood Environment Additional Comments: Priscilla was born in [facility] to Thu and Robyn Gracia. Thu worked as a parry and Carlson was a seamstress. Priscilla was the first born of two children. Priscilla has a sister, Estefani, who is seven years younger and remains alive in [place]. Priscilla shared her family lived in a motel that her father managed and the barbershop was within the hotel. Priscilla recalled her childhood fondly. 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 service: None Congregational background: Priscilla was raised Adventist. She a Sikh and was then became involved in the Sikh yazidi. She reports her essie as very important and stated, "I depend on God's help all the time." Sexual orientation: Heterosexual Educational Level: Priscilla graduated high school. Past/Present Interests/Hobbies: Priscilla has enjoyed sewing, [email or web address], crafts, yazidi involvement, politics, her family, and considers herself a people person. Financial support/resources: Social Security Monthly income: adequate Person handling finances: John Moffett, son/POA Do you have a history of legal problems: None Cultural considerations: None reported SOCIAL RELATIONSHIPS-CURRENT/PAST: Psychiatrist: None PCP: Dr. Hossein Mercedes, Counselor/Therapist: None Veterans[facility] Administration: N/A Support Group: None After School Tutor/Television Announcer: None Other relationships: Support from family and staff STRENGTHS & WEAKNESSES: Patient's strengths: Good family support Financial support Strong relationships Patient's weaknesses: Impulsive Health problems Physically Aggressive PRELIMINARY PLAN OF TREATMENT: Preliminary plan: Dec. Symp. Depression No Suicidal/Juju. ideation Medication Stabilization Monitor Med Effects Control abnormal behavior Dec. Outbursts Dec. Aggression Other preliminary treatment comments: Priscilla will be encouraged to attend meals and groups while on the unit. DISCHARGE PLANNING: Discharge planning/disposition: Acute Rehab Assisted Living Additional discharge needs identified: Discharge plan will relate to Priscilla's progress with mood/behavior stabilization and her physical ability to reside in [facility] vs. long-term facility. ADDITIONAL INFORMATION: Other Pertinent Data: Met with Priscilla on 04/23/20 to socialize and support related to recent admission.Priscilla was resting in bed. Initially, she thought this worker was her daughter, but realized SW was not upon closer look. She was tearful about seeing her children and misses them. Priscilla was able to make her needs and wishes known. She appeared to recall most events from her past and VIR[employer] confirmed the information that Priscilla shared. CECI Lopez, will be involved in team meeting via phone on 04/25/20.
[2020-04-24] MEDS: ACETAMINOPHEN 325 MG TABLET PO PRN ×2 (10:46→21:06)
--- NOTE | 2020-04-24 11:24 | NUR ---
Patient cooperative with her medication taken whole at breakfast. She was at the table near a male peer that unintentionally antagonizes her. She started asking about her jewelry (it is in the safe) and getting upset. This is what set her off yesterday at lunch and dinner and she was getting increasingly upset again. Nurse gave patient zyprexa and patient settled down. Patient pulled her lidocaine patch off in the shower. Patient complaining of back pain after that. Nurse replaced the lidocaine patch and gave patient PRN tylenol. Patient is disorganized but has not been screaming to this point today. Patient reported that she still "wants to " but denies wanting to kill herself. She states God will take care of it.
--- NOTE | 2020-04-24 16:13 | NUR ---
Dr Cameron reviewed patients low TSH and T3. Order received to repeat T3, T4 and free T4 in one week. Scheduled for 04/30/20 0600.
[2020-04-24] MEDS: POTASSIUM CHLORIDE 20 MEQ TABLET.ER. PO SCH (16:44)
[2020-04-24] MEDS: FUROSEMIDE 40 MG TABLET PO SCH (16:44)
[2020-04-24 16:54] VITALS: BP 96/61
[2020-04-24] MEDS: ARIPiprazole 2 MG TABLET PO SCH (19:45)
[2020-04-24 19:52] VITALS: BP 93/60
--- NOTE | 2020-04-24 22:21 | PDOC ---
Exam Note: Leif Note: Please also refer to the separate dictated note~for this date of service dictated separately.~Patient seen individually. Discussed the patient with Nursing staff reviewed the chart.~Reviewed interim history and current functioning. Reviewed vital signs,~Labs/ Radiology~and current medications noted below. Continue current treatment with the changes noted in the dictated addendum note Assessment: Vital Signs/I&O: Vital Signs Date Time Temp Pulse Resp B/P (MAP) Pulse Ox O2 Delivery O2 Flow Rate FiO2 04/24/20 19:52 98.1 61 14 93/60 (71) 95 Room Air I & O 04/23/20 04/23/20 04/24/20 15:00 23:00 07:00 Intake Total 360 ml 60 ml Balance 360 ml 60 ml Current Medications: Meds: Current Medications Medications (Trade) Dose Ordered Sig/Beka Route PRN Reason Start Time Stop Time Status Last Admin Dose Admin Furosemide (Lasix) 40 mg QMWF PO 04/24/20 16:00 04/24/20 16:44 Potassium Chloride (Klor-Con) 20 meq QMWF PO 04/24/20 16:00 04/24/20 16:44 Duloxetine HCl (Cymbalta) 60 mg DAILY PO 04/24/20 09:00 04/24/20 08:50 I have reviewed the current psychotropics carefully including drug interactions. Risk benefit ratio favors no change other than as noted in my dictated progress note. Diagnosis: Problems: (1) Major neurocognitive disorder (2) Impulse control disorder, unspecified (3) Anxiety disorder, unspecified (4) Dementia, vascular, with depression (5) Dementia, vascular, with delusions (6) Dementia in Alzheimer's disease with depression (7) Dementia in Alzheimer's disease with delusions (8) Major depressive disorder with psychotic features (9) Dementia of the Alzheimer's type with early onset with behavioral disturbance ISAAC DEUTSCH MD Apr 24, 2020 22:21
--- NOTE | 2020-04-24 22:35 | NUR ---
Pt sitting in the day room at shift change. Pt calm and disorganized. Pt cooperative with assessment and compliant with HS medication administered whole. HS Metoprolol held this evening d/t low BP. Pt later became tearful and began crying, reporting that her back was hurting. PRN Tylenol administered, however, pt not happy that Tylenol was the only medication she could have for pain. Pt was then escorted to her room and helped into bed with staff assist.
[2020-04-25] MEDS: LEVOTHYROXINE 125 MCG TABLET PO SCH (05:34)
[2020-04-25 05:42] VITALS: BP 156/80
[2020-04-25] MEDS: PANTOPRAZOLE 40 MG TABLET. PO SCH ×2 (07:30→08:48)
--- NOTE | 2020-04-25 07:30 | PDOC ---
Exam Note: Leif Note: This note is a late entry for 04/24/2020 covers elements not covered in my initial note. Subjective: The patient was seen individually in the evening of 04/24/2020. Per Stormy SERRANO, the patient has been somewhat obsessive, anxious, states her jewelry has been taken from her. I addressed this with her. One of the other male, bipolar patient has been egging around to be noncompliant with her medications. Review of Systems: Ambulation impaired in wheelchair. No CV, , pulmonary, eye system symptoms on review. Mental Status Exam: Oriented to herself. Speech coherent. Abstraction fair. Computation impaired. Language function intact. Mood and affect depressed, anxious. No suicidal or homicidal ideation. Laboratory Data: Reviewed. Impression: Major depressive disorder, recurrent. Major neurocognitive diso rder, Alzheimer, vascular with delusion, depression, behavioral disturbance. Anxiety disorder unspecified. Impulse control disorder unspecified. Plan: No change from prior note. Assessment: Vital Signs/I&O: Vital Signs Date Time Temp Pulse Resp B/P (MAP) Pulse Ox O2 Delivery O2 Flow Rate FiO2 04/25/20 05:42 98.1 65 16 156/80 (105) 93 Room Air I & O 04/24/20 04/24/20 04/25/20 15:00 23:00 07:00 Intake Total 600 ml 360 ml Balance 600 ml 360 ml Current Medications: Meds: Current Medications Medications (Trade) Dose Ordered Sig/Beka Route PRN Reason Start Time Stop Time Status Last Admin Dose Admin Furosemide (Lasix) 40 mg QMWF PO 04/24/20 16:00 04/24/20 16:44 Potassium Chloride (Klor-Con) 20 meq QMWF PO 04/24/20 16:00 04/24/20 16:44 Duloxetine HCl (Cymbalta) 60 mg DAILY PO 04/24/20 09:00 04/24/20 08:50 I have reviewed the current psychotropics carefully including drug interactions. Risk benefit ratio favors no change other than as noted in my dictated progress note. Diagnosis: Problems: (1) Major neurocognitive disorder (2) Impulse control disorder, unspecified (3) Anxiety disorder, unspecified (4) Dementia, vascular, with depression (5) Dementia, vascular, with delusions (6) Dementia in Alzheimer's disease with depression (7) Dementia in Alzheimer's disease with delusions (8) Dementia of the Alzheimer's type with early onset with behavioral disturbance (9) Major depressive disorder with psychotic features ISAAC DEUTSCH MD Apr 25, 2020 07:30
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
[2020-04-25] MEDS: DULoxetine HCL 60 MG CAPSULE.DR PO SCH ×2 (08:48→13:06)
[2020-04-25] MEDS: ASPIRIN CHEWABLE 81 MG TABLET. PO SCH ×2 (08:48→13:07)
[2020-04-25] MEDS: LISINOPRIL 20 MG TABLET PO SCH ×2 (08:48→13:07)
[2020-04-25] MEDS: METOPROLOL TART IMMED RELEASE 50 MG TABLET PO SCH ×3 (08:48→19:54)
[2020-04-25] MEDS: LIDOCAINE (700MG/PATCH) PATCH. TP SCH ×2 (08:49→09:00)
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
--- NOTE | 2020-04-25 13:08 | NUR ---
Patient took morning medications hidden in chocolate ice cream ate lunch. PRN zyprexa given to patient for agitation and anxiety. Patient remains anxious about her jewelry as well.
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
[2020-04-25 15:43] VITALS: BP 104/52
[2020-04-25] MEDS: ARIPiprazole 2 MG TABLET PO SCH (19:55)
--- NOTE | 2020-04-25 22:09 | PDOC ---
Exam Note: Leif Note: Please also refer to the separate dictated note~for this date of service dictated separately.~Patient seen individually. Discussed the patient with Nursing staff reviewed the chart.~Reviewed interim history and current functioning. Reviewed vital signs,~Labs/ Radiology~and current medications noted below. Continue current treatment with the changes noted in the dictated addendum note Assessment: Vital Signs/I&O: Vital Signs Date Time Temp Pulse Resp B/P (MAP) Pulse Ox O2 Delivery O2 Flow Rate FiO2 04/25/20 19:54 68 104/52 04/25/20 15:43 98.9 18 96 04/25/20 05:42 Room Air I & O 04/24/20 04/24/20 04/25/20 15:00 23:00 07:00 Intake Total 600 ml 360 ml Balance 600 ml 360 ml Current Medications: I have reviewed the current psychotropics carefully including drug interactions. Risk benefit ratio favors no change other than as noted in my dictated progress note. Diagnosis: Problems: (1) Major neurocognitive disorder (2) Impulse control disorder, unspecified (3) Dementia, vascular, with delusions (4) Dementia in Alzheimer's disease with delusions (5) Dementia of the Alzheimer's type with early onset with behavioral disturbance (6) Dementia, vascular, with depression (7) Anxiety disorder, unspecified (8) Major depressive disorder with psychotic features ISAAC DEUTSCH MD Apr 25, 2020 22:09
--- NOTE | 2020-04-26 02:05 | NUR ---
Last evening pt was in her bed was pleasant and cooperative and took her meds whole without difficulty. No behaviors this shift.
[2020-04-26 05:29] VITALS: BP 109/61
[2020-04-26] MEDS: LEVOTHYROXINE 125 MCG TABLET PO SCH (06:12)
[2020-04-26] MEDS: POTASSIUM CHLORIDE 20 MEQ TABLET.ER. PO SCH (08:26)
[2020-04-26] MEDS: FUROSEMIDE 40 MG TABLET PO SCH (08:26)
[2020-04-26] MEDS: DULoxetine HCL 60 MG CAPSULE.DR PO SCH (08:26)
[2020-04-26] MEDS: ASPIRIN CHEWABLE 81 MG TABLET. PO SCH (08:27)
[2020-04-26] MEDS: PANTOPRAZOLE 40 MG TABLET. PO SCH (08:27)
[2020-04-26] MEDS: LIDOCAINE (700MG/PATCH) PATCH. TP SCH (08:27)
[2020-04-26] MEDS: METOPROLOL TART IMMED RELEASE 50 MG TABLET PO SCH ×2 (09:00→20:15)
[2020-04-26] MEDS: LISINOPRIL 20 MG TABLET PO SCH (09:00)
[2020-04-26 16:04] VITALS: BP 101/56
--- NOTE | 2020-04-26 18:30 | NUR ---
Patients behavior improved today. Patient participating in group, is able to find new words from the initial word "". Pt is recalling names of other patients asking where they are that. Pt is compliant with medications. No crying spells. Has been interacting appropriately. WCTM.
[2020-04-26] MEDS: ARIPiprazole 2 MG TABLET PO SCH (20:14)
--- NOTE | 2020-04-26 22:21 | PDOC ---
Exam Note: Leif Note: Please also refer to the separate dictated note~for this date of service dictated separately.~Patient seen individually. Discussed the patient with Nursing staff reviewed the chart.~Reviewed interim history and current functioning. Reviewed vital signs,~Labs/ Radiology~and current medications noted below. Continue current treatment with the changes noted in the dictated addendum note Assessment: Vital Signs/I&O: Vital Signs Date Time Temp Pulse Resp B/P (MAP) Pulse Ox O2 Delivery O2 Flow Rate FiO2 04/26/20 20:15 64 101/56 04/26/20 16:04 98.2 16 96 04/25/20 05:42 Room Air I & O 04/25/20 04/25/20 04/26/20 15:00 23:00 07:00 Intake Total 720 ml 240 ml Balance 720 ml 240 ml Current Medications: I have reviewed the current psychotropics carefully including drug interactions. Risk benefit ratio favors no change other than as noted in my dictated progress note. Diagnosis: Problems: (1) Major neurocognitive disorder (2) Impulse control disorder, unspecified (3) Dementia, vascular, with depression (4) Dementia in Alzheimer's disease with depression (5) Dementia in Alzheimer's disease with delusions (6) Dementia of the Alzheimer's type with early onset with behavioral disturbance (7) Major depressive disorder with psychotic features (8) Dementia, vascular, with delusions (9) Anxiety disorder, unspecified ISAAC DEUTSCH MD Apr 26, 2020 22:21
--- NOTE | 2020-04-27 01:28 | NUR ---
Last yudith pt was in day room and complaining that she is 'in a torture place' because she is cold and being held as a prisoner. After going to bed she was upset about having a shower and complained of back pain PRN pain med and zydis zyprexa given.
[2020-04-27] MEDS: LEVOTHYROXINE 125 MCG TABLET PO SCH (05:38)
[2020-04-27 05:45] VITALS: BP 146/69
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
--- NOTE | 2020-04-27 08:15 | PDOC ---
Exam Note: Leif Note: This note is a late entry for 04/26/2020 covers elements not covered in my initial note. Subjective: The patient was seen individually in the evening of 04/26/2020. Per Julissa SERRANO, she slept 6-1/2 hours previous night. She is doing a little better. She is able to recognize that tomorrow is Day and was able to put together words in group session today which is an improvement. She is more oriented today, again an improvement. Review of Systems: No CV, , pulmonary, eye system symptoms on review. Mental Status Exam: Oriented to herself. Speech coherent. Abstraction fair. Computation impaired. Language function intact. Mood and affect lability is improved. Laboratory Data: Reviewed. Impression: Major depressive disorder, recurrent. Major neurocognitive disorder, Alzheimer, vascular with delusion, depression, behavioral disturbance. Anxiety disorder unspecified. Impulse control disorder unspecified. Plan: No change from prior note. Assessment: Vital Signs/I&O: Vital Signs Date Time Temp Pulse Resp B/P (MAP) Pulse Ox O2 Delivery O2 Flow Rate FiO2 04/27/20 05:45 98.4 60 18 146/69 (94) 95 Room Air I & O 04/26/20 04/26/20 04/27/20 15:00 23:00 07:00 Intake Total 960 ml 480 ml 240 ml Balance 960 ml 480 ml 240 ml Current Medications: I have reviewed the current psychotropics carefully including drug interactions. Risk benefit ratio favors no change other than as noted in my dictated progress note. Diagnosis: Problems: (1) Major neurocognitive disorder (2) Impulse control disorder, unspecified (3) Anxiety disorder, unspecified (4) Dementia, vascular, with depression (5) Dementia, vascular, with delusions (6) Dementia in Alzheimer's disease with depression (7) Dementia in Alzheimer's disease with delusions (8) Dementia of the Alzheimer's type with early onset with behavioral disturbance (9) Major depressive disorder with psychotic features ISAAC DEUTSCH MD Apr 27, 2020 08:15
[2020-04-27] MEDS: ASPIRIN CHEWABLE 81 MG TABLET. PO SCH (08:43)
[2020-04-27] MEDS: DULoxetine HCL 60 MG CAPSULE.DR PO SCH (08:43)
[2020-04-27] MEDS: PANTOPRAZOLE 40 MG TABLET. PO SCH (08:43)
[2020-04-27] MEDS: METOPROLOL TART IMMED RELEASE 50 MG TABLET PO SCH ×2 (08:43→20:42)
[2020-04-27] MEDS: LISINOPRIL 20 MG TABLET PO SCH (08:44)
[2020-04-27] MEDS: LIDOCAINE (700MG/PATCH) PATCH. TP SCH (08:44)
--- NOTE | 2020-04-27 11:19 | NUR ---
Pt is calm, cooperative, compliant. No agitation, no aggression, no hallucinations, no delusions. she is compliant with her medications and assessment.
[2020-04-27 16:56] VITALS: BP 88/54
[2020-04-27 17:14] VITALS: BP 117/66
[2020-04-27] MEDS: ARIPiprazole 2 MG TABLET PO SCH (17:16)
--- NOTE | 2020-04-27 22:35 | PDOC ---
Exam Note: Leif Note: Please also refer to the separate dictated note~for this date of service dictated separately.~Patient seen individually. Discussed the patient with Nursing staff reviewed the chart.~Reviewed interim history and current functioning. Reviewed vital signs,~Labs/ Radiology~and current medications noted below. Continue current treatment with the changes noted in the dictated addendum note Assessment: Vital Signs/I&O: Vital Signs Date Time Temp Pulse Resp B/P (MAP) Pulse Ox O2 Delivery O2 Flow Rate FiO2 04/27/20 20:42 74 117/66 04/27/20 16:56 98.2 16 95 Room Air I & O 04/26/20 04/26/20 04/27/20 15:00 23:00 07:00 Intake Total 960 ml 480 ml 240 ml Balance 960 ml 480 ml 240 ml Current Medications: Meds: Current Medications Medications (Trade) Dose Ordered Sig/Beka Route PRN Reason Start Time Stop Time Status Last Admin Dose Admin Aripiprazole (Abilify) 2 mg 1700 PO 04/27/20 17:00 04/27/20 17:16 I have reviewed the current psychotropics carefully including drug interactions. Risk benefit ratio favors no change other than as noted in my dictated progress note. Diagnosis: Problems: (1) Major neurocognitive disorder (2) Anxiety disorder, unspecified (3) Dementia, vascular, with depression (4) Dementia, vascular, with delusions (5) Dementia in Alzheimer's disease with depression (6) Dementia in Alzheimer's disease with delusions (7) Dementia of the Alzheimer's type with early onset with behavioral disturbance (8) Major depressive disorder with psychotic features (9) Impulse control disorder, unspecified ISAAC DEUTSCH MD Apr 27, 2020 22:35
--- NOTE | 2020-04-27 23:57 | NUR ---
Pt located in the dayroom this evening. Pt was calm, cooperative and compliant with whole medications. No delusions noted.
[2020-04-28 05:03] VITALS: BP 157/83
[2020-04-28] MEDS: LEVOTHYROXINE 125 MCG TABLET PO SCH (06:21)
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
[2020-04-28] MEDS: ASPIRIN CHEWABLE 81 MG TABLET. PO SCH (08:24)
[2020-04-28] MEDS: DULoxetine HCL 60 MG CAPSULE.DR PO SCH (08:24)
[2020-04-28] MEDS: METOPROLOL TART IMMED RELEASE 50 MG TABLET PO SCH ×2 (08:24→19:49)
[2020-04-28] MEDS: PANTOPRAZOLE 40 MG TABLET. PO SCH (08:24)
[2020-04-28] MEDS: LIDOCAINE (700MG/PATCH) PATCH. TP SCH (08:25)
[2020-04-28] MEDS: LISINOPRIL 20 MG TABLET PO SCH (08:25)
--- NOTE | 2020-04-28 09:30 | NUR ---
Pt is declining her blood draw and shower at this time. Multiple staff members attempted to redirect, reassure and support pt explaining her Na levels needed to be monitored. Pt continued to refuse and stated "this place is a torture chamber." "This place isn't a medical facility." Pt demanded to talk to her son. She demanded to "go home." She stated she gets her blood checked every 3 months when she is at home and would do it then. Staff was unable to redirect pt and her voice became loud and speech pressured. Pt taken to [facility] for deescalation. PRN zyprexa zydis given. Nurse sat and talked with pt who became tearful stating she gets depressed and misses her who passes away. 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 Nurse sat with pt and provided emotional support and redirection however pt continued to be adamant she did not need medication and would not take it. Pt stated that SW's here are "in on it." and "you may not know that or you may." She continued to demand to call her son. Nurse reassured and redirected pt. Will reapproach pt at another time.
--- NOTE | 2020-04-28 11:00 | NUR ---
Pt continues to be in the [facility] yelling out and hitting the doors. Pt was demanding to call her son. Pt was stating this is a torture chamber. Dr. zev griffith. New order to dc ativan, give haldol 2mg x 1. After pt takes her medication call pts son for pt.
[2020-04-28] MEDS ORDERED: HALOPERIDOL 2 MG TABLET PO ONE (11:15)
[2020-04-28 15:41] VITALS: BP 163/69
[2020-04-28] MEDS: ARIPiprazole 2 MG TABLET PO SCH (17:15)
[2020-04-28 21:27] LABS: BASO # 0.1 x10^3/uL (0.0-0.2); BASO % 1 % (0-3); EOS # 0.4 x10^3/uL (0.0-0.7); EOS % 5 % (0-3); HEMATOCRIT 30.5 % (36.0-47.0); HEMOGLOBIN 10.2 g/dL (12.0-15.5); LYMPH # 1.2 x10^3/uL (1.0-4.8); LYMPH % 17 % (24-48); MEAN CORPUSCULAR HEMOGLOBIN 31 pg (25-35); MEAN CORPUSCULAR HGB CONC 33 g/dL (31-37); MEAN CORPUSCULAR VOLUME 92 fL (79-100); MONO # 0.6 x10^3/uL (0.0-1.1); MONO % 9 % (0-9); NEUT # 4.8 x10^3uL (1.8-7.7); NEUT % 68 % (31-73); PLATELET COUNT 264 x10^3/uL (140-400); RED CELL DISTRIBUTION WIDTH 13.5 % (11.5-14.5); WHITE BLOOD COUNT 7.1 x10^3/uL (4.0-11.0)
[2020-04-28 21:48] LABS: ALBUMIN 2.9 g/dL (3.4-5.0); ALBUMIN/GLOBULIN RATIO 0.9 (1.0-1.7); CALCIUM 8.6 mg/dL (8.5-10.1); CREATININE 1.4 mg/dL (0.6-1.0); GFR 35.5; POTASSIUM 4.2 mmol/L (3.5-5.1); TOTAL BILIRUBIN 0.4 mg/dL (0.2-1.0); TOTAL PROTEIN 6.2 g/dL (6.4-8.2)
--- NOTE | 2020-04-28 22:08 | PDOC ---
Exam Note: Leif Note: Please also refer to the separate dictated note~for this date of service dictated separately.~Patient seen individually. Discussed the patient with Nursing staff reviewed the chart.~Reviewed interim history and current functioning. Reviewed vital signs,~Labs/ Radiology~and current medications noted below. Continue current treatment with the changes noted in the dictated addendum note Assessment: Vital Signs/I&O: Vital Signs Date Time Temp Pulse Resp B/P (MAP) Pulse Ox O2 Delivery O2 Flow Rate FiO2 04/28/20 19:49 59 163/69 04/28/20 15:41 97.6 18 97 04/27/20 16:56 Room Air I & O 04/27/20 04/27/20 04/28/20 15:00 23:00 07:00 Intake Total 720 ml Balance 720 ml Labs: Laboratory Tests Test 04/28/20 21:21 White Blood Count 7.1 x10^3/uL (4.0-11.0) Red Blood Count 3.30 x10^6/uL (3.50-5.40) L Hemoglobin 10.2 g/dL (12.0-15.5) L Hematocrit 30.5 % (36.0-47.0) L Mean Corpuscular Volume 92 fL (79-100) Mean Corpuscular Hemoglobin 31 pg (25-35) Mean Corpuscular Hemoglobin Concent 33 g/dL (31-37) Red Cell Distribution Width 13.5 % (11.5-14.5) Platelet Count 264 x10^3/uL (140-400) Neutrophils (%) (Auto) 68 % (31-73) Lymphocytes (%) (Auto) 17 % (24-48) L Monocytes (%) (Auto) 9 % (0-9) Eosinophils (%) (Auto) 5 % (0-3) H Basophils (%) (Auto) 1 % (0-3) Neutrophils # (Auto) 4.8 x10^3uL (1.8-7.7) Lymphocytes # (Auto) 1.2 x10^3/uL (1.0-4.8) Monocytes # (Auto) 0.6 x10^3/uL (0.0-1.1) Eosinophils # (Auto) 0.4 x10^3/uL (0.0-0.7) Basophils # (Auto) 0.1 x10^3/uL (0.0-0.2) Sodium Level 135 mmol/L (136-145) L Potassium Level 4.2 mmol/L (3.5-5.1) Chloride Level 102 mmol/L (98-107) Carbon Dioxide Level 25 mmol/L (21-32) Anion Gap 8 (6-14) Blood Urea Nitrogen 32 mg/dL (7-20) H Creatinine 1.4 mg/dL (0.6-1.0) H Estimated GFR (Cockcroft-Gault) 35.5 BUN/Creatinine Ratio 23 (6-20) H Glucose Level 116 mg/dL (70-99) H Calcium Level 8.6 mg/dL (8.5-10.1) Total Bilirubin 0.4 mg/dL (0.2-1.0) Aspartate Amino Transferase (AST) 14 U/L (15-37) L Alanine Aminotransferase (ALT) 14 U/L (14-59) Alkaline Phosphatase 77 U/L (46-116) Total Protein 6.2 g/dL (6.4-8.2) L Albumin 2.9 g/dL (3.4-5.0) L Albumin/Globulin Ratio 0.9 (1.0-1.7) L Current Medications: Meds: Current Medications Medications (Trade) Dose Ordered Sig/Beka Route PRN Reason Start Time Stop Time Status Last Admin Dose Admin Haloperidol (Haldol) 2 mg 1X ONCE PO 04/28/20 11:15 04/28/20 11:16 DC 04/28/20 11:22 I have reviewed the current psychotropics carefully including drug interactions. Risk benefit ratio favors no change other than as noted in my dictated progress note. Diagnosis: Problems: (1) Impulse control disorder, unspecified (2) Major neurocognitive disorder (3) Dementia, vascular, with delusions (4) Dementia in Alzheimer's disease with delusions (5) Dementia of the Alzheimer's type with early onset with behavioral disturbance (6) Major depressive disorder with psychotic features (7) Dementia in Alzheimer's disease with depression (8) Dementia, vascular, with depression (9) Anxiety disorder, unspecified ISAAC DEUTSCH MD Apr 28, 2020 22:08
--- NOTE | 2020-04-28 23:53 | NUR ---
Pt located in the dayroom this evening sitting calmly. Compliant with HS medication and shower. Pt attempted to refuse her lab draw this evening but eventually complied. No delusions noted this evening.
[2020-04-29] MEDS: LEVOTHYROXINE 125 MCG TABLET PO SCH (05:06)
[2020-04-29 06:24] VITALS: BP 127/61
--- NOTE | 2020-04-29 07:53 | PDOC ---
Exam Note: Leif Note: This note is a late entry for 04/28/2020 covers elements not covered in my initial note. Subjective: The patient was seen individually in the evening of 04/28/2020. Per Angélica SERRANO, she slept 5 hours previous night. She refused labs and became agitated. I was called as an emergency. We did give a one-time dosage of Haldol 2 mg p.o. as she is extremely paranoid, suspicious. She has been doing better after that. She also had a chance to talk to her son John and this seems to help her paranoia and agitation as well. Review of Systems: No CV, , pulmonary, eye, ENT system symptoms on review. Mental Status Exam: Oriented to herself and situation. Speech coherent, rapid at times. Abstraction fair. Computation impaired. Language function intact. Attention span short. Mood and affect extremely paranoid, suspicious. No suicidal or homicidal ideation. Laboratory Data: Reviewed. Impression: Major depressive disorder, recurrent. Major neurocognitive disorder, Alzheimer, vascular with delusion, depression, behavioral disturbance. Anxiety disorder unspecified. Impulse control disorder unspecified. Plan: No change from initial note. Assessment: Vital Signs/I&O: Vital Signs Date Time Temp Pulse Resp B/P (MAP) Pulse Ox O2 Delivery O2 Flow Rate FiO2 04/29/20 06:24 98.7 62 16 127/61 (83) 95 04/27/20 16:56 Room Air I & O 04/28/20 04/28/20 04/29/20 15:00 23:00 07:00 Intake Total 480 ml 480 ml Balance 480 ml 480 ml Labs: Laboratory Tests Test 04/28/20 21:21 White Blood Count 7.1 x10^3/uL (4.0-11.0) Red Blood Count 3.30 x10^6/uL (3.50-5.40) L Hemoglobin 10.2 g/dL (12.0-15.5) L Hematocrit 30.5 % (36.0-47.0) L Mean Corpuscular Volume 92 fL (79-100) Mean Corpuscular Hemoglobin 31 pg (25-35) Mean Corpuscular Hemoglobin Concent 33 g/dL (31-37) Red Cell Distribution Width 13.5 % (11.5-14.5) Platelet Count 264 x10^3/uL (140-400) Neutrophils (%) (Auto) 68 % (31-73) Lymphocytes (%) (Auto) 17 % (24-48) L Monocytes (%) (Auto) 9 % (0-9) Eosinophils (%) (Auto) 5 % (0-3) H Basophils (%) (Auto) 1 % (0-3) Neutrophils # (Auto) 4.8 x10^3uL (1.8-7.7) Lymphocytes # (Auto) 1.2 x10^3/uL (1.0-4.8) Monocytes # (Auto) 0.6 x10^3/uL (0.0-1.1) Eosinophils # (Auto) 0.4 x10^3/uL (0.0-0.7) Basophils # (Auto) 0.1 x10^3/uL (0.0-0.2) Sodium Level 135 mmol/L (136-145) L Potassium Level 4.2 mmol/L (3.5-5.1) Chloride Level 102 mmol/L (98-107) Carbon Dioxide Level 25 mmol/L (21-32) Anion Gap 8 (6-14) Blood Urea Nitrogen 32 mg/dL (7-20) H Creatinine 1.4 mg/dL (0.6-1.0) H Estimated GFR (Cockcroft-Gault) 35.5 BUN/Creatinine Ratio 23 (6-20) H Glucose Level 116 mg/dL (70-99) H Calcium Level 8.6 mg/dL (8.5-10.1) Total Bilirubin 0.4 mg/dL (0.2-1.0) Aspartate Amino Transferase (AST) 14 U/L (15-37) L Alanine Aminotransferase (ALT) 14 U/L (14-59) Alkaline Phosphatase 77 U/L (46-116) Total Protein 6.2 g/dL (6.4-8.2) L Albumin 2.9 g/dL (3.4-5.0) L Albumin/Globulin Ratio 0.9 (1.0-1.7) L Current Medications: Meds: Current Medications Medications (Trade) Dose Ordered Sig/Beka Route PRN Reason Start Time Stop Time Status Last Admin Dose Admin Haloperidol (Haldol) 2 mg 1X ONCE PO 04/28/20 11:15 04/28/20 11:16 DC 04/28/20 11:22 I have reviewed the current psychotropics carefully including drug interactions. Risk benefit ratio favors no change other than as noted in my dictated progress note. Diagnosis: Problems: (1) Major depressive disorder with psychotic features (2) Dementia in Alzheimer's disease with delusions (3) Dementia in Alzheimer's disease with depression (4) Dementia, vascular, with delusions (5) Anxiety disorder, unspecified (6) Impulse control disorder, unspecified (7) Major neurocognitive disorder (8) Dementia of the Alzheimer's type with early onset with behavioral disturbance (9) Dementia, vascular, with depression ISAAC DEUTSCH MD Apr 29, 2020 07:53
[2020-04-29] MEDS: DULoxetine HCL 60 MG CAPSULE.DR PO SCH (08:18)
[2020-04-29] MEDS: METOPROLOL TART IMMED RELEASE 50 MG TABLET PO SCH ×2 (08:18→19:55)
[2020-04-29] MEDS: LISINOPRIL 20 MG TABLET PO SCH (08:19)
[2020-04-29] MEDS: POTASSIUM CHLORIDE 20 MEQ TABLET.ER. PO SCH (08:19)
[2020-04-29] MEDS: ASPIRIN CHEWABLE 81 MG TABLET. PO SCH (08:19)
[2020-04-29] MEDS: FUROSEMIDE 40 MG TABLET PO SCH (08:20)
[2020-04-29] MEDS: LIDOCAINE (700MG/PATCH) PATCH. TP SCH (08:21)
[2020-04-29] MEDS: PANTOPRAZOLE 40 MG TABLET. PO SCH (08:22)
[2020-04-29] MEDS ORDERED: ALENDRONATE SODIUM 35 MG TABLET PO SCH (09:00)
[2020-04-29] MEDS: ACETAMINOPHEN 325 MG TABLET PO PRN (09:53)
--- NOTE | 2020-04-29 10:59 | NUR ---
Nursing note: Pt in dining room for morning meds and assessment. She was pleasant, med compliant, and cooperative. Pt c/o pain in her knees and back. Lidocaine patch was placed on her back per pt request. Pt later requested tylenol for her knees while working with PT. PRN was provided. She is currently sitting in the day room. Will continue to monitor.
[2020-04-29 16:28] VITALS: BP 123/70
[2020-04-29] MEDS: ARIPiprazole 2 MG TABLET PO SCH (17:24)
--- NOTE | 2020-04-29 22:12 | PDOC ---
Exam Note: Leif Note: Please also refer to the separate dictated note~for this date of service dictated separately.~Patient seen individually. Discussed the patient with Nursing staff reviewed the chart.~Reviewed interim history and current functioning. Reviewed vital signs,~Labs/ Radiology~and current medications noted below. Continue current treatment with the changes noted in the dictated addendum note Assessment: Vital Signs/I&O: Vital Signs Date Time Temp Pulse Resp B/P (MAP) Pulse Ox O2 Delivery O2 Flow Rate FiO2 04/29/20 19:55 56 123/70 04/29/20 16:28 98.3 18 95 04/27/20 16:56 Room Air I & O 04/28/20 04/28/20 04/29/20 15:00 23:00 07:00 Intake Total 480 ml 480 ml Balance 480 ml 480 ml Current Medications: Meds: Current Medications Medications (Trade) Dose Ordered Sig/Beka Route PRN Reason Start Time Stop Time Status Last Admin Dose Admin Alendronate Sodium (Fosamax) 35 mg WEEKLY PO 04/29/20 09:00 04/29/20 08:18 I have reviewed the current psychotropics carefully including drug interactions. Risk benefit ratio favors no change other than as noted in my dictated progress note. Diagnosis: Problems: (1) Major neurocognitive disorder (2) Impulse control disorder, unspecified (3) Anxiety disorder, unspecified (4) Major depressive disorder with psychotic features (5) Dementia in Alzheimer's disease with delusions (6) Dementia, vascular, with depression (7) Dementia, vascular, with delusions (8) Dementia in Alzheimer's disease with depression (9) Dementia of the Alzheimer's type with early onset with behavioral disturbance ISAAC DEUTSCH MD Apr 29, 2020 22:12
--- NOTE | 2020-04-29 22:46 | NUR ---
Patient in her room at shift change lying in bed with eyes open. Calm and cooperative with medications and assessment. Pleasant and interactive. No behaviors noted at this time. Patient currently in bed, will continue to monitor.
[2020-04-30] MEDS: LEVOTHYROXINE 125 MCG TABLET PO SCH (05:28)
[2020-04-30 06:08] VITALS: BP 166/76
[2020-04-30] MEDS: LIDOCAINE (700MG/PATCH) PATCH. TP SCH (08:35)
[2020-04-30] MEDS: METOPROLOL TART IMMED RELEASE 50 MG TABLET PO SCH (08:35)
[2020-04-30] MEDS: PANTOPRAZOLE 40 MG TABLET. PO SCH (08:35)
[2020-04-30] MEDS: ASPIRIN CHEWABLE 81 MG TABLET. PO SCH (08:35)
[2020-04-30] MEDS: DULoxetine HCL 60 MG CAPSULE.DR PO SCH (08:35)
[2020-04-30] MEDS: LISINOPRIL 20 MG TABLET PO SCH (08:36)
[2020-04-30] MEDS: ACETAMINOPHEN 325 MG TABLET PO PRN (08:39)
--- NOTE | 2020-04-30 09:53 | NUR ---
Pt is calm, cooperative, compliant. No agitation, no aggression, no hallucinations, no delusions. she is compliant with her medications and assessment.
--- NOTE | 2020-04-30 12:06 | NUR ---
PT informed nurse while working with pt, pt began to feel dizzy. Upon assessment nurse noticed no change in pts color or mentation. Pt was able to follow commands and make wants and needs known. Pt stated she felt tired and dizzy. Pt was sitting in her wc. VS: 110/70, 56 95% on RA. Nurse had pt stand up. VS: 78/54, 68, 94% on RA. Shared with information with PT and all staff. Dr. Cameron will address today during rounds.
--- NOTE | 2020-04-30 15:42 | NUR ---
1:1 with Priscilla to socialize and support. Priscilla was observed sitting up in the day room involved in recreational therapy group this afternoon. Later, she was reading the local newspaper. She appears stronger and her eyes are more clear. Her voice is stronger and she smiled throughout conversation. She spoke of being able to "go home" and was referring to when she lived with her son John in [facility]. Reminder provided that she had moved into [facility] September of 2019 and continues to have an apartment there. Priscilla expressed that she relies on her children and will do what they prefer her to do. Will follow.
[2020-04-30 16:17] VITALS: BP 106/66
[2020-04-30] MEDS: ARIPiprazole 2 MG TABLET PO SCH (17:06)
--- NOTE | 2020-04-30 18:01 | PN ---
DATE: 04/30/2020 SUBJECTIVE: The patient was seen today at the request of the nursing staff as the patient has been complaining of dizziness and stating that her knees are about to give way. She was found to have marked postural hypotension with systolic pressure standing down to 74 systolic. She was on lisinopril 40 mg once a day and metoprolol 50 mg twice a day. She is also on Lasix 40 mg on Wednesday, Wednesday, and Wednesday. OBJECTIVE: GENERAL: On examining her today, she was pale, but no jaundice, cyanosis, or thyromegaly. No jugular venous distension. Mild bilateral lower limb edema. VITAL SIGNS: Her heart rate was 57, blood pressure was 106/66, temperature was 97.7, respiratory rate was 16, and oxygen saturation was 97% on room air. HEAD, EYES, EARS, NOSE AND THROAT: Showed normocephalic, atraumatic. NECK: Supple. HEART: Showed normal first and second heart sounds with no gallop, rub or murmur. CHEST: Clear to auscultation. No crepitation or rhonchi. ABDOMEN: Distended, soft, nontender. NEUROLOGIC: She is demented without any obvious lateralizing sign. LABORATORY DATA: Her most recent lab work showed a white cell count 7000, hemoglobin 10, hematocrit 30, MCV 92, and platelet count 264,000. Her chemistry showed a serum sodium 135, potassium 4.2, chloride 102, bicarbonate 25, anion gap of 8, BUN 32, creatinine 1.4, estimated GFR was 35 mL per minute. Her glucose 116, calcium was 8.6. Total bilirubin, AST, ALT, alkaline phosphatase were normal. Total protein 6.2, albumin was 2.9. She was also noted to have almost undetectable TSH at 0.105. Her free T4 was elevated at 1.64. The upper limit of normal is 1.46. Her free T3 was within therapeutic range at 2.25 pg/mL. Her total T4 was 9.6 and total T3 was somewhat on the lower side at 47 ng/mL. ASSESSMENT: In summary, this is an 89-year-old female patient who was seen for #1 marked postural hypotension and sinus bradycardia likely due to beta pablo, so I cut down the lisinopril from 40 to 10 mg and also cut down the metoprolol to 25 mg twice a day. I think she probably is on excessive amount of levothyroxine, so I cut down the levothyroxine from 125 to 100 mcg and to check her T3, T4, free T4 in 2 weeks' time. Should also have her orthostatics checked again to make sure that she does not continue to have orthostatic hypotension. MIRELLA SAMANO MD DR: WENDY/franc JOB#: [id number] / [id number]
[2020-04-30 19:41] VITALS: BP 112/68
[2020-04-30] MEDS: METOPROLOL TART IMMED RELEASE 25 MG TABLET PO SCH (20:13)
--- NOTE | 2020-04-30 22:12 | PDOC ---
Exam Note: Leif Note: Please also refer to the separate dictated note~for this date of service dictated separately.~Patient seen individually. Discussed the patient with Nursing staff reviewed the chart.~Reviewed interim history and current functioning. Reviewed vital signs,~Labs/ Radiology~and current medications noted below. Continue current treatment with the changes noted in the dictated addendum note Assessment: Vital Signs/I&O: Vital Signs Date Time Temp Pulse Resp B/P (MAP) Pulse Ox O2 Delivery O2 Flow Rate FiO2 04/30/20 20:13 56 112/68 04/30/20 16:17 97.7 16 97 Room Air I & O 04/29/20 04/29/20 04/30/20 15:00 23:00 07:00 Intake Total 240 ml 460 ml Balance 240 ml 460 ml Labs: Laboratory Tests Test 04/30/20 06:30 Free Thyroxine 1.64 ng/dL (0.76-1.46) H Thyroxine (T4) 9.6 ug/dL (4.5-12.0) Free Triiodothyronine (T3) pg/mL 2.25 pg/mL (2.18-3.98) Current Medications: Meds: Current Medications Medications (Trade) Dose Ordered Sig/Beka Route PRN Reason Start Time Stop Time Status Last Admin Dose Admin Metoprolol Tartrate (Lopressor) 25 mg BID PO 04/30/20 21:00 04/30/20 20:13 I have reviewed the current psychotropics carefully including drug interactions. Risk benefit ratio favors no change other than as noted in my dictated progress note. Diagnosis: Problems: (1) Anxiety disorder, unspecified (2) Impulse control disorder, unspecified (3) Major neurocognitive disorder (4) Dementia, vascular, with depression (5) Dementia, vascular, with delusions (6) Dementia in Alzheimer's disease with depression (7) Dementia in Alzheimer's disease with delusions (8) Dementia of the Alzheimer's type with early onset with behavioral disturbance (9) Major depressive disorder with psychotic features ISAAC DEUTSCH MD Apr 30, 2020 22:12
--- NOTE | 2020-04-30 22:45 | NUR ---
Pt sitting calmly in dayroom this evening. Compliant with HS medication. Once taken to bed, pt did become agitated when asked to change into a gown. Pt began screaming loudly. Eventually compliant with clothing change.
[2020-05-01 05:06] VITALS: BP 157/71
[2020-05-01] MEDS: LEVOTHYROXINE 100 MCG TABLET PO SCH (05:17)
--- NOTE | 2020-05-01 07:40 | PDOC ---
Exam Note: Leif Note: This note is a late entry for 04/29/2020 covers elements not covered in my initial note. Subjective: The patient was seen individually in the evening of 04/29/2020. Per Virgie SERRANO, she slept 6 hours previous night. I met with her at length in the evening in her room. She has been less delusional, calmer, attending groups. Review of Systems: No CV, , pulmonary, eye, ENT system symptoms on review. Mental Status Exam: Oriented to herself and situation. Speech coherent. Abstraction fair. Computation impaired. Language function intact. Attention span short. Mood and affect less delusional, calmer. Laboratory Data: Reviewed. Impression: Major depressive disorder, recurrent. Major neurocognitive disorder, Alzheimer, vascular with delusion, depression, behavioral disturbance. Anxiety disorder unspecified. Impulse control disorder unspecified. Plan: No change from initial note. Assessment: Vital Signs/I&O: Vital Signs Date Time Temp Pulse Resp B/P (MAP) Pulse Ox O2 Delivery O2 Flow Rate FiO2 05/01/20 05:06 98.4 57 16 157/71 (99) 95 04/30/20 16:17 Room Air I & O 04/30/20 04/30/20 05/01/20 15:00 23:00 07:00 Intake Total 600 ml 480 ml Balance 600 ml 480 ml Current Medications: Meds: Current Medications Medications (Trade) Dose Ordered Sig/Beka Route PRN Reason Start Time Stop Time Status Last Admin Dose Admin Metoprolol Tartrate (Lopressor) 25 mg BID PO 04/30/20 21:00 04/30/20 20:13 Levothyroxine Sodium (Synthroid) 100 mcg DAILY06 PO 05/01/20 06:00 05/01/20 05:17 I have reviewed the current psychotropics carefully including drug interactions. Risk benefit ratio favors no change other than as noted in my dictated progress note. Diagnosis: Problems: (1) Major depressive disorder with psychotic features (2) Dementia of the Alzheimer's type with early onset with behavioral disturbance (3) Dementia in Alzheimer's disease with delusions (4) Dementia, vascular, with delusions (5) Dementia, vascular, with depression (6) Anxiety disorder, unspecified (7) Impulse control disorder, unspecified (8) Major neurocognitive disorder (9) Dementia in Alzheimer's disease with depression ISAAC DEUTSCH MD May 01, 2020 07:40
[2020-05-01] MEDS: METOPROLOL TART IMMED RELEASE 25 MG TABLET PO SCH ×2 (08:28→20:16)
[2020-05-01] MEDS: DULoxetine HCL 60 MG CAPSULE.DR PO SCH (08:28)
[2020-05-01] MEDS: ASPIRIN CHEWABLE 81 MG TABLET. PO SCH (08:28)
[2020-05-01] MEDS: PANTOPRAZOLE 40 MG TABLET. PO SCH (08:28)
[2020-05-01] MEDS: LISINOPRIL 10 MG TABLET PO SCH (08:29)
[2020-05-01] MEDS: LIDOCAINE (700MG/PATCH) PATCH. TP SCH (08:29)
--- NOTE | 2020-05-01 08:29 | PDOC ---
Exam Note: Leif Note: This note is a late entry for 04/30/2020 covers elements not covered in my initial note. Subjective: The patient was seen individually in the evening of 04/30/2020. Per Angélica SERRANO, she slept 6-1/4 hours previous night. She did well at night and during the day today, somewhat dry with raised BUN. BP 110/70 mmHg, later was 75/54 mmHg. She does show postural hypertension, will defer to Dr. Cameron to reduce her anti-hypertensive. Review of Systems: No CV, , pulmonary, eye, ENT system symptoms on review. Mental Status Exam: Oriented to herself and situation. She is very pleasant, verbal, forthcoming, animated. Speech coherent. Abstraction fair. Computation impaired. Language function intact. Attention span short. Mood and affect lability improved. Laboratory Data: Reviewed. Impression: Major depressive disorder, recurrent. Major neurocognitive disorder, Alzheimer, vascular with delusion, depression, behavioral disturbance. Anxiety disorder unspecified. Impulse control disorder unspecified. Plan: No change from initial note. Assessment: Vital Signs/I&O: Vital Signs Date Time Temp Pulse Resp B/P (MAP) Pulse Ox O2 Delivery O2 Flow Rate FiO2 05/01/20 05:06 98.4 57 16 157/71 (99) 95 04/30/20 16:17 Room Air I & O 04/30/20 04/30/20 05/01/20 15:00 23:00 07:00 Intake Total 600 ml 480 ml Balance 600 ml 480 ml Current Medications: Meds: Current Medications Medications (Trade) Dose Ordered Sig/Beka Route PRN Reason Start Time Stop Time Status Last Admin Dose Admin Metoprolol Tartrate (Lopressor) 25 mg BID PO 04/30/20 21:00 04/30/20 20:13 Levothyroxine Sodium (Synthroid) 100 mcg DAILY06 PO 05/01/20 06:00 05/01/20 05:17 I have reviewed the current psychotropics carefully including drug interactions. Risk benefit ratio favors no change other than as noted in my dictated progress note. Diagnosis: Problems: (1) Major neurocognitive disorder (2) Impulse control disorder, unspecified (3) Anxiety disorder, unspecified (4) Dementia, vascular, with depression (5) Dementia, vascular, with delusions (6) Dementia in Alzheimer's disease with depression (7) Dementia in Alzheimer's disease with delusions (8) Dementia of the Alzheimer's type with early onset with behavioral disturbance (9) Major depressive disorder with psychotic features ISAAC DEUTSCH MD May 01, 2020 08:29
--- NOTE | 2020-05-01 15:04 | NUR ---
Patient in dining room during initial assessment. Took medications whole without difficulty. Calm and cooperative with medication administration and assessment. No behaviors noted at this time. Will continue to monitor.
[2020-05-01] MEDS: ARIPiprazole 2 MG TABLET PO SCH (15:55)
[2020-05-01] MEDS: FUROSEMIDE 40 MG TABLET PO SCH (15:55)
[2020-05-01] MEDS: POTASSIUM CHLORIDE 20 MEQ TABLET.ER. PO SCH (15:57)
[2020-05-01 16:13] VITALS: BP 112/59
--- NOTE | 2020-05-01 23:04 | PDOC ---
Exam Note: Leif Note: Please also refer to the separate dictated note~for this date of service dictated separately.~Patient seen individually. Discussed the patient with Nursing staff reviewed the chart.~Reviewed interim history and current functioning. Reviewed vital signs,~Labs/ Radiology~and current medications noted below. Continue current treatment with the changes noted in the dictated addendum note Assessment: Vital Signs/I&O: Vital Signs Date Time Temp Pulse Resp B/P (MAP) Pulse Ox O2 Delivery O2 Flow Rate FiO2 05/01/20 20:16 56 112/59 05/01/20 16:13 97.9 16 96 04/30/20 16:17 Room Air I & O 04/30/20 04/30/20 05/01/20 15:00 23:00 07:00 Intake Total 600 ml 480 ml Balance 600 ml 480 ml Current Medications: Meds: Current Medications Medications (Trade) Dose Ordered Sig/Beka Route PRN Reason Start Time Stop Time Status Last Admin Dose Admin Lisinopril (Prinivil) 10 mg DAILY PO 05/01/20 09:00 05/01/20 08:29 Levothyroxine Sodium (Synthroid) 100 mcg DAILY06 PO 05/01/20 06:00 05/01/20 05:17 I have reviewed the current psychotropics carefully including drug interactions. Risk benefit ratio favors no change other than as noted in my dictated progress note. Diagnosis: Problems: (1) Major neurocognitive disorder (2) Impulse control disorder, unspecified (3) Anxiety disorder, unspecified (4) Dementia, vascular, with depression (5) Dementia, vascular, with delusions (6) Dementia in Alzheimer's disease with depression (7) Dementia in Alzheimer's disease with delusions (8) Dementia of the Alzheimer's type with early onset with behavioral disturbance (9) Major depressive disorder with psychotic features ISAAC DEUTSCH MD May 01, 2020 23:04
--- NOTE | 2020-05-01 23:14 | NUR ---
This evening pt was in day room she was cooperative with meds take whole. She was cooperative with cares and social with peers. Carolyn jay.
[2020-05-02 05:20] VITALS: BP 128/67
[2020-05-02] MEDS: LEVOTHYROXINE 100 MCG TABLET PO SCH (05:43)
[2020-05-02] MEDS: METOPROLOL TART IMMED RELEASE 25 MG TABLET PO SCH ×2 (08:03→20:21)
[2020-05-02] MEDS: ASPIRIN CHEWABLE 81 MG TABLET. PO SCH (08:04)
[2020-05-02] MEDS: LIDOCAINE (700MG/PATCH) PATCH. TP SCH (08:04)
[2020-05-02] MEDS: PANTOPRAZOLE 40 MG TABLET. PO SCH (08:04)
[2020-05-02] MEDS: LISINOPRIL 10 MG TABLET PO SCH (08:04)
[2020-05-02] MEDS: DULoxetine HCL 60 MG CAPSULE.DR PO SCH (08:04)
--- NOTE | 2020-05-02 10:25 | NUR ---
Nursing note: Pt in dining room for morning meds and assessment. She was compliant with meds whole and cooperative with assessment. Pt c/o pain in her back. Lidocaine patch placed on back per pt request, she refuses other PRN pain medications. Pt has been tearful this morning, wanting to know when she's going home. She is currently sitting in the day room. Will continue to monitor.
--- NOTE | 2020-05-02 11:04 | NUR ---
WEEKLY ACTIVITY THERAPY NOTE Date of Admission:04/22 Date of AT Assessment: 04/25 Precipitating behaviors that initiated intake and admission: throwing stuff, screaming, hitting at staff, unable to get near her, expressions of wanting to . Goal aimed: to maintain socialization and engagement Initial Goal: Pt. will participate in at least one Activity Therapy group per day. Weekly progress towards goal: achieved, only missed one group the entire week Group participation level: 9 full, 1 mod, 1 min Weekly highlights: playing air drums Wednesday, competitive in [employer] last Behaviors observed: playful, patient with others, social, overall pleasant Plan: no change to goal Beneficial adaptations:
--- NOTE | 2020-05-02 12:00 | TX PLAN ---
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 Additional Admission Comments: Per intake record, Pr[facility] throwing items, [facility], staff were unable to get near her, expressions of wanting to and to walk home. Problems Active Problems: Physically aggressive towards staff Mood lability Requiring de-escalation in quiet zhao Inactive Problems: Medication compliant Confused due to memory impairment Pt Strengths/Limitations Ability for Toutle: Poor Cognitive Functioning/Ability: Fair Communication Skills/Ability: Fair Financial Resources: Fair Insight/Judgement: Poor Intellectual Ability: Fair Physical Health: Fair Social Skills: Fair Stability in Family: Good Verbal Skills: Fair Discharge Criteria Discharge Criteria: Adequate arrangements @DC, Improved behavior, Improved mood/thought Preliminary Discharge Plan Preliminary DC Plan: Acute Rehab, Assisted Living Special Precautions Special Precautions: Agitation/Assault Fall Risk: High Initial D/C Plan [place] [facility] vs. SNF Identified Discharge Needs: Discharge plan will relate to Priscilla's progress with mood/behavior stabilization and her physical ability to reside in [facility] vs. correction facility. Currently Utilized Resources Currently Utilized Resources/P: PCP [facility] community living with 24 hour supervision and support Identified Problems/Hx/Goals Objectives/Short-Term Goals Short Term Goals: Control abnormal behavior, Dec. Aggression, Dec. Outbursts, Dec. Symp. Depression, Medication Stabilization, Monitor Med Effects, No Suicidal/Juju. ideation Short Term Goals in Patient's: Mood and behavior stabilization per family Interventions/Frequency Staff Interventions/Frequency&: Nursing to provide routine safety checks, medication administration, and adl support. Psychaitrist visits 3-5 times weekly. HARRISON visits twice weekly. PT/OT as ordered. Group programming as Priscilla will participate. 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 Social: Priscilla enjoyed sewing, Pogoplugery, latter-day involvement, and her family. Education: Priscilla graduated high [employer]. Community Follow-up PCP and psychiatry if available Community Provider/Family Inpu: John, son/POA, partipcipated in team meeting via phone. Treatment Plan Explained Patient/Book Cleaner had this treatment plan explained to him/her as indicated by the signature below and has been given the opportunity to ask questions and make suggestions: Date: Patient/Book Cleaner Signature: Status Update Update WEEKLY NOTE/UPDATE: Priscilla is averaging 75% of meal intakes and six hours of sleep at night. Behaviors are improving as Priscilla is calm and cooperative with nursing assessments and has been compliant with medication administration. She has been attending meals in the dining room and is involved in the day room group programming. She has been engaged in groups, and is social with staff and her peers. She is tearful at times about wanting to go home and does not appear to recall her most recent living arrangements at [facility]. She is referring to home as when she lived with her son John. John was involved in team meeting via phone. Tentative d/c early next week, will update [facility] and [place], if needed. ABE ARCHULETA May 02, 2020 12:00
--- NOTE | 2020-05-02 12:00 | NUR ---
Call placed to Azra at [facility] to provide update and progress report. Ramona and Kiki indicated that they would prefer Priscilla go to [facility] for skilled rehab since she is still utilizing a w/c vs. walker which was Priscilla's previous level of function. Ramona and Kiki indicated that they could re-evaluate Priscilla after she completes therapy at [facility]. Call placed to Ramona, respiratory therapy director at [facility], and progress report provided. Ramona requested a referral be faxed over for review. Awaiting admission decision. Tentative discharge early next week.
[2020-05-02] MEDS ORDERED: HYDROcodone/APAP 7.5/325MG 1 TAB TABLET PO PRN (15:15)
[2020-05-02 15:39] VITALS: BP 118/56
[2020-05-02] MEDS: ARIPiprazole 2 MG TABLET PO SCH (17:13)
--- NOTE | 2020-05-02 22:15 | PDOC ---
Exam Note: Leif Note: Please also refer to the separate dictated note~for this date of service dictated separately.~Patient seen individually. Discussed the patient with Nursing staff reviewed the chart.~Reviewed interim history and current functioning. Reviewed vital signs,~Labs/ Radiology~and current medications noted below. Continue current treatment with the changes noted in the dictated addendum note Assessment: Vital Signs/I&O: Vital Signs Date Time Temp Pulse Resp B/P (MAP) Pulse Ox O2 Delivery O2 Flow Rate FiO2 05/02/20 20:21 71 118/56 05/02/20 15:39 98.4 18 97 04/30/20 16:17 Room Air I & O 05/01/20 05/01/20 05/02/20 15:00 23:00 07:00 Intake Total 840 ml 360 ml 0 ml Balance 840 ml 360 ml 0 ml Current Medications: I have reviewed the current psychotropics carefully including drug interactions. Risk benefit ratio favors no change other than as noted in my dictated progress note. 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
--- NOTE | 2020-05-03 03:32 | NUR ---
Last evening pt was in day room she was pleasant and took meds whole without issue. She requested female staff to shower her, which was done, and she washed her self with assistance. S Nobehaviors tonight.he was cooperative with hs cares and has been sleeping well. No behaviors tonight.
[2020-05-03] MEDS: LEVOTHYROXINE 100 MCG TABLET PO SCH (05:53)
[2020-05-03 06:23] VITALS: BP 159/72
--- NOTE | 2020-05-03 07:26 | PDOC ---
Exam Note: Leif Note: This note is a late entry for 05/01/2020 covers elements not covered in my initial note. Subjective: The patient was seen individually in the evening of 05/01/2020. Per Krystal SERRANO, she slept 5-3/4 hours previous night. She has had a good day, interactive. Review of Systems: No CV, , pulmonary, eye, ENT system symptoms on review. Mental Status Exam: Oriented to herself and situation. She is very pleasant, verbal. Speech coherent. Abstraction fair. Computation impaired. Short-term memory is still impaired. Language function intact. Attention span short. Mood and affect lability improved. Laboratory Data: Reviewed. Impression: Major depressive disorder, recurrent. Major neurocognitive disorder, Alzheimer, vascular with delusion, depression, behavioral disturbance. Anxiety disorder unspecified. Impulse control disorder unspecified. Plan: We will continue psychotropics from initial note. Cymbalta 60 mg a day, Abilify 2 mg 1700 hours, Zyprexa p.r.n. Adjust further as clinically indicated. Assessment: Vital Signs/I&O: Vital Signs Date Time Temp Pulse Resp B/P (MAP) Pulse Ox O2 Delivery O2 Flow Rate FiO2 05/03/20 06:23 98.5 64 16 159/72 (101) 96 04/30/20 16:17 Room Air I & O 05/02/20 05/02/20 05/03/20 15:00 23:00 07:00 Intake Total 720 ml 480 ml Balance 720 ml 480 ml Current Medications: I have reviewed the current psychotropics carefully including drug interactions. Risk benefit ratio favors no change other than as noted in my dictated progress note. 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
--- NOTE | 2020-05-03 07:47 | PDOC ---
Exam Note: Leif Note: This note is a late entry for 05/02/2020 covers elements not covered in my initial note. Subjective: The patient was seen individually in the morning of 05/02/2020 with treatment team meeting with Ludmila (social service staff), [facility] staff, Angélica SERRANO. The patients son John attended the meeting. Appetite is 75%. She slept 6 hours previous night. She is calm, cooperative with medications. She is pleasant, interactive. No yelling or screaming. Discussed with Virgie SERRANO in the evening. Has had some jerky movements, staring at the ceiling per physical therapy staff, but we will monitor this. We have not seen it at other times. Review of Systems: No CV, , pulmonary, eye, ENT system symptoms on review. Mental Status Exam: Oriented to herself and situation. She is very pleasant, interactive. Speech coherent. Abstraction fair. Computation impaired. Language function intact. Attention span short. Short-term memory impaired. Mood and affect lability improved. Laboratory Data: Reviewed. Impression: Major depressive disorder, recurrent. Major neurocognitive disorder, Alzheimer, vascular with delusion, depression, behavioral disturbance. Anxiety disorder unspecified. Impulse control disorder unspecified. Plan: No change from initial note. Assessment: Vital Signs/I&O: Vital Signs Date Time Temp Pulse Resp B/P (MAP) Pulse Ox O2 Delivery O2 Flow Rate FiO2 05/03/20 06:23 98.5 64 16 159/72 (101) 96 04/30/20 16:17 Room Air I & O 05/02/20 05/02/20 05/03/20 15:00 23:00 07:00 Intake Total 720 ml 480 ml Balance 720 ml 480 ml Current Medications: I have reviewed the current psychotropics carefully including drug interactions. Risk benefit ratio favors no change other than as noted in my dictated progress note. 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
[2020-05-03] MEDS: PANTOPRAZOLE 40 MG TABLET. PO SCH (08:06)
[2020-05-03] MEDS: LISINOPRIL 10 MG TABLET PO SCH (08:06)
[2020-05-03] MEDS: ASPIRIN CHEWABLE 81 MG TABLET. PO SCH (08:07)
[2020-05-03] MEDS: POTASSIUM CHLORIDE 20 MEQ TABLET.ER. PO SCH (08:07)
[2020-05-03] MEDS: METOPROLOL TART IMMED RELEASE 25 MG TABLET PO SCH ×2 (08:07→19:41)
[2020-05-03] MEDS: DULoxetine HCL 60 MG CAPSULE.DR PO SCH (08:07)
[2020-05-03] MEDS: FUROSEMIDE 40 MG TABLET PO SCH (08:07)
[2020-05-03] MEDS: LIDOCAINE (700MG/PATCH) PATCH. TP SCH (08:08)
--- NOTE | 2020-05-03 11:32 | NUR ---
Nursing note: Pt in dining room his morning for meds and assessment. She was compliant with meds whole with no difficulty and cooperative with assessment. She was very happy this morning and had no complaints. Will continue to monitor.
[2020-05-03 15:41] VITALS: BP 139/76
--- NOTE | 2020-05-03 16:11 | NUR ---
Attempted to see Priscilla for 1:1 socialization. She was sleeping soundly in her bed, will attempt to see her at a later time. F/U call placed to Ramona, visual education director at [facility], to inquire about admission decision. Ramona expressed that she will need to see updated notes on Wednesday of next week before an admission decision can be made. Will follow up on Wednesday.
[2020-05-03] MEDS: ARIPiprazole 2 MG TABLET PO SCH (17:36)
--- NOTE | 2020-05-03 22:04 | PDOC ---
Exam Note: Leif Note: Please also refer to the separate dictated note~for this date of service dictated separately.~Patient seen individually. Discussed the patient with Nursing staff reviewed the chart.~Reviewed interim history and current functioning. Reviewed vital signs,~Labs/ Radiology~and current medications noted below. Continue current treatment with the changes noted in the dictated addendum note Assessment: Vital Signs/I&O: Vital Signs Date Time Temp Pulse Resp B/P (MAP) Pulse Ox O2 Delivery O2 Flow Rate FiO2 05/03/20 19:41 59 139/76 05/03/20 15:41 97.8 16 97 Room Air I & O 05/02/20 05/02/20 05/03/20 15:00 23:00 07:00 Intake Total 720 ml 480 ml Balance 720 ml 480 ml Current Medications: I have reviewed the current psychotropics carefully including drug interactions. Risk benefit ratio favors no change other than as noted in my dictated progress note. 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
--- NOTE | 2020-05-04 00:54 | NUR ---
Last evening pt sat in the day room watching a movie. She was pleasant and cooperative. Meds was taken whole without issue. No behaviors tonight.
[2020-05-04 04:16] VITALS: BP 132/60
[2020-05-04] MEDS: LEVOTHYROXINE 100 MCG TABLET PO SCH (05:32)
[2020-05-04] MEDS: DULoxetine HCL 60 MG CAPSULE.DR PO SCH (08:30)
[2020-05-04] MEDS: PANTOPRAZOLE 40 MG TABLET. PO SCH (08:30)
[2020-05-04] MEDS: ASPIRIN CHEWABLE 81 MG TABLET. PO SCH (08:30)
[2020-05-04] MEDS: LIDOCAINE (700MG/PATCH) PATCH. TP SCH (08:31)
[2020-05-04] MEDS: LISINOPRIL 10 MG TABLET PO SCH (09:00)
[2020-05-04] MEDS: METOPROLOL TART IMMED RELEASE 25 MG TABLET PO SCH ×2 (09:00→20:03)
--- NOTE | 2020-05-04 09:39 | NUR ---
She is compliant with her medications and assessment. Pt is calm, cooperative, compliant. No agitation, no aggression, no hallucinations, no delusions.
[2020-05-04] MEDS: ARIPiprazole 2 MG TABLET PO SCH (17:08)
[2020-05-04] MEDS: ACETAMINOPHEN 325 MG TABLET PO PRN (17:08)
[2020-05-04 17:12] VITALS: BP 151/62
[2020-05-04 21:59] LABS: BASO % 1 % (0-3); EOS # 0.3 x10^3/uL (0.0-0.7); EOS % 6 % (0-3); HEMATOCRIT 30.3 % (36.0-47.0); HEMOGLOBIN 10.2 g/dL (12.0-15.5); LYMPH # 1.3 x10^3/uL (1.0-4.8); LYMPH % 26 % (24-48); MEAN CORPUSCULAR HEMOGLOBIN 31 pg (25-35); MEAN CORPUSCULAR HGB CONC 34 g/dL (31-37); MEAN CORPUSCULAR VOLUME 91 fL (79-100); MONO # 0.6 x10^3/uL (0.0-1.1); MONO % 11 % (0-9); NEUT # 2.9 x10^3uL (1.8-7.7); NEUT % 57 % (31-73); PLATELET COUNT 209 x10^3/uL (140-400); RED BLOOD COUNT 3.33 x10^6/uL (3.50-5.40); RED CELL DISTRIBUTION WIDTH 13.7 % (11.5-14.5); WHITE BLOOD COUNT 5.2 x10^3/uL (4.0-11.0)
[2020-05-04 22:14] LABS: ALBUMIN 2.9 g/dL (3.4-5.0); ALBUMIN/GLOBULIN RATIO 0.8 (1.0-1.7); CALCIUM 8.1 mg/dL (8.5-10.1); CREATININE 1.5 mg/dL (0.6-1.0); GFR 32.8; POTASSIUM 4.6 mmol/L (3.5-5.1); TOTAL BILIRUBIN 0.4 mg/dL (0.2-1.0); TOTAL PROTEIN 6.4 g/dL (6.4-8.2)
--- NOTE | 2020-05-04 22:24 | PDOC ---
Exam Note: Leif Note: Please also refer to the separate dictated note~for this date of service dictated separately.~Patient seen individually. Discussed the patient with Nursing staff reviewed the chart.~Reviewed interim history and current functioning. Reviewed vital signs,~Labs/ Radiology~and current medications noted below. Continue current treatment with the changes noted in the dictated addendum note Assessment: Vital Signs/I&O: Vital Signs Date Time Temp Pulse Resp B/P (MAP) Pulse Ox O2 Delivery O2 Flow Rate FiO2 05/04/20 20:03 82 151/62 05/04/20 17:12 98.1 20 95 05/03/20 15:41 Room Air I & O 05/03/20 05/03/20 05/04/20 15:00 23:00 07:00 Intake Total 720 ml 720 ml Balance 720 ml 720 ml Labs: Laboratory Tests Test 05/04/20 21:50 White Blood Count 5.2 x10^3/uL (4.0-11.0) Red Blood Count 3.33 x10^6/uL (3.50-5.40) L Hemoglobin 10.2 g/dL (12.0-15.5) L Hematocrit 30.3 % (36.0-47.0) L Mean Corpuscular Volume 91 fL (79-100) Mean Corpuscular Hemoglobin 31 pg (25-35) Mean Corpuscular Hemoglobin Concent 34 g/dL (31-37) Red Cell Distribution Width 13.7 % (11.5-14.5) Platelet Count 209 x10^3/uL (140-400) Neutrophils (%) (Auto) 57 % (31-73) Lymphocytes (%) (Auto) 26 % (24-48) Monocytes (%) (Auto) 11 % (0-9) H Eosinophils (%) (Auto) 6 % (0-3) H Basophils (%) (Auto) 1 % (0-3) Neutrophils # (Auto) 2.9 x10^3uL (1.8-7.7) Lymphocytes # (Auto) 1.3 x10^3/uL (1.0-4.8) Monocytes # (Auto) 0.6 x10^3/uL (0.0-1.1) Eosinophils # (Auto) 0.3 x10^3/uL (0.0-0.7) Basophils # (Auto) 0.0 x10^3/uL (0.0-0.2) Sodium Level 129 mmol/L (136-145) L Potassium Level 4.6 mmol/L (3.5-5.1) Chloride Level 95 mmol/L (98-107) L Carbon Dioxide Level 25 mmol/L (21-32) Anion Gap 9 (6-14) Blood Urea Nitrogen 28 mg/dL (7-20) H Creatinine 1.5 mg/dL (0.6-1.0) H Estimated GFR (Cockcroft-Gault) 32.8 BUN/Creatinine Ratio 19 (6-20) Glucose Level 99 mg/dL (70-99) Calcium Level 8.1 mg/dL (8.5-10.1) L Total Bilirubin 0.4 mg/dL (0.2-1.0) Aspartate Amino Transferase (AST) 13 U/L (15-37) L Alanine Aminotransferase (ALT) 12 U/L (14-59) L Alkaline Phosphatase 82 U/L (46-116) Total Protein 6.4 g/dL (6.4-8.2) Albumin 2.9 g/dL (3.4-5.0) L Albumin/Globulin Ratio 0.8 (1.0-1.7) L Current Medications: I have reviewed the current psychotropics carefully including drug interactions. Risk benefit ratio favors no change other than as noted in my dictated progress note. 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
--- NOTE | 2020-05-04 22:34 | NUR ---
Pt located in her bed sleeping calmly. Compliant with her HS medication and lab draw. No behaviors noted.
[2020-05-05] MEDS: LEVOTHYROXINE 100 MCG TABLET PO SCH (05:25)
[2020-05-05 05:50] VITALS: BP 144/76
--- NOTE | 2020-05-05 07:03 | PDOC ---
Exam Note: Leif Note: This note is a late entry for 05/03/2020 covers elements not covered in my initial note. Subjective: The patient was seen individually in the evening of 05/03/2020. Per Virgie SERRANO, she slept 7-1/4 hours previous night. Overall the patient is doing much better. Per nursing report she is doing wonderful. She had an episode of some non-specific jerky movement and staring into space the day before with physical therapy staff but none of that is being noticed again. She is very pleasant, verbal, interactive, smiling as I met with her. Review of Systems: Ambulation impaired in wheelchair. No CV, , pulmonary, eye, ENT system symptoms on review. Mental Status Exam: Oriented to herself and situation. She is very pleasant, interactive, verbal. Speech coherent. Abstraction fair. Computation impaired. Language function intact. Attention span short. Short-term memory impaired. Mood and affect withdrawn. Laboratory Data: Reviewed. Impression: Major depressive disorder, recurrent. Major neurocognitive disorder, Alzheimer, vascular with delusion, depression, behavioral disturbance. Anxiety disorder unspecified. Impulse control disorder unspecified. Plan: No change from initial note. Assessment: Vital Signs/I&O: Vital Signs Date Time Temp Pulse Resp B/P (MAP) Pulse Ox O2 Delivery O2 Flow Rate FiO2 05/05/20 05:50 98.2 60 16 144/76 (98) 96 05/03/20 15:41 Room Air I & O 05/04/20 05/04/20 05/05/20 15:00 23:00 07:00 Intake Total 600 ml 360 ml Balance 600 ml 360 ml Labs: Laboratory Tests Test 05/04/20 21:50 White Blood Count 5.2 x10^3/uL (4.0-11.0) Red Blood Count 3.33 x10^6/uL (3.50-5.40) L Hemoglobin 10.2 g/dL (12.0-15.5) L Hematocrit 30.3 % (36.0-47.0) L Mean Corpuscular Volume 91 fL (79-100) Mean Corpuscular Hemoglobin 31 pg (25-35) Mean Corpuscular Hemoglobin Concent 34 g/dL (31-37) Red Cell Distribution Width 13.7 % (11.5-14.5) Platelet Count 209 x10^3/uL (140-400) Neutrophils (%) (Auto) 57 % (31-73) Lymphocytes (%) (Auto) 26 % (24-48) Monocytes (%) (Auto) 11 % (0-9) H Eosinophils (%) (Auto) 6 % (0-3) H Basophils (%) (Auto) 1 % (0-3) Neutrophils # (Auto) 2.9 x10^3uL (1.8-7.7) Lymphocytes # (Auto) 1.3 x10^3/uL (1.0-4.8) Monocytes # (Auto) 0.6 x10^3/uL (0.0-1.1) Eosinophils # (Auto) 0.3 x10^3/uL (0.0-0.7) Basophils # (Auto) 0.0 x10^3/uL (0.0-0.2) Sodium Level 129 mmol/L (136-145) L Potassium Level 4.6 mmol/L (3.5-5.1) Chloride Level 95 mmol/L (98-107) L Carbon Dioxide Level 25 mmol/L (21-32) Anion Gap 9 (6-14) Blood Urea Nitrogen 28 mg/dL (7-20) H Creatinine 1.5 mg/dL (0.6-1.0) H Estimated GFR (Cockcroft-Gault) 32.8 BUN/Creatinine Ratio 19 (6-20) Glucose Level 99 mg/dL (70-99) Calcium Level 8.1 mg/dL (8.5-10.1) L Total Bilirubin 0.4 mg/dL (0.2-1.0) Aspartate Amino Transferase (AST) 13 U/L (15-37) L Alanine Aminotransferase (ALT) 12 U/L (14-59) L Alkaline Phosphatase 82 U/L (46-116) Total Protein 6.4 g/dL (6.4-8.2) Albumin 2.9 g/dL (3.4-5.0) L Albumin/Globulin Ratio 0.8 (1.0-1.7) L Current Medications: I have reviewed the current psychotropics carefully including drug interactions. Risk benefit ratio favors no change other than as noted in my dictated progress note. 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
--- NOTE | 2020-05-05 07:29 | PDOC ---
Exam Note: Leif Note: This note is a late entry for 05/04/2020 covers elements not covered in my initial note. Subjective: The patient was seen individually in the evening of 05/04/2020. Per Angélica SERRANO she slept 7 hours previous night. She has been doing well. Again very pleasant, verbal, interactive when I met with her in the evening. She was in her wheelchair. She did refuse lab draw this morning and I processed with her and she agrees to do it. We repeated. Review of Systems: Ambulation impaired in wheelchair. No CV, , pulmonary, eye, ENT system symptoms on review. Mental Status Exam: Oriented to herself and situation. She is very pleasant, interactive. Speech coherent. Abstraction fair. Computation impaired. Language function intact. Attention span short. Short-term memory impaired. Mood and affect withdrawn. Laboratory Data: Reviewed. Impression: Major depressive disorder, recurrent. Major neurocognitive disorder, Alzheimer, vascular with delusion, depression, behavioral disturbance. Anxiety disorder unspecified. Impulse control disorder unspecified. Plan: No change from initial note. Assessment: Vital Signs/I&O: Vital Signs Date Time Temp Pulse Resp B/P (MAP) Pulse Ox O2 Delivery O2 Flow Rate FiO2 05/05/20 05:50 98.2 60 16 144/76 (98) 96 05/03/20 15:41 Room Air I & O 05/04/20 05/04/20 05/05/20 15:00 23:00 07:00 Intake Total 600 ml 360 ml Balance 600 ml 360 ml Labs: Laboratory Tests Test 05/04/20 21:50 White Blood Count 5.2 x10^3/uL (4.0-11.0) Red Blood Count 3.33 x10^6/uL (3.50-5.40) L Hemoglobin 10.2 g/dL (12.0-15.5) L Hematocrit 30.3 % (36.0-47.0) L Mean Corpuscular Volume 91 fL (79-100) Mean Corpuscular Hemoglobin 31 pg (25-35) Mean Corpuscular Hemoglobin Concent 34 g/dL (31-37) Red Cell Distribution Width 13.7 % (11.5-14.5) Platelet Count 209 x10^3/uL (140-400) Neutrophils (%) (Auto) 57 % (31-73) Lymphocytes (%) (Auto) 26 % (24-48) Monocytes (%) (Auto) 11 % (0-9) H Eosinophils (%) (Auto) 6 % (0-3) H Basophils (%) (Auto) 1 % (0-3) Neutrophils # (Auto) 2.9 x10^3uL (1.8-7.7) Lymphocytes # (Auto) 1.3 x10^3/uL (1.0-4.8) Monocytes # (Auto) 0.6 x10^3/uL (0.0-1.1) Eosinophils # (Auto) 0.3 x10^3/uL (0.0-0.7) Basophils # (Auto) 0.0 x10^3/uL (0.0-0.2) Sodium Level 129 mmol/L (136-145) L Potassium Level 4.6 mmol/L (3.5-5.1) Chloride Level 95 mmol/L (98-107) L Carbon Dioxide Level 25 mmol/L (21-32) Anion Gap 9 (6-14) Blood Urea Nitrogen 28 mg/dL (7-20) H Creatinine 1.5 mg/dL (0.6-1.0) H Estimated GFR (Cockcroft-Gault) 32.8 BUN/Creatinine Ratio 19 (6-20) Glucose Level 99 mg/dL (70-99) Calcium Level 8.1 mg/dL (8.5-10.1) L Total Bilirubin 0.4 mg/dL (0.2-1.0) Aspartate Amino Transferase (AST) 13 U/L (15-37) L Alanine Aminotransferase (ALT) 12 U/L (14-59) L Alkaline Phosphatase 82 U/L (46-116) Total Protein 6.4 g/dL (6.4-8.2) Albumin 2.9 g/dL (3.4-5.0) L Albumin/Globulin Ratio 0.8 (1.0-1.7) L Current Medications: I have reviewed the current psychotropics carefully including drug interactions. Risk benefit ratio favors no change other than as noted in my dictated progress note. 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
[2020-05-05] MEDS: PANTOPRAZOLE 40 MG TABLET. PO SCH (08:19)
[2020-05-05] MEDS: DULoxetine HCL 60 MG CAPSULE.DR PO SCH (08:19)
[2020-05-05] MEDS: ASPIRIN CHEWABLE 81 MG TABLET. PO SCH (08:19)
[2020-05-05] MEDS: METOPROLOL TART IMMED RELEASE 25 MG TABLET PO SCH ×2 (08:19→20:09)
[2020-05-05] MEDS: LISINOPRIL 10 MG TABLET PO SCH (08:19)
[2020-05-05] MEDS: LIDOCAINE (700MG/PATCH) PATCH. TP SCH (08:20)
--- NOTE | 2020-05-05 10:07 | NUR ---
No agitation, no aggression, no hallucinations, no delusions. She is compliant with her medications and assessment. Pt is calm, cooperative, compliant.
[2020-05-05 15:48] VITALS: BP 137/79
[2020-05-05] MEDS: ARIPiprazole 2 MG TABLET PO SCH (17:02)
--- NOTE | 2020-05-05 22:05 | PDOC ---
Exam Note: Leif Note: Please also refer to the separate dictated note~for this date of service dictated separately.~Patient seen individually. Discussed the patient with Nursing staff reviewed the chart.~Reviewed interim history and current functioning. Reviewed vital signs,~Labs/ Radiology~and current medications noted below. Continue current treatment with the changes noted in the dictated addendum note Assessment: Vital Signs/I&O: Vital Signs Date Time Temp Pulse Resp B/P (MAP) Pulse Ox O2 Delivery O2 Flow Rate FiO2 05/05/20 20:09 71 137/79 05/05/20 15:48 98.2 16 98 05/03/20 15:41 Room Air I & O 05/04/20 05/04/20 05/05/20 15:00 23:00 07:00 Intake Total 600 ml 360 ml Balance 600 ml 360 ml Current Medications: I have reviewed the current psychotropics carefully including drug interactions. Risk benefit ratio favors no change other than as noted in my dictated progress note. 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
--- NOTE | 2020-05-05 22:24 | NUR ---
Pt located in the dayroom this evening sitting calmly. Compliant with whole HS medication. Pleasant and cooperative.
[2020-05-06] MEDS: LEVOTHYROXINE 100 MCG TABLET PO SCH (05:20)
[2020-05-06 05:50] VITALS: BP 151/71
[2020-05-06] MEDS ORDERED: ALENDRONATE SODIUM 35 MG TABLET PO SCH (07:00)
[2020-05-06] MEDS: METOPROLOL TART IMMED RELEASE 25 MG TABLET PO SCH ×2 (08:24→20:03)
[2020-05-06] MEDS: PANTOPRAZOLE 40 MG TABLET. PO SCH (08:24)
[2020-05-06] MEDS: ASPIRIN CHEWABLE 81 MG TABLET. PO SCH (08:24)
[2020-05-06] MEDS: DULoxetine HCL 60 MG CAPSULE.DR PO SCH (08:24)
[2020-05-06] MEDS: LIDOCAINE (700MG/PATCH) PATCH. TP SCH (08:25)
[2020-05-06] MEDS: LISINOPRIL 10 MG TABLET PO SCH (08:25)
--- NOTE | 2020-05-06 08:58 | NUR ---
Observed Priscilla walking with a walker, gait belt, and CGA from PT this morning. Complimented Priscilla on how well she looked and the progress she has made. Faxed weekend notes, medication list, and labs to Ramona, assisted living home director at [facility], for review. Awaiting admit decision with d/c date of 05/07/20.
--- NOTE | 2020-05-06 09:35 | NUR ---
She is compliant with her medications and assessment. Pt is calm, cooperative, compliant. No agitation, no aggression, no hallucinations, no delusions.
--- NOTE | 2020-05-06 13:15 | NUR ---
Left message for Ramona, admission director at [facility], with intent to inquire about admission decision. Awaiting return phone call. Addendum: 05/06/20 at 1507 by ABE TERRY No return call, call two placed to Ramona at [facility] who reports they have not made an admission decision yet. Ramona is not sure when an admission decision will be made but expressed she was hopeful to know by the end of this work day. Call placed to Huang, son/POA, to provide update and inform that [facility] is awaiting admit decision.
[2020-05-06] MEDS: FUROSEMIDE 40 MG TABLET PO SCH (16:00)
[2020-05-06] MEDS: POTASSIUM CHLORIDE 20 MEQ TABLET.ER. PO SCH (16:00)
[2020-05-06 16:18] VITALS: BP 111/72
[2020-05-06] MEDS: ARIPiprazole 2 MG TABLET PO SCH (17:17)
[2020-05-06 20:03] VITALS: BP 111/72
[2020-05-06] MEDS ORDERED: METH28OI2 TP (20:50)
[2020-05-06] MEDS ORDERED: HYDR-2763 PO (20:51)
[2020-05-06] MEDS ORDERED: ARIP2TAB35 PO (20:54)
[2020-05-06] MEDS ORDERED: OLAN5TAB9 PO (20:55)
[2020-05-06] MEDS ORDERED: MAG30ORA2 PO (20:56)
[2020-05-06] MEDS ORDERED: MAGN400O7 PO (20:57)
--- NOTE | 2020-05-06 20:58 | NUR ---
Pt COVID swab came back with the result of Detected. Pt immediately taken to her room and isolation precautions initiated. [facility] Director and nursing psychiatric social worker supervisor notified. Decision made to transfer pt downstairs. Dr. Nguyen notified of swab results and decision to transfer. DPOA, John Moffett also notified.
[2020-05-06] MEDS ORDERED: LISI10TA2 PO (21:00)
[2020-05-06] MEDS ORDERED: ACET325T21 PO (21:00)
[2020-05-06] MEDS ORDERED: LEVO100T5 PO (21:00)
[2020-05-06] MEDS ORDERED: METO25TA4 PO (21:00)
--- NOTE | 2020-05-06 21:00 | NUR ---
Transition Record was faxed to follow-up provider with the following elements: Med rec and discharge instructions. Reason for admission, procedures, tests, principal diagnosis, pending studies, patient instructions, 17/05 contact information for unit, phone number to obtain pending test results, plan for follow-up care, physician follow-up, advanced directive information, and medication list with dose, duration and instructions. This information was included in the following documents: discharge paperwork History and physical, lab results, study results, progress notes, social work planning form, DC instruction form, patient visit summary, and medication reconciliation form. Date & time record faxed: 05/06/2020 @2109 Record faxed to: 1 [facility] Record discussed with/ report given to: Chastity SERRANO, 2109
--- NOTE | 2020-05-06 22:06 | PDOC ---
Exam Note: Leif Note: Please also refer to the separate dictated note~for this date of service dictated separately.~Patient seen individually. Discussed the patient with Nursing staff reviewed the chart.~Reviewed interim history and current functioning. Reviewed vital signs,~Labs/ Radiology~and current medications noted below. Continue current treatment with the changes noted in the dictated addendum note Assessment: Vital Signs/I&O: Vital Signs Date Time Temp Pulse Resp B/P (MAP) Pulse Ox O2 Delivery O2 Flow Rate FiO2 05/06/20 20:03 60 111/72 05/06/20 16:18 98.9 16 95 05/03/20 15:41 Room Air I & O 05/05/20 05/05/20 05/06/20 15:00 23:00 07:00 Intake Total 600 ml 580 ml Balance 600 ml 580 ml Current Medications: Meds: Current Medications Medications (Trade) Dose Ordered Sig/Beka Route PRN Reason Start Time Stop Time Status Last Admin Dose Admin Alendronate Sodium (Fosamax) 35 mg WEEKLYAC PO 05/06/20 07:00 05/06/20 21:47 DC 05/06/20 05:28 I have reviewed the current psychotropics carefully including drug interactions. Risk benefit ratio favors no change other than as noted in my dictated progress note. 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
--- NOTE | 2020-05-07 00:25 | DS ---
DATE OF DISCHARGE: 05/06/2020 DISCHARGE SUMMARY/PSYCHIATRIC PROGRESS NOTE This note covers elements not covered in my initial note, 05/06 and my dictated note 05/06. REASON FOR ADMISSION: Please refer to the admission history for details. Briefly, the patient is an 89-year-old female referred to us from [facility], after which she was at [facility]. She was admitted on account of increasing confusion, hitting staff, would not let them get close to her. She was screaming, throwing things stating she wanted to . She was also stating she would walk home. Behaviors were deemed dangerous, unmanageable resulting in this referral. SIGNIFICANT FINDINGS AND CLINICAL COURSE: Following admission, the patient was seen daily individually by myself from a psychiatric standpoint, medical followup with Dr. Cameron/Dr. Nguyen. The patient is extremely agitated with marked mood lability, confused initially. Adjustments were made in her psychotropics. She seemed to do better on a combination of Cymbalta 60 mg a day, Abilify 2 mg daily to augment the Cymbalta, Zyprexa p.r.n. Discharge was planned on 05/07, and in preparation for discharge, a COVID-19 screen was completed. It returned on 05/06 late in the evening as positive and the patient was immediately transferred to the isolation unit on . REVIEW OF SYSTEMS: Prior to discharge, 05/06, ambulation impaired, in wheelchair. No CV, , pulmonary, eye, ENT system symptoms on review. Reliability poor. MENTAL STATUS EXAM: Oriented to herself. Insight, judgment, recent and remote memory, attention, concentration, fund of knowledge poor consistent with her diagnosis. FINAL DIAGNOSES: Major neurocognitive disorder, Alzheimer, vascular with delusion, depression, behavioral disturbance; anxiety disorder, unspecified; impulse control disorder, unspecified; COVID-19 positive. Rest as above. DISCHARGE MEDICATIONS: Please refer to the MRAD. DISCHARGE INSTRUCTIONS: [facility]. Time for discharge day management greater than 30 minutes. MAN Rachel DEUTSCH MD DR: ALEA/franc JOB#: [id number] / [id number]
--- NOTE | 2020-05-07 09:03 | PDOC ---
Exam Note: Leif Note: This note is a late entry for 05/05/2020 covers elements not covered in my initial note. Subjective: The patient was seen individually in the evening of 05/05/2020. Per Addi SERRANO she slept 8 hours previous night. Her Covid swab has been done in preparation for discharge. She remains anxious, very tearful. One of the demented patients had walked into her room and this female patient laid on the patients pillows. The patient was extremely tearful, anxious following me around the unit, upset, crying. Later she was given extra pillow covers and she appeared to accept this. Review of Systems: Ambulation impaired in wheelchair. No CV, , pulmonary, eye, ENT system symptoms on review. Mental Status Exam: Oriented to herself and situation. She is very pleasant, interactive. Speech coherent. Abstraction fair. Computation impaired. Language function intact. Attention span short. Short-term memory impaired. Mood and affect anxious, depressed. Laboratory Data: Reviewed. Impression: Major depressive disorder, recurrent. Major neurocognitive disorder, Alzheimer, vascular with delusion, depression, behavioral disturbance. Anxiety disorder unspecified. Impulse control disorder unspecified. Plan: No change from initial note. Assessment: Vital Signs/I&O: Vital Signs Date Time Temp Pulse Resp B/P (MAP) Pulse Ox O2 Delivery O2 Flow Rate FiO2 05/06/20 20:03 60 111/72 05/06/20 16:18 98.9 16 95 05/03/20 15:41 Room Air I & O 05/06/20 05/06/20 05/07/20 15:00 23:00 07:00 Intake Total 240 ml 480 ml Balance 240 ml 480 ml Current Medications: I have reviewed the current psychotropics carefully including drug interactions. Risk benefit ratio favors no change other than as noted in my dictated progress note. 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
--- NOTE | 2020-05-07 09:21 | PDOC ---
Exam Note: Leif Note: This note is a late entry for 05/06/2020 covers elements not covered in my initial note. Subjective: The patient was seen individually in the evening of 05/06/2020. Per Angélica SERRANO she had done well previous night and during the day today. Review of Systems: Ambulation impaired in wheelchair. No CV, , pulmonary, eye, ENT system symptoms on review. Mental Status Exam: Oriented to herself and situation. She is very pleasant, interactive. Speech coherent. Abstraction fair. Computation impaired. Language function intact. Attention span short. Short-term memory impaired. Mood and affect improved. Laboratory Data: Reviewed. Impression: Major neurocognitive disorder, Alzheimer, vascular with delusion, depression, behavioral disturbance. Anxiety disorder unspecified. Impulse control disorder unspecified. Covid-19 positive. Plan: No change from initial note. Assessment: Vital Signs/I&O: Vital Signs Date Time Temp Pulse Resp B/P (MAP) Pulse Ox O2 Delivery O2 Flow Rate FiO2 05/06/20 20:03 60 111/72 05/06/20 16:18 98.9 16 95 05/03/20 15:41 Room Air I & O 05/06/20 05/06/20 05/07/20 14:59 22:59 06:59 Intake Total 240 ml 480 ml Balance 240 ml 480 ml Current Medications: I have reviewed the current psychotropics carefully including drug interactions. Risk benefit ratio favors no change other than as noted in my dictated progress note. 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
== END 2020-05-06 21:45 | disposition short-term general hospital (02) | DRG 56 ==
LOC: GEROPSY 15:40
PROVIDERS: ADMIT Psychiatry & Neurology Psychiatry; ATTEND Psychiatry & Neurology Psychiatry
DX: G30.9 Alzheimer's disease, unspecified (principal); I50.33 Acute on chronic diastolic (congestive) heart failure; U07.1 COVID-19; F33.3 Major depressive disorder, recurrent, severe with psychotic symptoms; F02.81 Dementia in other diseases classified elsewhere, unspecified severity, with behavioral disturbance; D68.9 Coagulation defect, unspecified; I48.21 Permanent atrial fibrillation; E03.9 Hypothyroidism, unspecified; F01.50 Vascular dementia, unspecified severity, without behavioral disturbance, psychotic disturbance, mood disturbance, and anxiety; F41.9 Anxiety disorder, unspecified; F63.9 Impulse disorder, unspecified; I11.0 Hypertensive heart disease with heart failure; I95.1 Orthostatic hypotension; J44.9 Chronic obstructive pulmonary disease, unspecified; M19.90 Unspecified osteoarthritis, unspecified site; M79.7 Fibromyalgia; Z53.20 Procedure and treatment not carried out because of patient's decision for unspecified reasons; Z66 Do not resuscitate; Z79.82 Long term (current) use of aspirin; Z79.899 Other long term (current) drug therapy; Z91.14 Patient's other noncompliance with medication regimen; G89.29 Other chronic pain; K21.9 Gastro-esophageal reflux disease without esophagitis
CPT/HCPCS: 36415; 80053; 80061; 81001; 82306; 82607; 83036; 83540; 83550; 83735; 84436; 84439; 84443; 84480; 84481; 85025; 86592; 97110; 97116; 97530; 97535; U0003-CS

== ENCOUNTER 2020-05-06 20:42 | Inpatient (IN) | payer MEDICARE, BC ==
[~2020-05-06] VITALS: Ht 166.4 cm; Wt 65.1 kg
[~2020-05-06 20:42] MED LIST changes: +ACET500T68 PO; +FURO40TA4 PO; +LIDO700A21 TP; +LISI40TA PO; +METO50TA6 PO; +POTA20TA4 PO
[2020-05-06] MEDS ORDERED: METH28OI2 TP (20:50)
[2020-05-06] MEDS ORDERED: HYDR-2763 PO (20:51)
[2020-05-06] MEDS ORDERED: ARIP2TAB35 PO (20:54)
[2020-05-06] MEDS ORDERED: OLAN5TAB9 PO (20:55)
[2020-05-06] MEDS ORDERED: MAG30ORA2 PO (20:56)
[2020-05-06] MEDS ORDERED: MAGN400O7 PO (20:57)
[2020-05-06] MEDS ORDERED: LISI10TA2 PO (21:00)
[2020-05-06] MEDS ORDERED: METO25TA4 PO (21:00)
[2020-05-06] MEDS ORDERED: LEVO100T5 PO (21:00)
[2020-05-06] MEDS ORDERED: ACET325T21 PO (21:00)
[2020-05-06 21:55] VITALS: BP 165/80
[2020-05-06] MEDS: LORazepam 1 MG TABLET PO PRN (22:48)
[2020-05-07 08:07] LABS: BASO % 1 % (0-3); EOS # 0.2 x10^3/uL (0.0-0.7); EOS % 5 % (0-3); HEMATOCRIT 34.9 % (36.0-47.0); HEMOGLOBIN 11.7 g/dL (12.0-15.5); LYMPH % 22 % (24-48); MEAN CORPUSCULAR HEMOGLOBIN 31 pg (25-35); MEAN CORPUSCULAR HGB CONC 34 g/dL (31-37); MEAN CORPUSCULAR VOLUME 92 fL (79-100); MONO # 0.5 x10^3/uL (0.0-1.1); MONO % 12 % (0-9); NEUT # 2.8 x10^3uL (1.8-7.7); NEUT % 61 % (31-73); PLATELET COUNT 198 x10^3/uL (140-400); RED CELL DISTRIBUTION WIDTH 13.7 % (11.5-14.5); WHITE BLOOD COUNT 4.6 x10^3/uL (4.0-11.0)
[2020-05-07 08:19] LABS: CREATININE 1.3 mg/dL (0.6-1.0); GFR 38.7; POTASSIUM 4.1 mmol/L (3.5-5.1)
[2020-05-07 09:08] VITALS: BP 118/64
--- NOTE | 2020-05-07 11:12 | RAD ---
PORTABLE CHEST 1V History: Covid positive, pneumonia Comparison: April 20, 2020. Findings: Single view of the chest is submitted. There is some increased patchy mild left base infiltrate. There is no dependent pleural fluid or pneumothorax. There is again tortuous thoracic aorta. Impression: 1. There is increased mild left base infiltrate. Electronically signed by: Sebastien Rodríguez MD (05/07/2020 11:09 AM) [id number]
--- NOTE | 2020-05-07 11:23 | HP ---
ADMIT DATE: 05/06/2020 ATTENDING PHYSICIAN: Dr. Garcia. CHIEF COMPLAINT: Positive COVID-19 swab. HISTORY OF PRESENT ILLNESS: The patient is an 89-year-old female with medical and psychiatric issues. She has profound dementia. She was treated here 2 weeks ago for acute on chronic congestive heart failure, stabilized and ready to discharge to [facility]. She became very agitated and combative. She was there for only 3 hours. She then got readmitted to the [facility] the same day of discharge from the acute floor. She has been there for 2 weeks. She has been quite stable. No symptoms of fever, chills, etc. She was getting ready to be discharged back to [place]. As their standard protocol, a COVID-19 swab was done on Wednesday. Yesterday evening it came back positive. Certainly without any symptoms or dyspnea, this may be a false positive. A repeat test has been ordered. In the meantime, she was transferred down here and placed in COVID-19 isolation. She denies any chest pain, palpitation, shortness of breath. She is actually quite comfortable. She remembers me from 2 weeks ago, but she remains quite demented with agitation. PAST MEDICAL HISTORY: Significant for vascular dementia, impulse control disorder, acute on chronic diastolic congestive heart failure, major depression with psychosis, paroxysmal atrial fibrillation, chronic anticoagulation and hypertensive heart disease. We stopped her anticoagulation, Eliquis, on his last admission. CURRENT MEDICATIONS: On the psych unit include Tylenol, alendronate, Abilify, aspirin, Cymbalta, Lasix, hydrocodone, Synthroid, lidocaine, lisinopril, magnesium, metoprolol, olanzapine, Protonix and potassium. ALLERGIES: She has allergies to SULFA DRUGS causing rash. SOCIAL HISTORY: She is a nonsmoker and nondrinker. FAMILY HISTORY: Noncontributory. She has good family support. A son lives in [facility] and another daughter lives in [place], [place]. They have been very active in her care. REVIEW OF SYSTEMS: Significant for the impulse control disorder and confusion. No dyspnea. She had heart failure, which has been treated. She has been quite stable on the [facility] from a medical standpoint. All other systems reviewed and turned to be negative. PHYSICAL EXAMINATION: GENERAL: When I saw her, this is a pleasant, confused female. INITIAL VITAL SIGNS: Showed a blood pressure of 160/80. She was afebrile. She has been afebrile for the last 2 weeks. Oxygen saturation 97% on room air. HEENT: Head is without trauma. Pupils are reactive. Sclerae are nonicteric. She has a faint ecchymosis and bruising on her right cheek, which has since resolved from 2 weeks ago. NECK: Supple, no bruits. LUNGS: Otherwise clear. CARDIOVASCULAR: Showed regular heart tones. No gallops. Peripheral pulses are palpable and full. ABDOMEN: Soft, scaphoid, nontender, no organomegaly. Bowel sounds are hypoactive. EXTREMITIES: Show no cyanosis or edema. NEUROLOGIC: Pleasantly confused. She is alert. No focal deficits. PERTINENT LABORATORY STUDIES: Reviewed. She has a hemoglobin of 11.7 g/dL with a white count of 4600. Electrolytes were within normal range. Creatinine is 1.3 mg/dL. ASSESSMENT: 1. This 89-year-old female has a COVID-19 positive swab. This may be a false positive. If it is indeed positive, she is asymptomatic at this time. 2. Acute on chronic congestive heart failure, diastolic, compensated. 3. Profound dementia. 4. Frequent falls with ecchymosis, anticoagulation stopped. 5. Dementia with impulse control disorder. 6. Hypertensive heart disease. 7. Paroxysmal atrial fibrillation. PLAN: 1. She was moved down to our COVID isolation unit. 2. We will repeat her swab today to see if indeed this is a false positive. If that is the case, then she can be discharged per original plans to [place]. If indeed this second swab is positive, then she will stay here for a quarantine. Right now, she is asymptomatic and I do not recommend any corticosteroids or antiviral treatment as she is totally asymptomatic. She remains a DNR per advance directives. MADISON GARCIA MD DR: NABILA/franc JOB#: [id number] / [id number] ISAAC Rajan MD
[2020-05-07] MEDS ORDERED: MAG HYDROX/AL HYDROX/SIMETH 30 ML ORAL.SUSP PO PRN (12:45)
[2020-05-07] MEDS ORDERED: MAGNESIUM HYDROXIDE 2,400 MG/30 ML ORAL.SUSP. PO PRN (12:45)
[2020-05-07] MEDS: OLANZapine 5 MG TABLET PO PRN (13:15)
[2020-05-07] MEDS: LORazepam 1 MG TABLET PO PRN (13:15)
[2020-05-07] MEDS: LIDOCAINE (700MG/PATCH) PATCH. TP SCH (13:30)
[2020-05-07] MEDS: PANTOPRAZOLE 40 MG TABLET. PO SCH (13:30)
[2020-05-07] MEDS: LISINOPRIL 10 MG TABLET PO SCH (13:30)
[2020-05-07] MEDS: DULoxetine HCL 60 MG CAPSULE.DR PO SCH (13:30)
[2020-05-07] MEDS: ASPIRIN CHEWABLE 81 MG TABLET. PO SCH (13:30)
[2020-05-07] MEDS: FUROSEMIDE 40 MG TABLET PO SCH (13:30)
[2020-05-07] MEDS: METOPROLOL TART IMMED RELEASE 25 MG TABLET PO SCH ×2 (13:30→21:22)
[2020-05-07 15:00] VITALS: BP 120/65
[2020-05-07] MEDS: ARIPiprazole 2 MG TABLET PO SCH (17:00)
[2020-05-07 20:05] VITALS: BP 160/90
[2020-05-08] MEDS: LEVOTHYROXINE 100 MCG TABLET PO SCH (05:56)
[2020-05-08 06:26] VITALS: BP 155/83
[2020-05-08] MEDS: PANTOPRAZOLE 40 MG TABLET. PO SCH (08:10)
[2020-05-08] MEDS: ASPIRIN CHEWABLE 81 MG TABLET. PO SCH (08:10)
[2020-05-08] MEDS: LIDOCAINE (700MG/PATCH) PATCH. TP SCH (08:10)
[2020-05-08] MEDS: DULoxetine HCL 60 MG CAPSULE.DR PO SCH (08:11)
[2020-05-08] MEDS: METOPROLOL TART IMMED RELEASE 25 MG TABLET PO SCH ×2 (08:11→21:05)
[2020-05-08] MEDS: FUROSEMIDE 40 MG TABLET PO SCH (08:11)
[2020-05-08] MEDS: LISINOPRIL 10 MG TABLET PO SCH (08:11)
[2020-05-08] MEDS: LORazepam 1 MG TABLET PO PRN ×2 (08:11→16:57)
[2020-05-08 10:56] VITALS: BP 101/62
[2020-05-08] MEDS: POTASSIUM CHLORIDE 20 MEQ TABLET.ER. PO SCH (16:00)
[2020-05-08] MEDS: ARIPiprazole 2 MG TABLET PO SCH (16:57)
[2020-05-08 17:30] VITALS: BP 108/50
[2020-05-08 19:56] VITALS: BP 109/53
--- NOTE | 2020-05-08 21:10 | PN ---
DATE: 05/08/2020 SUBJECTIVE: The patient is resting flat in bed comfortably, in no apparent distress. She denied any complaint. She is afebrile, hemodynamically stable. Her white cell count is normal at 4600; however, she tested positive for COVID-19. Repeat testing yesterday showed that she was COVID-19 by PCR negative. The patient herself is very unhappy and sad that she is here alone. She cannot live with her family and very few people can visit her. PHYSICAL EXAMINATION: GENERAL: When I examined her, she looked pale, but no jaundice, cyanosis or thyromegaly. No jugular venous distention. No limb edema. VITAL SIGNS: Her heart rate was 59, blood pressure was 101/62, temperature 97.5, respiratory rate was 18 and oxygen saturation was 96%. HEAD, EYES, EARS, NOSE AND THROAT: Normocephalic, atraumatic. NECK: Supple. HEART: Showed normal first and second heart sounds. No gallop or murmur. CHEST: Clear to auscultation. No crepitation or rhonchi. ABDOMEN: Distended, soft, nontender. NEUROLOGIC: She was awake, alert, responding appropriately. All cranial nerves intact. She moves extremities without difficulty. Her intake over the last 24 hours and output were incompletely recorded. LABORATORY DATA: As of yesterday showed a white cell count 4600, hemoglobin 11.7, hematocrit 34.9, MCV 92, and platelet count of 198,000. Her serum sodium was 133, potassium 4.1, chloride 99, bicarbonate 26, anion gap of 8, BUN 20, creatinine 1.3, estimated GFR was 38 mL per minute. Her glucose was 96, calcium was 9. She apparently tested positive for PCR on 05/05/2020 and a repeat test yesterday was negative. ASSESSMENT: 1. This is an 89-year-old female patient who was COVID-19 positive; however, she is completely asymptomatic, afebrile, and hemodynamically stable with normal white cell count. Her liver enzymes are normal. Kidney function also she has stable chronic kidney disease. 2. Acute on chronic congestive heart failure, diastolic, compensated. 3. Profound dementia. 4. Frequent colds with ecchymosis. Her anticoagulation was stopped. 5. Dementia with impulse control disorder. 6. Hypertensive heart disease, paroxysmal atrial fibrillation. PLAN: To continue with droplet precaution. She also has 2 negative COVID tests before. She will be accepted in a [facility] facility. She does not require any treatment and except her own usual medications. MIRELLA SAMANO MD DR: WENDY/franc JOB#: [id number] / [id number]
[2020-05-08 22:31] VITALS: BP 157/86
[2020-05-09 05:03] VITALS: BP 137/73
[2020-05-09] MEDS: LEVOTHYROXINE 100 MCG TABLET PO SCH (06:02)
[2020-05-09] MEDS: DULoxetine HCL 60 MG CAPSULE.DR PO SCH (08:48)
[2020-05-09] MEDS: FUROSEMIDE 40 MG TABLET PO SCH (08:48)
[2020-05-09] MEDS: ASPIRIN CHEWABLE 81 MG TABLET. PO SCH (08:48)
[2020-05-09] MEDS: METOPROLOL TART IMMED RELEASE 25 MG TABLET PO SCH ×2 (08:48→21:07)
[2020-05-09] MEDS: PANTOPRAZOLE 40 MG TABLET. PO SCH (08:48)
[2020-05-09] MEDS: LISINOPRIL 10 MG TABLET PO SCH (08:49)
[2020-05-09] MEDS: LIDOCAINE (700MG/PATCH) PATCH. TP SCH (08:49)
[2020-05-09 10:17] VITALS: BP 136/66
[2020-05-09 10:18] VITALS: BP 95/41
[2020-05-09] MEDS: LORazepam 1 MG TABLET PO PRN ×2 (11:17→17:06)
[2020-05-09] MEDS: ACETAMINOPHEN 325 MG TABLET PO PRN (11:17)
[2020-05-09 15:18] VITALS: BP 105/63
[2020-05-09] MEDS: ARIPiprazole 2 MG TABLET PO SCH (17:06)
--- NOTE | 2020-05-09 19:04 | PN ---
DATE: 05/09/2020 SUBJECTIVE: The patient is resting slightly propped up in bed, in no apparent distress, awake, alert, continued to be restless, agitated and unhappy about being here; however, the nursing staff states that she has been hemodynamically stable, has a low-grade temperature yesterday up to 100.2, none today. PHYSICAL EXAMINATION: GENERAL: When I examined her, she was pale, but no jaundice, cyanosis or thyromegaly. No jugular venous distention. No limb edema. VITAL SIGNS: Her heart rate was 60, blood pressure was 105/63, temperature was 98.2, respiratory rate 20, and oxygen saturation was 96%. HEAD, EYES, EARS, NOSE AND THROAT: Normocephalic, atraumatic. NECK: Supple. HEART: Showed normal first and second heart sounds with no gallop or murmur. CHEST: Clear to auscultation. No crepitation or rhonchi. ABDOMEN: Scaphoid, soft, nontender. NEUROLOGIC: She is demented, but without any obvious lateralizing sign. Her COVID-19 by PCR was negative on the and today it is still pending at the time of this dictation. Her chest x-ray was unremarkable. ASSESSMENT: 1. This is an 89-year-old female patient who was COVID-19 positive; however, she is completely asymptomatic, afebrile, and hemodynamically stable with normal white cell count. Her liver enzymes are normal. Kidney function also is stable, has stable chronic kidney disease. 2. Acute on chronic congestive heart failure, diastolic, compensated. 3. Profound dementia. 4. Frequent falls and ecchymosis. Her anticoagulation was stopped. 5. Dementia with impulse control disorder. 6. Hypertensive heart disease. 7. Paroxysmal atrial fibrillation. PLAN: To continue with droplet precaution. She has to have 2 negative COVID tests before she can be [facility] a [facility]. She does not require any treatment except her own usual medication. I will repeat her lab work ____. MIRELLA SAMANO MD DR: WENDY/franc JOB#: [id number] / [id number]
[2020-05-09 20:31] VITALS: BP 139/66
[2020-05-09 22:16] VITALS: BP 131/62
[2020-05-10] MEDS: LEVOTHYROXINE 100 MCG TABLET PO SCH (04:43)
[2020-05-10 05:05] VITALS: BP 133/72
[2020-05-10 05:08] LABS: HEMATOCRIT 33.7 % (36.0-47.0); HEMOGLOBIN 11.1 g/dL (12.0-15.5); RED BLOOD COUNT 3.68 x10^6/uL (3.50-5.40); RED CELL DISTRIBUTION WIDTH 13.3 % (11.5-14.5); WHITE BLOOD COUNT 3.5 x10^3/uL (4.0-11.0)
[2020-05-10 05:23] LABS: ALBUMIN 2.9 g/dL (3.4-5.0); ALBUMIN/GLOBULIN RATIO 0.8 (1.0-1.7); CALCIUM 8.6 mg/dL (8.5-10.1); CREATININE 1.5 mg/dL (0.6-1.0); GFR 32.8; POTASSIUM 4.2 mmol/L (3.5-5.1); TOTAL BILIRUBIN 0.3 mg/dL (0.2-1.0); TOTAL PROTEIN 6.5 g/dL (6.4-8.2)
[2020-05-10] MEDS: PANTOPRAZOLE 40 MG TABLET. PO SCH (08:24)
[2020-05-10] MEDS: ASPIRIN CHEWABLE 81 MG TABLET. PO SCH (08:24)
[2020-05-10] MEDS: METOPROLOL TART IMMED RELEASE 25 MG TABLET PO SCH ×2 (08:24→22:02)
[2020-05-10] MEDS: DULoxetine HCL 60 MG CAPSULE.DR PO SCH (08:24)
[2020-05-10] MEDS: LIDOCAINE (700MG/PATCH) PATCH. TP SCH (08:25)
[2020-05-10] MEDS: POTASSIUM CHLORIDE 20 MEQ TABLET.ER. PO SCH (08:25)
[2020-05-10] MEDS: LISINOPRIL 10 MG TABLET PO SCH (08:25)
[2020-05-10] MEDS: FUROSEMIDE 40 MG TABLET PO SCH (09:00)
[2020-05-10 10:43] VITALS: BP 125/67
[2020-05-10] MEDS: LORazepam 1 MG TABLET PO PRN (13:55)
[2020-05-10] MEDS: ACETAMINOPHEN 325 MG TABLET PO PRN ×2 (13:55→21:54)
[2020-05-10 14:56] VITALS: BP 121/58
[2020-05-10] MEDS: ARIPiprazole 2 MG TABLET PO SCH (17:11)
[2020-05-10 19:36] VITALS: BP 109/51
--- NOTE | 2020-05-10 20:48 | PN ---
DATE: 05/10/2020 SUBJECTIVE: The patient is sitting actually in the edge of the bed, eating her dinner, in no apparent distress. The nursing staff stated she did complain of some cramping pain in her fingers this morning. Otherwise, she has an uneventful day. PHYSICAL EXAMINATION: GENERAL: When I examined her, she looked well and was clearly in no apparent respiratory distress, pale, but no jaundice, cyanosis or thyromegaly. No jugular venous distention or limb edema. VITAL SIGNS: Her heart rate was 62, blood pressure was 121/58, temperature was 98, respiratory rate 20, and oxygen saturation was 94%. The rest of clinical exam is stable. LABORATORY DATA: As of this morning showed a white cell count 3500, hemoglobin 11, hematocrit 33, MCV 92, and platelet count of 148,000. Serum sodium was 131, potassium 4.2, chloride 97, bicarbonate 25, anion gap of 9, BUN 26, creatinine 1.5, estimated GFR was 33 mL per minute. Her glucose was 95, calcium was 8.6. Total bilirubin, AST, ALT, alkaline phosphatase were normal. Total protein was 6.5 and albumin 2.9. ASSESSMENT: 1. This is an 89-year-old female patient tested positive for COVID-19; however, she is completely asymptomatic, afebrile, and hemodynamically stable with normal white cell count. Her liver enzymes are normal. Kidney functions are stable. 2. She has chronic kidney disease. 3. Acute on chronic congestive heart failure, diastolic, ___ compensated. 4. Profound dementia. 5. Frequent falls and ecchymosis and anticoagulation was stopped. 6. Dementia with impulse control disorder. 7. Hypertensive heart disease. 8. Paroxysmal atrial fibrillation. 9. Hyponatremia. PLAN: To continue with her current medication. Her hyponatremia is somewhat concerning; however, she is on Lasix that I will probably discontinue for now and monitor her closely. I will start her also on Lovenox. MIRELLA SAMANO MD DR: WENDY/franc JOB#: [id number] / [id number]
[2020-05-10 23:35] VITALS: BP 131/68
[2020-05-11] MEDS: LEVOTHYROXINE 100 MCG TABLET PO SCH (05:38)
[2020-05-11 06:27] VITALS: BP 168/78
[2020-05-11 06:28] LABS: CALCIUM 8.5 mg/dL (8.5-10.1); CREATININE 1.6 mg/dL (0.6-1.0); GFR 30.4; POTASSIUM 4.2 mmol/L (3.5-5.1)
[2020-05-11] MEDS: PANTOPRAZOLE 40 MG TABLET. PO SCH (08:24)
[2020-05-11] MEDS: LORazepam 1 MG TABLET PO PRN ×2 (08:24→21:16)
[2020-05-11] MEDS: DULoxetine HCL 60 MG CAPSULE.DR PO SCH (08:24)
[2020-05-11] MEDS: ENOXAPARIN 30 MG/0.3 ML SYRINGE. SQ SCH (08:24)
[2020-05-11] MEDS: ASPIRIN CHEWABLE 81 MG TABLET. PO SCH (08:24)
[2020-05-11] MEDS: LISINOPRIL 10 MG TABLET PO SCH (08:24)
[2020-05-11] MEDS: LIDOCAINE (700MG/PATCH) PATCH. TP SCH (08:25)
[2020-05-11] MEDS: HYDROcodone/APAP 7.5/325MG 1 TAB TABLET PO PRN (08:25)
[2020-05-11] MEDS: METOPROLOL TART IMMED RELEASE 25 MG TABLET PO SCH ×2 (08:25→21:16)
[2020-05-11 10:26] VITALS: BP 90/52
[2020-05-11 11:30] VITALS: BP 102/55
--- NOTE | 2020-05-11 15:42 | PN ---
DATE: 05/11/2020 SUBJECTIVE: The patient is resting, slightly propped up in bed, in no apparent distress. On questioning her, she obviously continued to be frustrated, but otherwise denied any complaint. The nursing staff did not voice any concerns. That she generally has remained stable. PHYSICAL EXAMINATION: GENERAL: When I examined her, she was pale, no jaundice, cyanosis or thyromegaly. No jugular venous distention or limb edema. VITAL SIGNS: Her heart rate was 62, blood pressure was 90/52, temperature 97.6, respiratory rate was 18 and oxygen saturation was 97%. HEAD, EYES, EARS, NOSE AND THROAT: Normocephalic, atraumatic. NECK: Supple. CARDIAC: Normal first and second heart sounds. No gallop, rub or murmur. CHEST: Clear to auscultation. No crepitation or rhonchi. ABDOMEN: Distended, soft, nontender. NEUROLOGIC: She is demented, but without any obvious lateralizing sign. Her intake was 900, no output was recorded. LABORATORY DATA: Most recent white cell count was 3500, hemoglobin 11, hematocrit 33, MCV 92, and platelet count of 148,000. Her serum sodium was 126, potassium 4.2, chloride 96, bicarbonate 20, anion gap of 10, BUN 32, creatinine 1.6, estimated GFR was 30 mL per minute. Her glucose was 92, calcium was 8.5. ASSESSMENT: 1. This is an 89-year-old female patient who tested positive for coronavirus-19; however, she continued to be completely asymptomatic, afebrile, hemodynamically stable with normal white cell count. Her liver enzymes are normal. Kidney function is stable. 2. She has chronic kidney disease. 3. Acute on chronic congestive heart failure, diastolic, well compensated. 4. Profound dementia. 5. Frequent falls with ecchymosis, therefore, anticoagulation was discontinued. 6. Dementia with impulse control disorder. 7. Hypertension, hypertensive heart disease. 8. Paroxysmal atrial fibrillation. 9. Hyponatremia that has worsened. Probably institute also fluid restriction and go over some of her medication that might be the cause of her hyponatremia. MIRELLA SAMANO MD DR: WENDY/franc JOB#: [id number] / [id number]
[2020-05-11 15:46] VITALS: BP 96/62
[2020-05-11] MEDS: ARIPiprazole 2 MG TABLET PO SCH (16:54)
[2020-05-11 20:19] VITALS: BP 151/93
[2020-05-11 23:43] VITALS: BP 157/79
[2020-05-12 06:07] VITALS: BP 171/78
[2020-05-12] MEDS: LEVOTHYROXINE 100 MCG TABLET PO SCH (06:40)
[2020-05-12 07:51] LABS: CALCIUM 8.9 mg/dL (8.5-10.1); CREATININE 1.4 mg/dL (0.6-1.0); GFR 35.5; POTASSIUM 4.6 mmol/L (3.5-5.1)
[2020-05-12] MEDS: ENOXAPARIN 30 MG/0.3 ML SYRINGE. SQ SCH (09:00)
[2020-05-12] MEDS: LIDOCAINE (700MG/PATCH) PATCH. TP SCH (09:24)
[2020-05-12] MEDS: METOPROLOL TART IMMED RELEASE 25 MG TABLET PO SCH ×2 (09:24→20:34)
[2020-05-12] MEDS: ASPIRIN CHEWABLE 81 MG TABLET. PO SCH (09:25)
[2020-05-12] MEDS: LISINOPRIL 10 MG TABLET PO SCH (09:25)
[2020-05-12] MEDS: PANTOPRAZOLE 40 MG TABLET. PO SCH (09:25)
[2020-05-12] MEDS: LORazepam 1 MG TABLET PO PRN ×3 (09:26→20:34)
[2020-05-12 11:37] VITALS: BP 133/58
[2020-05-12 16:12] VITALS: BP 95/60
[2020-05-12] MEDS: ARIPiprazole 2 MG TABLET PO SCH (17:01)
[2020-05-12 20:16] VITALS: BP 128/60
--- NOTE | 2020-05-12 22:31 | PN ---
DATE: 05/12/2020 SUBJECTIVE: The patient is resting, slightly propped up in bed, in no apparent respiratory distress. She is awake, alert, continued to be frustrated, sometimes agitated and restless, but otherwise she remained hemodynamically stable and afebrile. Nursing staff did not voice any concerns. PHYSICAL EXAMINATION: GENERAL: When I examined her, she looked pale. No jaundice, cyanosis or thyromegaly. No jugular venous distention. No lower limb edema. VITAL SIGNS: Her heart rate was 58, blood pressure was 133/58, temperature 97.6, respiratory rate was 18 and oxygen saturation was 95%. HEAD, EYES, EARS, NOSE AND THROAT: Normocephalic, atraumatic. NECK: Supple. HEART: Showed normal first and second heart sounds. No gallop or murmur. CHEST: Clear to auscultation. No crepitation or rhonchi. ABDOMEN: Distended, soft, nontender. NEUROLOGIC: She is demented, but without any obvious lateralizing sign. Her intake over the last 24 hours was 1400, no output was recorded. LABORATORY DATA: Her most recent hemoglobin was 11, hematocrit 30 with normal white cell count and platelets. Her chemistry as of this morning showed serum sodium is up to 131, potassium 4.6, chloride 97, bicarbonate 28, anion gap of 6, BUN 32, creatinine 1.4, estimated GFR was 35 mL per minute. Her glucose was 99, calcium was 8.9. ASSESSMENT: 1. This is an 89-year-old female patient who was tested positive for coronavirus-19; however, she continues to be completely asymptomatic, afebrile, hemodynamically stable with normal white cell count. Her liver enzymes and kidney functions are stable. 2. She has chronic kidney disease. 3. Acute on chronic congestive heart failure, diastolic, well compensated. 4. Profound dementia. 5. Frequent falls with ecchymosis, therefore anticoagulation was discontinued. 6. Dementia with impulse control disorder. 7. Hypertension and hypertensive heart disease. 8. Paroxysmal atrial fibrillation. 9. Hyponatremia has improved slightly. Her serum sodium has risen from 126 to 131 as we did institute fluid restriction. MIRELLA SAMANO MD DR: WENDY/franc JOB#: [id number] / [id number]
[2020-05-13 05:47] VITALS: BP 164/83
[2020-05-13] MEDS: ALENDRONATE SODIUM 35 MG TABLET PO SCH (06:01)
[2020-05-13] MEDS: LEVOTHYROXINE 100 MCG TABLET PO SCH (06:02)
[2020-05-13] MEDS: LORazepam 1 MG TABLET PO PRN ×2 (08:46→20:25)
[2020-05-13] MEDS: LISINOPRIL 10 MG TABLET PO SCH (08:46)
[2020-05-13] MEDS: METOPROLOL TART IMMED RELEASE 25 MG TABLET PO SCH ×2 (08:46→20:25)
[2020-05-13] MEDS: ASPIRIN CHEWABLE 81 MG TABLET. PO SCH (08:46)
[2020-05-13] MEDS: LIDOCAINE (700MG/PATCH) PATCH. TP SCH (08:47)
[2020-05-13] MEDS: ENOXAPARIN 30 MG/0.3 ML SYRINGE. SQ SCH (08:47)
[2020-05-13] MEDS: PANTOPRAZOLE 40 MG TABLET. PO SCH (08:47)
[2020-05-13 10:49] VITALS: BP 123/62
[2020-05-13] MEDS: OLANZapine 5 MG TABLET PO PRN (11:19)
[2020-05-13 14:19] VITALS: BP 102/53
[2020-05-13] MEDS: POTASSIUM CHLORIDE 20 MEQ TABLET.ER. PO SCH (15:59)
[2020-05-13] MEDS: ARIPiprazole 2 MG TABLET PO SCH (17:05)
--- NOTE | 2020-05-13 19:15 | PN ---
DATE: 05/13/2020 SUBJECTIVE: The patient is resting, slightly propped up in bed, in no apparent respiratory distress. She is awake, alert, continued to be somewhat agitated, but generally had an uneventful night. She remains asymptomatic and hemodynamically stable. OBJECTIVE: VITAL SIGNS: Her heart rate was 79, blood pressure was 123/62, temperature 98.1, respiratory rate was 18 and oxygen saturation was 96% on room air. HEAD, EYES, EARS, NOSE AND THROAT: Showed normocephalic, atraumatic. NECK: Supple. HEART: Showed normal first and second heart sounds with no gallop or murmur. CHEST: Clear to auscultation. No crepitation or rhonchi. ABDOMEN: Distended, soft, nontender. NEUROLOGIC: She is demented, but otherwise she is grossly intact. Her intake over the last 24-hour was 1200, no output was recorded. LABORATORY DATA: Her serum sodium is up yesterday to 131, potassium 4.6, chloride 97, bicarbonate 28, anion gap of 6, BUN 32, creatinine 1.4, estimated GFR was 35, glucose was 99 and calcium was 8.9. ASSESSMENT: 1. This is an 89-year-old female patient who was tested positive for COVID-19; however, she continues to be completely asymptomatic, afebrile, hemodynamically stable with normal white cell count. Her liver enzymes and kidney functions are stable. 2. She has chronic kidney disease. 3. Acute on chronic congestive heart failure, diastolic, well compensated. 4. Profound dementia. 5. Frequent falls with ecchymosis, therefore anticoagulation was discontinued. 6. Dementia with impulse control disorder. 7. Hypertension and hypertensive heart disease. 8. Paroxysmal atrial fibrillation. 9. Hyponatremia that has improved slightly. His serum sodium has risen from 126 to 131 after we did institute fluid restriction. We will repeat her labs tomorrow. She will be swabbed again for COVID-19 on Wednesday05/15/2020. MIRELLA SAMANO MD DR: WENDY/franc JOB#: [id number] / [id number]
[2020-05-13 19:17] VITALS: BP 147/94
[2020-05-13] MEDS: HYDROcodone/APAP 7.5/325MG 1 TAB TABLET PO PRN (22:39)
[2020-05-13 23:29] VITALS: BP 125/62
[2020-05-14] MEDS: LEVOTHYROXINE 100 MCG TABLET PO SCH (05:52)
[2020-05-14 06:15] VITALS: BP 156/90
[2020-05-14] MEDS: LIDOCAINE (700MG/PATCH) PATCH. TP SCH (09:00)
[2020-05-14] MEDS: PANTOPRAZOLE 40 MG TABLET. PO SCH (10:12)
[2020-05-14] MEDS: METOPROLOL TART IMMED RELEASE 25 MG TABLET PO SCH ×2 (10:13→20:28)
[2020-05-14] MEDS: ASPIRIN CHEWABLE 81 MG TABLET. PO SCH (10:13)
[2020-05-14] MEDS: LISINOPRIL 10 MG TABLET PO SCH (10:13)
[2020-05-14] MEDS: LORazepam 1 MG TABLET PO PRN (10:14)
[2020-05-14] MEDS: OLANZapine 5 MG TABLET PO PRN (10:15)
[2020-05-14 10:20] VITALS: BP 143/73
--- NOTE | 2020-05-14 13:44 | PN ---
DATE: 05/14/2020 SUBJECTIVE: The patient is resting, slightly propped up in bed, in no apparent distress. She continued to be agitated and restless at times, but generally the nursing staff states that she has been afebrile, hemodynamically stable. PHYSICAL EXAMINATION: GENERAL: When I examined her, she was pale, no jaundice, cyanosis or thyromegaly. No jugular venous distention. No limb edema. VITAL SIGNS: Her heart rate was 59, blood pressure 143/73, temperature 96.7, respiratory rate was 18 and oxygen saturation was 96%. The rest of clinical exam is stable, has not really changed. Her intake over the last 24 hours was 920, no output was recorded. No lab works were ordered this morning. ASSESSMENT: 1. This is an 89-year-old female patient who has tested positive for COVID-19; however, she continued to be completely asymptomatic, afebrile, hemodynamically stable with normal white cell count. Her liver enzymes and kidney functions are normal. 2. She has chronic kidney disease. 3. Acute on chronic congestive heart failure, diastolic, well compensated. 4. Profound dementia. 5. Frequent falls with ecchymosis, therefore anticoagulation was discontinued. 6. Dementia with impulse control disorder. 7. Hypertensive heart disease. 8. Paroxysmal atrial fibrillation. 9. Hyponatremia that has improved. Her serum sodium has risen from ____ after we instituted fluid restriction. PLAN: To continue with current medication. She will be swabbed again for COVID-19 tomorrow. I will repeat at least basic metabolic profile to make sure that her sodium remains within normal range. MIRELLA SAMANO MD DR: WENDY/franc JOB#: [id number] / [id number]
[2020-05-14 15:36] VITALS: BP 155/66
[2020-05-14] MEDS: ARIPiprazole 2 MG TABLET PO SCH (18:33)
[2020-05-14 19:48] VITALS: BP 154/55
[2020-05-14] MEDS: HYDROcodone/APAP 7.5/325MG 1 TAB TABLET PO PRN (20:29)
[2020-05-14 22:29] VITALS: BP 137/60
[2020-05-15] MEDS: LEVOTHYROXINE 100 MCG TABLET PO SCH (05:55)
[2020-05-15 06:07] VITALS: BP 128/69
[2020-05-15] MEDS: PANTOPRAZOLE 40 MG TABLET. PO SCH (08:23)
[2020-05-15] MEDS: LIDOCAINE (700MG/PATCH) PATCH. TP SCH (08:23)
[2020-05-15] MEDS: LISINOPRIL 10 MG TABLET PO SCH (08:23)
[2020-05-15] MEDS: ASPIRIN CHEWABLE 81 MG TABLET. PO SCH (08:23)
[2020-05-15] MEDS: METOPROLOL TART IMMED RELEASE 25 MG TABLET PO SCH ×2 (08:24→20:43)
[2020-05-15 09:50] VITALS: BP 124/66
[2020-05-15] MEDS: ACETAMINOPHEN 325 MG TABLET PO PRN (12:53)
[2020-05-15 14:18] VITALS: BP 114/68
--- NOTE | 2020-05-15 14:23 | PN ---
DATE: 05/15/2020 ATTENDING PHYSICIAN: Dr. Garcia. SUBJECTIVE: The patient remains agitated, less so today. She is confused. She is scared and crying. Her daughter is trying to contact her to calm her down. There is no obvious respiratory distress. OBJECTIVE FINDINGS: VITAL SIGNS: Her blood pressure today is 137/60, pulse is 57 and regular, temperature 98.5 degrees Fahrenheit, oxygen saturation 96% on room air. HEENT: Head is without trauma. Ecchymosis has resolved on the facial bruising. NECK: Supple, no bruits. LUNGS: Good breath sounds. CARDIOVASCULAR: Showed distant heart tones. No gallops. ABDOMEN: Soft, scaphoid, nontender, no organomegaly. Bowel sounds are hypoactive. EXTREMITIES: Showed trace edema. NEUROLOGIC: No focal deficit. She is alert. Her speech is adequate. She remains quite confused and less agitated. ASSESSMENT: 1. An 89-year-old female who tested positive for COVID-19; however, she is completely asymptomatic at this time. She is afebrile without any respiratory distress. 2. Chronic kidney disease stage 3. 3. Acute on chronic congestive heart failure, diastolic, well compensated. 4. Profound dementia with paranoia and agitation. 5. Frequent falls with ecchymosis. Therefore, her anticoagulation was stopped. 6. Dementia with impulse control disorder. 7. Paroxysmal atrial fibrillation. 8. Hyponatremia, resolved. 9. Hypertensive heart disease. PLAN: 1. Home meds reviewed. 2. Diet as tolerated. 3. Continue COVID-19 quarantine. 4. She will be re-swabbed again today. MADISON GARCIA MD DR: NABILA/franc JOB#: [id number] / [id number]
[2020-05-15] MEDS: POTASSIUM CHLORIDE 20 MEQ TABLET.ER. PO SCH (16:47)
[2020-05-15] MEDS: ARIPiprazole 2 MG TABLET PO SCH (16:47)
[2020-05-15 19:49] VITALS: BP 153/49
[2020-05-15] MEDS: HYDROcodone/APAP 7.5/325MG 1 TAB TABLET PO PRN (20:43)
[2020-05-15 22:24] VITALS: BP 116/51
[2020-05-16 05:54] VITALS: BP 148/73
[2020-05-16] MEDS: LEVOTHYROXINE 100 MCG TABLET PO SCH (06:12)
[2020-05-16] MEDS: PANTOPRAZOLE 40 MG TABLET. PO SCH (09:20)
[2020-05-16] MEDS: ASPIRIN CHEWABLE 81 MG TABLET. PO SCH (09:21)
[2020-05-16] MEDS: METOPROLOL TART IMMED RELEASE 25 MG TABLET PO SCH ×2 (09:21→20:05)
[2020-05-16] MEDS: LISINOPRIL 10 MG TABLET PO SCH (09:21)
[2020-05-16] MEDS: LIDOCAINE (700MG/PATCH) PATCH. TP SCH (09:22)
[2020-05-16 11:00] VITALS: BP 148/73
[2020-05-16 15:00] VITALS: BP 147/75
[2020-05-16] MEDS: LORazepam 1 MG TABLET PO PRN ×2 (15:10→20:05)
[2020-05-16] MEDS: ARIPiprazole 2 MG TABLET PO SCH (17:26)
--- NOTE | 2020-05-16 17:51 | PN ---
DATE: 05/16/2020 ATTENDING PHYSICIAN: Dr. Garcia. SUBJECTIVE: No new complaints. She is actually calm today, she appears comfortable. She is not scared. Her daughter has contacted her. I mentioned several other family members and she is in no obvious distress. OBJECTIVE FINDINGS: VITAL SIGNS: The patient's blood pressure today is 148/73 mmHg, pulse is 61 and regular, temperature 98.7 degrees Fahrenheit, oxygen saturation 98% on room air. HEENT: Head is without trauma. Pupils are reactive. Sclerae nonicteric. Oropharynx is clear. NECK: Supple. LUNGS: Good breath sounds. CARDIOVASCULAR: Showed distant heart tones. No obvious gallops or murmurs. ABDOMEN: Soft, scaphoid, nontender. Bowel sounds are hypoactive. EXTREMITIES: Showed no cyanosis or edema. NEUROLOGIC: Pleasantly confused. She is trying to get out of bed. Her speech is adequate. She remains confused, but less agitated. SKIN: Warm and dry. ASSESSMENT: 1. An 89-year-old female who tested positive for COVID-19 at the [facility]. She is completely asymptomatic at this time. 2. Chronic kidney disease stage 3. 3. [id number] congestive heart failure, diastolic, well compensated. 4. Profound dementia with paranoia and agitation. 5. Frequent falls with recent bruising of the face. She did a face plant. Therefore, her anticoagulation was stopped. 6. Dementia with impulse control disorder. 7. Paroxysmal atrial fibrillation. 8. Hyponatremia, corrected. 9. Hypertensive heart disease. PLAN: 1. Home meds were reviewed. 2. Diet as tolerated. 3. Repeat COVID-19 swab was done yesterday. This will be followed up. 4. Continue quarantine. MADISON GARCIA MD DR: NABILA/franc JOB#: [id number] / [id number]
[2020-05-16 19:19] VITALS: BP 137/57
[2020-05-16 23:18] VITALS: BP 160/87
[2020-05-17] MEDS: LORazepam 1 MG TABLET PO PRN ×3 (01:30→19:48)
[2020-05-17] MEDS: OLANZapine 5 MG TABLET PO PRN ×3 (02:29→19:47)
[2020-05-17] MEDS: LEVOTHYROXINE 100 MCG TABLET PO SCH (05:15)
[2020-05-17 05:45] VITALS: BP 148/77
[2020-05-17] MEDS: METOPROLOL TART IMMED RELEASE 25 MG TABLET PO SCH ×2 (07:27→19:47)
[2020-05-17] MEDS: PANTOPRAZOLE 40 MG TABLET. PO SCH (07:27)
[2020-05-17] MEDS: LISINOPRIL 10 MG TABLET PO SCH (07:27)
[2020-05-17] MEDS: LIDOCAINE (700MG/PATCH) PATCH. TP SCH (07:28)
[2020-05-17] MEDS: ASPIRIN CHEWABLE 81 MG TABLET. PO SCH (07:28)
[2020-05-17] MEDS: ACETAMINOPHEN 325 MG TABLET PO PRN ×2 (07:32→19:47)
--- NOTE | 2020-05-17 13:48 | PN ---
DATE: 05/17/2020 ATTENDING PHYSICIANS: Dr. Cameron, Dr. Garcia. SUBJECTIVE: Very agitated today. She is coming out of her room, wanting to leave. She has no insight into what is going on. OBJECTIVE FINDINGS: VITAL SIGNS: Today, the patient's blood pressure is 148/77. She is afebrile, temperature 98.7 degrees Fahrenheit, oxygen saturation 96% on room air. GENERAL: On exam, she remains very agitated, confused. HEENT: No further trauma, ecchymosis improving. NECK: Supple. LUNGS: Fairly good breath sounds with shallow respirations. CARDIOVASCULAR: Showed distant heart tones. No gallops. ABDOMEN: Soft. EXTREMITIES: Without edema. NEUROLOGIC: Very confused, agitated and screaming, unfortunately family cannot be. LABORATORY STUDIES: Repeat COVID swab on 05/15/2020 was reported once again positive. ASSESSMENT: 1. An 89-year-old female with positive COVID-19 swab, repeated was again positive on 05/15/2020. She is asymptomatic at this time. 2. Chronic kidney disease stage 3. 3. Acute on chronic congestive heart failure, diastolic, compensated. 4. Profound dementia with paranoia and agitation. 5. Frequent falls and bruising of the face. We stopped her anticoagulants a month ago. 6. Dementia with impulse control disorder. 7. Paroxysmal atrial fibrillation. 8. Hypertension with hypertensive heart disease. 9. Hyponatremia, corrected. PLAN: 1. Continue COVID-19 isolation. 2. Diet as tolerated. 3. Placement will be a challenge as she has continued to have positive swabs, most recently within the last 2 days. MADISON GARCIA MD DR: NABILA/franc JOB#: [id number] / [id number]
[2020-05-17 14:55] VITALS: BP 128/80
[2020-05-17] MEDS: POTASSIUM CHLORIDE 20 MEQ TABLET.ER. PO SCH (17:18)
[2020-05-17] MEDS: ARIPiprazole 2 MG TABLET PO SCH (17:18)
[2020-05-17 19:00] VITALS: BP 129/67
[2020-05-17 22:25] VITALS: BP 150/73
[2020-05-18 05:38] VITALS: BP 141/77
[2020-05-18] MEDS: LEVOTHYROXINE 100 MCG TABLET PO SCH (06:24)
[2020-05-18] MEDS: METOPROLOL TART IMMED RELEASE 25 MG TABLET PO SCH ×2 (08:43→21:33)
[2020-05-18] MEDS: LISINOPRIL 10 MG TABLET PO SCH (08:43)
[2020-05-18] MEDS: PANTOPRAZOLE 40 MG TABLET. PO SCH (08:43)
[2020-05-18] MEDS: ASPIRIN CHEWABLE 81 MG TABLET. PO SCH (08:43)
[2020-05-18] MEDS: LIDOCAINE (700MG/PATCH) PATCH. TP SCH (08:44)
[2020-05-18 10:49] VITALS: BP 93/54
[2020-05-18] MEDS: OLANZapine 5 MG TABLET PO PRN ×2 (15:07→22:32)
[2020-05-18] MEDS: HYDROcodone/APAP 7.5/325MG 1 TAB TABLET PO PRN ×2 (15:08→22:33)
[2020-05-18 15:56] VITALS: BP 96/45
[2020-05-18] MEDS: ARIPiprazole 2 MG TABLET PO SCH (16:30)
[2020-05-18 19:34] VITALS: BP 103/62
[2020-05-18] MEDS: ACETAMINOPHEN 325 MG TABLET PO PRN (20:51)
[2020-05-18] MEDS: LORazepam 1 MG TABLET PO PRN (20:51)
[2020-05-18 22:45] VITALS: BP 143/60
[2020-05-19 05:42] VITALS: BP 126/62
[2020-05-19] MEDS: LEVOTHYROXINE 100 MCG TABLET PO SCH (06:00)
[2020-05-19] MEDS: ASPIRIN CHEWABLE 81 MG TABLET. PO SCH (08:28)
[2020-05-19] MEDS: HYDROcodone/APAP 7.5/325MG 1 TAB TABLET PO PRN ×2 (08:28→20:11)
[2020-05-19] MEDS: LISINOPRIL 10 MG TABLET PO SCH (08:28)
[2020-05-19] MEDS: METOPROLOL TART IMMED RELEASE 25 MG TABLET PO SCH ×2 (08:29→20:11)
[2020-05-19] MEDS: PANTOPRAZOLE 40 MG TABLET. PO SCH (08:29)
[2020-05-19] MEDS: LIDOCAINE (700MG/PATCH) PATCH. TP SCH (08:29)
--- NOTE | 2020-05-19 10:05 | PN ---
DATE: 05/18/2020 ATTENDING PHYSICIANS: Dr. Cameron and Dr. Garcia. SUBJECTIVE: The patient is calm today. She is pleasant. She is still very forgetful. She corrected me regarding her children's names. She is actually correct. OBJECTIVE FINDINGS: VITAL SIGNS: Her blood pressure today is 141/77, pulse is 64 and regular, temperature 97.1 degrees Fahrenheit, and her room air saturations are at 96%. HEENT: Pupils are reactive. Sclerae nonicteric. No trauma. NECK: Supple, no bruits identified. LUNGS: Good breath sounds. No rales or rhonchi. CARDIOVASCULAR: Showed distant heart tones. No gallops. Peripheral pulses are palpable and full. ABDOMEN: Soft, scaphoid, nontender. EXTREMITIES: Show trace edema. NEUROLOGIC: Focally intact, very confused and forgetful. SKIN: Warm and dry. ASSESSMENT: 1. An 89-year-old female with COVID-19 positive swabs. She is asymptomatic. She remains positive on the last swab. 2. Chronic kidney disease stage 3. 3. Acute on chronic congestive heart failure, diastolic, compensated. 4. Profound dementia with paranoia. 5. Frequent falls. 6. Dementia. 7. Paroxysmal atrial fibrillation. 8. Essential hypertension. 9. Hypertensive heart disease. PLAN: 1. Continue COVID-19 isolation. 2. Diet as tolerated. 3. Continue cardiac meds. 4. Discharge planning for next week if she has a negative swab. MADISON GARCIA MD DR: NABILA/franc JOB#: [id number] / [id number]
[2020-05-19 11:00] VITALS: BP 111/61
--- NOTE | 2020-05-19 13:55 | PN ---
DATE: 05/19/2020 SUBJECTIVE: Calm today. She is still very forgetful. She did remember today, it was her birthday, she turns 89 today. OBJECTIVE FINDINGS: VITAL SIGNS: Blood pressure is 122/62 mmHg, pulse 68 and regular, temperature 96.8 degrees Fahrenheit, oxygen saturation 96% on room air. HEENT: Head is without trauma. Pupils are reactive. Sclerae nonicteric. Oropharynx clear. NECK: Supple. No bruits. LUNGS: Good breath sounds. No rales. CARDIOVASCULAR: Showed regular heart tones. No gallops. ABDOMEN: Soft, scaphoid, nontender. Normal bowel sounds. EXTREMITIES: Show trace edema. NEUROLOGIC: Focally intact. She remains confused and forgetful. SKIN: Warm and dry. ASSESSMENT: 1. The patient turned 89 today, so she is an 89-year-old female with COVID-19 positive swab. She remains asymptomatic. 2. Chronic kidney disease stage 3. 3. Acute on chronic congestive heart failure, diastolic, compensated. 4. Profound dementia with paranoia. 5. Frequent falls. 6. Paroxysmal atrial fibrillation. 7. Hypertension. 8. Hypertensive heart disease. PLAN: 1. COVID-19 isolation. 2. Diet as tolerated. 3. Home meds reviewed and continued. 4. Discharge planning underway for next week. MADISON GARCIA MD DR: NABILA/franc JOB#: [id number] / [id number]
[2020-05-19 15:58] VITALS: BP 115/60
[2020-05-19] MEDS: ARIPiprazole 2 MG TABLET PO SCH (16:40)
[2020-05-19 19:21] VITALS: BP 126/67
[2020-05-19 22:37] VITALS: BP 137/62
[2020-05-20] MEDS: LORazepam 1 MG TABLET PO PRN ×2 (01:59→17:33)
[2020-05-20] MEDS: LEVOTHYROXINE 100 MCG TABLET PO SCH (05:28)
[2020-05-20 05:42] VITALS: BP 154/77
[2020-05-20] MEDS: ALENDRONATE SODIUM 35 MG TABLET PO SCH (07:50)
[2020-05-20] MEDS: POTASSIUM CHLORIDE 20 MEQ TABLET.ER. PO SCH (07:50)
[2020-05-20] MEDS: ASPIRIN CHEWABLE 81 MG TABLET. PO SCH (07:50)
[2020-05-20] MEDS: HYDROcodone/APAP 7.5/325MG 1 TAB TABLET PO PRN ×2 (07:50→20:01)
[2020-05-20] MEDS: PANTOPRAZOLE 40 MG TABLET. PO SCH (07:51)
[2020-05-20] MEDS: METOPROLOL TART IMMED RELEASE 25 MG TABLET PO SCH ×2 (07:51→20:01)
[2020-05-20] MEDS: LISINOPRIL 10 MG TABLET PO SCH (07:51)
[2020-05-20] MEDS: LIDOCAINE (700MG/PATCH) PATCH. TP SCH (07:54)
[2020-05-20 10:42] VITALS: BP 112/68
--- NOTE | 2020-05-20 11:20 | PN ---
DATE: 05/20/2020 ATTENDING PHYSICIAN: Dr. Garcia. SUBJECTIVE: Calm today. She has no respiratory distress, very confused, but not agitated. OBJECTIVE FINDINGS: VITAL SIGNS: Blood pressure today is 112/68, pulse is 62 and regular, temperature is 97.8 degrees Fahrenheit, oxygen saturation 96% on room air. HEENT: Head is without trauma. Pupils are reactive. Sclerae are nonicteric. The oropharynx is clear. NECK: Supple, no bruits identified. LUNGS: Good breath sounds without any rales or rhonchi. CARDIOVASCULAR: Showed regular heart tones. No gallops. ABDOMEN: Soft, scaphoid, nontender, normoactive bowel sounds. EXTREMITIES: Showed trace edema. NEUROLOGIC: Focally intact. She remains confused as to person and time. SKIN: Warm and dry. ASSESSMENT: 1. An 89-year-old female with COVID-19 positive swab. She remains asymptomatic. 2. Chronic kidney disease stage 3. 3. Acute on chronic congestive heart failure, diastolic, compensated. 4. Profound dementia with paranoia. 5. Frequent falls. 6. Paroxysmal atrial fibrillation. 7. Essential hypertension. 8. Hypertensive heart disease. 9. We have elected on this admission to stop chronic anticoagulation due to the frequent falls. PLAN: 1. COVID-19 isolation. 2. Recheck swabs. 3. Discharge planning underway, facilities will need consecutive negative swabs before taking her. MADISON GARCIA MD DR: NABILA/franc JOB#: [id number] / [id number]
[2020-05-20 14:45] VITALS: BP 134/58
[2020-05-20] MEDS: ARIPiprazole 2 MG TABLET PO SCH (17:35)
[2020-05-20 19:00] VITALS: BP 144/85
[2020-05-20] MEDS: OLANZapine 5 MG TABLET PO PRN (20:02)
[2020-05-20 23:11] VITALS: BP 154/77
[2020-05-21 05:03] VITALS: BP 179/78
[2020-05-21] MEDS: LEVOTHYROXINE 100 MCG TABLET PO SCH (05:41)
[2020-05-21 05:49] VITALS: BP 140/67
[2020-05-21] MEDS: METOPROLOL TART IMMED RELEASE 25 MG TABLET PO SCH ×2 (08:10→20:05)
[2020-05-21] MEDS: PANTOPRAZOLE 40 MG TABLET. PO SCH (08:10)
[2020-05-21] MEDS: ASPIRIN CHEWABLE 81 MG TABLET. PO SCH (08:10)
[2020-05-21] MEDS: LIDOCAINE (700MG/PATCH) PATCH. TP SCH (08:11)
[2020-05-21] MEDS: LISINOPRIL 10 MG TABLET PO SCH (08:11)
[2020-05-21 10:08] VITALS: BP 108/56
--- NOTE | 2020-05-21 10:58 | PN ---
DATE: 05/21/2020 ATTENDING PHYSICIAN: Dr. Garcia. SUBJECTIVE: No new complaints. She is rather calm. She is sitting in a chair. She remains very confused, but she is not agitated. OBJECTIVE FINDINGS: VITAL SIGNS: Blood pressure is 108/56 mmHg, pulse is 70 and regular, temperature 97.6 degrees Fahrenheit, oxygen saturation 96% on room air. HEENT: Head is without trauma. Pupils are reactive. Sclerae nonicteric. Oropharynx clear. NECK: Supple, no bruits. LUNGS: Otherwise clear with good air movement. CARDIOVASCULAR: Showed regular heart tones. No gallops. ABDOMEN: Soft. EXTREMITIES: Without edema. NEUROLOGIC: Focally intact. She remains confused as to person, place and time. SKIN: Warm and dry. ASSESSMENT: 1. An 89-year-old female with COVID-19 positive swabs. She remains asymptomatic. 2. Chronic kidney disease stage 3. 3. Acute on chronic congestive heart failure, diastolic, compensated. 4. Frequent falls. 5. Profound dementia with paranoia. 6. Paroxysmal atrial fibrillation. 7. Essential hypertension. 8. Hypertensive heart disease. PLAN: 1. COVID-19 isolation. 2. Recheck swab. 3. Discharge planning. 4. Diet as tolerated. MADISON GARCIA MD DR: NABILA/franc JOB#: [id number] / [id number]
[2020-05-21 14:47] VITALS: BP 138/58
[2020-05-21] MEDS: ARIPiprazole 2 MG TABLET PO SCH (17:19)
[2020-05-21 19:33] VITALS: BP 187/93
[2020-05-21] MEDS: OLANZapine 5 MG TABLET PO PRN (20:05)
[2020-05-21] MEDS: HYDROcodone/APAP 7.5/325MG 1 TAB TABLET PO PRN (20:06)
[2020-05-21 22:53] VITALS: BP 128/64
[2020-05-22] MEDS: LEVOTHYROXINE 100 MCG TABLET PO SCH (05:17)
[2020-05-22 05:58] VITALS: BP 169/85
[2020-05-22] MEDS: POTASSIUM CHLORIDE 20 MEQ TABLET.ER. PO SCH (09:23)
[2020-05-22] MEDS: METOPROLOL TART IMMED RELEASE 25 MG TABLET PO SCH ×2 (09:23→20:56)
[2020-05-22] MEDS: LISINOPRIL 10 MG TABLET PO SCH (09:23)
[2020-05-22] MEDS: PANTOPRAZOLE 40 MG TABLET. PO SCH (09:23)
[2020-05-22] MEDS: ASPIRIN CHEWABLE 81 MG TABLET. PO SCH (09:23)
[2020-05-22] MEDS: LIDOCAINE (700MG/PATCH) PATCH. TP SCH (09:24)
[2020-05-22 10:41] VITALS: BP 129/79
[2020-05-22] MEDS: ARIPiprazole 2 MG TABLET PO SCH (16:21)
[2020-05-22] MEDS: OLANZapine 5 MG TABLET PO PRN (16:21)
--- NOTE | 2020-05-22 19:42 | PN ---
DATE: 05/22/2020 SUBJECTIVE: The patient is sitting on the chair comfortably, no apparent distress. On questioning her, she denied any complaints. Nursing staff stated that she had continued to have episodes of restlessness, agitation; however, when I saw her this afternoon, she was calm and quiet. PHYSICAL EXAMINATION: GENERAL: She was pale, but no jaundice, cyanosis or thyromegaly. No jugular venous distention. No limb edema. VITAL SIGNS: Her heart rate was 66, blood pressure was 129/79, temperature was 98.3, respiratory rate 20, and oxygen saturation was 94%. HEAD, EYES, NOSE, AND THROAT: Normocephalic, atraumatic. NECK: Supple. HEART: Showed normal first and second heart sounds. No gallop, rub or murmur. CHEST: Clear to auscultation. No crepitation or rhonchi. ABDOMEN: Distended, soft, nontender. NEUROLOGIC: She is demented, but without any obvious lateralizing sign. All her cranial nerves intact. She moves extremities without difficulty. Her intake over the last 24 hours was 1200. LABORATORY DATA: Her most recent white cell count was 3500, hemoglobin 11, hematocrit 33, MCV 92, and platelet count of 148,000. Serum sodium was 131, potassium 4.6, chloride 97, bicarbonate 28, anion gap of 6, BUN 32, creatinine 1.4, estimated GFR was 35 mL per minute. Her glucose was 99, calcium was 8.9. ASSESSMENT: 1. An 89-year-old female with COVID-19 positive swabs. She remains asymptomatic. 2. Chronic kidney disease stage 3. 3. Acute on chronic congestive heart failure, diastolic, well compensated. 4. Frequent fall. 5. Profound dementia with paranoia. 6. Paroxysmal atrial fibrillation. 7. Essential hypertension. 8. Hypertensive heart disease. PLAN: To continue with droplet precaution isolation. Continue all her medication. Obviously, she will be swabbed again and a decision will be made accordingly. MIRELLA SAMANO MD DR: WENDY/franc JOB#: [id number] / [id number]
[2020-05-22 20:05] VITALS: BP 119/57
[2020-05-22] MEDS: HYDROcodone/APAP 7.5/325MG 1 TAB TABLET PO PRN (20:56)
[2020-05-23] MEDS: LEVOTHYROXINE 100 MCG TABLET PO SCH (05:41)
[2020-05-23] MEDS: LIDOCAINE (700MG/PATCH) PATCH. TP SCH (08:03)
[2020-05-23] MEDS: PANTOPRAZOLE 40 MG TABLET. PO SCH (08:04)
[2020-05-23] MEDS: METOPROLOL TART IMMED RELEASE 25 MG TABLET PO SCH ×2 (08:04→21:07)
[2020-05-23] MEDS: ASPIRIN CHEWABLE 81 MG TABLET. PO SCH (08:04)
[2020-05-23] MEDS: LISINOPRIL 10 MG TABLET PO SCH (08:05)
[2020-05-23 08:25] VITALS: BP 161/79
[2020-05-23] MEDS: ARIPiprazole 2 MG TABLET PO SCH (17:19)
[2020-05-23 19:32] VITALS: BP 167/84
--- NOTE | 2020-05-23 19:39 | PN ---
DATE: 05/23/2020 SUBJECTIVE: The patient was sitting at the edge of the bed comfortably. She was very pleasant, cooperative and compliant. However, earlier today, she was extremely agitated insisting that she wants to leave immediately. PHYSICAL EXAMINATION: GENERAL: When I examined her, she was pale, but no jaundice, cyanosis or thyromegaly. No jugular venous distention. No limb edema. VITAL SIGNS: Her heart rate was 63, blood pressure was 161/79, temperature was 98.3, respiratory rate was 20, and oxygen saturation was 96% on room air. HEAD, EYES, EARS, NOSE AND THROAT: Showed normocephalic, atraumatic. NECK: Supple. HEART: Showed normal first and second heart sounds. No gallop or murmur. CHEST: Clear to auscultation. No crepitation or rhonchi. ABDOMEN: Distended, soft, nontender. NEUROLOGIC: She was demented, but without any obvious lateralizing sign. All cranial nerves intact. She moves extremities without difficulty. Her intake over the last 24 hours was 816, no output was recorded. LABORATORY DATA: She has no lab work done this morning. ASSESSMENT: 1. This is an 89-year-old female with COVID-19 positive swab. She remains completely asymptomatic. 2. Chronic kidney disease stage III. 3. Acute on chronic congestive heart failure, diastolic, well compensated. 4. Frequent falls. 5. Profound dementia with paranoia. 6. Paroxysmal atrial fibrillation. 7. Essential hypertension. 8. Hypertensive heart disease. PLAN: To continue with droplet precaution isolation. Continue all her medication. She was swabbed again today, and depending on the results of the swab, disposition will be decided. MIRELLA SAMANO MD DR: WENDY/franc JOB#: [id number] / [id number]
[2020-05-23] MEDS: HYDROcodone/APAP 7.5/325MG 1 TAB TABLET PO PRN (21:07)
[2020-05-23] MEDS: LORazepam 1 MG TABLET PO PRN (23:39)
[2020-05-24] MEDS: LEVOTHYROXINE 100 MCG TABLET PO SCH (05:53)
[2020-05-24 08:12] VITALS: BP 175/98
[2020-05-24] MEDS: LISINOPRIL 10 MG TABLET PO SCH (08:14)
[2020-05-24] MEDS: ASPIRIN CHEWABLE 81 MG TABLET. PO SCH (08:14)
[2020-05-24] MEDS: METOPROLOL TART IMMED RELEASE 25 MG TABLET PO SCH ×2 (08:14→20:13)
[2020-05-24] MEDS: POTASSIUM CHLORIDE 20 MEQ TABLET.ER. PO SCH (08:15)
[2020-05-24] MEDS: PANTOPRAZOLE 40 MG TABLET. PO SCH (08:15)
[2020-05-24] MEDS: LIDOCAINE (700MG/PATCH) PATCH. TP SCH (08:33)
[2020-05-24] MEDS: ARIPiprazole 2 MG TABLET PO SCH (16:37)
[2020-05-24] MEDS: OLANZapine 5 MG TABLET PO PRN (16:37)
[2020-05-24] MEDS: HYDROcodone/APAP 7.5/325MG 1 TAB TABLET PO PRN (17:52)
[2020-05-24 19:27] VITALS: BP 125/69
[2020-05-24] MEDS: LORazepam 1 MG TABLET PO PRN (20:12)
--- NOTE | 2020-05-24 21:16 | PN ---
DATE: 05/24/2020 SUBJECTIVE: The patient is walking around in her room, in no apparent distress. She is very confused insisting that her is waiting for her to go home. She has been reminded multiple times that she is positive. PHYSICAL EXAMINATION: GENERAL: When I examined her this afternoon, she was pale. No jaundice, cyanosis or thyromegaly. No jugular venous distention. No lower limb edema. VITAL SIGNS: Her heart rate was 66, blood pressure 175/98, temperature was 98, respiratory rate 20, and oxygen saturation was 96%. HEAD, EYES, EARS, NOSE AND THROAT: Normocephalic, atraumatic. NECK: Supple. HEART: Showed normal first and second heart sounds. No gallop, rub or murmur. CHEST: Clear to auscultation. No crepitation or rhonchi. ABDOMEN: Distended, soft, nontender. NEUROLOGIC: She is extremely demented, but without any lateralizing sign. She is ambulating without assistance or assistive devices. Her intake was 916, output was recorded. Her COVID by PCR was detected again on the swab done yesterday. ASSESSMENT: 1. This is an 89-year-old female patient with COVID-19 positive swab, transferred from [facility]. Her swab done yesterday was again positive for COVID-19. Fortunately, she continued to be completely asymptomatic. 2. Chronic kidney disease stage 3. 3. Acute on chronic congestive heart failure, diastolic, well compensated. 4. Frequent falls. 5. Profound dementia with paranoia. 6. Paroxysmal atrial fibrillation. 7. Essential hypertension. 8. Hypertensive heart disease. PLAN: Plan is to continue with droplet precaution. Continue all her medication now that she is positive for second time, although she continued to be completely asymptomatic. Probably we have to discuss with the Department of Health to see whether any changes in the rules. MIRELLA SAMANO MD DR: WENDY/franc JOB#: [id number] / [id number]
[2020-05-25] MEDS: LEVOTHYROXINE 100 MCG TABLET PO SCH (05:19)
[2020-05-25] MEDS: PANTOPRAZOLE 40 MG TABLET. PO SCH (08:48)
[2020-05-25] MEDS: ASPIRIN CHEWABLE 81 MG TABLET. PO SCH (08:49)
[2020-05-25] MEDS: ACETAMINOPHEN 325 MG TABLET PO PRN (08:49)
[2020-05-25] MEDS: METOPROLOL TART IMMED RELEASE 25 MG TABLET PO SCH ×2 (08:49→20:45)
[2020-05-25] MEDS: LISINOPRIL 10 MG TABLET PO SCH (08:50)
[2020-05-25] MEDS: LIDOCAINE (700MG/PATCH) PATCH. TP SCH (08:50)
[2020-05-25 09:30] VITALS: BP 167/94
[2020-05-25] MEDS: ARIPiprazole 2 MG TABLET PO SCH (17:42)
[2020-05-25 19:42] VITALS: BP 165/56
[2020-05-25] MEDS: LORazepam 1 MG TABLET PO PRN (20:45)
[2020-05-25] MEDS: HYDROcodone/APAP 7.5/325MG 1 TAB TABLET PO PRN (20:47)
[2020-05-26] MEDS: LEVOTHYROXINE 100 MCG TABLET PO SCH (06:08)
[2020-05-26] MEDS: ASPIRIN CHEWABLE 81 MG TABLET. PO SCH (09:07)
[2020-05-26] MEDS: LISINOPRIL 10 MG TABLET PO SCH (09:07)
[2020-05-26] MEDS: METOPROLOL TART IMMED RELEASE 25 MG TABLET PO SCH ×2 (09:08→21:03)
[2020-05-26] MEDS: PANTOPRAZOLE 40 MG TABLET. PO SCH (09:08)
[2020-05-26] MEDS: LIDOCAINE (700MG/PATCH) PATCH. TP SCH (09:09)
[2020-05-26 10:01] VITALS: BP 149/68
--- NOTE | 2020-05-26 14:02 | PN ---
DATE: 05/26/2020 SUBJECTIVE: The patient is resting, slightly propped up in bed, in no apparent distress. She seemed to be less agitated today. Nursing staff did not voice any concern. PHYSICAL EXAMINATION: GENERAL: When I examined her, she looked pale, but no jaundice, cyanosis or thyromegaly. No jugular venous distention or limb edema. VITAL SIGNS: Her heart rate was 65, blood pressure was 149/68, temperature 97.8, respiratory rate was 16, and oxygen saturation was 98%. HEAD, EYES, EARS, NOSE AND THROAT: Normocephalic, atraumatic. NECK: Supple. HEART: Showed normal first and second heart sounds. No gallop or murmur. CHEST: Clear to auscultation. No crepitation or rhonchi. ABDOMEN: Distended, soft, nontender. NEUROLOGIC: She is demented, but without any obvious lateralizing sign. All other cranial nerves are intact. She moves extremities without difficulty. She ambulates without assistance or assistive devices. Her intake over the last 24 hours was 916. No output was recorded. LABORATORY DATA: No lab work done yesterday. ASSESSMENT: 1. This is an 89-year-old female patient with COVID-19 positive swab, transferred from [facility]. Her swab done on 05/23 was again positive. Fortunately, she continued to be completely asymptomatic. 2. Chronic kidney disease, stage 3, stable. 3. [id number] congestive heart failure, diastolic, well compensated. 4. Frequent falls. 5. Profound dementia with paranoia. 6. Paroxysmal atrial fibrillation. 7. Essential hypertension. 8. Hypertensive heart disease. PLAN: To continue with droplet precaution. Continue with all her medications. MIRELLA SAMANO MD DR: WENDY/franc JOB#: [id number] / [id number]
[2020-05-26] MEDS: ARIPiprazole 2 MG TABLET PO SCH (16:34)
[2020-05-26 19:52] VITALS: BP 163/81
[2020-05-26] MEDS: LORazepam 1 MG TABLET PO PRN (21:02)
[2020-05-27] MEDS: LEVOTHYROXINE 100 MCG TABLET PO SCH (05:30)
[2020-05-27] MEDS: ASPIRIN CHEWABLE 81 MG TABLET. PO SCH (07:52)
[2020-05-27] MEDS: PANTOPRAZOLE 40 MG TABLET. PO SCH (07:52)
[2020-05-27] MEDS: ALENDRONATE SODIUM 35 MG TABLET PO SCH (07:53)
[2020-05-27] MEDS: LIDOCAINE (700MG/PATCH) PATCH. TP SCH (07:53)
[2020-05-27] MEDS: METOPROLOL TART IMMED RELEASE 25 MG TABLET PO SCH ×2 (08:01→19:59)
[2020-05-27] MEDS: LISINOPRIL 10 MG TABLET PO SCH (08:01)
[2020-05-27 08:36] VITALS: BP 154/80
--- NOTE | 2020-05-27 09:10 | PN ---
DATE: 05/25/2020 SUBJECTIVE: The patient is resting, slightly propped up in bed, somewhat less agitated or restless than yesterday. When I saw her today, she looked pale, but no jaundice, cyanosis or thyromegaly. No jugular venous distention. No limb edema. OBJECTIVE: VITAL SIGNS: Her heart rate was 56, blood pressure was 167/94, temperature was 97.8, respiratory rate was 18 and oxygen saturation was 95% on room air. HEAD, EYES, EARS, NOSE AND THROAT: Normocephalic, atraumatic. NECK: Supple. HEART: Showed normal first and second heart sounds. No gallop, rub or murmur. CHEST: Clear to auscultation. No crepitation or rhonchi. ABDOMEN: Distended, soft, nontender. NEUROLOGIC: She was profoundly demented, but without any obvious lateralizing sign. All her cranial nerves are intact. She moves extremities without difficulty. She ambulates without assistance or assistive devices. Her intake over the last 24 hours was 1060, no output was recorded. LABORATORY DATA: Her most recent lab work showed a white cell count of 3,500, hemoglobin 11, hematocrit 33, MCV 92, and platelet count of 148,000. Her serum sodium was 131, potassium 4.6, chloride 97, bicarbonate 28, anion gap of 6, BUN 32, creatinine 1.4, estimated GFR was 35 mL per minute. Her glucose was 99, calcium was 8.9. Her coronavirus by PCR was detectable on 05/23/2020. ASSESSMENT: 1. This is an 89-year-old female patient with COVID-19 positive swabs, transferred from [facility]. Her swab done yesterday was again positive. Unfortunately, she continued to be completely asymptomatic. 2. Chronic kidney disease stage 3. 3. Acute on chronic diastolic congestive heart failure, well compensated. 4. Frequent falls. 5. Profound dementia with paranoia. 6. Paroxysmal atrial fibrillation. 7. Essential hypertension. 8. Hypertensive heart disease. PLAN: To continue with droplet precaution. Continue all her other medications. We will discuss with the correctional counselor/case manager on Wednesday whether there are any changes in the rule that allow this patient to be discharged given that they continued to be asymptomatic. DICTATION ENDS HERE AHMED M. SELWYN, MD DR: WENDY/franc JOB#: [id number] / [id number]
[2020-05-27] MEDS: ARIPiprazole 2 MG TABLET PO SCH (16:22)
[2020-05-27] MEDS: POTASSIUM CHLORIDE 20 MEQ TABLET.ER. PO SCH (16:23)
--- NOTE | 2020-05-27 19:29 | PN ---
DATE: 05/27/2020 SUBJECTIVE: The patient is resting, slightly propped up in bed, in no apparent distress. She is much calmer and quieter today. No evidence of any agitation or restlessness. She has been pleasant and cooperative. PHYSICAL EXAMINATION: GENERAL: When I examined her today, she looked pale, not jaundiced, cyanosis or thyromegaly. No jugular venous distention. No limb edema. VITAL SIGNS: Her heart rate was 72, blood pressure was 154/80, temperature 97.2, respiratory rate was 20, and oxygen saturation was 94%. HEAD, EYES, EARS, NOSE AND THROAT: Showed normocephalic, atraumatic. NECK: Supple. HEART: Showed normal first and second heart sounds. No gallop, rub or murmur. CHEST: Clear to auscultation. No crepitation or rhonchi. ABDOMEN: Distended, soft, nontender. NEUROLOGIC: She is profoundly demented, but without any obvious lateralizing sign. She moves extremities without difficulty. She ambulates without assistance or assistive devices. Her intake over the last 24 hours was incompletely recorded. LABORATORY DATA: No lab works were ordered over the last few days. ASSESSMENT: 1. This is an 89-year-old female patient with positive COVID-19 swabs, transferred from [facility]. Her swabs done on 05/23/2020 were positive again. Fortunately, she continued to be completely asymptomatic. 2. Chronic kidney disease stage 3. 3. Acute on chronic diastolic congestive heart failure, well compensated. 4. Frequent falls. 5. Profound dementia with paranoia. 6. Paroxysmal atrial fibrillation. 7. Essential hypertension. 8. Hypertensive heart disease. PLAN: To continue with droplet precaution. Continue with all her psychotropic medication. Continue with lisinopril for her blood pressure, levothyroxine for hypothyroidism. MIRELLA SAMANO MD DR: WENDY/franc JOB#: [id number] / [id number]
[2020-05-27 19:32] VITALS: BP 178/88
[2020-05-27] MEDS: LORazepam 1 MG TABLET PO PRN (19:59)
[2020-05-28] MEDS: LEVOTHYROXINE 100 MCG TABLET PO SCH (05:09)
[2020-05-28 07:34] VITALS: BP 166/75
[2020-05-28] MEDS: LORazepam 1 MG TABLET PO PRN (09:39)
[2020-05-28] MEDS: ASPIRIN CHEWABLE 81 MG TABLET. PO SCH (09:39)
[2020-05-28] MEDS: PANTOPRAZOLE 40 MG TABLET. PO SCH (09:39)
[2020-05-28] MEDS: LISINOPRIL 10 MG TABLET PO SCH (09:39)
[2020-05-28] MEDS: OLANZapine 5 MG TABLET PO PRN (09:40)
[2020-05-28] MEDS: METOPROLOL TART IMMED RELEASE 25 MG TABLET PO SCH ×2 (09:40→21:06)
[2020-05-28] MEDS: LIDOCAINE (700MG/PATCH) PATCH. TP SCH (09:41)
[2020-05-28] MEDS: ARIPiprazole 2 MG TABLET PO SCH (17:00)
[2020-05-28 19:22] VITALS: BP 133/78
--- NOTE | 2020-05-28 19:31 | PN ---
DATE: 05/28/2020 SUBJECTIVE: The patient is sitting comfortably in her chair, in no apparent distress. She denied any complaint. Nursing staff did not voice any concerns. She is actually much better today in terms of her behavior. She is not restless, agitated. She is not demanding to get out. PHYSICAL EXAMINATION: GENERAL: When I saw her this afternoon, she was somewhat pale, no jaundice, cyanosis or thyromegaly. No jugular venous distention. No limb edema. VITAL SIGNS: Her heart rate was 62, blood pressure was 166/75, her temperature was 97.9, respiratory rate was 20, and oxygen saturation was 97%. HEAD, EYES, EARS, NOSE AND THROAT: Showed normocephalic, atraumatic. NECK: Supple. HEART: Showed normal first and second heart sounds. No gallop or murmur. CHEST: Clear to auscultation. No crepitation or rhonchi. ABDOMEN: Distended, soft, nontender. NEUROLOGIC: She is demented, but without any obvious lateralizing sign. All her cranial nerves are intact. She moves extremities without difficulty. She ambulates without assistance or assistive devices. Her intake over the last 24 hours was 530, no output was recorded. No lab works were done recently. ASSESSMENT: 1. This is an 89-year-old female patient with positive COVID-19 swab transferred from [facility]. Swabs done on 05/23/2020 were positive again. Fortunately, she continues to be completely asymptomatic. 2. Chronic kidney disease stage III/IV. 3. Acute on chronic diastolic congestive heart failure, well compensated. 4. Frequent falls. 5. Profound dementia with paranoia. 6. Paroxysmal atrial fibrillation. 7. Essential hypertension. 8. Hypertensive heart disease. PLAN: To continue with droplet precaution. Continue with all her psychotropic medication. Continue with lisinopril for blood pressure, levothyroxine for hypothyroidism. MIRELLA SAMANO MD DR: WENDY/franc JOB#: [id number] / [id number]
[2020-05-28] MEDS: HYDROcodone/APAP 7.5/325MG 1 TAB TABLET PO PRN (21:06)
[2020-05-29] MEDS: LEVOTHYROXINE 100 MCG TABLET PO SCH (05:20)
[2020-05-29] MEDS: OLANZapine 5 MG TABLET PO PRN ×3 (05:20→21:32)
[2020-05-29] MEDS: LISINOPRIL 10 MG TABLET PO SCH (08:34)
[2020-05-29] MEDS: LORazepam 1 MG TABLET PO PRN (08:34)
[2020-05-29] MEDS: PANTOPRAZOLE 40 MG TABLET. PO SCH (08:34)
[2020-05-29] MEDS: HYDROcodone/APAP 7.5/325MG 1 TAB TABLET PO PRN (08:35)
[2020-05-29] MEDS: METOPROLOL TART IMMED RELEASE 25 MG TABLET PO SCH ×2 (08:35→20:55)
[2020-05-29] MEDS: ASPIRIN CHEWABLE 81 MG TABLET. PO SCH (08:35)
[2020-05-29] MEDS: LIDOCAINE (700MG/PATCH) PATCH. TP SCH (08:41)
--- NOTE | 2020-05-29 10:00 | PN ---
DATE: 05/29/2020 ATTENDING PHYSICIAN: Dr. Garcia. SUBJECTIVE: No new complaints. The patient is pleasantly confused, but not agitated. She is comfortable. She denied any shortness of breath or other discomfort. OBJECTIVE FINDINGS: VITAL SIGNS: Her blood pressure today is 133/78 mmHg, pulse of 69 and regular, temperature 97.7 degrees Fahrenheit, and her oxygen saturations are 95% on room air. HEENT: Head is without trauma. Pupils are reactive. Sclerae nonicteric. Oropharynx clear. NECK: Supple, no bruits. LUNGS: Actually clear to auscultation. CARDIOVASCULAR: Showed regular heart tones. Normal S1, S2. No obvious murmurs or gallops. Peripheral pulses are palpable and full. ABDOMEN: Soft, nontender, no organomegaly. Bowel sounds are normoactive. EXTREMITIES: Showed no edema. NEUROLOGIC: Profound dementia. No lateralizing signs. Cranial nerves are intact. She has no focal deficits. SKIN: Warm and dry. ASSESSMENT: 1. An 89-year-old female with positive COVID-19 swab transferred [facility]. Unfortunately, repeat swabs on 05/23/2020 remained positive. She continues to be totally asymptomatic. 2. Chronic kidney disease stage 3. 3. Acute on chronic diastolic congestive heart failure, compensated. 4. Profound dementia with paranoia. 5. Paroxysmal atrial fibrillation. 6. Frequent falls, which necessitated the stopping of her anticoagulation. 7. Essential hypertension. 8. Hypertensive heart disease. PLAN: 1. Continue supportive care. 2. Continue psychotropic drugs. 3. Meds reviewed. 4. Diet as tolerated. MADISON GARCIA MD DR: NABILA/farnc JOB#: [id number] / [id number]
[2020-05-29 10:25] VITALS: BP 93/46
[2020-05-29] MEDS: POTASSIUM CHLORIDE 20 MEQ TABLET.ER. PO SCH (15:05)
[2020-05-29] MEDS: ARIPiprazole 2 MG TABLET PO SCH (16:56)
[2020-05-29 19:46] VITALS: BP 118/49
[2020-05-29] MEDS: PATCH REMOVAL. MC SCH (20:55)
[2020-05-30] MEDS: LEVOTHYROXINE 100 MCG TABLET PO SCH (05:12)
[2020-05-30] MEDS: LORazepam 1 MG TABLET PO PRN ×3 (07:54→18:18)
[2020-05-30] MEDS: LIDOCAINE (700MG/PATCH) PATCH. TP SCH (07:54)
[2020-05-30] MEDS: METOPROLOL TART IMMED RELEASE 25 MG TABLET PO SCH ×2 (07:55→21:47)
[2020-05-30] MEDS: ASPIRIN CHEWABLE 81 MG TABLET. PO SCH (07:55)
[2020-05-30] MEDS: LISINOPRIL 10 MG TABLET PO SCH (07:56)
[2020-05-30] MEDS: PANTOPRAZOLE 40 MG TABLET. PO SCH (07:56)
[2020-05-30 09:37] VITALS: BP 126/76
--- NOTE | 2020-05-30 12:25 | PN ---
DATE: 05/30/2020 ATTENDING PHYSICIAN: Dr. Garcia. SUBJECTIVE: The patient is very calm and pleasant this morning. She is sitting in her chair. She is eating appropriately. She has no new complaints. OBJECTIVE FINDINGS: VITAL SIGNS: Blood pressure today is 118/49 mmHg, pulse 60 and regular, temperature 97.9 degrees Fahrenheit, and her oxygen saturations are 96% on room air. HEENT: Head is without trauma. Pupils are reactive. Sclerae nonicteric. Oropharynx clear. NECK: Supple. LUNGS: Clear. CARDIOVASCULAR: Showed regular heart tones. No gallops. Peripheral pulses are palpable and full. ABDOMEN: Soft, scaphoid, nontender. EXTREMITIES: Without edema. NEUROLOGIC: Pleasantly confused. No speech deficit. SKIN: Warm and dry. ASSESSMENT: 1. An 89-year-old female with COVID-19 swab from the [facility]. She remains asymptomatic. 2. Chronic kidney disease stage 3. 3. Acute on chronic diastolic congestive heart failure, compensated. 4. Profound dementia with paranoia. 5. Paroxysmal atrial fibrillation. 6. Frequent falls. We have stopped her anticoagulation. 7. Hypertension. 8. Hypertensive heart disease. PLAN: 1. Meds reviewed and continued. 2. Diet as tolerated. 3. We shall re-swab her when appropriate. 4. We are working on placement. MADISON GARCIA MD DR: NABILA/franc JOB#: [id number] / [id number]
[2020-05-30 12:50] VITALS: BP 130/65
[2020-05-30] MEDS: ARIPiprazole 2 MG TABLET PO SCH (16:50)
[2020-05-30 20:20] VITALS: BP 178/82
[2020-05-30] MEDS: PATCH REMOVAL. MC SCH (21:00)
[2020-05-30] MEDS: OLANZapine 5 MG TABLET PO PRN (21:48)
[2020-05-31] MEDS: LEVOTHYROXINE 100 MCG TABLET PO SCH (05:27)
[2020-05-31] MEDS: PANTOPRAZOLE 40 MG TABLET. PO SCH (07:55)
[2020-05-31] MEDS: LORazepam 1 MG TABLET PO PRN ×2 (07:55→15:08)
[2020-05-31] MEDS: ASPIRIN CHEWABLE 81 MG TABLET. PO SCH (07:56)
[2020-05-31] MEDS: LISINOPRIL 10 MG TABLET PO SCH (07:56)
[2020-05-31] MEDS: METOPROLOL TART IMMED RELEASE 25 MG TABLET PO SCH ×2 (07:56→21:44)
[2020-05-31 08:58] VITALS: BP 131/82
[2020-05-31] MEDS: LIDOCAINE (700MG/PATCH) PATCH. TP SCH (09:00)
[2020-05-31] MEDS: HYDROcodone/APAP 7.5/325MG 1 TAB TABLET PO PRN (12:21)
--- NOTE | 2020-05-31 14:58 | PN ---
DATE: 05/31/2020 ATTENDING PHYSICIAN: Dr. Garcia. SUBJECTIVE: The patient is calm. No new complaints. She denied any pain or dyspnea. OBJECTIVE FINDINGS: VITAL SIGNS: Blood pressure today is 131/82, pulse is 67 and regular, temperature 97.6 degrees Fahrenheit, oxygen saturation 100% on room air. HEENT: Head is without trauma. Pupils are reactive. Sclerae nonicteric. Oropharynx clear. NECK: Supple, no bruits. LUNGS: Otherwise, clear to auscultation. CARDIOVASCULAR: Showed regular heart tones. No gallops. ABDOMEN: Soft, scaphoid, nontender, no organomegaly. EXTREMITIES: Without edema. NEUROLOGIC: Pleasantly confused. No focal deficits. Speech is fluent. SKIN: Warm and dry. ASSESSMENT: 1. An 89-year-old female with COVID-19 positive swabs from the [facility], she remains totally asymptomatic. 2. Chronic kidney disease stage 3. 3. Acute on chronic diastolic congestive heart failure, compensated. 4. Profound dementia with paranoia. 5. Paroxysmal atrial fibrillation. 6. Frequent falls. 7. Essential hypertension. PLAN: 1. Meds reviewed. 2. Await repeat COVID swab. 3. Working on placement. 4. Diet as tolerated. MADISON GARCIA MD DR: NABILA/franc JOB#: [id number] / [id number]
[2020-05-31] MEDS: ARIPiprazole 2 MG TABLET PO SCH (17:45)
[2020-05-31] MEDS: POTASSIUM CHLORIDE 20 MEQ TABLET.ER. PO SCH (17:46)
[2020-05-31 20:19] VITALS: BP 120/71
[2020-05-31] MEDS: PATCH REMOVAL. MC SCH (21:00)
[2020-06-01] MEDS: LEVOTHYROXINE 100 MCG TABLET PO SCH (06:07)
[2020-06-01] MEDS: LISINOPRIL 10 MG TABLET PO SCH (07:54)
[2020-06-01] MEDS: LIDOCAINE (700MG/PATCH) PATCH. TP SCH (07:54)
[2020-06-01] MEDS: ASPIRIN CHEWABLE 81 MG TABLET. PO SCH (07:54)
[2020-06-01] MEDS: HYDROcodone/APAP 7.5/325MG 1 TAB TABLET PO PRN (07:54)
[2020-06-01] MEDS: PANTOPRAZOLE 40 MG TABLET. PO SCH (07:54)
[2020-06-01] MEDS: METOPROLOL TART IMMED RELEASE 25 MG TABLET PO SCH ×2 (07:54→21:17)
[2020-06-01 08:22] VITALS: BP 100/62
--- NOTE | 2020-06-01 13:43 | PN ---
DATE: 06/01/2020 ATTENDING PHYSICIAN: Dr. Garcia. SUBJECTIVE: The patient is calm. She is puttering around in her room. She denied any complaints. She remains confused. OBJECTIVE FINDINGS: VITAL SIGNS: Blood pressure is 120/71 mmHg, oxygen saturation 96% on room air, pulse 69 and regular, temperature 98.6 degrees Fahrenheit. HEENT: Head is without trauma. Pupils are reactive. Sclerae nonicteric. The oropharynx is clear. NECK: Supple, no bruits. LUNGS: Otherwise clear with good breath sounds. CARDIOVASCULAR: Showed regular heart tones. No gallops. ABDOMEN: Soft, scaphoid, nontender. EXTREMITIES: Without edema. No cyanosis. NEUROLOGIC: Pleasantly confused. She is ambulatory. Speech is fluent. SKIN: Warm and dry. ASSESSMENT: 1. An 89-year-old female with COVID-19 positive swabs from the [facility]. Unfortunately, her most recent swab from 05/30 remains positive for coronavirus. She remains asymptomatic clinically. 2. Chronic kidney disease stage 3. 3. Acute on chronic diastolic congestive heart failure, compensated. 4. Profound dementia with paranoia, actually calm. 5. Paroxysmal atrial fibrillation. 6. Essential hypertension. PLAN: 1. Meds reviewed. 2. We are working on placement. Unfortunately, there are no plans in the near future as she has continued to test positive for coronavirus. Nevertheless, she remains totally asymptomatic. MADISON GARCIA MD DR: NABILA/franc JOB#: [id number] / [id number]
[2020-06-01] MEDS: ARIPiprazole 2 MG TABLET PO SCH (17:02)
[2020-06-01 20:39] VITALS: BP 140/57
[2020-06-01] MEDS: PATCH REMOVAL. MC SCH (21:00)
[2020-06-01] MEDS: LORazepam 1 MG TABLET PO PRN (21:17)
[2020-06-02] MEDS: LEVOTHYROXINE 100 MCG TABLET PO SCH (06:00)
[2020-06-02] MEDS: METOPROLOL TART IMMED RELEASE 25 MG TABLET PO SCH ×2 (07:51→20:46)
[2020-06-02] MEDS: ASPIRIN CHEWABLE 81 MG TABLET. PO SCH (07:51)
[2020-06-02] MEDS: PANTOPRAZOLE 40 MG TABLET. PO SCH (07:51)
[2020-06-02] MEDS: LISINOPRIL 10 MG TABLET PO SCH (07:51)
[2020-06-02] MEDS: LIDOCAINE (700MG/PATCH) PATCH. TP SCH (07:52)
[2020-06-02] MEDS: HYDROcodone/APAP 7.5/325MG 1 TAB TABLET PO PRN (08:30)
[2020-06-02 08:32] VITALS: BP 122/77
--- NOTE | 2020-06-02 12:46 | PN ---
DATE: 06/02/2020 ATTENDING PHYSICIAN: Dr. Garcia. SUBJECTIVE: The patient is very calm and cooperative. She is resting in her room. She remains confused. She denied any pain or shortness of breath. OBJECTIVE FINDINGS: VITAL SIGNS: Blood pressure today is 122/77 mmHg, her pulse is 66 and regular, her oxygen saturations are 96% on room air and she is afebrile with a temperature of 97.4 degrees Fahrenheit. HEENT: Head is without trauma. Pupils are reactive. Sclerae is nonicteric. Oropharynx is clear. NECK: Supple, no bruits. LUNGS: Otherwise, clear to auscultation. CARDIOVASCULAR: Showed regular heart tones. No gallops. ABDOMEN: Soft, scaphoid, nontender, no organomegaly. Bowel sounds are hypoactive. EXTREMITIES: Without edema. There is no cyanosis. NEUROLOGIC: She remains pleasantly confused. She is ambulatory. Speech is fluent. SKIN: Warm and dry. ASSESSMENT: 1. An 89-year-old female with COVID-19 positive swabs from the [facility]. She remains asymptomatic, but her most recent swab from 05/30/2020 still showed positive for coronavirus. 2. Acute on chronic diastolic congestive heart failure, well compensated. 3. Chronic kidney disease stage III. 4. Profound dementia with paranoid. She is actually calm in recent days. 5. Paroxysmal atrial fibrillation. 6. Essential hypertension. PLAN: 1. Continue meds as prescribed. 2. We are working on placement. Unfortunately, there are no plans in the near future as she continues to test positive for coronavirus. She again remains asymptomatic. MADISON GARCIA MD DR: NABILA/franc JOB#: [id number] / [id number]
[2020-06-02] MEDS: ARIPiprazole 2 MG TABLET PO SCH (17:04)
[2020-06-02 20:40] VITALS: BP 150/85
[2020-06-02] MEDS: PATCH REMOVAL. MC SCH (20:46)
[2020-06-03] MEDS: LEVOTHYROXINE 100 MCG TABLET PO SCH (06:17)
[2020-06-03] MEDS: METOPROLOL TART IMMED RELEASE 25 MG TABLET PO SCH ×2 (07:54→20:36)
[2020-06-03] MEDS: PANTOPRAZOLE 40 MG TABLET. PO SCH (07:55)
[2020-06-03] MEDS: HYDROcodone/APAP 7.5/325MG 1 TAB TABLET PO PRN (07:55)
[2020-06-03] MEDS: OLANZapine 5 MG TABLET PO PRN ×2 (07:55→20:36)
[2020-06-03] MEDS: ASPIRIN CHEWABLE 81 MG TABLET. PO SCH (07:55)
[2020-06-03] MEDS: LISINOPRIL 10 MG TABLET PO SCH (07:55)
[2020-06-03] MEDS: LIDOCAINE (700MG/PATCH) PATCH. TP SCH (07:56)
[2020-06-03] MEDS: ALENDRONATE SODIUM 35 MG TABLET PO SCH (07:59)
[2020-06-03 09:21] VITALS: BP 101/47
--- NOTE | 2020-06-03 12:08 | PN ---
DATE: 06/03/2020 ATTENDING PHYSICIAN: Dr. Garcia. SUBJECTIVE: The patient is comfortable. She is calm, pleasantly confused. She denies any pain or shortness of breath. OBJECTIVE FINDINGS: VITAL SIGNS: Temperature today, she is afebrile, blood pressure is 150/85 mmHg, oxygen saturation 96% on room air and her pulse is 61 and regular. HEENT: Head is without trauma. Pupils are reactive. Sclerae nonicteric. Oropharynx clear. NECK: Supple, no bruits or stridor. LUNGS: Clear to auscultation with good air movement. CARDIOVASCULAR: Showed regular heart tones. No gallops. ABDOMEN: Soft, scaphoid, nontender. There is no liver or spleen enlargement. Bowel sounds were normoactive. EXTREMITIES: Without edema. No cyanosis. NEUROLOGIC: She remains pleasantly confused. She is ambulatory. She is not agitated. SKIN: Warm and dry. ASSESSMENT: 1. An 89-year-old female with COVID-19 positive swabs from the [facility]. She remains asymptomatic, but unfortunately her most recent swab from 05/30/2020 still shows positive for coronavirus. 2. Acute on chronic diastolic congestive heart failure, well compensated. 3. Chronic kidney disease stage 3. 4. Profound dementia with paranoia, she has been calm lately. 5. Paroxysmal atrial fibrillation. 6. Essential hypertension. PLAN: 1. Continue same meds as prescribed. 2. Diet as tolerated. 3. We are still working on placement. Family cannot care for her and unfortunately, there are no plans in the near future as she continues to test positive for coronavirus. MADISON GARCIA MD DR: NABILA/franc JOB#: [id number] / [id number]
[2020-06-03] MEDS: POTASSIUM CHLORIDE 20 MEQ TABLET.ER. PO SCH (17:30)
[2020-06-03] MEDS: ARIPiprazole 2 MG TABLET PO SCH (17:30)
[2020-06-03 20:34] VITALS: BP 156/77
[2020-06-03] MEDS: PATCH REMOVAL. MC SCH (20:36)
[2020-06-04] MEDS: LEVOTHYROXINE 100 MCG TABLET PO SCH (05:58)
[2020-06-04] MEDS: PANTOPRAZOLE 40 MG TABLET. PO SCH (07:40)
[2020-06-04] MEDS: METOPROLOL TART IMMED RELEASE 25 MG TABLET PO SCH ×2 (07:40→20:58)
[2020-06-04] MEDS: LISINOPRIL 10 MG TABLET PO SCH (07:41)
[2020-06-04] MEDS: ASPIRIN CHEWABLE 81 MG TABLET. PO SCH (07:41)
[2020-06-04] MEDS: LORazepam 1 MG TABLET PO PRN (07:41)
[2020-06-04] MEDS: LIDOCAINE (700MG/PATCH) PATCH. TP SCH (07:42)
[2020-06-04 08:00] VITALS: BP 128/70
[2020-06-04] MEDS: HYDROcodone/APAP 7.5/325MG 1 TAB TABLET PO PRN (11:24)
--- NOTE | 2020-06-04 11:34 | PN ---
DATE: 06/04/2020 ATTENDING PHYSICIAN: Dr. Garcia. SUBJECTIVE: Calm. No new complaints. OBJECTIVE FINDINGS: VITAL SIGNS: Her blood pressure today is 128/70 mmHg, pulse 67 and regular, temperature 99.3 degrees Fahrenheit, and her oxygen saturation at 96% on room air. HEENT: Head is without trauma. Pupils are reactive. Sclerae nonicteric. Oropharynx clear. NECK: Supple. LUNGS: Good breath sounds. No rhonchi. CARDIOVASCULAR: Showed regular heart tones. No gallops. ABDOMEN: Soft, scaphoid, nontender. Bowel sounds are normal. EXTREMITIES: Show no cyanosis or edema. NEUROLOGIC: She remains confused. She is ambulatory. She is not agitated. SKIN: Warm and dry. ASSESSMENT: 1. An 89-year-old female with COVID-19 positive swabs from [facility]. She remains asymptomatic. Unfortunately, recent swabs remained positive. 2. Acute on chronic diastolic congestive heart failure, compensated. 3. Chronic kidney disease stage 3. 4. Profound dementia. She has been calm lately. 5. Paroxysmal atrial fibrillation. 6. Essential hypertension. PLAN: 1. Medications reviewed and continued. 2. Diet as tolerated. 3. We are still working on placement. Unfortunately, she needs to go to a higher level of care than previously and they will not take her unless her swabs are negative. She remains a DNR per advanced directive. MADISON GARCIA MD DR: NABILA/franc JOB#: [id number] / [id number]
[2020-06-04] MEDS: ARIPiprazole 2 MG TABLET PO SCH (16:40)
[2020-06-04 19:23] VITALS: BP 94/65
[2020-06-04] MEDS: PATCH REMOVAL. MC SCH (20:59)
[2020-06-05] MEDS: LEVOTHYROXINE 100 MCG TABLET PO SCH (06:25)
[2020-06-05 08:41] VITALS: BP 115/60
[2020-06-05] MEDS: ASPIRIN CHEWABLE 81 MG TABLET. PO SCH (08:51)
[2020-06-05] MEDS: PANTOPRAZOLE 40 MG TABLET. PO SCH (08:52)
[2020-06-05] MEDS: HYDROcodone/APAP 7.5/325MG 1 TAB TABLET PO PRN (08:52)
[2020-06-05] MEDS: LISINOPRIL 10 MG TABLET PO SCH (08:52)
[2020-06-05] MEDS: METOPROLOL TART IMMED RELEASE 25 MG TABLET PO SCH ×2 (08:52→20:31)
[2020-06-05] MEDS: LIDOCAINE (700MG/PATCH) PATCH. TP SCH (08:53)
[2020-06-05] MEDS: LORazepam 1 MG TABLET PO PRN (16:54)
[2020-06-05] MEDS: POTASSIUM CHLORIDE 20 MEQ TABLET.ER. PO SCH (16:54)
[2020-06-05] MEDS: OLANZapine 5 MG TABLET PO PRN (16:54)
[2020-06-05] MEDS: ARIPiprazole 2 MG TABLET PO SCH (16:56)
--- NOTE | 2020-06-05 19:43 | PN ---
DATE: 06/05/2020 SUBJECTIVE: The patient is sitting at the edge of the bed comfortably in no apparent distress. The patient continued to be positive for coronavirus by PCR as of 05/30, but however, she continued to be completely asymptomatic. PHYSICAL EXAMINATION: GENERAL: When I examined her, she was pale, not jaundiced, cyanosed or thyromegaly. No jugular venous distention. No limb edema. VITAL SIGNS: Her heart rate was 77, blood pressure 115/60, temperature was 98.5, respiratory rate was 20, and oxygen saturation was 95% on room air. HEENT: Showed normocephalic, atraumatic. NECK: Supple. HEART: Showed normal first and second heart sounds. No gallop, rub or murmur. CHEST: Clear to auscultation. No crepitation or rhonchi. ABDOMEN: Distended, soft, nontender. No guarding or rigidity. No organomegaly. All hernial orifices intact. Bowel sounds normal. NEUROLOGIC: She is demented but without any obvious lateralizing sign. She is able to ambulate without assistance or assistive devices. Her intake was 1320, no output was recorded. Her coronavirus by PCR was detected on 05/30. She has had no recent lab work; however, her hemoglobin was 11, hematocrit 33 with normal white cell count and platelets. Her most recent chemistry showed a serum sodium 131, potassium 4.6, chloride 97, bicarbonate 28, anion gap of 6, BUN 32, creatinine 1.4. ASSESSMENT: 1. This is an 89-year-old female with COVID-19 positive swabs [facility]. She remains positive, but asymptomatic. 2. Acute on chronic diastolic congestive heart failure, well compensated. 3. Chronic kidney disease stage 3, stable. 4. Profound dementia with behavioral disturbance, although she has been much calmer recently. 5. Paroxysmal atrial fibrillation. 6. Essential hypertension. PLAN: Continue with all her medications. Continue with nutritional support. Unfortunately, she has been persistently positive and this precludes her placement. MIRELLA SAMANO MD DR: WENDY/franc JOB#: [id number] / [id number]
[2020-06-05 20:00] VITALS: BP 162/86
[2020-06-05] MEDS: PATCH REMOVAL. MC SCH (20:31)
[2020-06-06] MEDS: LEVOTHYROXINE 100 MCG TABLET PO SCH (05:34)
[2020-06-06] MEDS: LORazepam 1 MG TABLET PO PRN ×4 (08:22→23:20)
[2020-06-06] MEDS: LISINOPRIL 10 MG TABLET PO SCH (08:22)
[2020-06-06] MEDS: ASPIRIN CHEWABLE 81 MG TABLET. PO SCH (08:22)
[2020-06-06] MEDS: PANTOPRAZOLE 40 MG TABLET. PO SCH (08:22)
[2020-06-06] MEDS: METOPROLOL TART IMMED RELEASE 25 MG TABLET PO SCH ×2 (08:22→19:59)
[2020-06-06] MEDS: LIDOCAINE (700MG/PATCH) PATCH. TP SCH (09:00)
[2020-06-06 09:06] VITALS: BP 143/65
[2020-06-06] MEDS: ARIPiprazole 2 MG TABLET PO SCH (17:24)
--- NOTE | 2020-06-06 18:06 | PN ---
DATE: 06/06/2020 SUBJECTIVE: The patient is sitting at the edge of the bed comfortably in no apparent distress. She apparently has profound dementia with behavioral disturbance. She has been aggressive today, but she continues to be completely asymptomatic as far as her COVID-19 infection. PHYSICAL EXAMINATION: GENERAL: When I examined her, she was pale, cachectic, but no jaundice, cyanosis or thyromegaly. No jugular venous distention. No limb edema. VITAL SIGNS: Her heart rate was 65, blood pressure was 143/65, temperature was 97.5, respiratory rate was 16, and oxygen saturation was 97%. HEENT: Showed normocephalic, atraumatic. NECK: Supple. CARDIAC: Normal first and second heart sounds. No gallop or murmur. CHEST: Clear to auscultation. No crepitation or rhonchi. ABDOMEN: Scaphoid, soft, nontender. NEUROLOGIC: She is profoundly demented, but without any obvious lateralizing sign. She moves extremities without difficulty. She ambulates without assistance or assistive devices. Her intake over the last 24 hours was 1100, no output was recorded. LABORATORY DATA: Her most recent hemoglobin was 11, hematocrit 33 with normal white cell count and platelets. Her most recent BUN was 32, creatinine was 1.4. ASSESSMENT: 1. This is an 89-year-old female with COVID-19 positive swabs initially when [facility]. She remains positive, but asymptomatic. 2. Acute on chronic diastolic congestive heart failure, well compensated. 3. Chronic kidney disease stage 3, stable. 4. Profound dementia with behavioral disturbances. 5. Paroxysmal atrial fibrillation. 6. Essential hypertension. PLAN: To continue with all her medications. Continue nutritional support. Unfortunately, she continues to be persistently positive for COVID-19 and this precludes her placement. MIRELLA SAMANO MD DR: WENDY/franc JOB#: [id number] / [id number]
[2020-06-06 19:10] VITALS: BP 149/82
[2020-06-06] MEDS: PATCH REMOVAL. MC SCH (20:00)
[2020-06-07] MEDS: OLANZapine 5 MG TABLET PO PRN ×3 (00:12→21:11)
[2020-06-07] MEDS: LEVOTHYROXINE 100 MCG TABLET PO SCH (02:12)
[2020-06-07] MEDS: LORazepam 1 MG TABLET PO PRN ×3 (02:12→21:11)
[2020-06-07 04:46] LABS: HEMATOCRIT 37.3 % (36.0-47.0); HEMOGLOBIN 12.4 g/dL (12.0-15.5); RED BLOOD COUNT 4.05 x10^6/uL (3.50-5.40); RED CELL DISTRIBUTION WIDTH 13.6 % (11.5-14.5); WHITE BLOOD COUNT 5.1 x10^3/uL (4.0-11.0)
[2020-06-07 05:02] LABS: ALBUMIN 3.6 g/dL (3.4-5.0); ALBUMIN/GLOBULIN RATIO 0.9 (1.0-1.7); CALCIUM 9.2 mg/dL (8.5-10.1); CREATININE 1.4 mg/dL (0.6-1.0); GFR 35.4; POTASSIUM 4.2 mmol/L (3.5-5.1); TOTAL BILIRUBIN 0.4 mg/dL (0.2-1.0); TOTAL PROTEIN 7.8 g/dL (6.4-8.2)
[2020-06-07] MEDS: ASPIRIN CHEWABLE 81 MG TABLET. PO SCH (07:42)
[2020-06-07] MEDS: METOPROLOL TART IMMED RELEASE 25 MG TABLET PO SCH ×2 (07:42→20:11)
[2020-06-07] MEDS: PANTOPRAZOLE 40 MG TABLET. PO SCH (07:42)
[2020-06-07] MEDS: LIDOCAINE (700MG/PATCH) PATCH. TP SCH (07:43)
[2020-06-07] MEDS: LISINOPRIL 10 MG TABLET PO SCH (07:43)
[2020-06-07 08:34] VITALS: BP 168/85
[2020-06-07] MEDS: POTASSIUM CHLORIDE 20 MEQ TABLET.ER. PO SCH (17:16)
[2020-06-07] MEDS: ARIPiprazole 2 MG TABLET PO SCH (17:16)
--- NOTE | 2020-06-07 18:53 | PN ---
DATE: 06/07/2020 SUBJECTIVE: The patient is sitting in her chair comfortably in no apparent distress. On questioning her, she denied any complaint. The nursing staff did not voice any concern. OBJECTIVE: GENERAL: On examining her, she looked pale, but no jaundice, cyanosis or thyromegaly. No jugular venous distention. No limb edema. VITAL SIGNS: Her heart rate was 70, blood pressure was 168/85, temperature was 97.2, respiratory rate was 18 and oxygen saturation was 96%. HEAD, EYES, EARS, NOSE AND THROAT: Showed normocephalic, atraumatic. NECK: Supple. HEART: Showed normal first and second heart sounds with no gallop or murmur. CHEST: Clear to auscultation. No crepitation or rhonchi. ABDOMEN: Distended, soft, nontender. NEUROLOGIC: She is demented without any obvious lateralizing sign. The patient ambulates even without assistance or assistive devices. Her intake over the last 24 hours was 620, no output was recorded. LABORATORY DATA: Her lab work this morning showed a white cell count 5100, hemoglobin 12.4, hematocrit 37.3, MCV 92, and platelet count 200,000. Her serum sodium was 133, potassium 4.2, chloride 98, bicarbonate 26, anion gap of 9, BUN 23, creatinine 1.4, estimated GFR was 55 mL per minute. Her glucose was 86, calcium 9.2. Total bilirubin, AST, ALT, alkaline phosphatase were normal. Total protein 7.8, albumin 3.6. ASSESSMENT: 1. This is an 89-year-old female with COVID-19 positive swabs, initially when [facility]. She remains positive, but asymptomatic. 2. [id number] diastolic congestive heart failure, seems to be well compensated. 3. Chronic kidney disease, stage 3, stable. 4. Profound dementia with behavioral disturbances. 5. Paroxysmal atrial fibrillation. 6. Essential hypertension. PLAN: To continue with all her medication. Continue nutritional support. Unfortunately, she continued to be persistently positive for COVID-19 and this precludes her placement. MIRELLA SAMANO MD DR: WENDY/franc JOB#: [id number] / [id number]
[2020-06-07 20:00] VITALS: BP 158/83
[2020-06-07] MEDS: ACETAMINOPHEN 325 MG TABLET PO PRN (20:05)
[2020-06-07] MEDS: PATCH REMOVAL. MC SCH (21:00)
[2020-06-08] MEDS: LEVOTHYROXINE 100 MCG TABLET PO SCH (06:15)
[2020-06-08 06:38] VITALS: BP 168/93
[2020-06-08] MEDS: ASPIRIN CHEWABLE 81 MG TABLET. PO SCH (08:04)
[2020-06-08] MEDS: PANTOPRAZOLE 40 MG TABLET. PO SCH (08:04)
[2020-06-08] MEDS: METOPROLOL TART IMMED RELEASE 25 MG TABLET PO SCH ×2 (08:05→23:14)
[2020-06-08] MEDS: LIDOCAINE (700MG/PATCH) PATCH. TP SCH (08:05)
[2020-06-08] MEDS: LISINOPRIL 10 MG TABLET PO SCH (08:05)
[2020-06-08] MEDS: SERTRALINE 25 MG TABLET. PO SCH (08:05)
[2020-06-08] MEDS: LORazepam 1 MG TABLET PO PRN (08:05)
[2020-06-08] MEDS: ARIPiprazole 2 MG TABLET PO SCH (17:15)
--- NOTE | 2020-06-08 18:48 | PN ---
DATE: 06/08/2020 SUBJECTIVE: The patient is resting, slightly propped up in bed, in no apparent distress. Nursing staff stated that she has slept a little bit more and she is less restless and agitated. Unfortunately, her coronavirus PCR came back detectable again; however, she remained completely asymptomatic in as far as her COVID-19 infection. OBJECTIVE: GENERAL: On examining her, she was pale, but no jaundice, cyanosis or thyromegaly. No jugular venous distention. No limb edema. VITAL SIGNS: Her heart rate was 62, blood pressure was 168/93, temperature was 96.9, respiratory rate was 18 and oxygen saturation was 95%. HEAD, EYES, EARS, NOSE AND THROAT: Normocephalic, atraumatic. NECK: Supple. HEART: Showed normal first and second heart sounds. No gallop or murmur. CHEST: Shows central trachea, equal bilateral expansion, air entry, vesicular sounds. No crepitation or rhonchi. ABDOMEN: Distended, soft, nontender. NEUROLOGIC: She is profoundly demented, but without any obvious lateralizing sign. The patient is able to ambulate without assistance or assistive devices. Her intake over the last 24 hours was 1300, no output was recorded. Her coronavirus by PCR was detectable for the fourth time. Her hemoglobin was 12, hematocrit 37 with normal white cell count and platelets. Her BUN is 23, creatinine 1.4, which is stable and her sodium is slightly up at 133. ASSESSMENT: 1. This is an 89-year-old female with COVID-19 positive swabs initially when [facility] was [facility]. She remains positive, but asymptomatic. 2. Acute on chronic diastolic congestive heart failure, seems to be well compensated. 3. Chronic kidney disease, stage 3, stable. 4. Profound dementia with behavioral disturbances. 5. Paroxysmal atrial fibrillation. 6. Essential hypertension. PLAN: To continue with all her medications. Continue nutritional support. Unfortunately, she continued to be positive for COVID-19 and this obviously precludes her placement. MIRELLA SAMANO MD DR: WENDY/franc JOB#: [id number] / [id number]
--- NOTE | 2020-06-08 19:09 | PN ---
DATE: 06/07/2020 PSYCHIATRIC PROGRESS NOTE This late entry 06/07/2020 covers the elements not covered in my initial note. SUBJECTIVE: The patient is an 89-year-old female who was initially on the [facility], having come to us from [facility] on account of worsening confusion, agitation, and aggression. She turned up positive for COVID-19 and was transferred to the COVID unit. This is where I am seeing her for a consult. She remains somewhat anxious, restless, wanting to leave all the time, obsessing but redirectable. REVIEW OF SYSTEMS: Ambulation impaired with walker. No CV, , pulmonary, eye, ENT system symptoms on review. MENTAL STATUS EXAM: Oriented to herself. Insight, judgment, recent and remote memory, attention, concentration, fund of knowledge poor, consistent with her diagnosis mentioned in my initial note. IMPRESSION: Major neurocognitive disorder, Alzheimer, vascular with delusion, depression, behavioral disturbance; anxiety disorder, unspecified; impulse control disorder, unspecified. Rest unchanged. PLAN: Continue Zyprexa p.r.n., Ativan p.r.n., Abilify 2 mg a day, start Zoloft 25 mg a day for 2 days, then 50 mg a day thereafter. Adjust further as clinically indicated. ISAAC DEUTSCH MD DR: ALEA/franc JOB#: [id number] / [id number]
[2020-06-08 21:00] VITALS: BP 158/87
[2020-06-08] MEDS: PATCH REMOVAL. MC SCH (21:00)
--- NOTE | 2020-06-08 22:44 | PDOC ---
Exam Note: Leif Note: This is a late entry for 06/07/2020. Please also refer to the separate dictated note~for this date of service dictated separately.~Patient seen individually. Discussed the patient with Nursing staff reviewed the chart.~Reviewed interim history and current functioning. Reviewed vital signs,~Labs/ Radiology~and cur rent medications noted below. Continue current treatment with the changes noted in the dictated addendum note Assessment: Vital Signs/I&O: Vital Signs Date Time Temp Pulse Resp B/P (MAP) Pulse Ox O2 Delivery O2 Flow Rate FiO2 06/08/20 08:50 Room Air 06/08/20 08:05 62 168/93 06/08/20 06:38 96.9 18 95 I & O 06/07/20 06/07/20 06/08/20 15:00 23:00 07:00 Intake Total 800 ml 640 ml 50 ml Balance 800 ml 640 ml 50 ml Current Medications: Meds: Current Medications Medications (Trade) Dose Ordered Sig/Beka Route PRN Reason Start Time Stop Time Status Last Admin Dose Admin Sertraline HCl (Zoloft) 25 mg DAILY PO 06/08/20 09:00 06/09/20 23:50 06/08/20 08:05 I have reviewed the current psychotropics carefully including drug interactions. Risk benefit ratio favors no change other than as noted in my dictated progress note. 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
[2020-06-09] MEDS: LEVOTHYROXINE 100 MCG TABLET PO SCH (06:00)
[2020-06-09] MEDS: PANTOPRAZOLE 40 MG TABLET. PO SCH (07:48)
[2020-06-09] MEDS: HYDROcodone/APAP 7.5/325MG 1 TAB TABLET PO PRN (07:49)
[2020-06-09] MEDS: LISINOPRIL 10 MG TABLET PO SCH (07:49)
[2020-06-09] MEDS: LIDOCAINE (700MG/PATCH) PATCH. TP SCH (07:49)
[2020-06-09] MEDS: SERTRALINE 25 MG TABLET. PO SCH (07:49)
[2020-06-09] MEDS: ASPIRIN CHEWABLE 81 MG TABLET. PO SCH (07:49)
[2020-06-09] MEDS: METOPROLOL TART IMMED RELEASE 25 MG TABLET PO SCH ×2 (07:49→20:01)
[2020-06-09 08:14] VITALS: BP 159/80
--- NOTE | 2020-06-09 11:48 | PN ---
DATE: 06/09/2020 SUBJECTIVE: The patient is resting, slightly propped up in bed, in no apparent distress. She is awake, alert. She is not agitated, restless today. Nursing staff stated that she has an uneventful night. PHYSICAL EXAMINATION: GENERAL: When I examined her, she looked pale, but no jaundice, cyanosis or thyromegaly. No jugular venous distention. No limb edema. VITAL SIGNS: Her heart rate was 52, blood pressure was 159/80, temperature 97.8, respiratory rate was 18 and oxygen saturation was 97%. The rest of clinical exam is stable, has not changed. She is able to ambulate without assistance or assistive devices. Her intake over the last 24 hours was 1490, no output was recorded. No lab work was available this morning. ASSESSMENT: 1. This is an 89-year-old female with COVID-19 positive swabs initially when [facility] was at [facility]. She remains positive, but asymptomatic. 2. Acute on chronic diastolic congestive heart failure, seems to be well compensated. 3. Chronic kidney disease stage 3, stable. 4. Profound dementia with behavioral disturbances. 5. Paroxysmal atrial fibrillation. 6. Essential hypertension. PLAN: To continue with all her medications including psychotropic medication. Continue nutritional support. Unfortunately, she continued to be positive for COVID-19 and this obviously precludes her placement. MIRELLA SAMANO MD DR: WENDY/franc JOB#: [id number] / [id number]
[2020-06-09] MEDS: ARIPiprazole 2 MG TABLET PO SCH (17:31)
[2020-06-09 19:23] VITALS: BP 131/71
[2020-06-09] MEDS: LORazepam 1 MG TABLET PO PRN (20:01)
[2020-06-09] MEDS: PATCH REMOVAL. MC SCH (21:00)
[2020-06-10] MEDS: LEVOTHYROXINE 100 MCG TABLET PO SCH (05:18)
[2020-06-10] MEDS: ALENDRONATE SODIUM 35 MG TABLET PO SCH (07:00)
[2020-06-10] MEDS: HYDROcodone/APAP 7.5/325MG 1 TAB TABLET PO PRN (08:24)
[2020-06-10] MEDS: SERTRALINE 50 MG TABLET. PO SCH (08:24)
[2020-06-10] MEDS: ASPIRIN CHEWABLE 81 MG TABLET. PO SCH (08:24)
[2020-06-10] MEDS: PANTOPRAZOLE 40 MG TABLET. PO SCH (08:24)
[2020-06-10] MEDS: LISINOPRIL 10 MG TABLET PO SCH (08:25)
[2020-06-10] MEDS: METOPROLOL TART IMMED RELEASE 25 MG TABLET PO SCH ×2 (08:27→19:37)
[2020-06-10] MEDS: LIDOCAINE (700MG/PATCH) PATCH. TP SCH (09:00)
[2020-06-10 09:34] VITALS: BP 108/61
[2020-06-10] MEDS: ARIPiprazole 2 MG TABLET PO SCH (17:16)
[2020-06-10] MEDS: POTASSIUM CHLORIDE 20 MEQ TABLET.ER. PO SCH (17:17)
[2020-06-10 19:21] VITALS: BP 121/60
[2020-06-10] MEDS: LORazepam 1 MG TABLET PO PRN (19:37)
--- NOTE | 2020-06-10 19:46 | PN ---
DATE: 06/10/2020 SUBJECTIVE: The patient is sitting on the edge of the bed comfortably, in no apparent distress. She is not agitated or restless today. Nursing staff did not voice any concern. PHYSICAL EXAMINATION: GENERAL: When I examined her, she was pale, but no jaundice, cyanosis or thyromegaly. No jugular venous distention. No limb edema. VITAL SIGNS: Her heart rate was 58, blood pressure was 108/61, temperature 97.9, respiratory rate was 18 and oxygen saturation was 95%. HEAD, EYES, EARS, NOSE AND THROAT: Showed normocephalic, atraumatic. NECK: Supple. CARDIAC: Normal first and second heart sounds. No gallop or murmur. CHEST: Clear to auscultation. No crepitation or rhonchi. ABDOMEN: Distended, soft, nontender. No guarding or rigidity. No organomegaly. All hernial orifices intact. Bowel sounds normal. NEUROLOGIC: She is demented, but without any obvious lateralizing sign. The patient is ambulating without assistance or assistive devices. Her intake over the last 24 hours was 1320. No output was recorded. No lab works available today. ASSESSMENT: 1. This is an 89-year-old female patient with COVID-19 positive swabs. Initially when [facility] was at [facility], she remains positive, but asymptomatic. 2. Acute on chronic diastolic congestive heart failure, seems to be well compensated. 3. Chronic kidney disease stage 3, stable. 4. Profound dementia with behavioral disturbances. 5. Paroxysmal atrial fibrillation. 6. Essential hypertension. PLAN: To continue with all her medications including psychotropic medication. Continue nutritional support. Continue to monitor her COVID-19 test and once she has 2 consecutive negative tests, she will be able to be placed in a [facility] facility. MIRELLA SAMANO MD DR: WENDY/franc JOB#: [id number] / [id number]
[2020-06-10] MEDS: PATCH REMOVAL. MC SCH (21:00)
[2020-06-11] MEDS: LEVOTHYROXINE 100 MCG TABLET PO SCH (06:00)
[2020-06-11 07:54] VITALS: BP 164/77
[2020-06-11] MEDS: METOPROLOL TART IMMED RELEASE 25 MG TABLET PO SCH ×2 (08:27→20:47)
[2020-06-11] MEDS: HYDROcodone/APAP 7.5/325MG 1 TAB TABLET PO PRN (08:27)
[2020-06-11] MEDS: SERTRALINE 50 MG TABLET. PO SCH (08:27)
[2020-06-11] MEDS: PANTOPRAZOLE 40 MG TABLET. PO SCH (08:27)
[2020-06-11] MEDS: LISINOPRIL 10 MG TABLET PO SCH (08:27)
[2020-06-11] MEDS: ASPIRIN CHEWABLE 81 MG TABLET. PO SCH (08:28)
[2020-06-11] MEDS: LIDOCAINE (700MG/PATCH) PATCH. TP SCH (08:30)
[2020-06-11] MEDS: LORazepam 1 MG TABLET PO PRN (18:03)
[2020-06-11] MEDS: ARIPiprazole 2 MG TABLET PO SCH (18:03)
[2020-06-11 19:36] VITALS: BP 143/73
[2020-06-11] MEDS: PATCH REMOVAL. MC SCH (20:47)
[2020-06-12] MEDS: LEVOTHYROXINE 100 MCG TABLET PO SCH (05:40)
[2020-06-12 07:30] VITALS: BP 148/73
[2020-06-12] MEDS: ASPIRIN CHEWABLE 81 MG TABLET. PO SCH (07:38)
[2020-06-12] MEDS: METOPROLOL TART IMMED RELEASE 25 MG TABLET PO SCH ×2 (07:38→20:38)
[2020-06-12] MEDS: PANTOPRAZOLE 40 MG TABLET. PO SCH (07:38)
[2020-06-12] MEDS: LISINOPRIL 10 MG TABLET PO SCH (07:39)
[2020-06-12] MEDS: LIDOCAINE (700MG/PATCH) PATCH. TP SCH (07:39)
[2020-06-12] MEDS: SERTRALINE 50 MG TABLET. PO SCH (07:41)
[2020-06-12] MEDS: ACETAMINOPHEN 325 MG TABLET PO PRN (08:15)
--- NOTE | 2020-06-12 09:07 | PN ---
DATE: 06/11/2020 SUBJECTIVE: The patient is sitting at the edge of the bed comfortably in no apparent distress. Denied any complaint. The nursing staff did not voice any concerns that she has been restless and agitated today. OBJECTIVE: GENERAL: On examining her, she was somewhat pale. No jaundice, cyanosis, or thyromegaly. No jugular venous distention. No limb edema. VITAL SIGNS: Her heart rate was 60, blood pressure was 164/77, temperature 98, respiratory rate was 18 and oxygen saturation was 96%. HEAD, EYES, EARS, NOSE AND THROAT: Normocephalic, atraumatic. NECK: Supple. CARDIAC: Normal first and second heart sounds. No gallop, rub or murmur. CHEST: Clear to auscultation. Occasional rhonchi. ABDOMEN: Distended, soft, nontender. NEUROLOGIC: She is grossly intact. DICTATION ENDS HERE MIRELLA SAMANO MD DR: WENDY/franc JOB#: [id number] / [id number]
--- NOTE | 2020-06-12 11:55 | PN ---
DATE: 06/12/2020 ATTENDING PHYSICIAN: Dr. Garcia. SUBJECTIVE: No new complaints. She is confused. She is thinking she is leaving today. Her swab is still tested positive. OBJECTIVE FINDINGS: VITAL SIGNS: She is afebrile, blood pressure is 148/73 mmHg, oxygen saturation 96% on room air. HEENT: Head is without trauma. Pupils are reactive. Sclerae nonicteric. Oropharynx clear. NECK: Supple. LUNGS: Actually clear. CARDIOVASCULAR: Showed regular heart tones. Peripheral pulses are palpable and full. ABDOMEN: Soft, scaphoid, nontender, no organomegaly, normal bowel sounds. EXTREMITIES: Showed no cyanosis or edema. NEUROLOGIC FINDINGS: Focally intact. No deficits. ASSESSMENT: 1. An 89-year-old female with COVID-19 positive swab from the [facility]. 2. Acute on chronic diastolic congestive heart failure, compensated. 3. Hypertension. 4. Paroxysmal atrial fibrillation. 5. Profound dementia with behavioral issues. PLAN: 1. Meds reviewed. 2. Psych meds per Dr. Penn 3. Recheck swab today. 4. Working on placement. MADISON GARCIA MD DR: NABILA/franc JOB#: [id number] / [id number]
[2020-06-12] MEDS: LORazepam 1 MG TABLET PO PRN ×2 (12:46→16:45)
[2020-06-12] MEDS: ARIPiprazole 2 MG TABLET PO SCH (16:44)
[2020-06-12] MEDS: POTASSIUM CHLORIDE 20 MEQ TABLET.ER. PO SCH (16:45)
[2020-06-12 19:41] VITALS: BP 126/61
[2020-06-12] MEDS: PATCH REMOVAL. MC SCH (20:38)
[2020-06-13] MEDS: LEVOTHYROXINE 100 MCG TABLET PO SCH (05:57)
[2020-06-13] MEDS: PANTOPRAZOLE 40 MG TABLET. PO SCH (07:26)
[2020-06-13] MEDS: SERTRALINE 50 MG TABLET. PO SCH (07:26)
[2020-06-13] MEDS: ASPIRIN CHEWABLE 81 MG TABLET. PO SCH (07:26)
[2020-06-13] MEDS: OLANZapine 5 MG TABLET PO PRN ×2 (07:27→20:17)
[2020-06-13] MEDS: METOPROLOL TART IMMED RELEASE 25 MG TABLET PO SCH ×2 (07:28→20:17)
[2020-06-13] MEDS: LISINOPRIL 10 MG TABLET PO SCH (07:29)
[2020-06-13 08:00] VITALS: BP 179/94
[2020-06-13] MEDS: LIDOCAINE (700MG/PATCH) PATCH. TP SCH (08:05)
--- NOTE | 2020-06-13 12:26 | PN ---
DATE: 06/13/2020 ATTENDING PHYSICIAN: Dr. Garcia. SUBJECTIVE: Calm, no new complaints. She remains confused. She is still thinking she is going home today. Unfortunately, her most recent swabs have remained positive. The one from yesterday is pending. OBJECTIVE FINDINGS: VITAL SIGNS: Temperature is 97.1 degrees Fahrenheit, blood pressure is 179/94, asymptomatic, pulse rate 63, and her oxygen saturations are 97% on room air. HEENT: Head is without trauma. Pupils are reactive. Sclerae are nonicteric. The oropharynx is clear. NECK: Supple. LUNGS: Good breath sounds. CARDIOVASCULAR: Showed regular heart tones. No gallops. Peripheral pulses are palpable and full. ABDOMEN: Soft, nontender. EXTREMITIES: Without edema. SKIN: Warm and dry. NEUROLOGIC: Focally intact. Speech is fluent. She remains pleasantly confused. ASSESSMENT: 1. An 89-year-old female with COVID-19 positive swabs from the [facility]. She remains totally asymptomatic. 2. Acute on chronic diastolic congestive heart failure, compensated. 3. Hypertension with hypertensive heart disease. 4. Paroxysmal atrial fibrillation, off anticoagulation. 5. Profound dementia and behavioral issues. PLAN: 1. Meds reviewed. 2. Regarding her blood pressure, given her age, she has labile hypertension of the elderly. I would not increase any of her blood pressure meds. 3. Psychiatric meds per Dr. Penn. 4. Recheck swabs this week. 5. Working on placement. MADISON GARCIA MD DR: NABILA/franc JOB#: [id number] / [id number]
[2020-06-13] MEDS: ARIPiprazole 2 MG TABLET PO SCH (17:16)
[2020-06-13 19:11] VITALS: BP 129/66
[2020-06-13] MEDS: HYDROcodone/APAP 7.5/325MG 1 TAB TABLET PO PRN (20:17)
[2020-06-13] MEDS: PATCH REMOVAL. MC SCH (20:18)
[2020-06-14] MEDS: LEVOTHYROXINE 100 MCG TABLET PO SCH (05:34)
[2020-06-14 08:00] VITALS: BP 159/73
[2020-06-14] MEDS: LIDOCAINE (700MG/PATCH) PATCH. TP SCH ×2 (08:36→09:00)
[2020-06-14] MEDS: POTASSIUM CHLORIDE 20 MEQ TABLET.ER. PO SCH (08:37)
[2020-06-14] MEDS: METOPROLOL TART IMMED RELEASE 25 MG TABLET PO SCH ×2 (08:37→20:04)
[2020-06-14] MEDS: PANTOPRAZOLE 40 MG TABLET. PO SCH (08:38)
[2020-06-14] MEDS: LISINOPRIL 10 MG TABLET PO SCH (08:38)
[2020-06-14] MEDS: ASPIRIN CHEWABLE 81 MG TABLET. PO SCH (08:38)
[2020-06-14] MEDS: SERTRALINE 50 MG TABLET. PO SCH (08:38)
[2020-06-14] MEDS: CEPHALEXIN 250 MG CAPSULE PO SCH ×2 (11:26→20:04)
--- NOTE | 2020-06-14 12:21 | PN ---
DATE: 06/14/2020 ATTENDING PHYSICIAN: Dr. Garcia. SUBJECTIVE: No new complaints. She is dressed, in good spirits, does not have any obvious distress. She has no other complaints. Her most recent swab on 06/12/2020 was reported negative, a second one done yesterday. We have a facility lined up that requires 2 consecutive negative swabs. This is a new facility on [facility] in [place], [place]. OBJECTIVE FINDINGS: VITAL SIGNS: Blood pressure is 159/73 mmHg, pulse 65 and regular, temperature afebrile. Room air saturations are 98%. HEENT: Head is without trauma. The pupils are reactive. Sclerae nonicteric. Oropharynx clear. NECK: Supple, no bruits. LUNGS: Good breath sounds, otherwise clear. CARDIOVASCULAR: Showed regular heart tones. No gallops. ABDOMEN: Soft, nontender to palpation. Bowel sounds are normoactive. EXTREMITIES: Without edema nor cyanosis. SKIN: Warm and dry. NEUROLOGIC: Focally intact. Speech is fluent. She is very pleasantly confused. ASSESSMENT: 1. An 89-year-old female with COVID-19 positive swab the last month from the [facility]. She remains totally asymptomatic. 2. Acute on chronic congestive diastolic heart failure, compensated. 3. Hypertension, hypertensive heart disease. 4. Paroxysmal atrial fibrillation. 5. Profound dementia with behavior issues that has been quiescent. PLAN: 1. Medications reviewed. 2. Await second negative swab, then we can plan on discharge to assisted living facility per family. MADISON GARCIA MD DR: NABILA/franc JOB#: [id number] / [id number]
--- NOTE | 2020-06-14 13:01 | PN ---
DATE: 06/14/2020 ADDENDUM After examining her, the patient came out and said she has some discomfort in the tip of the third finger of the left hand. I examined, she has a very small paronychias felon. There is a minimal amount of pus at the tip. Therefore, I recommended soaking in hot water and tried to express the pus. I would recommend trimming her fingernails with frame nailer and also Keflex 250 p.o. t.i.d. for 5 days. MADISON GARCIA MD DR: NABILA/franc JOB#: [id number] / [id number]
[2020-06-14] MEDS: ARIPiprazole 2 MG TABLET PO SCH (16:32)
[2020-06-14 19:35] VITALS: BP 142/62
[2020-06-14] MEDS: LORazepam 1 MG TABLET PO PRN (20:04)
[2020-06-14] MEDS: PATCH REMOVAL. MC SCH (21:00)
[2020-06-15] MEDS: LEVOTHYROXINE 100 MCG TABLET PO SCH (05:16)
[2020-06-15] MEDS: SERTRALINE 50 MG TABLET. PO SCH (08:44)
[2020-06-15] MEDS: ASPIRIN CHEWABLE 81 MG TABLET. PO SCH (08:44)
[2020-06-15] MEDS: METOPROLOL TART IMMED RELEASE 25 MG TABLET PO SCH ×2 (08:44→20:09)
[2020-06-15] MEDS: LISINOPRIL 10 MG TABLET PO SCH (08:44)
[2020-06-15] MEDS: PANTOPRAZOLE 40 MG TABLET. PO SCH (08:44)
[2020-06-15] MEDS: CEPHALEXIN 250 MG CAPSULE PO SCH ×3 (08:44→20:08)
[2020-06-15] MEDS: HYDROcodone/APAP 7.5/325MG 1 TAB TABLET PO PRN ×2 (08:44→20:10)
[2020-06-15 10:52] VITALS: BP 128/59
--- NOTE | 2020-06-15 10:59 | PN ---
DATE: 06/15/2020 ATTENDING PHYSICIAN: Dr. Garcia. SUBJECTIVE: The patient is doing well. She has no complaints. She is dressed in regular clothes. She is eating well. OBJECTIVE FINDINGS: VITAL SIGNS: Blood pressure today is 142/62 mmHg, pulse of 63 and regular, temperature of 98.7 degrees Fahrenheit, oxygen saturation 96% on room air. HEENT: Head is without trauma. Pupils are reactive. Sclerae nonicteric. Oropharynx is clear. NECK: Supple. LUNGS: Clear with good breath sounds. CARDIOVASCULAR: Showed regular heart tones. No gallops. ABDOMEN: Soft. EXTREMITIES: Showed improvement of the swelling of the third finger of the left hand. She had a paronychia identified. SKIN: Warm and dry. LABORATORY STUDIES: Fortunately, the patient now has 2 consecutive negative COVID-19 coronavirus swabs. ASSESSMENT: 1. An 89-year-old female with COVID-19 positive swabs from the [facility]. She is asymptomatic. 2. [id number] congestive heart failure, compensated. 3. Profound dementia with agitation. 4. Essential hypertension. 5. Paroxysmal atrial fibrillation. 6. Incidental finding of a paronychia, third finger, left hand. PLAN: 1. Continue antibiotics as ordered. 2. Medications reviewed. 3. She is now slated for PEG placement at [facility] on [facility] in [place], [place]. Tentative plans for discharge on Wednesday, they cannot take her this weekend. MADISON GARCIA MD DR: NABILA/franc JOB#: [id number] / [id number]
[2020-06-15] MEDS: LORazepam 1 MG TABLET PO PRN (14:59)
[2020-06-15] MEDS: ARIPiprazole 2 MG TABLET PO SCH (17:14)
[2020-06-15 19:37] VITALS: BP 165/65
[2020-06-15] MEDS: OLANZapine 5 MG TABLET PO PRN (20:09)
[2020-06-15] MEDS: PATCH REMOVAL. MC SCH (20:10)
[2020-06-16] MEDS: LORazepam 1 MG TABLET PO PRN ×2 (06:04→20:24)
[2020-06-16] MEDS: LEVOTHYROXINE 100 MCG TABLET PO SCH (06:04)
[2020-06-16] MEDS: HYDROcodone/APAP 7.5/325MG 1 TAB TABLET PO PRN (08:53)
[2020-06-16] MEDS: METOPROLOL TART IMMED RELEASE 25 MG TABLET PO SCH ×2 (08:53→20:24)
[2020-06-16] MEDS: CEPHALEXIN 250 MG CAPSULE PO SCH ×3 (08:53→20:24)
[2020-06-16] MEDS: LISINOPRIL 10 MG TABLET PO SCH (08:53)
[2020-06-16] MEDS: PANTOPRAZOLE 40 MG TABLET. PO SCH (08:53)
[2020-06-16] MEDS: ASPIRIN CHEWABLE 81 MG TABLET. PO SCH (08:53)
[2020-06-16] MEDS: SERTRALINE 50 MG TABLET. PO SCH (08:53)
[2020-06-16] MEDS: LIDOCAINE (700MG/PATCH) PATCH. TP SCH (09:00)
[2020-06-16 09:30] VITALS: BP 73/47
--- NOTE | 2020-06-16 11:21 | PN ---
DATE: 06/16/2020 ATTENDING PHYSICIAN: Dr. Garcia. SUBJECTIVE: No new complaints. She is comfortable. She is denying any pain or shortness of breath. OBJECTIVE FINDINGS: VITAL SIGNS: Her blood pressure is 160/65, pulse 58 and regular, temperature 98.3 degrees Fahrenheit, oxygen saturation 96% on room air. HEENT: Head is without trauma. Pupils are reactive. Sclerae nonicteric. Oropharynx is clear. NECK: Supple, no bruits. LUNGS: Otherwise clear. CARDIOVASCULAR: Showed regular heart tones. ABDOMEN: Soft. EXTREMITIES: Showed improvement in the swelling of the third finger of the left hand. SKIN: Warm and dry. LABORATORY STUDIES: She now has 2 consecutive negative COVID-19 coronavirus swabs. ASSESSMENT: 1. An 89-year-old female with COVID-19 positive swabs from the [facility]. She remained asymptomatic this past month. 2. Acute on chronic congestive heart failure, compensated. 3. Profound dementia with agitation. 4. Hypertension. 5. Paroxysmal atrial fibrillation. 6. Incidental finding of a paronychia third finger, left hand. PLAN: 1. Continue oral antibiotics. 2. Medications reviewed. 3. Tentative discharge plan is to the [facility] on [facility] in [place], [place] hopefully tomorrow. MADISON GARCIA MD DR: NABILA/franc JOB#: [id number] / [id number]
[2020-06-16] MEDS: ARIPiprazole 2 MG TABLET PO SCH (18:06)
[2020-06-16 19:33] VITALS: BP 158/73
[2020-06-16] MEDS: PATCH REMOVAL. MC SCH (21:00)
[2020-06-17] MEDS: LEVOTHYROXINE 100 MCG TABLET PO SCH (06:38)
[2020-06-17] MEDS: ALENDRONATE SODIUM 35 MG TABLET PO SCH (07:06)
[2020-06-17 07:29] VITALS: BP 127/58
[2020-06-17] MEDS: ASPIRIN CHEWABLE 81 MG TABLET. PO SCH (08:09)
[2020-06-17] MEDS: SERTRALINE 50 MG TABLET. PO SCH (08:10)
[2020-06-17] MEDS: CEPHALEXIN 250 MG CAPSULE PO SCH (08:10)
[2020-06-17] MEDS: POTASSIUM CHLORIDE 20 MEQ TABLET.ER. PO SCH (08:10)
[2020-06-17] MEDS: PANTOPRAZOLE 40 MG TABLET. PO SCH (08:10)
[2020-06-17 08:11] VITALS: BP 127/58
[2020-06-17] MEDS: METOPROLOL TART IMMED RELEASE 25 MG TABLET PO SCH (08:11)
[2020-06-17] MEDS: LISINOPRIL 10 MG TABLET PO SCH (08:11)
[2020-06-17] MEDS: LIDOCAINE (700MG/PATCH) PATCH. TP SCH (08:12)
--- NOTE | 2020-06-17 13:00 | DS ---
DATE OF DISCHARGE: 06/17/2020 ATTENDING PHYSICIAN: Dr. Garcia. FINAL DISCHARGE DIAGNOSES: 1. COVID-19 positive swabs from the [facility]. 2. She was asymptomatic from COVID infection. 3. Acute on chronic congestive heart failure, compensated. 4. Profound dementia with agitation. 5. Essential hypertension. 6. Paroxysmal atrial fibrillation, controlled ventricular rate. 7. Incidental finding of a paronychia of third finger, left hand. HISTORY AND PHYSICAL: This pleasant 89-year-old female has been treated with acute congestive heart failure, acute on chronic diastolic heart failure. She was sent to [facility] because of agitation, was sent back to the [facility]. She was up there for 2 weeks and was getting ready to be discharged. Unfortunately, there was exposure to COVID-19 coronavirus. She tested positive on a swab on 05/07/2020. She was sent down here for isolation and quarantine. PHYSICAL EXAMINATION: Please see the dictated note. PERTINENT LABORATORY AND X-RAY STUDIES: Are numerous. Prior to discharge, she had stable hemoglobin of 12.4 grams and white count was 5100. Electrolytes showed a sodium of 133 mEq/L, potassium 4.2. Creatinine is at baseline for 1.4 mg/dL. Multiple swabs were done, which were initially positive. Her last 2 swabs done on 06/12 and 06/13 were both negative. COURSE IN THE HOSPITAL: The patient was in quarantine for about 5 weeks when her results came back negative. She was taken out of quarantine and sent to the medical side. She remained asymptomatic. She had no fevers, chills or respiratory failure. She remained quite confused with good days and bad days. Because of the positive nature of the swabs until she had 2 negative consecutive swabs, she was kept here for quarantine. Finally on the 42 hospital day, arrangements were made for the patient to go to [facility] on [facility] in [place], [place]. I suspect this is Alzheimer's unit. Her discharge medicines include the following: She will continue her Tylenol, Fosamax weekly, Abilify 2 mg daily, aspirin 81 mg daily, Cymbalta 60 mg daily, Lasix 40 mg daily, hydrocodone p.r.n. pain, levothyroxine 100 mcg daily, Lidoderm patch daily, lisinopril 10 mg daily, milk of magnesia p.r.n., magnesium hydroxide p.r.n., metoprolol 25 mg b.i.d., Zyprexa 5 mg p.r.n., Protonix 40 mg daily, potassium 20 mEq daily. She is a DNR per advanced directives. Her prognosis is fair. The patient was then discharged from our hospital after 42 days to go to [facility] for continued convalescent care. MADISON GARCIA MD DR: NABILA/franc JOB#: [id number] / [id number] MIRELLA Castillo MD
== END 2020-06-17 11:00 | DRG 177 ==
LOC: 1 SOUTH 20:42
PROVIDERS: ADMIT Internal Medicine; ATTEND Internal Medicine
DX: U07.1 COVID-19 (principal); I50.33 Acute on chronic diastolic (congestive) heart failure; E87.1 Hypo-osmolality and hyponatremia; F02.81 Dementia in other diseases classified elsewhere, unspecified severity, with behavioral disturbance; F32.3 Major depressive disorder, single episode, severe with psychotic features; I13.0 Hypertensive heart and chronic kidney disease with heart failure and stage 1 through stage 4 chronic kidney disease, or unspecified chronic kidney disease; N18.4 Chronic kidney disease, stage 4 (severe); E44.0 Moderate protein-calorie malnutrition; F01.50 Vascular dementia, unspecified severity, without behavioral disturbance, psychotic disturbance, mood disturbance, and anxiety; F41.9 Anxiety disorder, unspecified; F63.9 Impulse disorder, unspecified; L03.012 Cellulitis of left finger; G30.9 Alzheimer's disease, unspecified; I48.0 Paroxysmal atrial fibrillation; R29.6 Repeated falls; S00.83XA Contusion of other part of head, initial encounter; Z79.01 Long term (current) use of anticoagulants; Z66 Do not resuscitate; Z79.82 Long term (current) use of aspirin; Z79.890 Hormone replacement therapy; Z79.899 Other long term (current) drug therapy; Z88.2 Allergy status to sulfonamides; W18.39XA Other fall on same level, initial encounter; Y93.89 Activity, other specified; Y92.89 Other specified places as the place of occurrence of the external cause; Y99.8 Other external cause status; Z68.23 Body mass index [BMI] 23.0-23.9, adult
CPT/HCPCS: 36415; 71045; 80048; 80053; 85025; 85027; J1650; U0003-CS